=== PATIENT | female | born 1940 | race Caucasian/White ===

== ENCOUNTER 2016-06-28 13:07 | Outpatient (RCR) | payer MEDICARE ==
[~2016-06-28 13:07] MED LIST: ACHD5005 PO; ACYC-109 PO; ALEN70TA2 PO; ALPR-114 PO; ASPI-892 PO; BUDE10.22 IH; CEPH500C PO; CHOL2000 PO; CLOP75TA PO; DCS100C PO; DEXL60CA5 PO; DICL75TA2 PO; DULO60CA58 PO; EST025TD TD; ESTR42.52 VG; FENO145T18 PO; FOLI1TAB6 PO; FURO20TA4 PO; FURO40TA4 PO; GABA300T PO; HYDR-3454 PO; JUICE PLUS PO; KCL20TCR PO; LEVO250T33 PO; LORA10TA7 PO; LVT.05T PO; METO25TA PO; OMEP20CA12 PO; PANT40TA PO; PRAV10TA23 PO; RMP2.5C PO; ROPI1TAB2 PO; ROPI2TAB4 PO; SCR1T PO; TRAM-21 PO; TRUBIOTICS PO; TRZ100T PO; ZOLP10TA PO; [UNRECOGNIZED DRUG - OTHER] PO
--- OUTSIDE RECORDS SUMMARY | 2016-06-28 13:10 | XMS REPORT | Continuity of Care Document ---
Author Author [facility] Organization [facility] Address Unknown Phone Unavailable Care Team Providers Care Rate Setter Name Role Phone Naa Araiza PCP [phone] Source Comments Some departments are not documenting in the electronic medical record. If you do not see the information that you expected, contact Release of Information in the Health Information Management department at [phone] for further assistance in locating additional records.[facility] Active Allergies and Adverse Reactions No Known Allergies Current Medications Prescription Sig. Disp. Refills Start End Date Status Date esomeprazole DR(+) Take 40 mg by mouth every Active (NEXIUM) 40 mg capsule morning. aspirin 81 mg chewable Take 81 mg by mouth Active tablet daily. traMADol (ULTRAM) 50 mg Take 100 mg by mouth Active tablet every 6 hours as needed. fenofibrate Take 145 mg by mouth Active nanocrystallized (TRICOR) daily. 145 mg tablet zolpidem (AMBIEN) 10 mg Take 10 mg by mouth at Active tablet bedtime as needed. cephalexin (KEFLEX) 500 Take 500 mg by mouth four Active mg capsule times daily. metoprolol XL (TOPROL XL) Take 25 mg by mouth Active 25 mg tablet daily. sertraline (ZOLOFT) 100 Take 100 mg by mouth Active mg tablet daily. levothyroxine (SYNTHROID) Take 50 mcg by mouth Active 25 mcg tablet daily. acyclovir (ZOVIRAX) 400 Take 400 mg by mouth Active mg tablet three times daily. clopiDOGrel (PLAVIX) 75 Take 75 mg by mouth Active mg tablet daily. docusate (COLACE) 100 mg Take 100 mg by mouth Active capsule twice daily. furosemide (LASIX) 20 mg Take 1 Tab by mouth 30 Tab 0 01/03/20 Active tablet daily. 14 potassium chloride SR Take 1 Tab by mouth 30 Tab 0 01/18/20 Active (K-DUR) 20 mEq tablet daily. 14 Active Problems Problem Noted Date History of TIA (transient ischemic attack) 12/15/2012 Arteriosclerotic heart disease (ASHD) 12/15/2012 Overview: PCI [facility]MB KENDRICK September HTN (hypertension) 12/15/2012 HLD (hyperlipidemia) 12/15/2012 COLBERT (dyspnea on exertion) 12/15/2012 Social History Tobacco Use Types Packs/Day Years Used Date Never Smoker Alcohol Use Drinks/Week oz/Week Comments Yes occassional Last Filed Vital Signs Vital Sign Reading Time Taken Blood Pressure 138/74 12/25/2012 3:30 PM CDT Pulse 69 12/25/2012 3:29 PM CDT Temperature - - Respiratory Rate - - Height 1.702 m (5' 7") 12/25/2012 3:29 PM CDT Weight 68.493 kg (151 lb) 12/25/2012 3:29 PM CDT Body Mass Index 23.64 12/25/2012 3:29 PM CDT Oxygen Saturation - - Plan of Care Health Maintenance Due Date Last Done Comments Physical (Comprehensive) 1945 Exam Pertussis Vaccine 1949 Tetanus Vaccine 10/06/1955 Breast Cancer Screening 1978 Shingles Vaccine 1998 Osteoporosis Screening 10/06/2003 Prevnar/Pneumovax (#1) 10/06/2003 Influenza Vaccine 12/10/2014 Results from Last 3 Months Not on file
[2016-06-28 13:31] LABS: BASOPHILS # (AUTO) 0.1 10^3/uL (0.0-0.1); BASOPHILS % (AUTO) 1 % (0-10); EOSINOPHILS # (AUTO) 0.3 10^3/uL (0.0-0.3); EOSINOPHILS % (AUTO) 5 % (0-10); LYMPHOCYTES % (AUTO) 17 % (12-44); MEAN CORPUSCULAR HEMOGLOBIN 32 PG (25-34); MEAN CORPUSCULAR HGB CONC 33 G/DL (32-36); MEAN CORPUSCULAR VOLUME 96 FL (80-99); MEAN PLATELET VOLUME 8.9 FL (7.4-10.4); MONOCYTES # (AUTO) 0.4 X 10^3 (0.0-1.0); MONOCYTES % (AUTO) 6 % (0-12); NEUTROPHILS # (AUTO) 4.2 X 10^3 (1.8-7.8); NEUTROPHILS % (AUTO) 71 % (42-75); PLATELET COUNT 330 10^3/uL (130-400); RED BLOOD COUNT 3.76 10^6/uL (4.35-5.85)
[2016-06-28 14:17] LABS: BILIRUBIN,TOTAL 0.6 MG/DL (0.1-1.0); CALCIUM 9.3 MG/DL (8.5-10.1); CREATININE SERUM 0.91 MG/DL (0.60-1.30); POTASSIUM 4.2 MMOL/L (3.6-5.0); TOTAL PROTEIN 6.5 G/DL (6.4-8.2)
== END 2016-09-26 | disposition home or self-care (01) ==
LOC: ONC 13:07
PROVIDERS: ATTEND Internal Medicine Hematology & Oncology
DX: D69.0 Allergic purpura (principal); D64.9 Anemia, unspecified; I25.10 Atherosclerotic heart disease of native coronary artery without angina pectoris; Z95.5 Presence of coronary angioplasty implant and graft; Z96.651 Presence of right artificial knee joint; Z96.652 Presence of left artificial knee joint; Z96.641 Presence of right artificial hip joint
CPT/HCPCS: 36415; 80053; 82728; 83540; 85025; 99214

== ENCOUNTER → 2016-08-30 | Outpatient (CLI) | payer MEDICARE ==
--- NOTE | 2016-08-30 17:24 | Diagnostic Imaging Report ---
Indication: Left-sided neck and back pain for three months. No known injury. Discussion: Three views of the cervical spine were obtained, no comparison. Atherosclerotic plaque is present within the bilateral carotid bifurcations. Advanced degenerative disc disease is noted at the C5-C6 level. Moderate facet arthropathy is noted diffusely throughout the cervical spine. No compression fracture or abnormal subluxation. Paraspinal soft tissues are otherwise unremarkable. Impression: 1. Degenerative changes of the cervical spine as discussed. No acute osseous abnormality identified. Dictated by: Dictated on workstation # [id number]
--- NOTE | 2016-08-30 17:45 | Diagnostic Imaging Report ---
INDICATION: Back pain, history of compression fracture. COMPARISON: 11/29/2013. FINDINGS: Three views of the thoracic column demonstrate kyphoplasty changes at the T10 level. There is a chronic T12 compression fracture. No new fracture or traumatic malalignment is present. Minimal degenerative changes are noted. IMPRESSION: 1. Stable T12 compression fracture. 2. Status post kyphoplasty T10. 3. No new fracture identified. Dictated by: Dictated on workstation # [id number]
== END ==
LOC: RAD 16:48
PROVIDERS: ATTEND Nurse Practitioner Family
DX: M50.322 Other cervical disc degeneration at C5-C6 level (principal); M48.54XA Collapsed vertebra, not elsewhere classified, thoracic region, initial encounter for fracture
CPT/HCPCS: 72040; 72072

== ENCOUNTER → 2016-10-22 | Outpatient (CLI) | payer MEDICARE ==
--- NOTE | 2016-10-22 16:31 | Diagnostic Imaging Report ---
INDICATION: Left shoulder pain. EXAMINATION: Three views of the left shoulder were obtained. FINDINGS: No fracture, dislocation or other acute abnormalities. There appears to be narrowing of the acromiohumeral space suggesting chronic rotator cuff pathology. IMPRESSION: Suspected chronic rotator cuff pathology. No acute abnormality is seen in the shoulder. Dictated by: Dictated on workstation # [id number]
== END ==
LOC: RAD 15:54
PROVIDERS: ATTEND Family Medicine
DX: M25.512 Pain in left shoulder (principal)
CPT/HCPCS: 73030

== ENCOUNTER 2017-03-07 14:16 | Outpatient (RCR) | payer MEDICARE | END 2017-04-14 09:27 | disposition home or self-care (01) | PROVIDERS: ATTEND Family Medicine | DX: S43.492A Other sprain of left shoulder joint, initial encounter (principal); X58.XXXA Exposure to other specified factors, initial encounter; M81.0 Age-related osteoporosis without current pathological fracture; Z86.73 Personal history of transient ischemic attack (TIA), and cerebral infarction without residual deficits ==

== ENCOUNTER → 2017-03-28 | Outpatient (CLI) | payer MEDICARE | LOC: LAB 09:37 | PROVIDERS: ATTEND Family Medicine | DX: D50.9 Iron deficiency anemia, unspecified (principal) | CPT/HCPCS: 82274 ==

== ENCOUNTER 2017-04-20 05:42 | Outpatient (CLI) | payer MEDICARE ==
[~2017-04-20] VITALS: Ht 170.2 cm; Wt 68.0 kg
[2017-04-20] MEDS ORDERED: LEVO50TA6 PO (10:57)
[2017-04-20] MEDS ORDERED: DULO60CA58 PO (10:57)
[2017-04-20] MEDS ORDERED: OXYB10TA PO (10:57)
[2017-04-20] MEDS ORDERED: ASPI-586 PO (10:57)
[2017-04-20] MEDS ORDERED: METO-387 PO (10:57)
[2017-04-20] MEDS ORDERED: ALPR-114 PO (10:57)
== END 2017-04-20 10:59 ==
LOC: PREOP 05:42
PROVIDERS: ATTEND Surgery
DX: Z01.818 Encounter for other preprocedural examination (principal); Z12.11 Encounter for screening for malignant neoplasm of colon; Z86.010 Personal history of colon polyps; D64.9 Anemia, unspecified; R13.10 Dysphagia, unspecified

== ENCOUNTER 2017-04-22 10:05 | Day surgery (SDC) | payer MEDICARE ==
[~2017-04-22] VITALS: Ht 170.2 cm; Wt 68.0 kg
[~2017-04-22 10:05] MED LIST changes: +ASPI-586 PO; +LEVO50TA6 PO; +METO-387 PO; +OXYB10TA PO
[2017-04-22 10:15] VITALS: BP 100/44
[2017-04-22] MEDS ORDERED: NS IV 500 ML 500 ML ONE (10:20)
[2017-04-22] MEDS ORDERED: fentaNYL INJECTION 100 MCG/2 ML AMP ONE (10:23)
[2017-04-22] MEDS ORDERED: LIDOCAINE JELLY 2% (XYLOCAINE) 5 ML TUBE ONE (10:23)
[2017-04-22] MEDS ORDERED: MIDAZOLAM 2 MG/2 ML (VERSED) VIAL ONE ×5 (10:23)
--- NOTE | 2017-04-22 10:23 | Conscious Sedation/ASA ---
Conscious Sedation Pre-Proced Time Reviewed: 10:20 ASA Class: 2 Airway Mallampati Classification: ([place] appropriate class) I. II. III, IV Lungs Heart ASA score ASA 1: a normal healthy patient ASA 2: a patient with a mild systemic disease (mid diabetes, controlled hypertension, obesity ASA 3: a patient with a severe systemic disease that limits activity (angina , COPD, prior Myocardial infarction) ASA 4: a patient with an incapacitating disease that is a constant threat to life (CHF, renal failure) ASA 5: a moribund patient not expected to survive 24 hrs. (ruptured aneurysm) ASA 6: a declared brain patient whose organs are being harvested. For emergent operations, add the letter E after the classification Grade 2 Sedation Plan: Analgesia, Amnesia, Plan communicated to team members, Discussed options with patient/fam, Discussed risks with patient/fam Note The patient is an appropriate candidate to undergo the planned procedure, sedation, and anesthesia. The patient immediately re-assessed prior to indication. KYLIE RHODES MD Apr 22, 2017 10:23 am
--- NOTE | 2017-04-22 10:23 | Progress Note-Pre Operative ---
Pre-Operative Progress Note H&P Reviewed The H&P was reviewed, patient examined and no changes noted. Date Seen by Provider: Apr 22, 2017 Time Seen by Provider: 10:20 Date H&P Reviewed: Apr 22, 2017 Time H&P Reviewed: :20 Pre-Operative Diagnosis: anemia, PUD, hx polyps KYLIE RHODES MD Apr 22, 2017 10:23 am
[2017-04-22] MEDS ORDERED: HURRICAINE EXT TUBE (BENZOCAINE) ONE (10:24)
[2017-04-22] MEDS ORDERED: morphine INJ 10 MG/ML 1ML (SYR OR VIAL) IV PRN (10:30)
[2017-04-22] MEDS ORDERED: HYDROcodone/APAP 5 MG/325 MG (LORTAB) TAB PO PRN (10:30)
[2017-04-22] MEDS ORDERED: ONDANSETRON 4 MG/2 ML (SDV) Z0FRAN IV PRN (10:30)
[2017-04-22] MEDS ORDERED: ACETAMINOPHEN 325 MG TABLET/CAPLET (TYLENOL) PO PRN (10:30)
[2017-04-22] MEDS ORDERED: NS IV 500 ML 500 ML IV PRN (10:37)
[2017-04-22] MEDS ORDERED: HURRICAINE EXT TUBE (BENZOCAINE) XX PRN (10:45)
[2017-04-22] MEDS ORDERED: LIDOCAINE JELLY 2% (XYLOCAINE) 5 ML TUBE MM PRN (10:45)
[2017-04-22] MEDS: MIDAZOLAM 2 MG/2 ML (VERSED) VIAL IVP PRN ×5 (10:50→11:16)
[2017-04-22] MEDS: fentaNYL INJECTION 100 MCG/2 ML AMP IVP PRN ×2 (10:53→11:10)
--- NOTE | 2017-04-22 11:36 | Progress Note-Post Operative ---
Post-Operative Progess Note Surgeon (s)/Linseed Cake Trimmer (s) Surgeon KYLIE RHODES MD Linseed Cake Trimmer: none Pre-Operative Diagnosis anemia, PUD, hx polyps Post-Operative Diagnosis reflux esophagitis(class B), large HH(5cm), mild-mod gastritis. chronic stage 2 ext and int hemorrhoids, mild sigmoid diverticulosis. Procedure & Operative Findings Date of Procedure 04/22/17 Procedure Performed/Findings EGD with bx. Colonoscopy. Anesthesia Type CS Estimated Blood Loss Estimated blood loss (mL): minimal Specimens/Packing Specimens Removed GE jxn, antrum KYLIE RHODES MD Apr 22, 2017 11:36 am
--- NOTE | 2017-04-22 11:38 | Discharge Inst-Surgical ---
D/C Lap Instructions-CARMELO Follow Up PRN Activity as tolerated High Fiber Diet 25g or more per day Avoid Alcohol, Caffeine, Spicy [place] and Acid foods. Drink 64 fluid oz or more of fluids per day. Symptoms to Report: Fever over 101 degree F, Nausea/Vomiting If any problems/questions: Contact your physician or go to Emergency Room KYLIE RHODES MD Apr 22, 2017 11:38 am
[2017-04-22 11:55] VITALS: BP 136/59
[2017-04-22 12:15] VITALS: BP 115/54
[2017-04-22 12:25] VITALS: BP 115/54
--- NOTE | 2017-04-22 20:15 | OPERATIVE REPORT ---
DATE OF SERVICE: 04/22/2017 ATTENDING PRIMARY CARE PHYSICIAN: Naa Araiza MD. PREOPERATIVE DIAGNOSES: Anemia, history of gastroesophageal reflux disease and peptic ulcer disease, history of colon polyp. POSTOPERATIVE DIAGNOSES: Reflux esophagitis class B, large hiatal hernia approximately 4 to 5 cm in size. Mild to moderate gastritis. Pylorus and duodenum appeared normal. No active bleeding. Chronic stage II external and internal hemorrhoids, mild sigmoid diverticulosis. The remainder of the colon was normal. PROCEDURE: EGD with biopsy, colonoscopy. SURGEON: Kylie Rhodes MD. ANESTHESIA: Conscious sedation. ESTIMATED BLOOD LOSS: Minimal. FINDINGS: EGD, reflux esophagitis class B. No ulcers or strictures. Large hiatal hernia approximately 5 cm in size, mild to moderate gastritis with no formal ulcers, polyps or any neoplasms as well as no active bleeding source was identified. Pylorus and duodenum appeared normal with no distal obstructions. Colonoscopy, chronic stage II external and internal hemorrhoids, not actively edematous nor inflamed and no bleeding. Mild or very early sigmoid diverticulosis. The remainder of the colon was normal. There were no polyps, neoplasms or any bleeding source was identified. DISPOSITION: The patient tolerated the procedure well. INDICATIONS: The patient is a 76-year-old female referred over to us for anemia, history of gastroesophageal reflux disease, peptic ulcer disease and dysphagia. She reported shortness of breath and laboratory work was performed, which showed hemoglobin 8.7. She then had repeat labs done, which did show slight elevation at 9.4. She does report a longstanding history of anemia diagnosed several years ago. She also has had a history of gastroesophageal reflux disease, peptic ulcer disease as well as dysphagia. She reports that she also has occasional episodes of regurgitation. She does not report any hematemesis, no coffee ground emesis. She does report that she has had a polyp, which was identified in 2014, which was biopsied and found to be benign. She does not report any red blood per rectum nor any dark tarry stools and also does not report any family history of colon cancer. DESCRIPTION OF PROCEDURE: The patient was brought to the endoscopy suite, laid in the left lateral decubitus position with the head slightly elevated. After adequate IV pain and sedating medications and conscious sedation anesthesia, the mouthpiece was applied. The endoscope was placed in the mouth, visualizing the pharynx and hypopharyngeal region. Vocal cords, epiglottis and vallecula identified and appeared to be normal. The endoscope was then gently intubated at the esophageal opening and esophagus insufflated. The endoscope was then advanced to the first, second and third portions of the esophagus. At the level of the GE junction, a reflux esophagitis class B identified. The GE junction was also intrathoracic consistent with a type 1 or 3 hiatal hernia. A biopsy was taken of the GE junction with forceps with visualization of good hemostasis. The endoscope was then easily advanced in the stomach. The endoscope retroflexed, visualizing a large hiatal hernia, which was approximately 5 cm in size. This appears to be more consistent with a type 3 hiatal hernia. There were no ulcerations or bleeding identified. There was a mild to moderate gastritis, which was more diffuse in nature. There were no formal ulcers, polyps or any neoplasms identified. A biopsy was taken of the stomach antrum with visualization of good hemostasis. The endoscope was then advanced to the pylorus and the first and second portions of the duodenum, which appeared normal with no ulcerations or bleeding source was identified as well as no distal obstructions. The endoscope was then slowly withdrawn while taking a second look and suctioning of residual air with no additional findings. The patient tolerated this portion of the procedure well. For her reflux esophagitis, hiatal hernia and gastritis, we will recommend the necessary lifestyle and diet accommodation including small and more frequent meals, avoidance of eating at night as well as head elevation while lying supine. If she does taking caffeinated beverages or alcoholic beverages, we will also recommend cessation of these products. She is currently on Nexium, which appears to be working well. With her history of coronary artery disease and pulmonary hypertension, we feel that she would be a slightly higher risk for hiatal hernia repair. We will continue with medical management for now. Under the same conscious sedation anesthesia, we then proceeded with the colonoscopy portion of the procedure. A digital rectal examination was performed, which revealed chronic stage II external and internal hemorrhoids, not actively edematous nor inflamed and no bleeding. Normal sphincter tone was felt and there were no palpable masses. The endoscope was then intubated into the anus and rectum and gently insufflated. The endoscope was then advanced through the valves of Gonzalez in the rectum with no polyps or any neoplasms identified. The endoscope was then advanced to the sigmoid colon where mild or early diverticulosis identified. There is no bleeding and no mucosal inflammatory changes or any bleeding identified. The endoscope was then advanced to the remainder of the descending, transverse and ascending colon to the cecum. These segments were normal. There were no polyps, inflammatory changes or any active bleeding source was identified. The endoscope was then slowly withdrawn while taking a second look and suctioning of residual air with no additional findings. The patient tolerated the procedure well. We will recommend a high fiber diet with at least 25 grams of fiber per day to promote soft stools on a daily basis. We will continue to monitor her hemoglobin for now. Job ID: [id number] DocumentID: [id number] Dictated Date: 04/22/2017 11:37:08 Database Admin Date: 04/22/2017 20:14:22 Dictated By: KYLIE RHODES MD MTDD
== END 2017-04-22 12:25 | disposition home or self-care (01) ==
LOC: ENDO 10:05
PROVIDERS: ATTEND Surgery
DX: Z12.11 Encounter for screening for malignant neoplasm of colon (principal); Z86.010 Personal history of colon polyps; K57.20 Diverticulitis of large intestine with perforation and abscess without bleeding; K64.1 Second degree hemorrhoids; K21.0 Gastro-esophageal reflux disease with esophagitis; K44.9 Diaphragmatic hernia without obstruction or gangrene; K29.70 Gastritis, unspecified, without bleeding; D50.9 Iron deficiency anemia, unspecified; I10 Essential (primary) hypertension; E03.9 Hypothyroidism, unspecified; I25.10 Atherosclerotic heart disease of native coronary artery without angina pectoris; M19.91 Primary osteoarthritis, unspecified site; I27.20 Pulmonary hypertension, unspecified; R60.0 Localized edema; Z79.82 Long term (current) use of aspirin; Z79.899 Other long term (current) drug therapy
CPT/HCPCS: 43239; G0105

== ENCOUNTER 2017-05-11 10:16 | Outpatient (RCR) | payer MEDICARE ==
[2017-04-13 13:18] LABS: BASOPHILS # (AUTO) 0.1 10^3/uL (0.0-0.1); BASOPHILS % (AUTO) 2 % (0-10); EOSINOPHILS # (AUTO) 0.2 10^3/uL (0.0-0.3); EOSINOPHILS % (AUTO) 4 % (0-10); HEMATOCRIT 32 % (35-52); HEMOGLOBIN 9.4 G/DL (11.5-16.0); LYMPHOCYTES # (AUTO) 0.9 X 10^3 (1.0-4.0); LYMPHOCYTES % (AUTO) 17 % (12-44); MEAN CORPUSCULAR HEMOGLOBIN 25 PG (25-34); MEAN CORPUSCULAR HGB CONC 30 G/DL (32-36); MEAN CORPUSCULAR VOLUME 84 FL (80-99); MEAN PLATELET VOLUME 9.2 FL (7.4-10.4); MONOCYTES # (AUTO) 0.4 X 10^3 (0.0-1.0); MONOCYTES % (AUTO) 8 % (0-12); NEUTROPHILS # (AUTO) 3.6 X 10^3 (1.8-7.8); NEUTROPHILS % (AUTO) 70 % (42-75); PLATELET COUNT 360 10^3/uL (130-400); RED BLOOD COUNT 3.74 10^6/uL (4.35-5.85); RED CELL DISTRIBUTION WIDTH 16.7 % (10.0-14.5); WHITE BLOOD COUNT 5.1 10^3/uL (4.3-11.0)
[2017-04-13 13:37] LABS: ALANINE AMINOTRANSFERASE 16 U/L (0-55); ALKALINE PHOSPHATASE 56 U/L (40-136); BILIRUBIN,TOTAL 0.5 MG/DL (0.1-1.0); BUN/CREATININE RATIO 24; CALCIUM 9.5 MG/DL (8.5-10.1); CARBON DIOXIDE 23 MMOL/L (21-32); CHLORIDE 108 MMOL/L (98-107); CREATININE SERUM 0.79 MG/DL (0.60-1.30); GFR ESTIMATED > 60; GLUCOSE 86 MG/DL (70-105); POTASSIUM 4.2 MMOL/L (3.6-5.0); SODIUM 141 MMOL/L (135-145); TOTAL PROTEIN 6.8 GM/DL (6.4-8.2)
[2017-05-11 10:44] LABS: BASOPHILS # (AUTO) 0.1 10^3/uL (0.0-0.1); BASOPHILS % (AUTO) 1 % (0-10); EOSINOPHILS # (AUTO) 0.2 10^3/uL (0.0-0.3); EOSINOPHILS % (AUTO) 2 % (0-10); HEMATOCRIT 40 % (35-52); HEMOGLOBIN 12.9 G/DL (11.5-16.0); LYMPHOCYTES # (AUTO) 0.9 X 10^3 (1.0-4.0); LYMPHOCYTES % (AUTO) 12 % (12-44); MEAN CORPUSCULAR HEMOGLOBIN 28 PG (25-34); MEAN CORPUSCULAR HGB CONC 33 G/DL (32-36); MEAN CORPUSCULAR VOLUME 87 FL (80-99); MEAN PLATELET VOLUME 9.4 FL (7.4-10.4); MONOCYTES # (AUTO) 0.5 X 10^3 (0.0-1.0); MONOCYTES % (AUTO) 7 % (0-12); NEUTROPHILS # (AUTO) 5.8 X 10^3 (1.8-7.8); NEUTROPHILS % (AUTO) 78 % (42-75); PLATELET COUNT 310 10^3/uL (130-400); RED BLOOD COUNT 4.57 10^6/uL (4.35-5.85); RED CELL DISTRIBUTION WIDTH 20.4 % (10.0-14.5); WHITE BLOOD COUNT 7.4 10^3/uL (4.3-11.0)
[2017-05-11 10:58] LABS: ALANINE AMINOTRANSFERASE 16 U/L (0-55); ALBUMIN 4.2 GM/DL (3.2-4.5); ALKALINE PHOSPHATASE 53 U/L (40-136); BILIRUBIN,TOTAL 0.5 MG/DL (0.1-1.0); BUN/CREATININE RATIO 19; CALCIUM 10.2 MG/DL (8.5-10.1); CARBON DIOXIDE 21 MMOL/L (21-32); CHLORIDE 108 MMOL/L (98-107); CREATININE SERUM 0.89 MG/DL (0.60-1.30); GFR ESTIMATED > 60; GLUCOSE 109 MG/DL (70-105); POTASSIUM 4.4 MMOL/L (3.6-5.0); SODIUM 141 MMOL/L (135-145); TOTAL PROTEIN 7.4 GM/DL (6.4-8.2)
== END 2017-07-12 | disposition home or self-care (01) ==
LOC: ONC 10:16
PROVIDERS: ATTEND Internal Medicine Hematology & Oncology
DX: D69.0 Allergic purpura (principal); D64.9 Anemia, unspecified; I25.10 Atherosclerotic heart disease of native coronary artery without angina pectoris; Z95.5 Presence of coronary angioplasty implant and graft; Z96.651 Presence of right artificial knee joint; Z96.652 Presence of left artificial knee joint; Z96.641 Presence of right artificial hip joint
CPT/HCPCS: 36415; 80053; 82607; 82728; 82746; 83540; 85025; 99213

== ENCOUNTER → 2017-06-30 | Outpatient (CLI) | payer MEDICARE ==
--- NOTE | 2017-06-30 17:42 | Diagnostic Imaging Report ---
INDICATION: Routine screening. COMPARISON: Comparison is made with prior mammogram from 01/03/2013. The current study was also evaluated with a Computer Aided Detection (CAD) system. FINDINGS: Bilateral breast implants are again noted. The implant contours appear smooth. No discrete mass is identified. Benign-appearing calcifications are noted bilaterally. There is a biopsy clip in the upper-outer left breast. No mass or malignant appearing microcalcifications are seen. The axillae are unremarkable. IMPRESSION: No mammographic features suspicious for malignancy are identified. ACR BI-RADS Category 2: Benign findings. Result letter will be mailed to the patient. Note: At least 10% of breast cancer is not imaged by mammography. Dictated by: Dictated on workstation # [id number]
== END ==
LOC: RAD 09:25
PROVIDERS: ATTEND Family Medicine
DX: Z12.31 Encounter for screening mammogram for malignant neoplasm of breast (principal); N64.4 Mastodynia
CPT/HCPCS: 77067

== ENCOUNTER 2017-08-03 13:15 | Outpatient (RCR) | payer MEDICARE ==
[2017-08-03 14:00] LABS: BASOPHILS # (AUTO) 0.1 10^3/uL (0.0-0.1); BASOPHILS % (AUTO) 1 % (0-10); EOSINOPHILS # (AUTO) 0.3 10^3/uL (0.0-0.3); EOSINOPHILS % (AUTO) 5 % (0-10); HEMATOCRIT 40 % (35-52); HEMOGLOBIN 13.5 G/DL (11.5-16.0); LYMPHOCYTES # (AUTO) 1.3 X 10^3 (1.0-4.0); LYMPHOCYTES % (AUTO) 24 % (12-44); MEAN CORPUSCULAR HEMOGLOBIN 31 PG (25-34); MEAN CORPUSCULAR HGB CONC 34 G/DL (32-36); MEAN CORPUSCULAR VOLUME 91 FL (80-99); MEAN PLATELET VOLUME 9.4 FL (7.4-10.4); MONOCYTES # (AUTO) 0.4 X 10^3 (0.0-1.0); MONOCYTES % (AUTO) 7 % (0-12); NEUTROPHILS # (AUTO) 3.3 X 10^3 (1.8-7.8); NEUTROPHILS % (AUTO) 63 % (42-75); PLATELET COUNT 304 10^3/uL (130-400); RED BLOOD COUNT 4.42 10^6/uL (4.35-5.85); RED CELL DISTRIBUTION WIDTH 14.7 % (10.0-14.5); WHITE BLOOD COUNT 5.3 10^3/uL (4.3-11.0)
[2017-08-03 14:15] LABS: ALANINE AMINOTRANSFERASE 8 U/L (0-55); ALBUMIN 4.1 GM/DL (3.2-4.5); ALKALINE PHOSPHATASE 57 U/L (40-136); BILIRUBIN,TOTAL 0.5 MG/DL (0.1-1.0); BUN/CREATININE RATIO 31; CALCIUM 10.1 MG/DL (8.5-10.1); CARBON DIOXIDE 22 MMOL/L (21-32); CHLORIDE 110 MMOL/L (98-107); CREATININE SERUM 0.86 MG/DL (0.60-1.30); GFR ESTIMATED > 60; GLUCOSE 87 MG/DL (70-105); POTASSIUM 4.5 MMOL/L (3.6-5.0); SODIUM 141 MMOL/L (135-145); TOTAL PROTEIN 6.9 GM/DL (6.4-8.2)
== END 2017-11-01 | disposition home or self-care (01) ==
LOC: ONC 13:15
PROVIDERS: ATTEND Internal Medicine Hematology & Oncology
DX: D50.9 Iron deficiency anemia, unspecified (principal); D69.0 Allergic purpura; I25.10 Atherosclerotic heart disease of native coronary artery without angina pectoris; I11.0 Hypertensive heart disease with heart failure; I50.32 Chronic diastolic (congestive) heart failure; I27.20 Pulmonary hypertension, unspecified; E78.5 Hyperlipidemia, unspecified; K21.9 Gastro-esophageal reflux disease without esophagitis; M19.91 Primary osteoarthritis, unspecified site; Z86.73 Personal history of transient ischemic attack (TIA), and cerebral infarction without residual deficits; Z79.82 Long term (current) use of aspirin; Z79.899 Other long term (current) drug therapy; Z98.82 Breast implant status; Z96.653 Presence of artificial knee joint, bilateral; Z95.5 Presence of coronary angioplasty implant and graft; Z96.641 Presence of right artificial hip joint
CPT/HCPCS: 36415; 80053; 82728; 85025; 99213

== ENCOUNTER 2017-11-16 08:11 | Outpatient (RCR) | payer MEDICARE ==
[2017-11-16 08:41] LABS: BASOPHILS # (AUTO) 0.1 10^3/uL (0.0-0.1); BASOPHILS % (AUTO) 2 % (0-10); EOSINOPHILS # (AUTO) 0.2 10^3/uL (0.0-0.3); EOSINOPHILS % (AUTO) 5 % (0-10); HEMATOCRIT 39 % (35-52); HEMOGLOBIN 13.4 G/DL (11.5-16.0); LYMPHOCYTES # (AUTO) 1.1 X 10^3 (1.0-4.0); LYMPHOCYTES % (AUTO) 25 % (12-44); MEAN CORPUSCULAR HEMOGLOBIN 32 PG (25-34); MEAN CORPUSCULAR HGB CONC 35 G/DL (32-36); MEAN CORPUSCULAR VOLUME 93 FL (80-99); MEAN PLATELET VOLUME 9.6 FL (7.4-10.4); MONOCYTES # (AUTO) 0.5 X 10^3 (0.0-1.0); MONOCYTES % (AUTO) 11 % (0-12); NEUTROPHILS # (AUTO) 2.6 X 10^3 (1.8-7.8); NEUTROPHILS % (AUTO) 57 % (42-75); PLATELET COUNT 306 10^3/uL (130-400); RED BLOOD COUNT 4.16 10^6/uL (4.35-5.85); RED CELL DISTRIBUTION WIDTH 13.4 % (10.0-14.5); WHITE BLOOD COUNT 4.5 10^3/uL (4.3-11.0)
[2017-11-16 09:01] LABS: ALANINE AMINOTRANSFERASE 20 U/L (0-55); ALBUMIN 4.2 GM/DL (3.2-4.5); ALKALINE PHOSPHATASE 49 U/L (40-136); BILIRUBIN,TOTAL 0.6 MG/DL (0.1-1.0); BUN/CREATININE RATIO 28; CALCIUM 10.6 MG/DL (8.5-10.1); CARBON DIOXIDE 23 MMOL/L (21-32); CHLORIDE 106 MMOL/L (98-107); CREATININE SERUM 0.87 MG/DL (0.60-1.30); GFR ESTIMATED > 60; GLUCOSE 94 MG/DL (70-105); POTASSIUM 4.6 MMOL/L (3.6-5.0); SODIUM 137 MMOL/L (135-145)
== END 2017-12-09 | disposition home or self-care (01) ==
LOC: ONC 08:11
PROVIDERS: ATTEND Internal Medicine Hematology & Oncology
DX: D50.9 Iron deficiency anemia, unspecified (principal); D69.0 Allergic purpura; I25.10 Atherosclerotic heart disease of native coronary artery without angina pectoris; I11.0 Hypertensive heart disease with heart failure; I50.32 Chronic diastolic (congestive) heart failure; I27.20 Pulmonary hypertension, unspecified; E78.5 Hyperlipidemia, unspecified; K21.9 Gastro-esophageal reflux disease without esophagitis; M19.91 Primary osteoarthritis, unspecified site; Z86.73 Personal history of transient ischemic attack (TIA), and cerebral infarction without residual deficits; Z79.82 Long term (current) use of aspirin; Z79.899 Other long term (current) drug therapy; Z98.82 Breast implant status; Z96.653 Presence of artificial knee joint, bilateral; Z95.5 Presence of coronary angioplasty implant and graft; Z96.641 Presence of right artificial hip joint
CPT/HCPCS: 80053; 82728; 84443; 85025; 99213

== ENCOUNTER → 2018-05-25 | Outpatient (CLI) | payer MEDICARE ==
[2018-05-25 10:03] LABS: BASOPHILS # (AUTO) 0.1 10^3/uL (0.0-0.1); BASOPHILS % (AUTO) 1 % (0-10); EOSINOPHILS # (AUTO) 0.1 10^3/uL (0.0-0.3); EOSINOPHILS % (AUTO) 1 % (0-10); HEMATOCRIT 38 % (35-52); HEMOGLOBIN 12.3 G/DL (11.5-16.0); LYMPHOCYTES # (AUTO) 1.1 X 10^3 (1.0-4.0); LYMPHOCYTES % (AUTO) 20 % (12-44); MEAN CORPUSCULAR HEMOGLOBIN 30 PG (25-34); MEAN CORPUSCULAR HGB CONC 33 G/DL (32-36); MEAN CORPUSCULAR VOLUME 91 FL (80-99); MEAN PLATELET VOLUME 9.3 FL (7.4-10.4); MONOCYTES # (AUTO) 0.4 X 10^3 (0.0-1.0); MONOCYTES % (AUTO) 8 % (0-12); NEUTROPHILS # (AUTO) 3.7 X 10^3 (1.8-7.8); NEUTROPHILS % (AUTO) 70 % (42-75); PLATELET COUNT 323 10^3/uL (130-400); RED CELL DISTRIBUTION WIDTH 14.8 % (10.0-14.5); WHITE BLOOD COUNT 5.3 10^3/uL (4.3-11.0)
[2018-05-25 10:25] LABS: ALANINE AMINOTRANSFERASE 32 U/L (0-55); ALBUMIN 4.1 GM/DL (3.2-4.5); ALKALINE PHOSPHATASE 45 U/L (40-136); BILIRUBIN,TOTAL 0.5 MG/DL (0.1-1.0); BUN/CREATININE RATIO 24; CALCIUM 9.6 MG/DL (8.5-10.1); CARBON DIOXIDE 23 MMOL/L (21-32); CHLORIDE 109 MMOL/L (98-107); CREATININE SERUM 0.83 MG/DL (0.60-1.30); GFR ESTIMATED > 60; GLUCOSE 96 MG/DL (70-105); POTASSIUM 4.4 MMOL/L (3.6-5.0); SODIUM 140 MMOL/L (135-145)
== END ==
LOC: EDSTATUS 01-09 09:23 → ONC 09:26
PROVIDERS: ATTEND Internal Medicine Hematology & Oncology
DX: D50.9 Iron deficiency anemia, unspecified (principal); D69.0 Allergic purpura; I25.10 Atherosclerotic heart disease of native coronary artery without angina pectoris; I11.0 Hypertensive heart disease with heart failure; I50.32 Chronic diastolic (congestive) heart failure; I27.20 Pulmonary hypertension, unspecified; E78.5 Hyperlipidemia, unspecified; K21.9 Gastro-esophageal reflux disease without esophagitis; M19.91 Primary osteoarthritis, unspecified site; Z86.73 Personal history of transient ischemic attack (TIA), and cerebral infarction without residual deficits; Z79.82 Long term (current) use of aspirin; Z79.899 Other long term (current) drug therapy; Z98.82 Breast implant status; Z96.653 Presence of artificial knee joint, bilateral; Z95.5 Presence of coronary angioplasty implant and graft; Z96.641 Presence of right artificial hip joint
CPT/HCPCS: 36415; 80053; 82728; 83540; 85025; 99213

== ENCOUNTER → 2019-12-05 | Outpatient (CLI) | payer MEDICARE ==
[~2019-12-05] MED LIST changes: +DULO60CA59 PO; -HYDR-3454 PO; +HYDR-3455 PO; -METO-387 PO; +MTP25TSR PO; -OXYB10TA PO; +OXYB10TA29 PO; -ROPI2TAB4 PO; +ROPI2TAB6 PO
--- NOTE | 2019-12-05 14:00 | Diagnostic Imaging Report ---
PROCEDURE: US carotid duplex, bilateral. TECHNIQUE: Multiple real-time grayscale images were obtained over the carotid arteries in various projections, bilaterally. Additional spectral analysis and color Doppler duplex images were also obtained. INDICATION: Carotid stenosis. Moderate plaque in both carotid bulbs extending into the proximal internal carotid arteries bilaterally is noted. Velocities are mildly elevated in the right internal carotid arteries reaching 177 cm/sec. Velocities are elevated in the left internal carotid artery reaching 218 cm/s Parameters based on the consensus panel Mcneal-Scale and Doppler ultrasound criteria published February 2003, Radiology, Volume 229. DOPPLER (peak systolic velocity M/S Right Left CCA 0.86 1.02. Both vertebral arteries show antegrade flow. IMPRESSION: Moderate bilateral carotid plaque. Velocity measurements are consistent with approximately 50-69% diameter stenosis bilateral internal carotid arteries. ICA Proximal 1.51 2.09 ICA Mid 1.42 2.18 ICA Distal 1.77 1.11 RATIO 2.05 2.14 ECA 1.98 1.60 VERT 0.69 0.57 Dictated by: Dictated on workstation # [id number]
== END ==
LOC: RAD 12:00
PROVIDERS: ATTEND Internal Medicine Cardiovascular Disease
DX: I65.23 Occlusion and stenosis of bilateral carotid arteries (principal)
CPT/HCPCS: 93880

== ENCOUNTER → 2020-08-27 | Outpatient (CLI) | payer MEDICARE ==
--- NOTE | 2020-08-27 16:51 | Diagnostic Imaging Report ---
PROCEDURE: US bilateral lower extremity arterial. TECHNIQUE: Multiple real-time grayscale images are obtained through both lower extremity arterial systems with color Doppler imaging and color Doppler spectral analysis. INDICATION: 79-year-old female with bilateral lower extremity claudication symptoms. CORRELATION STUDY: None. FINDINGS: There is no detectable flow within the distal aspect of the right posterior tibial artery at the level of the ankle. There is otherwise visualized flow at the ankle via the bilateral dorsalis pedis arteries and left posterior tibial artery. There are predominantly dampened biphasic waveforms throughout the arterial systems. There is very mild velocity change from the distal aspect of the superficial femoral artery into the popliteal artery at the left leg and may be reflective of mild narrowing. IMPRESSION: 1. Absence of detectable flow in the distal right posterior tibial artery. 2. Suggestion of slight velocity change from the distal aspect of superficial femoral artery to the popliteal artery of the left leg may be reflective of mild narrowing. Dictated by: Dictated on workstation # [id number]
== END ==
LOC: RAD 14:33
PROVIDERS: ATTEND Nurse Practitioner Family
DX: I73.9 Peripheral vascular disease, unspecified (principal)
CPT/HCPCS: 93925

== ENCOUNTER → 2021-02-02 | Outpatient (CLI) | payer MEDICARE ==
--- NOTE | 2021-02-02 15:52 | Diagnostic Imaging Report ---
INDICATION: LT ANKLE PAIN EDEMA DECREASED ROM S/P FALL ON 02/01/21. COMPARISON: None. FINDINGS: Three radiographic views of the left ankle were obtained. There is asymmetric lateral soft tissue swelling. Evaluation of the underlying osseous structures demonstrates extraosseous calcification overlying the lateral margins of the talus just distal to the fibular tip. Findings are suspicious for a talar avulsion fracture. Joint spaces are maintained. No unexpected radiopaque foreign bodies are seen. IMPRESSION: Probable acute talar avulsion fracture. Dictated by: Dictated on workstation # [id number]
== END ==
LOC: RAD 14:17
PROVIDERS: ATTEND Nurse Practitioner Family
DX: M25.572 Pain in left ankle and joints of left foot (principal); M25.472 Effusion, left ankle; W19.XXXA Unspecified fall, initial encounter
CPT/HCPCS: 73610

== ENCOUNTER 2021-05-21 16:51 | Observation (INO) | payer MEDICARE ==
[~2021-05-21] VITALS: Ht 170 cm; Wt 62.0 kg
[2021-05-21] MEDS ORDERED: HYDROmorphone 2 MG/ML VIAL (DILAUDID) IV ONE ×2 (17:00)
--- NOTE | 2021-05-21 17:00 | ED Lower Extremity ---
General Stated Complaint: R HIP PAIN Source: patient Exam Limitations: no limitations History of Present Illness Date Seen by Provider: May 21, 2021 Time Seen by Provider: 16:58 Initial Comments To ER with right hip pain. She arrives by EMS. She was at home sitting on the toilet when she stood up and twisted and felt a crunching sensation in the right hip. This was replaced about [address] Cabrera at [facility] in [place]. She did not fall, she sat back down on the toilet. EMS gave 100 mcg of fentanyl in route to the hospital which took her pain from a 10 out of 10 to a 7 out of 10. She has been unable to bear weight on the hip since the fall. Onset: just prior to arrival Severity: moderate Pain/Injury Location: right hip Method of Injury: twisted Modifying Factors: Worse With Movement Allergies and Home Medications Allergies Coded Allergies: Sulfa (Sulfonamide Antibiotics) (Verified Allergy, Unknown, 06/30/15) Patient Home Medication List Home Medication List Reviewed: Yes Alendronate Sodium (Alendronate Sodium) 70 Mg Tablet, 70 MG PO THUR, (Reported) Entered as Reported by: MAYELA GONZALEZ on 05/22/211011 Last Action: Converted Ascorbic Acid (Vitamin C) 500 Mg Tablet, 500 MG PO DAILY, (Reported) Entered as Reported by: MAYELA GONZALEZ on 05/22/211011 Last Action: Continued Aspirin (Aspirin) 81 Mg Tab.chew, 81 MG PO Q48H, (Reported) Entered as Reported by: MAYELA GONZALEZ on 05/22/211011 Last Action: Continued Cholecalciferol (Vitamin D3) (Vitamin D3) 25 Mcg Tablet, 25 MCG PO DAILY, (Reported) Entered as Reported by: MAYELA GONZALEZ on 05/22/211011 Last Action: Continued Cyanocobalamin (Vitamin B-12) (Vitamin B12) 2,500 Mcg Tablet, 2,500 MCG PO DAILY, (Reported) Entered as Reported by: MAYELA GONZALEZ on 05/22/211011 Last Action: Converted Cyclobenzaprine HCl (Cyclobenzaprine HCl) 5 Mg Tablet, 5-10 MG PO Q8H PRN for MUSCLE SPASMS, (Reported) Entered as Reported by: MAYELA GONZALEZ on 05/22/211011 Last Action: Converted Docusate Sodium (Docusate Sodium) 100 Mg Capsule, 200 MG PO HS, (Reported) Entered as Reported by: MAYELA GONZALEZ on 05/22/211011 Last Action: Continued Duloxetine HCl (Duloxetine HCl) 60 Mg Capsule.dr, 60 MG PO HS, (Reported) Entered as Reported by: JALEN FIGUEROA on 04/20/17 1057 Last Action: Converted Ferrous Sulfate (Iron) 325 Mg Tablet, 650 MG PO Q48H, (Reported) Entered as Reported by: MAYELA GONZALEZ on 05/22/211011 Last Action: Continued Levothyroxine Sodium (Euthyrox) 50 Mcg Tablet, 50 MCG PO DAILY, (Reported) Entered as Reported by: MAYELA GONZALEZ on 05/22/211011 Last Action: Continued Losartan/Hydrochlorothiazide (Losartan-Hctz 100-25 mg Tab) 1 Each Tablet, 1 EA PO HS, (Reported) Entered as Reported by: MAYELA GONZALEZ on 05/22/211011 Last Action: Converted Magnesium Oxide (Magnesium) 400 Mg Tablet, 400 MG PO HS, (Reported) Entered as Reported by: MAYELA GONZALEZ on 05/22/211011 Last Action: Converted Mirtazapine (Mirtazapine) 15 Mg Tablet, 15 MG PO HS, (Reported) Entered as Reported by: MAYELA GONZALEZ on 05/22/211011 Last Action: Converted Oxybutynin Chloride (Oxybutynin Chloride ER) 15 Mg Tab.er.24, 15 MG PO DAILY, (Reported) Entered as Reported by: MAYELA GONZALEZ on 05/22/211011 Last Action: Converted Pantoprazole Sodium (Pantoprazole Sodium) 40 Mg Tablet.dr, 40 MG PO DAILY, (Reported) Entered as Reported by: MAYELA GONZALEZ on 05/22/21 101 Last Action: Continued Ropinirole HCl (Ropinirole HCl) 2 Mg Tablet, 2 MG PO HS, (Reported) Entered as Reported by: JALEN FIGUEROA on 06/30/15 1228 Last Action: Converted Valacyclovir HCl (Valacyclovir) 500 Mg Tablet, 250 MG PO HS, (Reported) Entered as Reported by: MAYELA GONZALEZ on 05/22/211011 Last Action: Continued Discontinued Medications Alendronate Sodium (Fosamax) 70 Mg Tablet, 70 MG PO WEEKLY, (Reported) Discontinued Reason: Duplicate Order Entered as Reported by: JALEN FIGUEROA on 06/30/15 1228 Last Action: Discontinued Alprazolam (Alprazolam Xr) 0.5 Mg Tab.er.24h, 0.5 MG PO HS, (Reported) Discontinued Reason: Duplicate Order Entered as Reported by: JALEN FIGUEROA on 04/20/17 105 Last Action: Discontinued Aspirin (Aspir 81) 81 Mg Tablet., 81 MG PO MoWeFr, (Reported) Discontinued Reason: Duplicate Order Entered as Reported by: JALEN FIGUEROA on 04/20/17 105 Last Action: Discontinued Cholecalciferol (Vitamin D) 2,000 Unit Capsule, 2,000 UNIT PO DAILY, (Reported) Discontinued Reason: Duplicate Order Entered as Reported by: MICHAEL TURPIN on 06/04/14 1018 Last Action: Discontinued Dexlansoprazole (Dexilant) 60 Mg Davey., 60 MG PO DAILY, (Reported) Discontinued Reason: Duplicate Order Entered as Reported by: MICHAEL TURPIN on 06/04/14 1004 Last Action: Discontinued Docusate Sodium (Colace) 100 Mg Cap, 100 MG PO DAILY, (Reported) Discontinued Reason: Duplicate Order Entered as Reported by: MICHAEL TURPIN on 06/04/14 1012 Last Action: Discontinued Fenofibrate Nanocrystallized (Fenofibrate) 145 Mg Tablet, 145 MG PO HS, (Reported) Discontinued Reason: Duplicate Order Entered as Reported by: MICHAEL TURPIN on 06/04/14 1004 Last Action: Discontinued Folic Acid/Mv,Fe,Other Min (Centrum Complete Multivit Tab) 1 Each Tablet, 1 TAB PO DAILY, (Reported) Discontinued Reason: Duplicate Order Entered as Reported by: MICHAEL TURPIN on 06/04/14 1018 Last Action: Discontinued Furosemide (Furosemide) 40 Mg Tablet, 40 MG PO DAILY, (Reported) Discontinued Reason: Duplicate Order Entered as Reported by: JALEN FIGUEROA on 06/30/15 1228 Last Action: Discontinued Levothyroxine Sodium (Levothyroxine Sodium) 50 Mcg Tablet, 50 MCG PO DAILY, (Reported) Discontinued Reason: Duplicate Order Entered as Reported by: JALEN FIGUEROA on 1/10/18 1057 Last Action: Discontinued Loratadine (Loratadine) 10 Mg Tablet, 10 MG PO DAILY, (Reported) Discontinued Reason: Duplicate Order Entered as Reported by: MICHAEL TURPIN on 06/04/14 100 Last Action: Discontinued Metoprolol Succinate (Metoprolol Succinate) 25 Mg Tab.er.24h, 25 MG PO HS, (Reported) Discontinued Reason: Duplicate Order Entered as Reported by: JALEN FIGUEROA on 04/20/17 105 Last Action: Discontinued Oxybutynin Chloride (Oxybutynin Chloride ER) 10 Mg Tab.er.24, 10 MG PO DAILY, (Reported) Discontinued Reason: Duplicate Order Entered as Reported by: JALEN FIGUEROA on 04/20/171056 Last Action: Discontinued Potassium Chloride (K-Dur) 20 Meq Tab, 20 MEQ PO DAILY, (Reported) Discontinued Reason: Duplicate Order Entered as Reported by: MARILEE RIZO on 01/20/101920 Last Action: Discontinued Tramadol Hcl (Ultram) 50 Mg Tablet, 100 MG PO Q6 -8H PRN for PAIN, (Reported) Discontinued Reason: Duplicate Order Entered as Reported by: MICHAEL TURPIN on 06/04/14 101 Last Action: Discontinued Trazodone Hcl (Desyrel) 100 Mg Tablet, 100 MG PO HS, (Reported) Discontinued Reason: Duplicate Order Entered as Reported by: MICHAEL TURPIN on 06/04/141003 Last Action: Discontinued [Trubiotics] , 1 TAB PO DAILY, (Reported) Discontinued Reason: Duplicate Order Entered as Reported by: MICHAEL TURPIN on 06/04/141003 Last Action: Discontinued Review of Systems Constitutional: see HPI EENTM: see HPI Respiratory: no symptoms reported Cardiovascular: no symptoms reported Genitourinary: no symptoms reported Musculoskeletal: see HPI Skin: no symptoms reported Psychiatric/Neurological: No Symptoms Reported Past Pdczlbc-Mpxfhh-Rirpvq Hx Immunizations Up To Date Tetanus Booster (TDap): Less than 5yrs Seasonal Allergies Seasonal Allergies: No Past Medical History Coronary Stent, Gallbladder, Hysterectomy, Joint Replacement Coronary Artery Disease, Hypertension Neuropathy, TIA 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 0.0oz. 68.582117ci; 23.5 BMI Method:Stated General Appearance: WD/WN, no apparent distress HEENT: PERRL/EOMI, normal ENT inspection Neck: non-tender, full range of motion Respiratory: no respiratory distress, no accessory muscle use Hips: left hip non-tender, left hip normal inspection, left hip normal range of motion; right hip deformity (Right leg is internally rotated), right hip pain, right hip soft tissue tenderness, right hip swelling Legs: bilateral leg non-tender, bilateral leg normal inspection, bilateral leg normal range of motion Knees: bilateral knee non-tender, bilateral knee normal inspection, bilateral knee normal range of motion Ankles: bilateral ankle non-tender, bilateral ankle normal inspection, bilateral ankle normal range of motion Feet: bilateral foot non-tender, bilateral foot normal inspection, bilateral foot normal range of motion Neurologic/Psychiatric: alert, normal mood/affect, oriented x 3 Skin: normal color, warm/dry Progress/Results/Core Measures Results/Orders Lab Results Laboratory Tests Test 05/21/21 18:52 Range/Units White Blood Count 6.9 4.3-11.0 10^3/uL Red Blood Count 3.53 L 3.80-5.11 10^6/uL Hemoglobin 10.7 L 11.5-16.0 g/dL Hematocrit 32 L 35-52 % Mean Corpuscular Volume 92 80-99 fL Mean Corpuscular Hemoglobin 30 25-34 pg Mean Corpuscular Hemoglobin Concent 33 32-36 g/dL Red Cell Distribution Width 18.1 H 10.0-14.5 % Platelet Count 106 L 130-400 10^3/uL Mean Platelet Volume 10.3 9.0-12.2 fL Immature Granulocyte % (Auto) 1 % Neutrophils (%) (Auto) 85 H 42-75 % Lymphocytes (%) (Auto) 8 L 12-44 % Monocytes (%) (Auto) 4 0-12 % Eosinophils (%) (Auto) 2 0-10 % Basophils (%) (Auto) 0 0-10 % Neutrophils # (Auto) 5.9 1.8-7.8 10^3/uL Lymphocytes # (Auto) 0.6 L 1.0-4.0 10^3/uL Monocytes # (Auto) 0.3 0.0-1.0 10^3/uL Eosinophils # (Auto) 0.1 0.0-0.3 10^3/uL Basophils # (Auto) 0.0 0.0-0.1 10^3/uL Immature Granulocyte # (Auto) 0.0 0.0-0.1 10^3/uL Prothrombin Time 12.7 12.2-14.7 SEC INR Comment 0.9 0.8-1.4 Sodium Level 138 135-145 MMOL/L Potassium Level 3.8 3.6-5.0 MMOL/L Chloride Level 104 98-107 MMOL/L Carbon Dioxide Level 20 L 21-32 MMOL/L Anion Gap 14 5-14 MMOL/L Blood Urea Nitrogen 38 H 7-18 MG/DL Creatinine 1.32 H 0.60-1.30 MG/DL Estimat Glomerular Filtration Rate 40 BUN/Creatinine Ratio 29 Glucose Level 104 70-105 MG/DL Calcium Level 9.6 8.5-10.1 MG/DL Corrected Calcium 9.6 8.5-10.1 MG/DL Total Bilirubin 0.5 0.1-1.0 MG/DL Aspartate Amino Transf (AST/SGOT) 29 5-34 U/L Alanine Aminotransferase (ALT/SGPT) 23 0-55 U/L Alkaline Phosphatase 52 40-136 U/L Total Protein 7.1 6.4-8.2 GM/DL Albumin 4.0 3.2-4.5 GM/DL My Orders Orders - JOANNA MARTINO APRN Cbc With Automated Diff (05/21/21 16:57) Comprehensive Metabolic Panel (05/21/21 16:57) Protime With Inr (05/21/21 16:57) Chest 1 View, Ap/Pa Only (05/21/21 16:57) Pelvis With Right Hip 2-3views (05/21/21 16:57) Hydromorphone Injection (Dilaudid Inject (05/21/21 17:00) Hydromorphone Injection (Dilaudid Inject (05/21/21 17:00) Ns Iv 500 Ml (Sodium Chloride 0.9%) (05/21/21 17:45) Ondansetron Injection (Zofran Injectio (05/21/21 17:45) Etomidate Injection (Amidate Injection) (05/21/21 17:45) Fentanyl Inj (Sublimaze Injection) (05/21/21 18:04) Midazolam Injection (Versed Injection) (05/21/21 18:04) Fentanyl Inj (Sublimaze Injection) (05/21/21 18:45) Midazolam Injection (Versed Injection) (05/21/21 18:45) Abduction Pillow: Apply (Order (05/21/21 19:09) Marques Cath (05/21/21 19:09) Anesthesia Consult (05/21/21 19:37) Pelvis (05/21/21 20:03) Medications Given in ED Current Medications Medications Dose Ordered Sig/Arnav Route Start Time Stop Time Status Last Admin Dose Admin Etomidate 15 mg ONCE ONCE IV 05/21/21 17:45 05/21/21 17:47 DC 05/21/21 17:59 20 MG Fentanyl Citrate 50 mcg ONCE ONCE IVP 05/21/21 18:45 05/21/21 18:46 DC 05/21/21 18:10 50 MCG Fentanyl Citrate 100 mcg STK-MED ONCE .ROUTE 05/21/21 18:04 05/21/21 18:09 DC 05/21/21 18:07 50 MCG Hydromorphone HCl 0.5 mg ONCE ONCE IV 05/21/21 17:00 05/21/21 17:01 DC 05/21/21 17:05 0.5 MG Hydromorphone HCl 0.5 mg ONCE ONCE IV 05/21/21 17:00 05/21/21 17:01 DC 05/21/21 18:10 0.5 MG Midazolam HCl 2 mg ONCE ONCE IVP 05/21/21 18:45 05/21/21 18:46 DC 05/21/21 18:10 2 MG Midazolam HCl 5 mg STK-MED ONCE .ROUTE 05/21/21 18:04 05/21/21 18:09 DC 05/21/21 18:07 3 MG Ondansetron HCl 4 mg ONCE ONCE IVP 05/21/21 17:45 05/21/21 17:47 DC 05/21/21 17:52 4 MG Vital Signs/I&O 05/21/21 16:55 Temp 36.3 Pulse 87 Resp 18 B/P (MAP) 117/79 (92) Pulse Ox 98 Departure Communication (Admissions) Family Conversation 182-given her 20 mg of etomidate, 5 mg of Versed, 100 mcg of fentanyl and she is still having spasms of the hip keeping it flexed during attempted reduction with visible muscle spasms of the hip.. We have attempted reduction here in the emergency room unsuccessfully. Spoke with Dr. Chau who is on-call for orthopedics. He advised me that she is a Dr. Cabrera patient and he is only on- call for unassigned patients. Spoke with [facility] who has Dr. Hernandez on-call and they are on diversion and cannot accept her. Spoke with Dr. Chau again, he tells me he does not do total hips and wants to know what he is supposed to do if he cannot get this reduced either. I advised that he is orthopedics outreach liaison and I would defer to him on that. States that he disagrees with this but he will be in in an hour. 2010-Dr. Chau is here, Dr. Salinas is here. Patient was given [address] Chau was able to reduce the hip in the emergency room. Abduction pillow was placed. Dr. Chau would like the abduction pillow when she is in bed, pillow between the legs when she is up in her chair. Bathroom privileges as tolerated. Patient is awake at this time and feels quite a bit better. She lives at home alone and would feel better being admitted. This is certainly reasonable. NAME: MARIANA SALAZAR [facility] REC#: [id number] PT STATUS: REG ER : 1940 PHYSICIAN: JOANNA MARTINO APRN ADMIT DATE: 05/21/21/ER Draft Date of Exam:05/21/21 PELVIS WITH RIGHT HIP 2-3VIEWS EXAMINATION: Right hip unilateral 2 or 3 views (w/pelvis when done) HISTORY: right hip pain COMPARISON: 11/29/2013 FINDINGS: There is a dislocation of the right hip with the femoral head prosthesis displaced cranial to the acetabular cup. No fractures identified but postreduction imaging recommended. Linear densities at the pubic symphysis stable from previous imaging. The left hip demonstrate severe degenerative disease. IMPRESSION: 1. 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 Referrals: YIFAN RAIN MD (PCP/Family) Primary Care Physician JOANNA MARTINO APRN May 21, 2021 17:00
--- NOTE | 2021-05-21 17:39 | Diagnostic Imaging Report ---
EXAMINATION: Right hip unilateral 2 or 3 views (w/pelvis when done) HISTORY: right hip pain COMPARISON: 11/29/2013 FINDINGS: There is a dislocation of the right hip with the femoral head prosthesis displaced cranial to the acetabular cup. No fractures identified but postreduction imaging recommended. Linear densities at the pubic symphysis stable from previous imaging. The left hip demonstrate severe degenerative disease. IMPRESSION: 1. 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
[2021-05-21] MEDS ORDERED: ETOMIDATE IV SOLN 20 MG/10 ML VIAL IV ONE (17:45)
[2021-05-21] MEDS ORDERED: ONDANSETRON 4 MG/2 ML (SDV) Z0FRAN IVP ONE (17:45)
--- NOTE | 2021-05-21 17:45 | Diagnostic Imaging Report ---
INDICATION: Hip pain EXAMINATION: Chest 05/21/2021 FINDINGS: Single view chest There are patchy densities at the right lung base which could represent superimposed calcifications with infiltrates not excluded; correlate with symptoms. The remaining lungs clear. No pneumothorax or effusions. Heart and pulmonary vasculature normal. There is a moderate-sized hiatal hernia. IMPRESSION: 1. Possible infiltrate versus superimposed costochondral calcifications at the right lung base. Correlate with symptoms. 2. Hiatal hernia Dictated by: Dictated on workstation # [id number]
[2021-05-21] MEDS: NS IV 500 ML 500 ML IV SCH (17:55)
[2021-05-21] MEDS ORDERED: MIDAZOLAM 5 MG/5 ML (VERSED) VIAL ONE (18:04)
[2021-05-21] MEDS ORDERED: fentaNYL INJ 100 MCG/2 ML AMP ONE (18:04)
[2021-05-21] MEDS ORDERED: MIDAZOLAM 2 MG/2 ML (VERSED) VIAL IVP ONE (18:45)
[2021-05-21] MEDS ORDERED: fentaNYL INJ 100 MCG/2 ML AMP IVP ONE (18:45)
[2021-05-21 19:19] LABS: BASOPHILS % (AUTO) 0 % (0-10); EOSINOPHILS # (AUTO) 0.1 10^3/uL (0.0-0.3); EOSINOPHILS % (AUTO) 2 % (0-10); HEMATOCRIT 32 % (35-52); HEMOGLOBIN 10.7 g/dL (11.5-16.0); LYMPHOCYTES # (AUTO) 0.6 10^3/uL (1.0-4.0); LYMPHOCYTES % (AUTO) 8 % (12-44); MEAN CORPUSCULAR HEMOGLOBIN 30 pg (25-34); MEAN CORPUSCULAR HGB CONC 33 g/dL (32-36); MEAN CORPUSCULAR VOLUME 92 fL (80-99); MEAN PLATELET VOLUME 10.3 fL (9.0-12.2); MONOCYTES # (AUTO) 0.3 10^3/uL (0.0-1.0); MONOCYTES % (AUTO) 4 % (0-12); NEUTROPHILS # (AUTO) 5.9 10^3/uL (1.8-7.8); NEUTROPHILS % (AUTO) 85 % (42-75); PLATELET COUNT 106 10^3/uL (130-400); WHITE BLOOD COUNT 6.9 10^3/uL (4.3-11.0)
[2021-05-21 19:21] LABS: INR 0.9 (0.8-1.4); PROTHROMBIN TIME PATIENT 12.7 SEC (12.2-14.7)
[2021-05-21 19:29] LABS: BILIRUBIN,TOTAL 0.5 MG/DL (0.1-1.0); CALCIUM 9.6 MG/DL (8.5-10.1); CREATININE SERUM 1.32 MG/DL (0.60-1.30); POTASSIUM 3.8 MMOL/L (3.6-5.0); TOTAL PROTEIN 7.1 GM/DL (6.4-8.2)
--- NOTE | 2021-05-21 20:19 | Diagnostic Imaging Report ---
INDICATION: Status post reduction. EXAMINATION: Pelvis, 05/21/2021. COMPARISON: Same date at an earlier time. FINDINGS: Single view of the pelvis demonstrates interval reduction of the previously noted right hip dislocation. On this single view the hip prosthesis appears well aligned. The remaining pelvis unchanged. IMPRESSION: Better alignment of the right hip prosthesis. Dictated by: Dictated on workstation # [id number]
--- NOTE | 2021-05-21 20:21 | Anesthesia-General Post-Op ---
MAC Patient Condition Mental Status/LOC: Same as Preop Cardiovascular: Satisfactory Nausea/Vomiting: Absent Respiratory: Satisfactory Pain: Controlled Complications: Absent Post Op Complications Complications None Follow Up Care/Instructions Patient Instructions None needed. Anesthesiology Discharge Order Discharge Order Patient is doing well, no complaints, stable vital signs, no apparent adverse anesthesia problems. JOSE EDWARDS DO May 21, 2021 20:21
--- NOTE | 2021-05-21 20:36 | Consultation - Ortho ---
Consult - Ortho Subjective Date of Exam 05/21/21 Chief Complaint Dislocation right total hip HPI/Events since last exam Mrs. Vargas is an 80-year-old white female who dislocated her right total hip earlier today altering to get up off the toilet. She was brought to the emergency room where she evaluated and x-rayed noted to have a posterior superior dislocation of her right total hip. She had the total hip done 10 to [address] Cabrera at [place]. Since then she has had bilateral total knees by Dr. Inman. She has had no issues with her right total hip. She has had no right hip pain. She does have degenerative arthritis of the left hip but has not had a total hip. She has never had a dislocation of her right hip. She has not seen Dr. Cabrera or Dr. Inman recently. She denies any numbness or tingling in her foot. No other issues. Jacoby Blount attempted a reduction of her hip using Versed, fentanyl and etomidate. He was unable to reduce the dislocated hip. I came into evaluate the patient and attempt a reduction in the emergency room. Medical, Surgical History Reviewed and no additions or changes Social History Reviewed and no additions or change Family History Reviewed and no additions or change Review of Systems Reviewed and no additions or changes Allergies: Coded Allergies: Sulfa (Sulfonamide Antibiotics) (Verified Allergy, Unknown, 06/30/15) Home Meds Reported Medications Aspirin (Aspir 81) 81 Mg Tablet.dr, 81 MG PO MoWeFr, TAB 04/20/17 Oxybutynin Chloride (Oxybutynin Chloride ER) 10 Mg Tab.er.24, 10 MG PO DAILY, TAB 04/20/17 Alprazolam (Alprazolam Xr) 0.5 Mg Tab.er.24h, 0.5 MG PO HS, TAB 04/20/17 Metoprolol Succinate (Metoprolol Succinate) 25 Mg Tab.er.24h, 25 MG PO HS, TAB 04/20/17 Duloxetine HCl (Duloxetine HCl) 60 Mg Capsule.dr, 60 MG PO DAILY, CAP 04/20/17 Levothyroxine Sodium (Levothyroxine Sodium) 50 Mcg Tablet, 50 MCG PO DAILY, TAB 04/20/17 Alendronate Sodium (Fosamax) 70 Mg Tablet, 70 MG PO WEEKLY, TAB 06/30/15 Furosemide (Furosemide) 40 Mg Tablet, 40 MG PO DAILY, TAB 06/30/15 Ropinirole HCl (Ropinirole HCl) 2 Mg Tablet, 2 MG PO HS, TAB 06/30/15 Folic Acid/Mv,Fe,Other Min (Centrum Complete Multivit Tab) 1 Each Tablet, 1 TAB PO DAILY 06/04/14 Cholecalciferol (Vitamin D) 2,000 Unit Capsule, 2000 UNIT PO DAILY 06/04/14 Tramadol Hcl (Ultram) 50 Mg Tablet, 100 MG PO Q6 -8H PRN for PAIN 06/04/14 Docusate Sodium (Colace) 100 Mg Cap, 100 MG PO DAILY 06/04/14 Fenofibrate Nanocrystallized (Fenofibrate) 145 Mg Tablet, 145 MG PO HS 06/04/14 Trazodone Hcl (Desyrel) 100 Mg Tablet, 100 MG PO HS 06/04/14 [Trubiotics] No Conflict Check, 1 TAB PO DAILY 06/04/14 Loratadine (Loratadine) 10 Mg Tablet, 10 MG PO DAILY 06/04/14 Dexlansoprazole (Dexilant) 60 Mg Davey., 60 MG PO DAILY 06/04/14 Potassium Chloride (K-Dur) 20 Meq Tab, 20 MEQ PO DAILY 01/20/10 Objective Exam Constitutional: [] HEENT: [] Neck: [] Cardiovascular: [] Respiratory: [] Gastrointestinal: [] Genitourinary: [] Skin: [] Back/Spine: [] Extremities: [Exam of the right lower extremity shows shortening and internal rotation with a little bit of adduction. She has pain with palpation and gentle range of motion of the right hip. No pain at the knee. No pain at the ankle. She can dorsiflex and plantarflex the foot and ankle without pain or weakness. She has normal sensation to the foot and toes. Good capillary refill. Equal pulses] Neurologic: [] Psychiatric: [] Hematologic/lymphatic/immunologic: [] Vital Signs Vital Signs Date Time Temp Pulse Resp B/P (MAP) Pulse Ox O2 Delivery O2 Flow Rate FiO2 05/21/21 16:55 36.3 87 18 117/79 (92) 98 Lab Results Laboratory Tests 05/21/21 18:52: White Blood Count 6.9, Red Blood Count 3.53L, Hemoglobin 10.7L, Hematocrit 32L, Mean Corpuscular Volume 92, Mean Corpuscular Hemoglobin 30, Mean Corpuscular Hemoglobin Concent 33, Red Cell Distribution Width 18.1H, Platelet Count 106L, Mean Platelet Volume 10.3, Immature Granulocyte % (Auto) 1, Neutrophils (%) (Auto) 85H, Lymphocytes (%) (Auto) 8L, Monocytes (%) (Auto) 4, Eosinophils (%) (Auto) 2, Basophils (%) (Auto) 0, Neutrophils # (Auto) 5.9, Lymphocytes # (Auto) 0.6L, Monocytes # (Auto) 0.3, Eosinophils # (Auto) 0.1, Basophils # (Auto) 0.0, Immature Granulocyte # (Auto) 0.0, Prothrombin Time 12.7, INR Comment 0.9, Sodium Level 138, Potassium Level 3.8, Chloride Level 104, Carbon Dioxide Level 20L, Anion Gap 14, Blood Urea Nitrogen 38H, Creatinine 1.32H, Estimat Glomerular Filtration Rate 40, BUN/Creatinine Ratio 29, Glucose Level 104, Calcium Level 9.6, Corrected Calcium 9.6, Total Bilirubin 0.5, Aspartate Amino Transf ( AST/SGOT) 29, Alanine Aminotransferase (ALT/SGPT) 23, Alkaline Phosphatase 52, Total Protein 7.1, Albumin 4.0 Imaging X-rays were reviewed which shows a superior dislocation of the hip that I am assuming is posterior is no lateral was obtained. But with the position of the leg this is a posterior superior dislocation. No evidence of fracture or loosening is noted. Assessment and Plan Assessment Posterior superior dislocation right total hip without evidence of loosening or fracture Problem List Same Plan Treatment options were discussed with the patient and her family. Jacoby and I both talked to Dr. Salinas Who is in-house and he stated [facility] and we will try reduction under propofol sedation. I did talk with the family and the patient that she may have a fracture of her liner that could prevent this from reduction. If we do get it reduced it may not occur again or she may have recurrent dislocations that may require revision of her hip. There also is potential for fracture of the femur during reduction. She understands the procedure risk complications and would like to proceed. She did sign a consent. Dr. Salinas started an IV and gave her 120 mg of propofol IV. We then attempted reduction with pressure on the iliac crest and hip flexed to 90 with adduction and internal rotation with Direct pull anteriorly. This did not reduce the hip. I then attempted reduction with the same position but in longitudinal direction without hip flexion it did not reduced. We went back to the initial technique and the hip reduced. It was found to be stable after reduction. Leg position was equal external rotation in length. Patient had equal pulses. Postreduction x-ray showed the right hip was reduced.There was no evidence of fracture or loosening post reduction. She was placed in an abduction pillow. Dr. Crum will admit her to observation with possible discharge tomorrow. Again I talked to the patient and the family and they understand that she could have recurrent dislocations that require revision. Post reduction when the patient was more awake she could dorsiflex plantarflex the foot and ankle without weakness and had normal sensation to the foot and toes and equal pulses. She will follow up with Dr. Cabrera in 7 to 10 days or sooner if she has problems Final Diagonsis Posterior superior dislocation right total hip status post closed reduction Level of the visit: Level 3 ERIC ANGEL MD May 21, 2021 20:36
[2021-05-21] MEDS ORDERED: diphenhydrAMINE 25 MG TAB (BENADRYL) PO PRN (21:15)
[2021-05-21] MEDS ORDERED: MELATONIN 3 MG TABLET PO PRN (21:15)
[2021-05-21] MEDS ORDERED: polyethylene glycoL POWDER 17 GM (MIRALAX) PACK PO PRN (21:15)
[2021-05-21] MEDS ORDERED: ONDANSETRON 4 MG/2 ML (SDV) Z0FRAN IV PRN (21:15)
[2021-05-21] MEDS ORDERED: CYCLOBENZAPRINE 10 MG (FLEXERIL) TAB PO PRN (21:15)
[2021-05-21] MEDS ORDERED: ACETAMINOPHEN 325 MG TABLET PO PRN (21:15)
[2021-05-21] MEDS ORDERED: CALCIUM CARBONATE 500 MG (TUMS) TAB.CHEW PO PRN (21:15)
[2021-05-21] MEDS ORDERED: ENOXAPARIN 40 MG/0.4 ML (LOVENOX) SYR SC SCH (21:15)
[2021-05-21] MEDS ORDERED: ALPRAZolam 0.25 MG (XANAX) TAB PO PRN (21:15)
[2021-05-21] MEDS ORDERED: BISACODYL 10 MG SUPP (DULCOLAX) PR PRN (21:15)
[2021-05-21] MEDS ORDERED: LACTULOSE SYRUP 10GM/15ML (ENULOSE) 30ML UDC PO PRN (21:15)
[2021-05-21] MEDS ORDERED: ANTACID SUSP 30 ML UDC (MYLANTA) PO PRN (21:15)
[2021-05-21] MEDS ORDERED: diphenhydrAMINE 50 MG/ML INJ (BENADRYL) IVP PRN (21:15)
[2021-05-21] MEDS ORDERED: MILK OF MAGNESIA 400 MG/5 ML 30 ML UDC PO PRN (21:15)
[2021-05-21] MEDS ORDERED: ONDANSETRON 4 MG (ZOFRAN) ORAL DISSOLVE TAB PO PRN (21:15)
[2021-05-21] MEDS ORDERED: NALOXONE 0.4 MG/ML 1 ML (NARCAN) VIAL IV PRN (21:15)
[2021-05-21] MEDS ORDERED: morphine INJ 4 MG/ML 1 ML (VIAL/SYRINGE) IV PRN (21:15)
[2021-05-21 21:30] VITALS: BP 156/69
[2021-05-21] MEDS ORDERED: RT-ALBUTEROL SULF 2.5 MG/3 ML PRE-MIX VIAL INH PRN (22:00)
[2021-05-21] MEDS: NS IV 1000 ML 1,000 ML IV SCH (22:44)
[2021-05-22] VITALS: BP 118/60
[2021-05-22 04:00] VITALS: BP 112/55
[2021-05-22 06:46] LABS: BASOPHILS % (AUTO) 1 % (0-10); EOSINOPHILS # (AUTO) 0.4 10^3/uL (0.0-0.3); EOSINOPHILS % (AUTO) 7 % (0-10); HEMATOCRIT 32 % (35-52); HEMOGLOBIN 10.4 g/dL (11.5-16.0); LYMPHOCYTES # (AUTO) 1.5 10^3/uL (1.0-4.0); LYMPHOCYTES % (AUTO) 25 % (12-44); MEAN CORPUSCULAR HEMOGLOBIN 30 pg (25-34); MEAN CORPUSCULAR HGB CONC 33 g/dL (32-36); MEAN CORPUSCULAR VOLUME 91 fL (80-99); MEAN PLATELET VOLUME 9.1 fL (9.0-12.2); MONOCYTES # (AUTO) 0.6 10^3/uL (0.0-1.0); MONOCYTES % (AUTO) 10 % (0-12); NEUTROPHILS # (AUTO) 3.6 10^3/uL (1.8-7.8); NEUTROPHILS % (AUTO) 58 % (42-75); PLATELET COUNT 254 10^3/uL (130-400); WHITE BLOOD COUNT 6.2 10^3/uL (4.3-11.0)
[2021-05-22 07:07] LABS: ALBUMIN 3.4 GM/DL (3.2-4.5); BILIRUBIN,TOTAL 0.4 MG/DL (0.1-1.0); CALCIUM 8.9 MG/DL (8.5-10.1); CREATININE SERUM 1.16 MG/DL (0.60-1.30); POTASSIUM 3.9 MMOL/L (3.6-5.0)
[2021-05-22 07:51] VITALS: BP 123/59
[2021-05-22] MEDS ORDERED: PANTOPRAZOLE 40 MG (PROTONIX) TAB PO SCH (09:00)
[2021-05-22] MEDS ORDERED: DULoxetine 30 MG (CYMBALTA) CAP PO SCH (09:00)
[2021-05-22] MEDS ORDERED: DOCUSATE SODIUM 100 MG (COLACE) CAP PO SCH ×2 (09:00→21:00)
[2021-05-22] MEDS ORDERED: VALACYCLOVIR 500 MG TAB (VALTREX) PO SCH (09:00)
[2021-05-22] MEDS ORDERED: SENNOSIDES 8.6 MG (SENOKOT) TAB PO SCH (09:00)
[2021-05-22] MEDS ORDERED: LOSA1TAB23 PO (10:12)
[2021-05-22] MEDS ORDERED: ALEN70TA80 PO (10:12)
[2021-05-22] MEDS ORDERED: ASCO500T17 PO (10:12)
[2021-05-22] MEDS ORDERED: FERR-84 PO (10:12)
[2021-05-22] MEDS ORDERED: CHOL-34 PO (10:12)
[2021-05-22] MEDS ORDERED: MAGN400T39 PO (10:12)
[2021-05-22] MEDS ORDERED: MIRT-68 PO (10:12)
[2021-05-22] MEDS ORDERED: ASPI-999 PO (10:12)
[2021-05-22] MEDS ORDERED: OXYB15TA19 PO (10:12)
[2021-05-22] MEDS ORDERED: VALA500T7 PO (10:12)
[2021-05-22] MEDS ORDERED: CYCL5TAB PO (10:12)
[2021-05-22] MEDS ORDERED: CYAN250010 PO (10:12)
[2021-05-22] MEDS ORDERED: DOCU100C37 PO (10:12)
[2021-05-22] MEDS ORDERED: LEVO-129 PO (10:12)
[2021-05-22] MEDS ORDERED: PANT40TA52 PO (10:14)
--- NOTE | 2021-05-22 11:00 | Occupational Therapy Eval ---
OT Evaluation-General/PLF Medical Diagnosis Admission Date May 21, 2021 at 20:18 Medical Diagnosis: R hip dislocation Onset Date: May 21, 2021 Therapy Diagnosis Therapy Diagnosis: decreased ADL status Height/Weight Height (Feet): 5 Height (Inches): 7.00 Weight (Pounds): 150 Weight (Ounces): 0.0 Precautions Precautions/Isolations: Fall Prevention, Standard Precautions Comments R hip precautions Referral Physician: Radames Referral Reason: Evaluation/Treatment Medical History Additional Medical History CAD with stents, HTN, neuropathy, GERD, GI bleed, TIA, hypothyroidism, depression, renal failure, R hip replacement ~10 years ago Current History ED via EMS, stood from toilet, twisted and felt crunching sensation in R hip. Pt dislocated R hip, reduced in ED. Social History Home: Single Level Current Living Status: Alone ADL-Prior Level of Function SCALE: Activities may be completed with or without assistive devices. 6-Vlkbgqichj-yoweqnc completes the activity by him/herself with no assistance from a helper. 5-Set-up or Clean-up Assistance-helper sets up or cleans up; patient completes activity. [place] assists only prior to or following the activity. 4-Supervision or Touching Assistance-helper provides verbal cues and/or touching/steadying and/or contact guard assistance as patient completes a ctivity. Assistance may be provided throughout the activity or intermittently. 3-Partial/Moderate Assistance-helper does LESS THAN HALF the effort. [place] lifts, holds or supports trunk or limbs, but provides less than half the effort. 2-Substantial/Maximal Assistance-helper does MORE THAN HALF the effort. [place] lifts or holds trunk or limbs and provides more than half the effort. 0-Filnzusrn-lflusr does ALL the effort. Patient does none of the effort to complete the activity. Or, the assistance of 2 or more helpers is required for the patient to complete the activity. If activity was not attempted, code reason: 7-Patient Refused. 9-Not Applicable-not attempted and the patient did not perform the activity before the current illness, exacerbation or injury. 10-Not Attempted due to Environmental Limitations-(lack of equipment, weather restraints, etc.). 88-Not Attempted due to Medical Conditions or Safety Concerns. ADL PLOF Comments Pt reports IND with ADLs and functional mobility at PLOF, no AD/AE Self Care: Independent Functional Cognition: Independent DME/Equipment: Tub/Shower OT Current Status Subjective Pt up in recliner, agreeable to OT evaluation/tx. Pt states she just took a walk with PT. Mental Status/Objective Patient Orientation: Person, Place, Situation Current Upper Extremity ROM WFL BUEs Upper Extremity Strength grossly 3+/5 ADL-Treatment Eating (QC): 6 Oral Hygiene (QC): 5 (per clinical judgment) On/Off Footwear (QC): 1 (Per clinical judgment.) Other Treatments Pt in recliner, agreeable to OT evaluation. Pt provided information about PLOF and home set up and participated in UE screen. Pt and family educated on AE for LE dressing, extended bath bench, and BSC over toilet. Pt declined ADLs at this time as she is tired from walking with PT. Post tx, pt in recliner, call light in reach and all needs met, physician present. Education OT Patient Education: Correct positioning, Energy conservation, Modified ADL techniques, Progress toward Goal/Update tx plan, Purpose of tx/functional activities, Rehab process Teaching Recipient: Patient Teaching Methods: Discussion Response to Teaching: Verbalize Understanding OT Nursing Home Goals Nursing Home Goals Time Frame: Jun 05, 2021 Eating (QC): 6 Oral Hygiene (QC): 6 Toileting Hygiene (QC): 6 Shower/Bathe Self (QC): 6 Upper Body Dressing (QC): 6 Lower Body Dressing (QC): 6 On/Off Footwear (QC): 6 Additional Goals: 1-Demonstrate ADL Tasks, 2-Verbalize Understanding, 3- ImproveStrength/[place] 1=Demonstrate adherence to instructed precautions during ADL tasks. 2=Patient will verbalize/demonstrate understanding of assistive devices/modifications for ADL. 3=Patient will improve strength/tolerance for activity to enable patient to perform ADL's. OT Education/Plan Problem List/Assessment Assessment: Decreased Activ Tolerance, Decreased UE Strength, Impaired Funct Balance, Impaired I ADL's, Impaired Self-Care Skills Discharge Recommendations Plan/Recommendations: Continue POC Equpiment Recommendations-D/C: Extended Bath Bench, Hip Kit Treatment Plan/Plan of Care Patient would benefit from OT for education, treatment and training to promote independence in ADL's, mobility, safety and/or upper extremity function for ADL's. Plan of Care: ADL Retraining, Functional Mobility, UE Funct Exercise/Act Treatment Duration: Jun 05, 2021 Frequency: 3 times per week (3-5 times per week) Estimated Hrs Per Day: .25 hour per day Agreement: Yes Rehab Potential: Good Time/GCodes Start Time: 10:40 Stop Time: 10:57 Total Time Billed (hr/min): 17 Billed Treatment Time 1, ASHWIN VIRK OT May 22, 2021 11:00
[2021-05-22] MEDS: NS IV 500 ML 500 ML IV SCH (11:09)
[2021-05-22] MEDS ORDERED: CYCLOBENZAPRINE PO PRN (11:45)
[2021-05-22] MEDS ORDERED: NON-FORMULARY MEDICATION 1 EA EA (Alendronate Sodium 70 MG) PO SCH (11:45)
--- NOTE | 2021-05-22 11:52 | History & Physical ---
MARGUERITE AMBROSE 05/22/21 1152: History of Present Illness History of Present Illness Reason for visit/HPI CC: Right Posterior Hip Dislocation HPI: Mirian Vargas is an 80yoWF who presented to [place] ED on the evening of 05/21/21 with right hip pain following an attempt to mobilize from the toilet. She endorses hearing an audible "pop" sound along with immediate pain in the right hip and buttock area. The pain did not radiate. She gently maneuvered hers elf to the floor and was able to navigate to a nearby window where she called for help. Her neighbor found her and called the ambulance. In the ED the patient was found to have a posterior superior right hip dislocation of a previous total hip arthroplasty completed approximately [address] Cabrera at [facility] Dr. Chau was consulted and performed a closed reduction of the right hip successfully without any immediate complications. The patient maintained sensation and motor function throughout the entirety of the right lower limb prior to and after reduction maneuvers. An incidental hiatal hernia was noted on the CXR obtained in the ED. Patient lives at home by herself with minimal assistance and was walking without assistance prior to this incident. She would like to return home when safe; however, she is interested in rehabiliation options. We feel she would be a good candidate for inpatient rehab. Date of Admission May 21, 2021 at 20:18 Date Seen by a Provider: May 22, 2021 Time Seen by a Provider: 09:30 I consulted on this patient on 05/22/21 11:44 Attending Physician Shana Carney DO Admitting Physician Carlos Manuel Ro MD Consult Allergies and Home Medications Allergies Coded Allergies: Sulfa (Sulfonamide Antibiotics) (Verified Allergy, Unknown, 06/30/15) Patient Home Medication List Home Medication List Reviewed: Yes Alendronate Sodium (Alendronate Sodium) 70 Mg Tablet, 70 MG PO THUR, (Reported) Entered as Reported by: MAYELA GONZALEZ on 05/22/21 1012 Last Action: Converted Ascorbic Acid (Vitamin C) 500 Mg Tablet, 500 MG PO DAILY, (Reported) Entered as Reported by: MAYELA GONZALEZ on 05/22/21 1012 Last Action: Continued Aspirin (Aspirin) 81 Mg Tab.chew, 81 MG PO Q48H, (Reported) Entered as Reported by: MAYELA GONZALEZ on 05/22/211011 Last Action: Continued Cholecalciferol (Vitamin D3) (Vitamin D3) 25 Mcg Tablet, 25 MCG PO DAILY, (Reported) Entered as Reported by: MAYELA GONZALEZ on 05/22/211011 Last Action: Continued Cyanocobalamin (Vitamin B-12) (Vitamin B12) 2,500 Mcg Tablet, 2,500 MCG PO DAILY, (Reported) Entered as Reported by: MAYELA GONZALEZ on 05/22/211011 Last Action: Converted Cyclobenzaprine HCl (Cyclobenzaprine HCl) 5 Mg Tablet, 5-10 MG PO Q8H PRN for MUSCLE SPASMS, (Reported) Entered as Reported by: MAYELA GONZALEZ on 05/22/211011 Last Action: Converted Docusate Sodium (Docusate Sodium) 100 Mg Capsule, 200 MG PO HS, (Reported) Entered as Reported by: MAYELA GONZALEZ on 05/22/211011 Last Action: Continued Duloxetine HCl (Duloxetine HCl) 60 Mg Capsule.dr, 60 MG PO HS, (Reported) Entered as Reported by: JALEN FIGUEROA on 04/20/17 1057 Last Action: Converted Ferrous Sulfate (Iron) 325 Mg Tablet, 650 MG PO Q48H, (Reported) Entered as Reported by: MAYELA GONZALEZ on 05/22/211011 Last Action: Continued Levothyroxine Sodium (Euthyrox) 50 Mcg Tablet, 50 MCG PO DAILY, (Reported) Entered as Reported by: MAYELA GONZALEZ on 05/22/211011 Last Action: Continued Losartan/Hydrochlorothiazide (Losartan-Hctz 100-25 mg Tab) 1 Each Tablet, 1 EA PO HS, (Reported) Entered as Reported by: MAYELA GONZALEZ on 05/22/211011 Last Action: Converted Magnesium Oxide (Magnesium) 400 Mg Tablet, 400 MG PO HS, (Reported) Entered as Reported by: MAYELA GONZALEZ on 05/22/211011 Last Action: Converted Mirtazapine (Mirtazapine) 15 Mg Tablet, 15 MG PO HS, (Reported) Entered as Reported by: MAYELA GONZALEZ on 05/22/211011 Last Action: Converted Oxybutynin Chloride (Oxybutynin Chloride ER) 15 Mg Tab.er.24, 15 MG PO DAILY, (Reported) Entered as Reported by: MAYELA GONZALEZ on 05/22/21 1012 Last Action: Converted Pantoprazole Sodium (Pantoprazole Sodium) 40 Mg Tablet., 40 MG PO DAILY, (Reported) Entered as Reported by: MAYELA GONZALEZ on 05/22/21 1014 Last Action: Continued Ropinirole HCl (Ropinirole HCl) 2 Mg Tablet, 2 MG PO HS, (Reported) Entered as Reported by: JALEN FIGUEROA on 06/30/15 1228 Last Action: Converted Valacyclovir HCl (Valacyclovir) 500 Mg Tablet, 250 MG PO HS, (Reported) Entered as Reported by: MAYELA GONZALEZ on 05/22/21 101 Last Action: Continued Discontinued Medications Alendronate Sodium (Fosamax) 70 Mg Tablet, 70 MG PO WEEKLY, (Reported) Discontinued Reason: Duplicate Order Entered as Reported by: JALEN FIGUEROA on 06/30/15 1228 Last Action: Discontinued Alprazolam (Alprazolam Xr) 0.5 Mg Tab.er.24h, 0.5 MG PO HS, (Reported) Discontinued Reason: Duplicate Order Entered as Reported by: JALEN FIGUEROA on 04/20/17 1057 Last Action: Discontinued Aspirin (Aspir 81) 81 Mg Tablet., 81 MG PO MoWeFr, (Reported) Discontinued Reason: Duplicate Order Entered as Reported by: JALEN FIGUEROA on 04/20/17 1057 Last Action: Discontinued Cholecalciferol (Vitamin D) 2,000 Unit Capsule, 2,000 UNIT PO DAILY, (Reported) Discontinued Reason: Duplicate Order Entered as Reported by: MICHAEL TURPIN on 06/04/14 1018 Last Action: Discontinued Dexlansoprazole (Dexilant) 60 Mg Cap., 60 MG PO DAILY, (Reported) Discontinued Reason: Duplicate Order Entered as Reported by: MICHAEL TURPIN on 06/04/14 1004 Last Action: Discontinued Docusate Sodium (Colace) 100 Mg Cap, 100 MG PO DAILY, (Reported) Discontinued Reason: Duplicate Order Entered as Reported by: MICHAEL TURPIN on 06/04/14 1012 Last Action: Discontinued Fenofibrate Nanocrystallized (Fenofibrate) 145 Mg Tablet, 145 MG PO HS, (Repo rted) Discontinued Reason: Duplicate Order Entered as Reported by: MICHAEL TURPIN on 06/04/14 1004 Last Action: Discontinued Folic Acid/Mv,Fe,Other Min (Centrum Complete Multivit Tab) 1 Each Tablet, 1 TAB PO DAILY, (Reported) Discontinued Reason: Duplicate Order Entered as Reported by: MICHAEL TURPIN on 06/04/14 1018 Last Action: Discontinued Furosemide (Furosemide) 40 Mg Tablet, 40 MG PO DAILY, (Reported) Discontinued Reason: Duplicate Order Entered as Reported by: JALEN FIGUEROA on 06/30/15 1228 Last Action: Discontinued Levothyroxine Sodium (Levothyroxine Sodium) 50 Mcg Tablet, 50 MCG PO DAILY, (Reported) Discontinued Reason: Duplicate Order Entered as Reported by: JALEN FIGUEROA on 04/20/17 105 Last Action: Discontinued Loratadine (Loratadine) 10 Mg Tablet, 10 MG PO DAILY, (Reported) Discontinued Reason: Duplicate Order Entered as Reported by: MICHAEL TURPIN on 06/04/14 1004 Last Action: Discontinued Metoprolol Succinate (Metoprolol Succinate) 25 Mg Tab.er.24h, 25 MG PO HS, (Reported) Discontinued Reason: Duplicate Order Entered as Reported by: JALEN FIGUEROA on 04/20/17 1057 Last Action: Discontinued Oxybutynin Chloride (Oxybutynin Chloride ER) 10 Mg Tab.er.24, 10 MG PO DAILY, (Reported) Discontinued Reason: Duplicate Order Entered as Reported by: JALEN FIGUEROA on 04/20/17 1057 Last Action: Discontinued Potassium Chloride (K-Dur) 20 Meq Tab, 20 MEQ PO DAILY, (Reported) Discontinued Reason: Duplicate Order Entered as Reported by: MARILEE RIZO on 01/20/10 192 Last Action: Discontinued Tramadol Hcl (Ultram) 50 Mg Tablet, 100 MG PO Q6 -8H PRN for PAIN, (Reported) Discontinued Reason: Duplicate Order Entered as Reported by: MICHAEL TURPIN on 06/04/14 1014 Last Action: Discontinued Trazodone Hcl (Desyrel) 100 Mg Tablet, 100 MG PO HS, (Reported) Discontinued Reason: Duplicate Order Entered as Reported by: MICHAEL TURPIN on 06/04/14 1004 Last Action: Discontinued [Trubiotics] , 1 TAB PO DAILY, (Reported) Discontinued Reason: Duplicate Order Entered as Reported by: MICHAEL TURPIN on 06/04/14 1004 Last Action: Discontinued Past Wpnroha-Bfcsil-Uxpuoo Hx Patient Social History Tobacco Use?: No Use of E-Cig and/or Vaping dev: No Substance use?: No Alcohol Use?: Yes Alcohol type: Beer Alcohol Frequency: Once in a while Pt feels they are or have been: No Immunizations Up To Date Date of Influenza Vaccine: Jan 09, 2015 First/Initial COVID19 Vaccinat: 2020 Second COVID19 Vaccination Wilbur: 2020 Date of Pneumonia Vaccine: Feb 09, 2010 Seasonal Allergies Seasonal Allergies: No Current Status status: No status: No Advance Directives: Yes Communicates: Verbally Primary Language: Hungarian Preferred Spoken Language: Hungarian Is interpretation needed?: No Implanted or Applied Medical D: Stents Past Medical History Surgeries: Coronary Stent, Gallbladder, Hysterectomy, Joint Replacement Coronary Artery Disease, Hypertension Neuropathy, TIA [employer] History: Hysterectomy Renal Failure, UTI-Chronic Gastroesophageal Reflux, Gastrointestinal Bleed, Polyps, Ulcer Osteoporosis, Arthritis, Back Injury, Chronic Back Pain Hypothyroidsim Depression Adverse Reaction/Blood Tranf: No Family Medical History No Pertinent Family Hx Review of Systems Constitutional: no symptoms reported EENTM: no symptoms reported Respiratory: No cough; dyspnea on exertion; No short of breath Cardiovascular: no symptoms reported; No chest pain Gastrointestinal: abdominal pain (RUQ) Genitourinary: no symptoms reported Musculoskeletal: see HPI Skin: no symptoms reported Psychiatric/Neurological: No Symptoms Reported Physical Exam Vital Signs Vital Signs - First Documented 05/21/21 05/21/21 16:55 19:50 Temp 36.3 Pulse 87 Resp 18 B/P (MAP) 117/79 (92) Pulse Ox 98 O2 Delivery Room Air Capillary Refill : Less Than 3 Seconds Height, Weight, BMI Height: 5'7.00" Weight: 150lbs. 0.0oz. 68.578430lp; 21.45 BMI Method:Stated General Appearance: No Apparent Distress, WD/WN HEENT: PERRL/EOMI, Pharynx Normal, Moist Mucous Membranes Neck: Full Range of Motion, Normal Inspection, Non Tender, Supple Respiratory: Chest Non Tender, Lungs Clear, Normal Breath Sounds, No Accessory Muscle Use, No Respiratory Distress Cardiovascular: Regular Rate, Rhythm, No Edema, No Gallop, No JVD, No Murmur, Normal Peripheral Pulses Gastrointestinal: No Organomegaly, Soft, Tenderness (mild, RUQ) Rectal: Deferred Back: Normal Inspection Extremity: Normal Capillary Refill, Normal Inspection (patient in abduction pillow), Non Tender, Calf Tenderness (mild right calf tenderness) Neurologic/Psychiatric: Alert, Oriented x3, No Motor/Sensory Deficits, Normal 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, 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 Norm as Tested Skin: Normal Color, Warm/Dry Lymphatic: No Adenopathy Assessment/Plan Assessment and Plan Assessment: Right Hip Dislocation Hx Right Total Hip Arthroplasty Debility Hx Right Total Knee Arthroplasty Hx Left Total Knee Arthroplasty Osteoporosis Hiatal Hernia HTN Hypothryoidism Chronic Anemia Hx of Low GFR Restless Leg Syndrome Gastroesophageal Reflux Disease Plan: s/p Closed Reduction of Right Hip on 05/21/21 Orthopedics managing hip precautions PT/OT Will transfer patient to inpatient rehab for debility Problems: (1) Hip dislocation, right Status: Acute (2) History of total right hip arthroplasty (3) Osteoporosis (4) Hiatal hernia (5) History of total left knee replacement (TKR) (6) History of total right knee replacement (TKR) (7) Hypothyroidism (8) Chronic anemia (9) Restless leg syndrome (10) GERD (gastroesophageal reflux disease) Admission Diagnosis Right Posterior Superior Hip Dislocation s/p Closed Reduction Admission Status: Observation CARNEYSHANA DO 05/23/21 0537: History of Present Illness History of Present Illness Reason for visit/HPI Chief complaint: Right hip pain status post dislocation History of present illness: This is an 80-year-old white female who presented to the ER with severe right hip pain after she was sitting on the commode and felt a pop. She was found to have a dislocated hip which required Dr. Chau to reduce it. Currently she is needing assistance in order to regain enough function to live independently. Allergies and Home Medications Allergies Coded Allergies: Sulfa (Sulfonamide Antibiotics) (Verified Allergy, Unknown, 06/30/15) Patient Home Medication List Home Medication List Reviewed: Yes Alendronate Sodium (Alendronate Sodium) 70 Mg Tablet, 70 MG PO THUR, (Reported) Entered as Reported by: MAYELA GONZALEZ on 05/22/21 1012 Last Action: Converted Ascorbic Acid (Vitamin C) 500 Mg Tablet, 500 MG PO DAILY, (Reported) Entered as Reported by: MAYELA GONZALEZ on 05/22/211011 Last Action: Continued Aspirin (Aspirin) 81 Mg Tab.chew, 81 MG PO Q48H, (Reported) Entered as Reported by: MAYELA GONZALEZ on 05/22/211011 Last Action: Continued Cholecalciferol (Vitamin D3) (Vitamin D3) 25 Mcg Tablet, 25 MCG PO DAILY, (Reported) Entered as Reported by: MAYELA GONZALEZ on 05/22/211011 Last Action: Continued Cyanocobalamin (Vitamin B-12) (Vitamin B12) 2,500 Mcg Tablet, 2,500 MCG PO DAILY, (Reported) Entered as Reported by: MAYELA GONZALEZ on 05/22/211011 Last Action: Converted Cyclobenzaprine HCl (Cyclobenzaprine HCl) 5 Mg Tablet, 5-10 MG PO Q8H PRN for MUSCLE SPASMS, (Reported) Entered as Reported by: MAYELA GONZALEZ on 05/22/211011 Last Action: Converted Docusate Sodium (Docusate Sodium) 100 Mg Capsule, 200 MG PO HS, (Reported) Entered as Reported by: MAYELA GONZALEZ on 05/22/211011 Last Action: Continued Duloxetine HCl (Duloxetine HCl) 60 Mg Capsule.dr, 60 MG PO HS, (Reported) Entered as Reported by: JALEN FIGUEROA on 04/20/17 1057 Last Action: Converted Ferrous Sulfate (Iron) 325 Mg Tablet, 650 MG PO Q48H, (Reported) Entered as Reported by: MAYELA GONZALEZ on 05/22/211011 Last Action: Continued Levothyroxine Sodium (Euthyrox) 50 Mcg Tablet, 50 MCG PO DAILY, (Reported) Entered as Reported by: MAYELA GONZALEZ on 05/22/211011 Last Action: Continued Losartan/Hydrochlorothiazide (Losartan-Hctz 100-25 mg Tab) 1 Each Tablet, 1 EA PO HS, (Reported) Entered as Reported by: MAYELA GONZALEZ on 05/22/211011 Last Action: Converted Magnesium Oxide (Magnesium) 400 Mg Tablet, 400 MG PO HS, (Reported) Entered as Reported by: MAYELA GONZALEZ on 05/22/211011 Last Action: Converted Mirtazapine (Mirtazapine) 15 Mg Tablet, 15 MG PO HS, (Reported) Entered as Reported by: MAYELA GONZALEZ on 05/22/21 101 Last Action: Converted Oxybutynin Chloride (Oxybutynin Chloride ER) 15 Mg Tab.er.24, 15 MG PO DAILY, (Reported) Entered as Reported by: MAYELA GONZALEZ on 05/22/21 101 Last Action: Converted Pantoprazole Sodium (Pantoprazole Sodium) 40 Mg Tablet., 40 MG PO DAILY, (Reported) Entered as Reported by: MAYELA GONZALEZ on 05/22/21 101 Last Action: Continued Ropinirole HCl (Ropinirole HCl) 2 Mg Tablet, 2 MG PO HS, (Reported) Entered as Reported by: JALEN FIGUEROA on 06/30/15 1228 Last Action: Converted Valacyclovir HCl (Valacyclovir) 500 Mg Tablet, 250 MG PO HS, (Reported) Entered as Reported by: MAYELA GONZALEZ on 05/22/21 101 Last Action: Continued Discontinued Medications Alendronate Sodium (Fosamax) 70 Mg Tablet, 70 MG PO WEEKLY, (Reported) Discontinued Reason: Duplicate Order Entered as Reported by: JALEN FIGUEROA on 06/30/158 Last Action: Discontinued Alprazolam (Alprazolam Xr) 0.5 Mg Tab.er.24h, 0.5 MG PO HS, (Reported) Discontinued Reason: Duplicate Order Entered as Reported by: JALEN FIGUEROA on 04/20/17 1057 Last Action: Discontinued Aspirin (Aspir 81) 81 Mg Tablet., 81 MG PO MoWeFr, (Reported) Discontinued Reason: Duplicate Order Entered as Reported by: JALEN FIGUEROA on 04/20/17 105 Last Action: Discontinued Cholecalciferol (Vitamin D) 2,000 Unit Capsule, 2,000 UNIT PO DAILY, (Reported) Discontinued Reason: Duplicate Order Entered as Reported by: MICHAEL TURPIN on 06/04/14 1018 Last Action: Discontinued Dexlansoprazole (Dexilant) 60 Mg Cap., 60 MG PO DAILY, (Reported) Discontinued Reason: Duplicate Order Entered as Reported by: MICHAEL TURPIN on 06/04/14 1004 Last Action: Discontinued Docusate Sodium (Colace) 100 Mg Cap, 100 MG PO DAILY, (Reported) Discontinued Reason: Duplicate Order Entered as Reported by: MICHAEL TURPIN on 06/04/14 1012 Last Action: Discontinued Fenofibrate Nanocrystallized (Fenofibrate) 145 Mg Tablet, 145 MG PO HS, (Reported) Discontinued Reason: Duplicate Order Entered as Reported by: MICHAEL TURPIN on 06/04/14 1004 Last Action: Discontinued Folic Acid/Mv,Fe,Other Min (Centrum Complete Multivit Tab) 1 Each Tablet, 1 TAB PO DAILY, (Reported) Discontinued Reason: Duplicate Order Entered as Reported by: MICHAEL TURPIN on 06/04/14 1018 Last Action: Discontinued Furosemide (Furosemide) 40 Mg Tablet, 40 MG PO DAILY, (Reported) Discontinued Reason: Duplicate Order Entered as Reported by: JALEN FIGUEROA on 06/30/15 1228 Last Action: Discontinued Levothyroxine Sodium (Levothyroxine Sodium) 50 Mcg Tablet, 50 MCG PO DAILY, (Reported) Discontinued Reason: Duplicate Order Entered as Reported by: JALEN FIGUEROA on 04/20/17 105 Last Action: Discontinued Loratadine (Loratadine) 10 Mg Tablet, 10 MG PO DAILY, (Reported) Discontinued Reason: Duplicate Order Entered as Reported by: MICHAEL TURPIN on 06/04/14 1004 Last Action: Discontinued Metoprolol Succinate (Metoprolol Succinate) 25 Mg Tab.er.24h, 25 MG PO HS, (Reported) Discontinued Reason: Duplicate Order Entered as Reported by: JALEN FIGUEROA on 04/20/17 105 Last Action: Discontinued Oxybutynin Chloride (Oxybutynin Chloride ER) 10 Mg Tab.er.24, 10 MG PO DAILY, (Reported) Discontinued Reason: Duplicate Order Entered as Reported by: JALEN FIGUEROA on 04/20/17 105 Last Action: Discontinued Potassium Chloride (K-Dur) 20 Meq Tab, 20 MEQ PO DAILY, (Reported) Discontinued Reason: Duplicate Order Entered as Reported by: MARILEE RIZO on 01/20/10 192 Last Action: Discontinued Tramadol Hcl (Ultram) 50 Mg Tablet, 100 MG PO Q6 -8H PRN for PAIN, (Reported) Discontinued Reason: Duplicate Order Entered as Reported by: MICHAEL TURPIN on 06/04/14 1014 Last Action: Discontinued Trazodone Hcl (Desyrel) 100 Mg Tablet, 100 MG PO HS, (Reported) Discontinued Reason: Duplicate Order Entered as Reported by: MICHAEL TURPIN on 06/04/141003 Last Action: Discontinued [Trubiotics] , 1 TAB PO DAILY, (Reported) Discontinued Reason: Duplicate Order Entered as Reported by: MICHAEL TURPIN on 06/04/141003 Last Action: Discontinued Past Rvkykhs-Nawins-Rivbzg Hx Patient Social History Marrital Status: single Employed/Student: retired Past Medical History Surgeries: Orthopedic High Cholesterol, Hypertension Neuropathy Bladder Infection Degenerate Disk Disease, Arthritis Review of Systems Constitutional: see HPI Physical Exam General Appearance: No Apparent Distress, WD/WN, Chronically ill Respiratory: Lungs Clear, Normal Breath Sounds Cardiovascular: Regular Rate, Rhythm Neurologic/Psychiatric: Alert, Oriented x3 Assessment/Plan Assessment and Plan Assessment: Status post right hip dislocation status post reduction successful Hx Right Total Hip Arthroplasty 10 years ago Debility acute Hx Right Total Knee Arthroplasty Hx Left Total Knee Arthroplasty Osteoporosis Hiatal Hernia HTN Hypothryoidism Chronic Anemia Hx of Low GFR Restless Leg Syndrome Gastroesophageal Reflux Disease Plan: Supportive care Pain control Inpatient rehab Supervisory-Addendum Brief Verification & Attestation Participated in pt care: history, MDM, physical Personally performed: exam, history, MDM, supervision of care Care discussed with: Medical Student Procedures: n/a Results interpretation: Verified all documentation Verification and Attestation of Medical Student E/M Service A medical student performed and documented this service in my presence. I reviewed and verified all information documented by the medical student and made modifications to such information, when appropriate. I personally performed the physical exam and medical decision making. Shana Carney May 23, 2021,05:33 MARGUERITE AMBROSE May 22, 2021 11:52 SHANA CARNEY DO May 23, 2021 05:37
[2021-05-22] MEDS ORDERED: FERROUS SULF 325 MG (IRON) TAB PO SCH (12:00)
[2021-05-22] MEDS ORDERED: ASPIRIN 81 MG CHEW (CHILDREN'S ASA) PO SCH (12:00)
[2021-05-22] MEDS: NS IV 1000 ML 1,000 ML IV SCH (12:12)
--- NOTE | 2021-05-22 12:12 | Physical Therapy Evaluation ---
PT Evaluation-General Medical Diagnosis Admission Date May 21, 2021 at 20:18 Medical Diagnosis: R hip dislocation Onset Date: May 21, 2021 Therapy Diagnosis Therapy Diagnosis: weakness, debility, s/p R hip relocation Height/Weight Height (Feet): 5 Height (Inches): 7.00 Weight (Pounds): 150 Weight (Ounces): 0.0 Precautions Precautions/Isolations: Fall Prevention, Standard Precautions Weight Bear Status Right Lower Extremity: Right Non Weight Bearing Left Lower Extremity: Left Full Weight Bearing Referral Physician: Radames Reason for Referral: Evaluation/Treatment Medical History Pertinent Medical History: CAD, HTN, Renal Insufficiency Additional Medical History Previous history of TIA Current History Patient was sitting on the toilet and twisted and felt her hip dislocate. Patient brought to ER via EMS for R hip dislocation. Reviewed History: Yes Social History Home: Single Level Current Living Status: Alone Entry Into Home: Stairs With Railing PT Steps Into Home: 2 Prior Prior Level of Function SCALE: Activities may be completed with or without assistive devices. 1-Mevxzrdtoz-mpbshxz completes the activity by him/herself with no assistance from a helper. 5-Set-up or Clean-up Assistance-helper sets up or cleans up; patient completes activity. [place] assists only prior to or following the activity. 4-Supervision or Touching Assistance-helper provides verbal cues and/or touching/steadying and/or contact guard assistance as patient completes activity. Assistance may be provided throughout the activity or intermittently. 3-Partial/Moderate Assistance-helper does LESS THAN HALF the effort. [place] lifts, holds or supports trunk or limbs, but provides less than half the effort. 2-Substantial/Maximal Assistance-helper does MORE THAN HALF the effort. [place] lifts or holds trunk or limbs and provides more than half the effort. 7-Bwmtxjghe-qozwzf does ALL the effort. Patient does none of the effort to complete the activity. Or, the assistance of 2 or more helpers is required for the patient to complete the activity. If activity was not attempted, code reason: 7-Patient Refused. 9-Not Applicable-not attempted and the patient did not perform the activity before the current illness, exacerbation or injury. 10-Not Attempted due to Environmental Limitations-(lack of equipment, weather restraints, etc.). 88-Not Attempted due to Medical Conditions or Safety Concerns. Bed Mobility: 6 Transfers (B,C,W/C): 6 Gait: 6 Stairs: 6 Indoor Mobility (Ambulation): Independent Stairs: Independent Prior Devices Use: None PT Evaluation-Current Subjective Patient presented laying in her bed and agreed to participate in physical therapy. Objective Patient Orientation: Person, Place, Time, Situation Attachments: Marques Catheter, IV ROM/Strength ROM Lower Extremities WFL Strength Lower Extremities R LE not tested due to recent dislocation L LE 4/5 grossly Integumentary/Posture Bowel Incontinence: No Bladder Incontinence: Marques Cath Neuromuscular (Tone, Coordination, Reflexes) grossly intact Sensory Vision: Functional Hearing: Functional Transfers Lying to Sitting/Side of Bed(Q: 4 Sit to Stand (QC): 4 Chair/Ppf-zt-Mpiwa Xfer(QC): 4 Patient required CGA for transfers and bed mobility due to weakness Gait Does the Patient Walk?: Yes Mode of Locomotion: Walk Anticipated Mode of Locomotion: Walk Walk 10 feet (QC): 3 Walk 50 ft with 2 Turns(QC): 3 Walk 150 ft (QC): 3 Distance: 200' Gait Assistive Device: FWW Comments/Gait Description Patient ambulated 200' with FWW and min assist. Patient started with step to gait pattern and reported that her hip and R LE felt really weak but moved to a reciprocal gait pattern. Balance Sitting Static: Normal Sitting Dynamic: Normal Standing Static: Normal Standing Dynamic: Fair Assessment/Needs Patient ambulated and performed bed mobility. Patient ambulated with min assist with FWW with a slow gait. Patient has two steps to get into her house but does not think she can get up them currently. Patient would benefit from IRU due to her living alone and her PLOF. Patient was educated on hip precautions and the possibility of dislocating another time if she cannot follow the precautions. Rehab Potential: Good PT Group Home Goals Office Specialist Goals PT Group Home Goals Time Frame: May 30, 2021 Roll Left & Right (QC): 6 Sit to Lying (QC): 6 Lying-Sitting on Side/Bed(QC): 6 Sit to Stand (QC): 6 Chair/Bnf-qf-Fgnjh Xfer(QC): 6 Toilet Transfer (QC): 6 Does the Patient Walk: Yes Walk 10 feet (QC): 6 Walk 50ft with 2 Turns (QC): 6 Walk 150 ft (QC): 6 PT Plan Problem List Problem List: Activity Tolerance, Functional Strength, Safety, Balance, Gait, Transfer, Bed Mobility, ROM Treatment/Plan Treatment Plan: Continue Plan of Care Treatment Plan: Bed Mobility, Education, Functional Activity [place], Functional Strength, Group Therapy, Gait, Safety, Therapeutic Exercise, Transfers Treatment Duration: May 30, 2021 Frequency: 11 times per week Estimated Hrs Per Day: .5 hour per day Safety Risks/Education Patient Education: Gait Training, Reviewed Precautions, Safety Issues Teaching Recipient: Patient Teaching Methods: Discussion Time/GCodes Time In: 1015 Time Out: 1040 Total Billed Treatment Time: 25 Total Billed Treatment 1 Visit EVMod 15 min Gait 10 min KELSY GONZALEZ PT May 22, 2021 12:12
[2021-05-22 12:18] VITALS: BP 110/51
[2021-05-22 12:32] VITALS: BP 110/51
[2021-05-22] MEDS ORDERED: MIRTAZAPINE 15 MG (REMERON) TAB PO SCH (21:00)
[2021-05-22] MEDS ORDERED: MAGNESIUM OXIDE (MAG-OX)400 MG TAB PO SCH (21:00)
[2021-05-22] MEDS ORDERED: NON-FORMULARY MEDICATION 1 EA EA (Ropinirole HCl 2 MG) PO SCH (21:00)
[2021-05-22] MEDS ORDERED: LOSARTAN 100 MG (COZAAR) TABLET PO SCH (21:00)
[2021-05-22] MEDS ORDERED: NON-FORMULARY MEDICATION 1 EA EA (Magnesium Oxide (Magnesium) 400 MG) PO SCH (21:00)
[2021-05-22] MEDS ORDERED: rOPINIRole 1 MG (REQUIP) TABLET PO SCH (21:00)
[2021-05-22] MEDS ORDERED: NON-FORMULARY MEDICATION 1 EA EA (Mirtazapine 15 MG) PO SCH (21:00)
[2021-05-22] MEDS ORDERED: NON-FORMULARY MEDICATION 1 EA EA (Duloxetine HCl 60 MG) PO SCH (21:00)
[2021-05-23] MEDS ORDERED: LEVOTHYROXINE 50 MCG (LEVOTHROID) TAB PO SCH (06:30)
[2021-05-23] MEDS ORDERED: ASCORBIC ACID (VIT C) 500 MG TABLET PO SCH (08:00)
[2021-05-23] MEDS ORDERED: NON-FORMULARY MEDICATION 1 EA EA (Cyanocobalamin (Vitamin B-12) (Vitamin B12) 2,500 MCG) PO SCH (09:00)
[2021-05-23] MEDS ORDERED: OXYBUTYNIN (DITROPAN) 5 MG TAB PO SCH (09:00)
[2021-05-23] MEDS ORDERED: PANTOPRAZOLE 40 MG (PROTONIX) TAB PO SCH (09:00)
[2021-05-23] MEDS ORDERED: NON-FORMULARY MEDICATION 1 EA EA (Oxybutynin Chloride (Oxybutynin Chloride ER) 15 MG) PO SCH (09:00)
[2021-05-23] MEDS ORDERED: CYANOCOBALAMIN 1,000 MCG (VITAMIN B-12) TABLET PO SCH (09:00)
[2021-05-23] MEDS ORDERED: VITAMIN D3 25 MCG (1,000 UNITS) TABLET PO SCH (09:00)
[2021-05-23] MEDS ORDERED: VALACYCLOVIR 500 MG TAB (VALTREX) PO SCH (21:00)
[2021-05-23] MEDS ORDERED: DULoxetine 30 MG (CYMBALTA) CAP PO SCH (21:00)
--- NOTE | 2021-05-28 17:13 | Discharge Summary ---
Diagnosis/Chief Complaint Date of Admission May 21, 2021 at 20:18 Date of Discharge May 22, 2021 at 12:32 Discharge Date: May 22, 2021 Discharge Diagnosis Right hip dislocation Reason Hospital Visit Chief complaint: Right hip pain status post dislocation History of present illness: This is an 80-year-old white female who presented to the ER with severe right hip pain after she was sitting on the commode and felt a pop. She was found to have a dislocated hip which required Dr. Chau to reduce it. Currently she is needing assistance in order to regain enough function to live independently. Discharge Summary Discharge Physical Examination Allergies: Coded Allergies: Sulfa (Sulfonamide Antibiotics) (Verified Allergy, Unknown, 06/30/15) Vitals & I&Os General Appearance: Alert, Oriented X3, Cooperative Psych/Mental Status: Mental Status NL Hospital Course Was the Problem List Reviewed?: Yes Overnight hospital course after right hip dislocation. Reduced in the ER by Dr. Chau. No evidence of any fracture. Inpatient rehab transfer. Labs (last 24 hrs) Laboratory Tests 05/21/21 18:52: White Blood Count 6.9, Red Blood Count 3.53L, Hemoglobin 10.7L, Hematocrit 32L, Mean Corpuscular Volume 92, Mean Corpuscular Hemoglobin 30, Mean Corpuscular Hemoglobin Concent 33, Red Cell Distribution Width 18.1H, Platelet Count 106L, Mean Platelet Volume 10.3, Immature Granulocyte % (Auto) 1, Neutrophils (%) (Auto) 85H, Lymphocytes (%) (Auto) 8L, Monocytes (%) (Auto) 4, Eosinophils (%) (Auto) 2, Basophils (%) (Auto) 0, Neutrophils # (Auto) 5.9, Lymphocytes # (Auto) 0.6L, Monocytes # (Auto) 0.3, Eosinophils # (Auto) 0.1, Basophils # (Auto) 0.0, Immature Granulocyte # (Auto) 0.0, Prothrombin Time 12.7, INR Comment 0.9, Sodium Level 138, Potassium Level 3.8, Chloride Level 104, Carbon Dioxide Level 20L, Anion Gap 14, Blood Urea Nitrogen 38H, Creatinine 1.32H, Estimat Glomerular Filtration Rate 40, BUN/Creatinine Ratio 29, Glucose Level 104, Calcium Level 9.6, Corrected Calcium 9.6, Total Bilirubin 0.5, Aspartate Amino Transf (AST/SGOT) 29, Alanine Aminotransferase (ALT/SGPT) 23, Alkaline Phosphatase 52, Total Protein 7.1, Albumin 4.0 05/22/21 06:40: White Blood Count 6.2, Red Blood Count 3.50L, Hemoglobin 10.4L, Hematocrit 32L, Mean Corpuscular Volume 91, Mean Corpuscular Hemoglobin 30, Mean Corpuscular H emoglobin Concent 33, Red Cell Distribution Width 18.4H, Platelet Count 254, Mean Platelet Volume 9.1, Immature Granulocyte % (Auto) 0, Neutrophils (%) (Auto) 58, Lymphocytes (%) (Auto) 25, Monocytes (%) (Auto) 10, Eosinophils (%) (Auto) 7, Basophils (%) (Auto) 1, Neutrophils # (Auto) 3.6, Lymphocytes # (Auto) 1.5, Monocytes # (Auto) 0.6, Eosinophils # (Auto) 0.4H, Basophils # (Auto) 0.0, Immature Granulocyte # (Auto) 0.0, Sodium Level 138, Potassium Level 3.9, Chlo ride Level 107, Carbon Dioxide Level 20L, Anion Gap 11, Blood Urea Nitrogen 29H, Creatinine 1.16, Estimat Glomerular Filtration Rate 47, BUN/Creatinine Ratio 25, Glucose Level 87, Calcium Level 8.9, Corrected Calcium 9.4, Total Bilirubin 0.4, Aspartate Amino Transf (AST/SGOT) 24, Alanine Aminotransferase (ALT/SGPT) 19, Alkaline Phosphatase 45, Total Protein 6.0L, Albumin 3.4 Pending Labs Laboratory Tests 05/21/21 18:52: White Blood Count 6.9, Red Blood Count 3.53, Hemoglobin 10.7, Hematocrit 32, Mean Corpuscular Volume 92, Mean Corpuscular Hemoglobin 30, Mean Corpuscular Hemoglobin Concent 33, Red Cell Distribution Width 18.1, Platelet Count 106, Mean Platelet Volume 10.3, Immature Granulocyte % (Auto) 1, Neutrophils (%) (Auto) 85, Lymphocytes (%) (Auto) 8, Monocytes (%) (Auto) 4, Eosinophils (%) (Auto) 2, Basophils (%) (Auto) 0, Neutrophils # (Auto) 5.9, Lymphocytes # (Auto) 0.6, Monocytes # (Auto) 0.3, Eosinophils # (Auto) 0.1, Basophils # (Auto) 0.0, Immature Granulocyte # (Auto) 0.0, Prothrombin Time 12.7, INR Comment 0.9, Sod ium Level 138, Potassium Level 3.8, Chloride Level 104, Carbon Dioxide Level 20, Anion Gap 14, Blood Urea Nitrogen 38, Creatinine 1.32, Estimat Glomerular Filtration Rate 40, BUN/Creatinine Ratio 29, Glucose Level 104, Calcium Level 9.6, Corrected Calcium 9.6, Total Bilirubin 0.5, Aspartate Amino Transf (AST/SGOT) 29, Alanine Aminotransferase (ALT/SGPT) 23, Alkaline Phosphatase 52, Total Protein 7.1, Albumin 4.0 05/22/21 06:40: White Blood Count 6.2, Red Blood Count 3.50, Hemoglobin 10.4, Hematocrit 32, Mean Corpuscular Volume 91, Mean Corpuscular Hemoglobin 30, Mean Corpuscular Hemoglobin Concent 33, Red Cell Distribution Width 18.4, Platelet Count 254, Mean Platelet Volume 9.1, Immature Granulocyte % (Auto) 0, Neutrophils (%) (Auto) 58, Lymphocytes (%) (Auto) 25, Monocytes (%) (Auto) 10, Eosinophils (%) (Auto) 7, Basophils (%) (Auto) 1, Neutrophils # (Auto) 3.6, Lymphocytes # (Auto) 1.5, Monocytes # (Auto) 0.6, Eosinophils # (Auto) 0.4, Basophils # (Auto) 0.0, Immature Granulocyte # (Auto) 0.0, Sodium Level 138, Potassium Level 3.9, Chloride Level 107, Carbon Dioxide Level 20, Anion Gap 11, Blood Urea Nitrogen 2 9, Creatinine 1.16, Estimat Glomerular Filtration Rate 47, BUN/Creatinine Ratio 25, Glucose Level 87, Calcium Level 8.9, Corrected Calcium 9.4, Total Bilirubin 0.4, Aspartate Amino Transf (AST/SGOT) 24, Alanine Aminotransferase (ALT/SGPT) 19, Alkaline Phosphatase 45, Total Protein 6.0, Albumin 3.4 Discharge Home Medications: Active Scripts Active Reported Pantoprazole Sodium 40 Mg Tablet.dr 40 Mg PO DAILY LAST FILLED 09-15-2020 #30/30 DAY SUPPLY Mirtazapine 15 Mg Tablet 15 Mg PO HS LAST FILLED 03-16-2021 #30/30 DAY SUPPLY Vitamin D3 (Cholecalciferol (Vitamin D3)) 25 Mcg Tablet 25 Mcg PO DAILY Aspirin 81 Mg Tab.chew 81 Mg PO Q48H Docusate Sodium 100 Mg Capsule 200 Mg PO HS TAKES 2 (100MG) CAPS Vitamin B12 (Cyanocobalamin (Vitamin B-12)) 2,500 Mcg Tablet 2,500 Mcg PO DAILY Iron (Ferrous Sulfate) 325 Mg Tablet 650 Mg PO Q48H Vitamin C (Ascorbic Acid) 500 Mg Tablet 500 Mg PO DAILY Magnesium (Magnesium Oxide) 400 Mg Tablet 400 Mg PO HS Cyclobenzaprine HCl 5 Mg Tablet 5-10 Mg PO Q8H PRN Valacyclovir (Valacyclovir HCl) 500 Mg Tablet 250 Mg PO HS TAKES OF A 500MG TAB Oxybutynin Chloride ER (Oxybutynin Chloride) 15 Mg Tab.er.24 15 Mg PO DAILY Losartan-Hctz 100-25 mg Tab (Losartan/Hydrochlorothiazide) 1 Each Tablet 1 Ea PO HS Euthyrox (Levothyroxine Sodium) 50 Mcg Tablet 50 Mcg PO DAILY Alendronate Sodium 70 Mg Tablet 70 Mg PO THUR Duloxetine HCl 60 Mg Capsule.dr 60 Mg PO HS Ropinirole HCl 2 Mg Tablet 2 Mg PO HS Instructions to patient/family Please see electronic discharge instructions given to patient. LORRAINE CARNEY DO May 28, 2021 17:13
[2021-06-02] MEDS ORDERED: SENN1TAB76 PO ×2 (05:49→08:58)
[2021-06-02] MEDS ORDERED: OXC5T PO ×2 (05:49→08:58)
== END 2021-05-22 12:32 ==
LOC: EDUNIT# 16:51 → ER 16:52 → 4TH 20:18
PROVIDERS: ADMIT Internal Medicine; ATTEND Internal Medicine
DX: S73.014A Posterior dislocation of right hip, initial encounter (principal); M25.551 Pain in right hip; I10 Essential (primary) hypertension; I25.10 Atherosclerotic heart disease of native coronary artery without angina pectoris; G62.9 Polyneuropathy, unspecified; K21.9 Gastro-esophageal reflux disease without esophagitis; K44.9 Diaphragmatic hernia without obstruction or gangrene; D50.0 Iron deficiency anemia secondary to blood loss (chronic); G25.81 Restless legs syndrome; M19.90 Unspecified osteoarthritis, unspecified site; G89.29 Other chronic pain; M54.9 Dorsalgia, unspecified; M81.0 Age-related osteoporosis without current pathological fracture; E03.9 Hypothyroidism, unspecified; F32.A Depression, unspecified; Z79.82 Long term (current) use of aspirin; Z79.899 Other long term (current) drug therapy; Z79.890 Hormone replacement therapy; Z79.891 Long term (current) use of opiate analgesic; Z86.73 Personal history of transient ischemic attack (TIA), and cerebral infarction without residual deficits; Z90.710 Acquired absence of both cervix and uterus; Z96.641 Presence of right artificial hip joint
CPT/HCPCS: 27252; 51702; 71045; 72170; 73502; 80053 ×2; 85025 ×2; 85610; 93041; 96374; 96375; 96376; 97116; 97162; 97166; 99285; G0378; 36415

== ENCOUNTER 2021-05-22 11:08 | Inpatient (IN) | payer MEDICARE ==
[~2021-05-22] VITALS: Ht 167 cm; Wt 65.4 kg
[~2021-05-22 11:08] MED LIST changes: +ALEN70TA80 PO; +ASCO500T17 PO; +ASPI-999 PO; +CHOL-34 PO; +CYAN250010 PO; +CYCL5TAB PO; +DOCU100C37 PO; +FERR-84 PO; +LEVO-129 PO; +LOSA1TAB23 PO; +MAGN400T39 PO; +MIRT-68 PO; +OXYB15TA19 PO; +PANT40TA52 PO; +VALA500T7 PO
[2021-05-22] MEDS ORDERED: LOPERAMIDE 2 MG (IMODIUM) TABLET PO PRN (11:45)
[2021-05-22] MEDS ORDERED: DOCUSATE SODIUM 100 MG (COLACE) CAP PO PRN (11:45)
[2021-05-22] MEDS ORDERED: guaiFENesin/CODEINE (ROBITUSSIN AC) 10ML UDC PO PRN (11:45)
[2021-05-22] MEDS ORDERED: BISACODYL 10 MG SUPP (DULCOLAX) PR PRN (11:45)
[2021-05-22] MEDS ORDERED: CALCIUM CARBONATE 500 MG (TUMS) TAB.CHEW PO PRN (11:45)
[2021-05-22] MEDS ORDERED: FLEET ENEMA ADULT 1 EA BTL PR PRN (11:45)
[2021-05-22] MEDS ORDERED: diphenhydrAMINE 25 MG TAB (BENADRYL) PO PRN (11:45)
[2021-05-22] MEDS ORDERED: ALPRAZolam 0.25 MG (XANAX) TAB PO PRN (11:45)
[2021-05-22] MEDS ORDERED: MELATONIN 3 MG TABLET PO PRN (11:45)
[2021-05-22] MEDS ORDERED: ONDANSETRON 4 MG (ZOFRAN) ORAL DISSOLVE TAB PO PRN (11:45)
[2021-05-22 12:20] VITALS: BP 143/78
--- NOTE | 2021-05-22 13:24 | Physical Therapy Evaluation ---
PT Evaluation-General Medical Diagnosis Admission Date May 22, 2021 at 12:20 Medical Diagnosis: right hip dislocation Onset Date: May 21, 2021 Therapy Diagnosis Therapy Diagnosis: debility/weakness Height/Weight Height (Feet): 5 Height (Inches): 7.00 Weight (Pounds): 150 Weight (Ounces): 0.0 Precautions Precautions/Isolations: Standard Precautions Weight Bear Status Right Lower Extremity: Right Weight Bearing/Tolerated Left Lower Extremity: Left Full Weight Bearing Referral Physician: Radames Reason for Referral: Evaluation/Treatment Medical History Pertinent Medical History: CAD, Renal Insufficiency Additional Medical History right THR 10 years prior Current History Patient was sitting on the toilet and twisted and felt her hip dislocate. Patient brought to ER via EMS for R hip dislocation. Reviewed History: Yes Social History Home: Single Level Current Living Status: Alone Entry Into Home: Stairs With Railing PT Steps Into Home: 2 Prior Prior Level of Function SCALE: Activities may be completed with or without assistive devices. 1-Bcavkknjrc-eusokxs completes the activity by him/herself with no assistance from a helper. 5-Set-up or Clean-up Assistance-helper sets up or cleans up; patient completes activity. [place] assists only prior to or following the activity. 4-Supervision or Touching Assistance-helper provides verbal cues and/or touching/steadying and/or contact guard assistance as patient completes ac tivity. Assistance may be provided throughout the activity or intermittently. 3-Partial/Moderate Assistance-helper does LESS THAN HALF the effort. [place] lifts, holds or supports trunk or limbs, but provides less than half the effort. 2-Substantial/Maximal Assistance-helper does MORE THAN HALF the effort. [place] lifts or holds trunk or limbs and provides more than half the effort. 8-Sqxnayryy-rlfugk does ALL the effort. Patient does none of the effort to complete the activity. Or, the assistance of 2 or more helpers is required for the patient to complete the activity. If activity was not attempted, code reason: 7-Patient Refused. 9-Not Applicable-not attempted and the patient did not perform the activity before the current illness, exacerbation or injury. 10-Not Attempted due to Environmental Limitations-(lack of equipment, weather restraints, etc.). 88-Not Attempted due to Medical Conditions or Safety Concerns. Bed Mobility: 6 Transfers (B,C,W/C): 6 Gait: 6 Stairs: 6 Indoor Mobility (Ambulation): Independent Stairs: Independent Prior Devices Use: None PT Evaluation-Current Subjective Patient agrees to PT. Pain Numeric Pain Scale: 5-Moderate Pain Location: Right Location Body Site: Hip Pain Description: Acute Objective Patient Orientation: Normal For Age Attachments: Marques Catheter, IV ROM/Strength ROM Lower Extremities right LE THR precautions/left LE WFL Strength Lower Extremities right 4-/5 grossly/left LE 4/5 grossly Integumentary/Posture Integumentary refer to nursing notes Bowel Incontinence: No Bladder Incontinence: Marques Cath Posture kyphotic Neuromuscular (Tone, Coordination, Reflexes) grossly intact Sensory Vision: Functional Hearing: Impaired Sensation Right Lower Extremit: Intact Sensation Left Lower Extremity: Intact Transfers Roll Left & Right (QC): 3 Sit to Lying (QC): 3 Lying to Sitting/Side of Bed(Q: 3 Sit to Stand (QC): 3 Chair/Mic-zq-Ebqes Xfer(QC): 3 Toilet Transfer (QC): 3 Car Transfer (QC): 3 Gait Does the Patient Walk?: Yes Mode of Locomotion: Walk Anticipated Mode of Locomotion: Walk Walk 10 feet (QC): 4 Walk 50 ft with 2 Turns(QC): 4 Walk 150 ft (QC): 4 Walking 10ft/uneven surface-QC: 4 Distance: 200' x 3 Gait Assistive Device: FWW Comments/Gait Description slow, slightly antalgic Wheelchair Training Does the Pt Use a Wheelchair?: No Wheel 50 ft with 2 turns (QC): 9 Wheel 150 ft (QC): 9 Type of Wheelchair: N/A Stairs #of Steps: 1 1 Step (curb) (QC): 4 4 Steps (QC): 88 12 Steps (QC): 88 Walking Assistive Device: Walker Balance Sitting Static: Normal Sitting Dynamic: Normal Standing Static: Normal Standing Dynamic: Normal Picking up an Object (QC): 88 (due to hip precautions (unable to flex at hip past 90 degrees)) Assessment/Needs 80 y.o. female, will benefit from skilled PT to address functional strength and mobility to improve current LOF to safely return to home at maximum LOF. Rehab Potential: Fair PT Snf Goals Public Transit Specialist Goals PT Public Transit Specialist Goals Time Frame: Jun 06, 2021 Roll Left & Right (QC): 6 Sit to Lying (QC): 6 Lying-Sitting on Side/Bed(QC): 6 Sit to Stand (QC): 6 Chair/Xvl-ie-Xdbti Xfer(QC): 6 Toilet Transfer (QC): 6 Car Transfer (QC): 6 Does the Patient Walk: Yes Walk 10 feet (QC): 6 Walk 50ft with 2 Turns (QC): 6 Walk 150 ft (QC): 6 Walking 10ft on Uneven Surface: 6 1 Step (curb) (QC): 4 4 Steps (QC): 4 12 Steps (QC): 4 Picking up an Object (QC): 88 (due to hip precautions (inability to flex at hip past 90 degrees)) Wheel 50 feet with 2 turns (QC: 9 Type: N/A Wheel 150 feet: 9 Type: N/A PT Plan Problem List Problem List: Activity Tolerance, Functional Strength, Safety, Balance, Gait, Transfer, Bed Mobility, ROM Treatment/Plan Treatment Plan: Continue Plan of Care Treatment Plan: Bed Mobility, Concurrent Therapy, Education, Functional Activity [place], Functional Strength, Group Therapy, Gait, Safety, Therapeutic Exercise, Transfers Treatment Duration: Jun 06, 2021 Frequency: At least 5 of 7 days/Wk (IRF) Estimated Hrs Per Day: 1.5 hours per day Patient and/or Family Agrees t: Yes Safety Risks/Education Patient Education: Gait Training, Safety Issues Teaching Recipient: Patient Teaching Methods: Demonstration, Discussion Response to Teaching: Verbalize Understanding, Return Demonstration Time/GCodes Time In: 1220 Time Out: 1240 Total Billed Treatment Time: 20 Total Billed Treatment 1 visit EVModC 20 min KELSY GONZALEZ PT May 22, 2021 13:24
--- NOTE | 2021-05-22 13:40 | Occupational Therapy Eval ---
OT Evaluation-General/PLF Medical Diagnosis Admission Date May 22, 2021 at 12:20 Medical Diagnosis: right hip dislocation Onset Date: May 21, 2021 Therapy Diagnosis Therapy Diagnosis: decreased ADL Status Height/Weight Height (Feet): 5 Height (Inches): 7.00 Weight (Pounds): 150 Weight (Ounces): 0.0 Precautions Precautions/Isolations: Standard Precautions Comments R hip precautions Weight Bear Status Weight Bearing Restriction: Weight Bearing/Tolerated Location Restriction: R LE Referral Physician: Radames Referral Reason: Evaluation/Treatment Medical History Pertinent Medical History: CAD, Renal Insufficiency Additional Medical History CAD with stents, HTN, neuropathy, GERD, GI bleed, TIA, hypothyroidism, depression, renal failure, R hip replacement ~10 years ago Current History ED via EMS, stood from toilet, twisted and felt crunching sensation in R hip. Pt dislocated R hip, reduced in ED. Social History Home: Single Level Current Living Status: Alone Entry Into Home: Stairs With Railing Steps Into Home: 2 ADL-Prior Level of Function SCALE: Activities may be completed with or without assistive devices. 3-Qjivcpurst-rlwqvky completes the activity by him/herself with no assistance from a helper. 5-Set-up or Clean-up Assistance-helper sets up or cleans up; patient completes activity. [place] assists only prior to or following the activity. 4-Supervision or Touching Assistance-helper provides verbal cues and/or touching/steadying and/or contact guard assistance as patient completes activity. Assistance may be provided throughout the activity or intermittently. 3-Partial/Moderate Assistance-helper does LESS THAN HALF the effort. [place] lifts, holds or supports trunk or limbs, but provides less than half the effort. 2-Substantial/Maximal Assistance-helper does MORE THAN HALF the effort. [place] l ifts or holds trunk or limbs and provides more than half the effort. 6-Tvdyhuepm-xiesev does ALL the effort. Patient does none of the effort to complete the activity. Or, the assistance of 2 or more helpers is required for the patient to complete the activity. If activity was not attempted, code reason: 7-Patient Refused. 9-Not Applicable-not attempted and the patient did not perform the activity before the current illness, exacerbation or injury. 10-Not Attempted due to Environmental Limitations-(lack of equipment, weather restraints, etc.). 88-Not Attempted due to Medical Conditions or Safety Concerns. ADL PLOF Comments Pt reports IND with ADLs and functional mobility at PLOF, no AD/AE Self Care: Independent Functional Cognition: Independent DME/Equipment: Tub/Shower OT Current Status Subjective Pt agreeable to OT evaluation and OT/PT cotreat. 5/10 pain in R hip/muscles of upper leg with activity. Mental Status/Objective Patient Orientation: Person, Place, Time, Situation Attachments: Marques Catheter Current Glasses/Contacts: Yes Hearing Aids: No Dentures/Partials: Yes Hand Dominance: Right Upper Extremity ROM WFL, BUE shoulder flexion to approx 150 degrees Upper Extremity Coordination WFL Upper Extremity Sensation WFL Upper Extremity Strength grossly 4/5 ADL-Treatment Eating (QC): 6 (IND) Oral Hygiene (QC): 4 (SBA standing at sink) Shower/Bathe Self (QC): 3 (Assist to wash BLE lower legs/feet and buttocks.) Upper Body Dressing (QC): 5 (set up) Lower Body Dressing (QC): 2 (Max A to thread BLEs, pt able to perform pant hike) On/Off Footwear (QC): 1 (total assist) Toileting Hygiene (QC): 3 (assist with washing buttocks, pt able to manage clothing) Other Treatments OT evaluation complete, then OT/PT cotreat due to skill of 2 clinicians required in order to coordinate UE/LEs, decrease fall risk, focus on higher level balance tasks, and due to pt's limitations in strength, mobility/transfers. OT focused on UE placement, cues for sequencing and safety and ADLs, PT focused on LE placement, gross overall movement, transfers/mobility. Pt transferred supine to sit EOB, then completed sponge bath and dressing. Min verbal cues required in order to maintain hip precautions. Pt then used FWW to stand at sink to complete oral care prior to going to therapy gym. In order to focus on higher level balance tasks, pt completed x2 rounds of balloon batting without UE support, then x1 round on AirEx (Min A). Pt completed washer toss task, standing on AirEx, x3 rounds, tossing washers at a target (Min A). Pt used FWW to perform functional mobility around [facility] common area and 2nd floor, then back to her room to recliner. Cotreat ended, OT tx continued. Pt's lunch arrived, pt able to eat lunch independently, opening dressing containers and cutting food independently. Post tx, pt in recliner, call light in reach and all needs met. Education OT Patient Education: Correct positioning, Energy conservation, Exercise program, Modified ADL techniques, Progress toward Goal/Update tx plan, Purpose of tx/functional activities, Rehab process Teaching Recipient: Patient Teaching Methods: Discussion Response to Teaching: Verbalize Understanding OT Short Term Goals Short Term Goals Time Frame: May 29, 2021 Toileting hygiene: 4 Lower body dressin Putting on/taking off footwear: 4 OT Skilled Nursing Goals Skilled Nursing Goals Time Frame: Jun 12, 2021 Eating (QC): 6 Oral Hygiene (QC): 6 Toileting Hygiene (QC): 6 Shower/Bathe Self (QC): 6 Upper Body Dressing (QC): 6 Lower Body Dressing (QC): 6 On/Off Footwear (QC): 6 Additional Goals: 1-Demonstrate ADL Tasks, 2-Verbalize Understanding, 3-ImproveStrength/[place] 1=Demonstrate adherence to instructed precautions during ADL tasks. 2=Patient will verbalize/demonstrate understanding of assistive devices/modifications for ADL. 3=Patient will improve strength/tolerance for activity to enable patient to perform ADL's. OT Education/Plan Problem List/Assessment Assessment: Decreased Activ Tolerance, Decreased UE Strength, Impaired Funct Balance, Impaired I ADL's, Impaired Self-Care Skills Discharge Recommendations Plan/Recommendations: Continue POC Equpiment Recommendations-D/C: Extended Bath Bench, Hip Kit Treatment Plan/Plan of Care Patient would benefit from OT for education, treatment and training to promote independence in ADL's, mobility, safety and/or upper extremity function for ADL's. Plan of Care: ADL Retraining, Functional Mobility, Group Exercise/Act as Ind, UE Funct Exercise/Act Treatment Duration: Jun 12, 2021 Frequency: At least 5 of 7 days/Wk (IRF) Estimated Hrs Per Day: 1.5 hours per day Rehab Potential: Good Time/GCodes Start Time: 13:00 Stop Time: 14:20 Total Time Billed (hr/min): 80 Billed Treatment Time 9721-3154 OT tx, 1528-3299 OT/PT cotreat, 2510-3464 OT tx 1, EVM (10'), ADL 2 (30'), FA 2 (40') ASHWIN SMITH OT May 22, 2021 13:40
--- NOTE | 2021-05-22 14:15 | Physical Therapy Daily Note ---
PT Daily Note-Current Subjective Patient is with OT at the start of PT treatment. PT will co-treat with OT due to patients lack of mobility, strength, and to ensure patient safety. Patient reported slight pain in her R hip and in her R LE muscles. Pain Numeric Pain Scale: 5-Moderate Pain Location: Right Location Body Site: Hip Pain Description: Acute Mental Status Patient Orientation: Person, Place, Time, Situation Attachments: Marques Catheter Transfers SCALE: Activities may be completed with or without assistive devices. 1-Wdgjknpvjm-prifktr completes the activity by him/herself with no assistance from a helper. 5-Set-up or Clean-up Assistance-helper sets up or cleans up; patient completes activity. [place] assists only prior to or following the activity. 4-Supervision or Touching Assistance-helper provides verbal cues and/or touching/steadying and/or contact guard assistance as patient completes activity. Assistance may be provided throughout the activity or intermittently. 3-Partial/Moderate Assistance-helper does LESS THAN HALF the effort. [place] lifts, holds or supports trunk or limbs, but provides less than half the effort. 2-Substantial/Maximal Assistance-helper does MORE THAN HALF the effort. [place] lifts or holds trunk or limbs and provides more than half the effort. 5-Sswanaklb-wnhvqo does ALL the effort. Patient does none of the effort to complete the activity. Or, the assistance of 2 or more helpers is required for the patient to complete the activity. If activity was not attempted, code reason: 7-Patient Refused. 9-Not Applicable-not attempted and the patient did not perform the activity before the current illness, exacerbation or injury. 10-Not Attempted due to Environmental Limitations-(lack of equipment, weather restraints, etc.). 88-Not Attempted due to Medical Conditions or Safety Concerns. Sit to Stand (QC): 4 Chair/Vqg-sq-Gmckg Xfer(QC): 4 Weight Bearing Right Lower Extremity: Right Weight Bearing/Tolerated Left Lower Extremity: Left Full Weight Bearing Gait Training Distance: 450' Walk 10 feet (QC): 4 Walk 50 ft with 2 Turns(QC): 4 Walk 150 ft (QC): 4 Gait Assistive Device: FWW Patient ambulated to rehab gym that was 150' then ambulated another 300' after a rest break and exercises. Treatments PT focused on LE strengthening, balance, and sit to stand exercises while OT focused on ADL's, bathing, reaching exercises outside of base of support, and UE strength. Standing balance exercises with balloon toss on airex with no hands on FWW and min assist Standing balance exercises with washer toss on airex with no hands on FWW and min assist Ambulation 450' Assessment Patient completed ADL's, functional exercises, ambulation, and balance activities during therapy session. Patient ambulated with a reciprocal gait pattern but reports slight pain while she is walking. Patient continues to lack strength and endurance to return to PLOF. PT First Breaker Feeder Goals Mcc Goals PT Mcc Goals Time Frame: Jun 06, 2021 Roll Left & Right (QC): 6 Sit to Lying (QC): 6 Lying-Sitting on Side/Bed(QC): 6 Sit to Stand (QC): 6 Chair/Qfk-ve-Kdshi Xfer(QC): 6 Toilet Transfer (QC): 6 Car Transfer (QC): 6 Does the Patient Walk: Yes Walk 10 feet (QC): 6 Walk 50ft with 2 Turns (QC): 6 Walk 150 ft (QC): 6 Walking 10ft on Uneven Surface: 6 1 Step (curb) (QC): 4 4 Steps (QC): 4 12 Steps (QC): 4 Picking up an Object (QC): 88 (due to hip precautions (inability to flex at hip past 90 degrees)) Wheel 50 feet with 2 turns (QC: 9 Type: N/A Wheel 150 feet: 9 Type: N/A PT Plan Problem List Problem List: Activity Tolerance, Functional Strength, Safety, Balance, Gait, Transfer, Bed Mobility, ROM Treatment/Plan Treatment Plan: Continue Plan of Care Treatment Plan: Bed Mobility, Concurrent Therapy, Education, Functional Activity [place], Functional Strength, Group Therapy, Gait, Safety, Therapeutic Exercise, Transfers Treatment Duration: Jun 06, 2021 Frequency: At least 5 of 7 days/Wk (IRF) Estimated Hrs Per Day: 1.5 hours per day Patient and/or Family Agrees t: Yes Safety Risks/Education Patient Education: Gait Training, Safety Issues Teaching Recipient: Patient Teaching Methods: Discussion Time/GCodes Time In: 1310 Time Out: 1410 Total Billed Treatment Time: 60 Total Billed Treatment 1 Visit FA x4 60 min KELSY GONZALEZ PT May 22, 2021 14:15
--- NOTE | 2021-05-22 15:10 | ST Cognitive Linguistic Eval ---
Speech Evaluation-General Medical Diagnosis Right Hip Dislocation Onset Date: May 21, 2021 Therapy Diagnosis Therapy Diagnosis: Mild Cognitive Linguistic Impairment Precautions Precautions: Fall Precautions/Isolations: Standard Precautions Referral Referring Physician: Dr. Shana Crum Reason for Referral: Evaluation/Treatment Medical History Pertinent Medical History: CAD, Renal Insufficiency Current History The patient is an 80 year-old female with a past medical history of CAD with stents, HTN, neuropathy, GERD, GI bleed, TIA, hypothyroidism, depression, renal failure, and right hip replacement who presented to [facility] with a right dislocated hip. The patient underwent hip reduction in the ED and presents to ARU for skilled therapy. Reviewed History: Yes Social History Current Living Status: Alone Speech PLF-Current Status Prior Level of Function The patient reported independence with ADL's prior to admission. The patient denied recent changes to her cognition, speech, language, or swallowing. Subjective The patient was lying in bed, awake and alert upon entrance. The patient greeted the clinician appropriately and was agreeable to participation in the cognitive linguistic evaluation. Language Eval: Auditory Comprehends Simple Yes/No Ques: Functional Indent/Objects Multiple Colindres: Functional Ident/Pics in Multiple Colindres: Functional Follows 1-Step Commands: Functional Follows Complex Directions: Functional Follows General Conversations: Functional Language Eval: Verbal Language Completes Spontaneous Greeting: Functional Produces Auto, Serial Info: Functional Imitates Simple Words/Phrases: Functional Word Finding: Mild Requests Basic Needs: Functional States Basic Personal Info: Functional Expresses Complex Ideas: Functional Language Evaluation: Reading Follows Simple Written Direct: Functional Language Evaluation: Writing Writes to Simple Dictation: Functional Cognitive Patient Orientation The patient was independently oriented to self, location, city, month, day of the week, date, and year. Objective Cognitive Domain Attention: WNL Memory: Mild Problem Solving: Functional Visuospatial Skills: WNL Composite Severity Rating: Mild Clock Drawing Severity Rating: Mild Objective Formal/Standardized Tests [facility] Mental Status (UMS) Results The patient demonstrated a result of +25/30 on the SLUMS correlating to a mild neurocognitive impairment. Oral Motor/Speech Production The patient does not display dysarthria or apraxia of speech at this time. The patient remains 100% intelligible in known and unknown contexts. Impression The patient demonstrated a mild neurocognitive impairment, most notably in the areas of memory. The patient displayed difficulty with delayed recall of single items and details of a story recently read aloud. Additionally, the patient demonstrated difficulty with repeating digits backwards. Speech Patient Assess Expression of Ideas/Wants: Exhibits (3) Understanding Verbal Content: Usually Understands (3) Brief Interview-Mental Status: Yes Repetition of Three Words: Three (3) Temporal Orientation: Year: Correct (3) Temporal Orientation: Month: Accurate within 5 days(2) Temporal Orientation: Day: Correct (1) Recall : Wear to say "Sock": Yes, no cue required (2) Recall : Color: Yes, no cue required (2) Recall : Bed: Yes,after cueing (1) Memory/Recall Ability: Current season, That he or she is in a hsp/hsp unit Speech Short Term Goals Short Term Goals Short Term Goals 1. The patient will demonstrate memory strategies with 90% accuracy and mild clinician cueing. Speech Fci Goals Fci Goals 1. The patient will demonstrate increased cognitive linguistic skills for safe return to the least restrictive environment. Speech-Plan Treatment Plan Speech Therapy Treatment Plan: Continue Plan of Care Treatment Duration: Jun 05, 2021 Frequency: 4 times per week (Four to five times per week. ) Estimated Hrs Per Day: .5 hour per day Rehab Potential: Good Pt/Family Agrees to Plan: Yes Safety Risks/Education Teaching Recipient: Patient Teaching Methods: Discussion Response to Teaching: Verbalize Understanding, Reinforcement Needed Education Topics Provided: Plan of Care, Results of SLUMS Time Speech Therapy Time In: 12:40 Speech Therapy Time Out: 13:00 Total Billed Time: 20 Billed Treatment Time 1, NEENA GRIMM [facility] ST May 22, 2021 15:10
[2021-05-22] MEDS ORDERED: CYCLOBENZAPRINE PO PRN (17:15)
[2021-05-22] MEDS ORDERED: NON-FORMULARY MEDICATION 1 EA EA (Alendronate Sodium 70 MG) PO SCH (17:15)
--- NOTE | 2021-05-22 17:16 | PM&R Post Admission Assessment ---
PM&R HP Date of Visit: May 22, 2021 Time of Visit: 12:30 History of Present Illness Chief complaint: Right hip pain status post dislocation History of present illness: This is an 80-year-old white female who presented to the ER with severe right hip pain after she was sitting on the commode and felt a pop. She was found to have a dislocated hip which required Dr. Chau to reduce it. Currently she is needing assistance in order to regain enough function to live independently. CC: Right Posterior Hip Dislocation HPI: Mirian Vargas is an 80yoWF who presented to [place] ED on the evening of 05/21/21 with right hip pain following an attempt to mobilize from the toilet. She endorses hearing an audible "pop" sound along with immediate pain in the right hip and buttock area. The pain did not radiate. She gently maneuvered herself to the floor and was able to navigate to a nearby window where she called for help. Her neighbor found her and called the ambulance. In the ED the patient was found to have a posterior superior right hip dislocation of a previous total hip arthroplasty completed approximately [address] Cabrera at [place]. Dr. Chau was consulted and performed a cl osed reduction of the right hip successfully without any immediate complications. The patient maintained sensation and motor function throughout the entirety of the right lower limb prior to and after reduction maneuvers. An incidental hiatal hernia was noted on the CXR obtained in the ED. Patient lives at home by herself with minimal assistance and was walking without assistance prior to this incident. She would like to return home when safe; however, she is interested in rehabiliation options. We feel she would be a good candidate for inpatient rehab. Past Yxduols-Xrahlm-Ajphgx Hx Past Med/Social Hx: Reviewed Nursing Past Med/Soc Hx, Reviewed and Corrections made Patient Social History Marrital Status: single Employed/Student: retired Smoking Status: Former Smoker Recent Hopitalizations: No Immunizations Up To Date Tetanus Booster (TDap): Less than 5yrs Date of Pneumonia Vaccine: Feb 09, 2010 Date of Influenza Vaccine: Jan 09, 2015 Seasonal Allergies Seasonal Allergies: No Past Medical History Surgeries: Coronary Stent, Gallbladder, Hysterectomy, Joint Replacement, Orthopedic Cardiac: Coronary Artery Disease, Hypertension Neurological: Neuropathy, TIA Hysterectomy Genitourinary: Renal Failure, UTI-Chronic Gastrointestinal: Gastroesophageal Reflux, Gastrointestinal Bleed, Polyps, Ulcer Musculoskeletal: Osteoporosis, Arthritis, Back Injury, Chronic Back Pain Endocrine: Hypothyroidsim Psychosocial: Depression Adverse Reaction to Blood Colon: No Family History No Pertinent Family Hx Prior Level of Function Bed Mobility: 6 Transfers: 6 Gait: 6 Stairs: 6 Indoor Mobility (Ambulation): Independent Stairs: Independent Prior Devices Use: None Self Care: Independent Functional Cognition: Independent Current Level of Fuctioning Roll Left to Right: 3 Sit to Lyin Lying to Sitting/Side of Bed: 3 Sit to Stand: 4 Chair/Sgm-mq-Wbdon Xfer: 4 Car Transfer: 3 Does the Patient Walk: Yes Mode of Locomotion: Walk Anticipated Mode of Locomotion: Walk Walk 10 feet: 4 Walk 50 ft with 2 Turns: 4 Walk 150 ft: 4 Walking 10ft on uneven surface: 4 Gait Assistive Device: FWW Does the Pt Use a Wheelchair: No Wheel 50 ft with 2 turns: 9 Wheel 150 ft: 9 Type of Wheelchair: N/A #of Steps: 1 1 Step (curb): 4 4 Steps: 88 Walking Assistive Device: Walker 12 Steps: 88 Picking up an Object: 88 (due to hip precautions (unable to flex at hip past 90 degrees)) Eatin (IND) Oral Hygiene: 4 (SBA standing at sink) Shower/Bathe Self: 3 (Assist to wash BLE lower legs/feet and buttocks.) Upper Body Dressin (set up) Lower Body Dressin (Max A to thread BLEs, pt able to perform pant hike) On/Off Footwear: 1 (total assist) Toileting Hygiene: 3 (assist with washing buttocks, pt able to manage clothing) PM&R Allergy/Meds/Data Review Allergies Coded Allergies: Sulfa (Sulfonamide Antibiotics) (Verified Allergy, Unknown, 06/30/15) Home Medications Scheduled Alendronate Sodium (Alendronate Sodium), 70 MG PO THUR, (Reported) Ascorbic Acid (Vitamin C), 500 MG PO DAILY, (Reported) Aspirin (Aspirin), 81 MG PO Q48H, (Reported) Cholecalciferol (Vitamin D3) (Vitamin D3), 25 MCG PO DAILY, (Reported) Cyanocobalamin (Vitamin B-12) (Vitamin B12), 2,500 MCG PO DAILY, (Reported) Docusate Sodium (Docusate Sodium), 200 MG PO HS, (Reported) Duloxetine HCl (Duloxetine HCl), 60 MG PO HS, (Reported) Ferrous Sulfate (Iron), 650 MG PO Q48H, (Reported) Levothyroxine Sodium (Euthyrox), 50 MCG PO DAILY, (Reported) Losartan/Hydrochlorothiazide (Losartan-Hctz 100-25 mg Tab), 1 EA PO HS, (Reported) Magnesium Oxide (Magnesium), 400 MG PO HS, (Reported) Mirtazapine (Mirtazapine), 15 MG PO HS, (Reported) Oxybutynin Chloride (Oxybutynin Chloride ER), 15 MG PO DAILY, (Reported) Pantoprazole Sodium (Pantoprazole Sodium), 40 MG PO DAILY, (Reported) Ropinirole HCl (Ropinirole HCl), 2 MG PO HS, (Reported) Valacyclovir HCl (Valacyclovir), 250 MG PO HS, (Reported) Scheduled PRN Cyclobenzaprine HCl (Cyclobenzaprine HCl), 5-10 MG PO Q8H PRN for MUSCLE SPASMS, (Reported) Discontinued Medications Alendronate Sodium (Fosamax), 70 MG PO WEEKLY, (Reported) Discontinued Reason: Duplicate Order Alprazolam (Alprazolam Xr), 0.5 MG PO HS, (Reported) Discontinued Reason: Duplicate Order Aspirin (Aspir 81), 81 MG PO MoWeFr, (Reported) Discontinued Reason: Duplicate Order Cholecalciferol (Vitamin D), 2,000 UNIT PO DAILY, (Reported) Discontinued Reason: Duplicate Order Dexlansoprazole (Dexilant), 60 MG PO DAILY, (Reported) Discontinued Reason: Duplicate Order Docusate Sodium (Colace), 100 MG PO DAILY, (Reported) Discontinued Reason: Duplicate Order Fenofibrate Nanocrystallized (Fenofibrate), 145 MG PO HS, (Reported) Discontinued Reason: Duplicate Order Folic Acid/Mv,Fe,Other Min (Centrum Complete Multivit Tab), 1 TAB PO DAILY, (Reported) Discontinued Reason: Duplicate Order Furosemide (Furosemide), 40 MG PO DAILY, (Reported) Discontinued Reason: Duplicate Order Levothyroxine Sodium (Levothyroxine Sodium), 50 MCG PO DAILY, (Reported) Discontinued Reason: Duplicate Order Loratadine (Loratadine), 10 MG PO DAILY, (Reported) Discontinued Reason: Duplicate Order Metoprolol Succinate (Metoprolol Succinate), 25 MG PO HS, (Reported) Discontinued Reason: Duplicate Order Oxybutynin Chloride (Oxybutynin Chloride ER), 10 MG PO DAILY, (Reported) Discontinued Reason: Duplicate Order Potassium Chloride (K-Dur), 20 MEQ PO DAILY, (Reported) Discontinued Reason: Duplicate Order Tramadol Hcl (Ultram), 100 MG PO Q6 -8H PRN for PAIN, (Reported) Discontinued Reason: Duplicate Order Trazodone Hcl (Desyrel), 100 MG PO HS, (Reported) Discontinued Reason: Duplicate Order [Trubiotics], 1 TAB PO DAILY, (Reported) Discontinued Reason: Duplicate Order Current Medications Current Medications Reviewed Review of Systems Constitutional: see HPI, malaise, weakness EENTM: no symptoms reported Respiratory: no symptoms reported Cardiovascular: no symptoms reported Gastrointestinal: no symptoms reported Genitourinary: no symptoms reported Musculoskeletal: joint pain Skin: no symptoms reported Psychiatric/Neurological: Depressed All Other Systems Reviewed Negative Unless Noted: Yes Physical Exam Physical Exam Vital Signs Vital Signs - First Documented 05/22/21 12:20 Temp 36.8 Pulse 78 Resp 18 B/P (MAP) 143/78 (99) Pulse Ox 98 O2 Delivery Room Air Capillary Refill : Height, Weight, BMI Height: 5'7.00" Weight: 150lbs. 0.0oz. [id number]; 22.23 BMI Method:Stated General Appearance: No Apparent Distress, WD/WN, Chronically ill Eyes: Bilateral Eye Normal Inspection, Bilateral Eye PERRL HEENT: PERRL/EOMI, Normal ENT Inspection, Pharynx Normal Neck: Full Range of Motion, Normal Inspection, Non Tender, Supple, Carotid Bruit Respiratory: Chest Non Tender, Lungs Clear, Normal Breath Sounds, No Accessory Muscle Use, No Respiratory Distress Cardiovascular: Regular Rate, Rhythm, No Edema, No Gallop, No JVD, No Murmur, Normal Peripheral Pulses Gastrointestinal: Normal Bowel Sounds, No Organomegaly, No Pulsatile Mass, Non Tender, Soft Back: Normal Inspection, No CVA Tenderness, No Vertebral Tenderness Extremity: Normal Capillary Refill, Normal Inspection, Normal Range of Motion, Non Tender, No Calf Tenderness, No Pedal Edema Neurologic/Psychiatric: Alert, Oriented x3, No Motor/Sensory Deficits, Normal Mood/Affect, 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 Norm as Tested, Abnormal Gait, Motor Weakness (Right leg pain) Skin: Normal Color, Warm/Dry Lymphatic: No Adenopathy PM&R Medical Assessment & Plan REHAB/MEDICAL ASSESSMENT AND PLAN: REHAB IMPAIRMENT GROUP: Right hip dislocation ETIOLOGIC DIAGNOSIS: Right hip dislocation The comorbidities that impact the patients function and/or functional outcome by: Right leg pain, lives alone, fall risk REHAB PLAN: The patient is being admitted to our comprehensive inpatient rehabilitation facility and can tolerate the intensity of service consisting of at least: 180 minutes of therapy a day, 5 out of 7 days a week Rehab treatment will consist of: PT and OT will focus on use of assistive devices in order to regain independent function in order to return back to independent living and living alone The patient/family has a good understanding of our discharge process and will benefit from an interdisciplinary inpatient rehabilitation program. The patient has potential to make improvement and is in need of at least two of the following multidisciplinary therapies including but not limited to physical, occupational, speech, and prosthetics and orthotics. Additionally the patient will need services from respiratory, nutritional services, wound care, psychology, etc. (Customize this to each patient). Given the patients complex condition and risk of further medical complications, rehabilitation services cannot be safely or effectively provided at a lower level of care such as a senior living facility. BARRIERS TO DISCHARGE: Lives alone ESTIMATED LOS: 7 days DISPOSITION: Return home RELEVANT CHANGES SINCE PREADMISSION SCREENING: I have compared the patients medical and functional status at the time of the preadmission screening and there are: No changes PROGNOSIS: Good REHABILITATION GOALS: 1. PT and OT will focus on use of assistive devices in order to regain independent function in order to return back to independent living and living alone All the above goals were reviewed with the patient and he/she is in agreement. By signing this document, I acknowledge that I have personally performed a full physical examination on this patient within 24 hours of admission to this inpatient rehabilitation facility and have determined the patient to be able to tolerate the above course of treatment at an intensive level for a reasonable period of time. I will be completing a detailed individualized Plan of Care for this patient by day #4 of the patients stay based upon the Preadmission Screen, the Post-Admission Evaluation, and the therapy evaluations. Admission Dx/Comorbidities: (1) Hip dislocation, right Status: Acute ICD Codes: S73.004A - Unspecified dislocation of right hip, initial encounter (2) Chronic anemia ICD Codes: D64.9 - Anemia, unspecified (3) GERD (gastroesophageal reflux disease) ICD Codes: K21.9 - Gastro-esophageal reflux disease without esophagitis (4) Restless leg syndrome ICD Codes: G25.81 - Restless legs syndrome (5) Hypothyroidism ICD Codes: E03.9 - Hypothyroidism, unspecified (6) Osteoporosis ICD Codes: M81.0 - Age-related osteoporosis without current pathological fracture (7) Hiatal hernia ICD Codes: K44.9 - Diaphragmatic hernia without obstruction or gangrene (8) Chronic diastolic CHF (congestive heart failure) Onset Date: 06/04/2014 Status: Acute ICD Codes: I50.32 - Chronic diastolic CHF (congestive heart failure) (9) History of total right hip arthroplasty ICD Codes: Z96.641 - Presence of right artificial hip joint (10) History of total left knee replacement (TKR) ICD Codes: Z96.652 - Presence of left artificial knee joint (11) History of total right knee replacement (TKR) ICD Codes: Z96.651 - Presence of right artificial knee joint Assessment/Plan Assessment and Plan Assess & Plan/Chief Complaint Assessment: Right Hip Dislocation Hx Right Total Hip Arthroplasty Debility Hx Right Total Knee Arthroplasty Hx Left Total Knee Arthroplasty Osteoporosis Hiatal Hernia HTN Hypothryoidism Chronic Anemia Hx of Low GFR Restless Leg Syndrome Gastroesophageal Reflux Disease Plan: s/p Closed Reduction of Right Hip on 05/21/21 Orthopedics managing hip precautions PT/OT Will transfer patient to inpatient rehab for debility Problems: (1) Hip dislocation, right Status: Acute (2) History of total right hip arthroplasty (3) Osteoporosis (4) Hiatal hernia (5) History of total left knee replacement (TKR) (6) History of total right knee replacement (TKR) (7) Hypothyroidism (8) Chronic anemia (9) Restless leg syndrome (10) GERD (gastroesophageal reflux disease) LORRAINE CARNEY DO May 22, 2021 17:16
[2021-05-22] MEDS ORDERED: CYCLOBENZAPRINE 10 MG (FLEXERIL) TAB PO PRN (17:30)
[2021-05-22 20:01] VITALS: BP 125/58
[2021-05-22] MEDS: LOSARTAN 100 MG (COZAAR) TABLET PO SCH (20:25)
[2021-05-22] MEDS: MIRTAZAPINE 15 MG (REMERON) TAB PO SCH (20:25)
[2021-05-22] MEDS: DOCUSATE SODIUM 100 MG (COLACE) CAP PO SCH (20:26)
[2021-05-22] MEDS: DULoxetine 30 MG (CYMBALTA) CAP PO SCH (20:26)
[2021-05-22] MEDS: SENNA W/DOCUSATE (SENOKOT S) TABLET PO SCH (20:26)
[2021-05-22] MEDS: MAGNESIUM OXIDE (MAG-OX)400 MG TAB PO SCH (20:26)
[2021-05-22] MEDS: rOPINIRole 1 MG (REQUIP) TABLET PO SCH (20:26)
[2021-05-22] MEDS: VALACYCLOVIR 500 MG TAB (VALTREX) PO SCH (20:27)
[2021-05-22] MEDS: polyethylene glycoL POWDER 17 GM (MIRALAX) PACK PO SCH (20:33)
[2021-05-22] MEDS ORDERED: DOCUSATE SODIUM 100 MG (COLACE) CAP PO SCH (21:00)
[2021-05-22] MEDS ORDERED: NON-FORMULARY MEDICATION 1 EA EA (Duloxetine HCl 60 MG) PO SCH (21:00)
[2021-05-22] MEDS ORDERED: NON-FORMULARY MEDICATION 1 EA EA (Magnesium Oxide (Magnesium) 400 MG) PO SCH (21:00)
[2021-05-22] MEDS ORDERED: NON-FORMULARY MEDICATION 1 EA EA (Mirtazapine 15 MG) PO SCH (21:00)
[2021-05-22] MEDS ORDERED: NON-FORMULARY MEDICATION 1 EA EA (Ropinirole HCl 2 MG) PO SCH (21:00)
[2021-05-23] MEDS: LEVOTHYROXINE 50 MCG (LEVOTHROID) TAB PO SCH (06:09)
--- NOTE | 2021-05-23 06:47 | PM&R Progress Note ---
Subjective HPI/CC On Admission Date Seen by Provider: May 23, 2021 Time Seen by Provider: 12:00 Subjective/Events-last exam 05/23/2021: Patient doing a lot better Pain medication given Walked around better today with therapy Working on bowels Checked meds and labs No other concerns Review of Systems General: Fatigue, Malaise Musculoskeletal: leg pain Objective Exam Vital Signs Vital Signs Date Time Temp Pulse Resp B/P (MAP) Pulse Ox O2 Delivery O2 Flow Rate FiO2 05/23/21 21:17 94 Room Air 05/23/21 19:35 37.6 83 16 104/58 (73) Capillary Refill : General Appearance: No Apparent Distress, WD/WN, Chronically ill HEENT: PERRL/EOMI, Normal ENT Inspection, Pharynx Normal Neck: Full Range of Motion, Normal Inspection, Non Tender, Supple, Carotid Bruit Respiratory: Chest Non Tender, Lungs Clear, Normal Breath Sounds, No Accessory Muscle Use, No Respiratory Distress Cardiovascular: Regular Rate, Rhythm, No Edema, No Gallop, No JVD, No Murmur, Normal Peripheral Pulses Gastrointestinal: Normal Bowel Sounds, No Organomegaly, No Pulsatile Mass, Non Tender, Soft Back: Normal Inspection, No CVA Tenderness, No Vertebral Tenderness Extremity: Normal Capillary Refill, Normal Inspection, Normal Range of Motion, Non Tender, No Calf Tenderness, No Pedal Edema Neurologic/Psychiatric: Alert, Oriented x3, No Motor/Sensory Deficits, Normal Mood/Affect, admissions dean II-XII Norm as Tested, Abnormal Gait, Motor Weakness Skin: Normal Color, Warm/Dry Lymphatic: No Adenopathy Results/Procedures Lab Patient resulted labs reviewed. FIM Transfers Therapy Code Descriptions/Definitions Functional [place] Measure: 0=Not Assessed/NA 4=Minimal Assistance 1=Total Assistance 5=Supervision or Setup 2=Maximal Assistance 6=Modified [place] 3=Moderate Assistance 7=Complete IndependenceSCALE: Activities may be completed with or without assistive devices. 7-Roenanrerw-cdqzefe completes the activity by him/herself with no assistance from a helper. 5-Set-up or Clean-up Assistance-helper sets up or cleans up; patient completes activity. [place] assists only prior to or following the activity. 4-Supervision or Touching Assistance-helper provides verbal cues and/or touching/steadying and/or contact guard assistance as patient completes activity. Assistance may be provided throughout the activity or intermittently. 3-Partial/Moderate Assistance-helper does LESS THAN HALF the effort. [place] lifts, holds or supports trunk or limbs, but provides less than half the effort. 2-Substantial/Maximal Assistance-helper does MORE THAN HALF the effort. [place] lifts or holds trunk or limbs and provides more than half the effort. 3-Fsgspffdu-opgqgb does ALL the effort. Patient does none of the effort to complete the activity. Or, the assistance of 2 or more helpers is required for the patient to complete the activity. If activity was not attempted, code reason: 7-Patient Refused. 9-Not Applicable-not attempted and the patient did not perform the activity before the current illness, exacerbation or injury. 10-Not Attempted due to Environmental Limitations-(lack of equipment, weather restraints, etc.). 88-Not Attempted due to Medical Conditions or Safety Concerns. Roll Left to Right (QC): 3 Sit to Lying (QC): 3 Sit to Stand (QC): 4 Chair/Rmr-wk-Wgjpp Xfer(QC): 4 Car Transfer (QC): 3 Gait Training Does the Patient Walk?: Yes Distance: 450' Walk 10 feet (QC): 4 Walk 50 ft with 2 Turns(QC): 4 Walk 150 ft (QC): 4 Walking 10ft/uneven surface-QC: 4 Gait Assistive Device: FWW Wheelchair Training Does the Pt Use a Wheelchair?: No Wheel 50 ft with 2 turns (QC): 9 Wheel 150 ft (QC): 9 Type of Wheelchair: N/A Stair Training #of Steps: 1 1 Step (curb) (QC): 4 4 Steps (QC): 88 12 Steps (QC): 88 Balance Picking up an Object (QC): 88 (due to hip precautions (unable to flex at hip past 90 degrees)) ADL-Treatment Eating (QC): 6 (IND) Oral Hygiene (QC): 4 (SBA standing at sink) Shower/Bathe Self (QC): 3 (Assist to wash BLE lower legs/feet and buttocks.) Upper Body Dressing (QC): 5 (set up) Lower Body Dressing (QC): 2 (Max A to thread BLEs, pt able to perform pant hike) On/Off Footwear (QC): 1 (total assist) Toileting Hygiene (QC): 3 (assist with washing buttocks, pt able to manage clothing) Assessment/Plan Assessment and Plan Assess & Plan/Chief Complaint Assessment: Right Hip Dislocation Hx Right Total Hip Arthroplasty Debility Hx Right Total Knee Arthroplasty Hx Left Total Knee Arthroplasty Osteoporosis Hiatal Hernia HTN Hypothryoidism Chronic Anemia Hx of Low GFR Restless Leg Syndrome Gastroesophageal Reflux Disease Plan: s/p Closed Reduction of Right Hip on 05/21/21 Orthopedics managing hip precautions PT/OT Will transfer patient to inpatient rehab for debility 05/23/2021: Pain control Supportive care Monitor closely Problems: (1) Hip dislocation, right Status: Acute (2) History of total right hip arthroplasty (3) Osteoporosis (4) Hiatal hernia (5) History of total left knee replacement (TKR) (6) History of total right knee replacement (TKR) (7) Hypothyroidism (8) Chronic anemia (9) Restless leg syndrome (10) GERD (gastroesophageal reflux disease) (1) Hip dislocation, right Status: Acute (2) Chronic anemia (3) GERD (gastroesophageal reflux disease) (4) Restless leg syndrome (5) Hypothyroidism (6) Osteoporosis (7) Hiatal hernia (8) Chronic diastolic CHF (congestive heart failure) Onset Date: 06/04/2014 Status: Acute (9) History of total right hip arthroplasty (10) History of total left knee replacement (TKR) (11) History of total right knee replacement (TKR) LORRAINE CARNEY DO May 23, 2021 06:47
--- NOTE | 2021-05-23 06:47 | Individualized Plan of Care ---
Individualized Plan of Care Rehab Nursing IPOC Order Admission Date May 22, 2021 at 12:20 Current Orders Orders Admission Order(Inpt,Obs,Sdc) (05/22/21 11:44) Vital Signs: Per Unit Policy ( 08,16,00 (05/22/21 11:44) Husam Corbett , (05/22/21 11:44) Sequential Compression Device (05/22/21 11:44) Beeswax Bleacher-Inpt Rehab Con (05/22/21 11:44) Rehab Nursing Orders-Ipoc (05/22/21 11:44) Physical Therapy Rehab Orders (05/22/21 11:44) Occupational Therapy Rehab Ord (05/22/21 11:44) Speech Therapy Rehab Orders (05/22/21 11:44) Cbc With Automated Diff (05/23/21 06:00) Comprehensive Metabolic Panel (05/23/21 06:00) Precautions (Aru) (05/22/21 11:44) Weekly Weight WEEK (05/22/21 11:44) Rehab-Intensity Of Therapy (05/22/21 11:44) Initiate Admission Nursing Pro .admission (05/22/21 11:44) Alprazolam Tablet (Xanax Tablet) (05/22/21 11:45) Calcium Carbonate Chew Tablet (Antacid C (05/22/21 11:45) Diphenhydramine Tablet (Benadryl Tablet) (05/22/21 11:45) Docusate Sodium Capsule (Colace Capsule) (05/22/21 21:00) Docusate Sodium Capsule (Colace Capsule) (05/22/21 11:45) Bisacodyl Suppository (Dulcolax Supposit (05/22/21 11:45) Lactulose Oral Solution (Enulose Oral So (05/22/21 11:45) Na Phos/Na Biphos Enema (Fleet Enema Sudhakar (05/22/21 11:45) Guaifenesin/Codeine Syrup (Robitussin Ac (05/22/21 11:45) Loperamide Tablet (Imodium Tablet) (05/22/21 11:45) Melatonin Tablet (Melatonin Tablet) (05/22/21 11:45) Polyethylene Glycol Powder Pkt (Miralax (05/22/21 21:00) Ondansetron Oral Dissolve Tab (Zofran (05/22/21 11:45) Senna S Tablet (Senokot S Tablet) (05/22/21 21:00) Acetaminophen Tablet/Caplet (Tylenol T (05/22/21 11:45) Code/Resuscitation (05/22/21 11:44) Admission Arrival Bed Request (05/22/21 12:20) General/Regular (05/22/21 Lunch) Patient Visit (05/22/21 ) Functional Activities, Ea 15 (05/22/21 ) Patient Visit (05/22/21 ) Pt Eval Moderate Complexity (05/22/21 ) Patient Visit (05/22/21 ) Functional Activities, Ea 15 (05/22/21 ) Patient Visit (05/22/21 ) Speech Sound Lang Comp (05/22/21 ) Treat. Speech/Lang/Voice (05/22/21 ) Ascorbic Acid Tablet (Vitamin C Tablet) (05/23/21 08:00) Cholecalciferol Capsule/Tablet (Vitamin (05/23/21 09:00) Docusate Sodium Capsule (Colace Capsule) (05/22/21 21:00) Levothyroxine Tablet (Synthroid Tablet) (05/23/21 06:30) Pantoprazole Tablet (Protonix Tablet) (05/23/21 09:00) Valacyclovir Tablet (Valtrex Tablet) (05/22/21 21:00) (Nf) Alendronate Sodium (05/22/21 17:15) (Nf) Cyanocobalamin (Vitamin B-12) (Ruma (05/23/21 09:00) (Nf) Cyclobenzaprine Hcl (05/22/21 17:15) (Nf) Duloxetine Hcl (05/22/21 21:00) (Nf) Losartan/Hydrochlorothiazide (Losar (05/22/21 21:00) (Nf) Magnesium Oxide (Magnesium) (05/22/21 21:00) (Nf) Mirtazapine (05/22/21 21:00) (Nf) Oxybutynin Chloride (Oxybutynin Chl (05/23/21 09:00) (Nf) Ropinirole Hcl (05/22/21 21:00) Cyanocobalamin Tablet (Vitamin B-12 Tabl (05/23/21 09:00) Magnesium Oxide Tablet (Mag Ox Tablet) (05/22/21 21:00) Mirtazapine Tablet (Remeron Tablet) (05/22/21 21:00) Ropinirole Tablet (Requip Tablet) (05/22/21 21:00) Duloxetine Capsule (Cymbalta Capsule) (05/22/21 21:00) Cyclobenzaprine Tablet (Flexeril Tablet) (05/22/21 17:30) Losartan Tablet (Cozaar Tablet) (05/22/21 21:00) Hydrochlorothiazide Cap/Tablet (Hctz Cap (05/22/21 21:00) Oxybutynin Tablet (Ditropan Tablet) (05/23/21 09:00) Aspirin Chewable Tablet (Baby Aspirin Ch (05/24/21 12:00) Ferrous Sulfate Tablet (Feosol Tablet) (05/24/21 12:00) Oxycodone Immediate Rel Tablet (Oxyir Ta (05/22/21 18:30) Oxycodone Immediate Rel Tablet (Oxyir Ta (05/22/21 18:35) Patient Visit (05/23/21 ) Gait Training, Ea 15 Min (05/23/21 ) Rehab Nursing Orders: Ongoing Assess. of Cognitive Status, Ongoing Assess. of Function Status, Bladder Management, Bladder Scan, Bladder Training, Bowel Management, Bowel Training, Disease Management & Educaiton, DVT Prophylaxis, Fall Prevention, Fluid/Electrolyte/Nutrition Mgmt, Infection Prevention, Medication Management & Education, Management of Risks & Complications, Management of Skin Intergrity, Nutrition Management, Pain Management, Patient/Family Support, Safety Management, Weight Bearing Precaution Intensity of Therapy to be met Patient to be seen: Min.3h per day/5 of 7d PT IPOC Problem List: Activity Tolerance, Functional Strength, Safety, Balance, Gait, Transfer, Bed Mobility, ROM Treatment Plan: Continue Plan of Care Bed Mobility, Concurrent Therapy, Education, Functional Activity [place], Functional Strength, Group Therapy, Gait, Safety, Therapeutic Exercise, Transfers Treatment Duration: Jun 06, 2021 Frequency: At least 5 of 7 days/Wk (IRF) Estimated Hrs Per Day: 1.5 hours per day OT IPOC Problems: Decreased Activ Tolerance, Decreased UE Strength, Impaired Funct Balance, Impaired I ADL's, Impaired Self-Care Skills OT Treatment, Training and Edu: Yes Plan of Care: ADL Retraining, Functional Mobility, Group Exercise/Act as Ind, UE Funct Exercise/Act Treatment Duration: Jun 12, 2021 Frequency: At least 5 of 7 days/Wk (IRF) Estimated Hrs Per Day: 1.[address] [facility] [place] Speech Therapy Treatment Plan: Continue Plan of Care Treatment Duration: Jun 05, 2021 Frequency: 4 times per week Estimated Hrs Per Day: .5 hour per day Beeswax Bleacher/Case Mgmt Beeswax Bleacher/Case Managemen: Discharge Planning Dietitian/Communication Instructor Dietitian/Communication Instructor to monitor nutritional status and make changes and/or recommendations as needed and work with speech pathology on dietary upgrades as the occur. Physician [facility] [place] Medical Issues being managed closely and that require the 24 hour availability of a physician: Close monitoring due to hip dislocation will need close monitoring for any recurrence and fall risk and high risk for decompensation Medical Issues: Bowel/Bladder Function, DVT Prophylaxis, Falls Precautions, Fluid/Electrolyte/Nutrition Balance, Infection Protection, Pain Management Brief Synthesis of Preadmission Screen, Post-Admission Evaluation, and Therapy Evaluations: PT and OT will focus on regaining function with the use of assistive devices and speech therapy will focus on cognition and thought processes in order to safely return home Medical Prognosis: Good Anticipated Length of Stay: 7 days LORRAINE CARNEY DO May 23, 2021 06:47
[2021-05-23 06:55] LABS: BASOPHILS % (AUTO) 1 % (0-10); EOSINOPHILS # (AUTO) 0.5 10^3/uL (0.0-0.3); EOSINOPHILS % (AUTO) 9 % (0-10); HEMATOCRIT 33 % (35-52); HEMOGLOBIN 10.5 g/dL (11.5-16.0); LYMPHOCYTES % (AUTO) 18 % (12-44); MEAN CORPUSCULAR HEMOGLOBIN 30 pg (25-34); MEAN CORPUSCULAR HGB CONC 32 g/dL (32-36); MEAN CORPUSCULAR VOLUME 93 fL (80-99); MEAN PLATELET VOLUME 9.4 fL (9.0-12.2); MONOCYTES # (AUTO) 0.5 10^3/uL (0.0-1.0); MONOCYTES % (AUTO) 9 % (0-12); NEUTROPHILS # (AUTO) 3.6 10^3/uL (1.8-7.8); NEUTROPHILS % (AUTO) 64 % (42-75); PLATELET COUNT 261 10^3/uL (130-400); WHITE BLOOD COUNT 5.5 10^3/uL (4.3-11.0)
[2021-05-23 07:28] LABS: ALBUMIN 3.3 GM/DL (3.2-4.5); POTASSIUM 3.6 MMOL/L (3.6-5.0)
[2021-05-23 07:29] LABS: CALCIUM 8.8 MG/DL (8.5-10.1)
[2021-05-23 07:30] LABS: TOTAL PROTEIN 5.8 GM/DL (6.4-8.2)
[2021-05-23 07:32] LABS: BILIRUBIN,TOTAL 0.3 MG/DL (0.1-1.0)
[2021-05-23 07:34] LABS: CREATININE SERUM 0.85 MG/DL (0.60-1.30)
[2021-05-23] MEDS ORDERED: NON-FORMULARY MEDICATION 1 EA EA (Cyanocobalamin (Vitamin B-12) (Vitamin B12) 2,500 MCG) PO SCH (09:00)
[2021-05-23] MEDS ORDERED: NON-FORMULARY MEDICATION 1 EA EA (Oxybutynin Chloride (Oxybutynin Chloride ER) 15 MG) PO SCH (09:00)
[2021-05-23] MEDS: polyethylene glycoL POWDER 17 GM (MIRALAX) PACK PO SCH ×2 (09:17→20:11)
[2021-05-23 09:22] VITALS: BP 106/51
[2021-05-23] MEDS: SENNA W/DOCUSATE (SENOKOT S) TABLET PO SCH ×2 (09:23→20:10)
[2021-05-23] MEDS: ASCORBIC ACID (VIT C) 500 MG TABLET PO SCH (09:23)
[2021-05-23] MEDS: VITAMIN D3 25 MCG (1,000 UNITS) TABLET PO SCH (09:23)
[2021-05-23] MEDS: PANTOPRAZOLE 40 MG (PROTONIX) TAB PO SCH (09:23)
[2021-05-23] MEDS: CYANOCOBALAMIN 1,000 MCG (VITAMIN B-12) TABLET PO SCH (09:23)
[2021-05-23] MEDS: OXYBUTYNIN (DITROPAN) 5 MG TAB PO SCH ×2 (09:24→20:11)
--- NOTE | 2021-05-23 11:45 | Physical Therapy Daily Note ---
PT Daily Note-Current Subjective Pt in bed upon arrival and family present. Agrees to PT. Reports it feels better to get up and walk on her hip. Pain Numeric Pain Scale: 4 Location: Left Location Body Site: Hip Mental Status Patient Orientation: Person, Place, Time, Normal For Age Attachments: [place] Catheter Transfers SCALE: Activities may be completed with or without assistive devices. 3-Bazyrsczdj-omlimqo completes the activity by him/herself with no assistance from a helper. 5-Set-up or Clean-up Assistance-helper sets up or cleans up; patient completes activity. [place] assists only prior to or following the activity. 4-Supervision or Touching Assistance-helper provides verbal cues and/or touching/steadying and/or contact guard assistance as patient completes activity. Assistance may be provided throughout the activity or intermittently. 3-Partial/Moderate Assistance-helper does LESS THAN HALF the effort. [place] lifts, holds or supports trunk or limbs, but provides less than half the effort. 2-Substantial/Maximal Assistance-helper does MORE THAN HALF the effort. [place] lifts or holds trunk or limbs and provides more than half the effort. 0-Mbkuphkub-qpznzw does ALL the effort. Patient does none of the effort to complete the activity. Or, the assistance of 2 or more helpers is required for the patient to complete the activity. If activity was not attempted, code reason: 7-Patient Refused. 9-Not Applicable-not attempted and the patient did not perform the activity before the current illness, exacerbation or injury. 10-Not Attempted due to Environmental Limitations-(lack of equipment, weather restraints, etc.). 88-Not Attempted due to Medical Conditions or Safety Concerns. Sit to Lying (QC): 4 Lying to Sitting/Side of Bed(Q: 3 Sit to Stand (QC): 4 Weight Bearing Right Lower Extremity: Right Weight Bearing/Tolerated Left Lower Extremity: Left Full Weight Bearing Gait Training Does the Patient Walk?: Yes Distance: 50' x 1, 500' x 2 Walk 10 feet (QC): 5 Walk 50 ft with 2 Turns(QC): 4 Walk 150 ft (QC): 4 Gait Persons Needed: 1 Gait Assistive Device: FWW Antalgic on LLE Exercises Standing: Heel/toe raises, Mini squats Standing Reps: 15 Treatments Pt amb in valentin for 500' x 2 and performs standing exs in // bars. Tfs back to bed w/ call light nearby and all needs met. Assessment Current Status: Good Progress Pt able to increase amb distance this date. Requires skilled verbal cues for hand and foot placement during TFs. PT Alf Goals Airline Flight Attendant Goals PT Airline Flight Attendant Goals Time Frame: Jun 06, 2021 Roll Left & Right (QC): 6 Sit to Lying (QC): 6 Lying-Sitting on Side/Bed(QC): 6 Sit to Stand (QC): 6 Chair/Owl-tu-Mmdwd Xfer(QC): 6 Toilet Transfer (QC): 6 Car Transfer (QC): 6 Does the Patient Walk: Yes Walk 10 feet (QC): 6 Walk 50ft with 2 Turns (QC): 6 Walk 150 ft (QC): 6 Walking 10ft on Uneven Surface: 6 1 Step (curb) (QC): 4 4 Steps (QC): 4 12 Steps (QC): 4 Picking up an Object (QC): 88 (due to hip precautions (inability to flex at hip past 90 degrees)) Wheel 50 feet with 2 turns (QC: 9 Type: N/A Wheel 150 feet: 9 Type: N/A PT Plan Problem List Problem List: Activity Tolerance, Functional Strength, Safety Treatment/Plan Treatment Plan: Continue Plan of Care Treatment Plan: Bed Mobility, Concurrent Therapy, Education, Functional Activity [place], Functional Strength, Group Therapy, Gait, Safety, Therapeutic Exercise, Transfers Treatment Duration: Jun 06, 2021 Frequency: At least 5 of 7 days/Wk (IRF) Estimated Hrs Per Day: 1.5 hours per day Patient and/or Family Agrees t: Yes Safety Risks/Education Patient Education: Gait Training, Transfer Techniques Time/GCodes Time In: 945 Time Out: 1000 Total Billed Treatment Time: 15 Total Billed Treatment 1, GT AKILAH ENRIQUEZ DESULFURIZER HAND May 23, 2021 11:45
[2021-05-23] MEDS: LACTULOSE SYRUP 10GM/15ML (ENULOSE) 30ML UDC PO PRN (15:56)
[2021-05-23 19:35] VITALS: BP 104/58
[2021-05-23] MEDS: LOSARTAN 100 MG (COZAAR) TABLET PO SCH (20:10)
[2021-05-23] MEDS: MIRTAZAPINE 15 MG (REMERON) TAB PO SCH (20:10)
[2021-05-23] MEDS: VALACYCLOVIR 500 MG TAB (VALTREX) PO SCH (20:10)
[2021-05-23] MEDS: DOCUSATE SODIUM 100 MG (COLACE) CAP PO SCH (20:11)
[2021-05-23] MEDS: rOPINIRole 1 MG (REQUIP) TABLET PO SCH (20:11)
[2021-05-23] MEDS: DULoxetine 30 MG (CYMBALTA) CAP PO SCH (20:11)
[2021-05-23] MEDS: MAGNESIUM OXIDE (MAG-OX)400 MG TAB PO SCH (20:11)
[2021-05-24] MEDS: LEVOTHYROXINE 50 MCG (LEVOTHROID) TAB PO SCH (06:20)
--- NOTE | 2021-05-24 06:53 | PM&R Progress Note ---
Subjective HPI/CC On Admission Date Seen by Provider: May 24, 2021 Time Seen by Provider: 12:00 Subjective/Events-last exam 05/24/2021: Patient doing well Pain is improved No falls Bowel regimen will be intensified with suppository Checked meds and labs 05/23/2021: Patient doing a lot better Pain medication given Walked around better today with therapy Working on bowels Checked meds and labs No other concerns Review of Systems General: Fatigue, Malaise Musculoskeletal: leg pain Objective Exam Vital Signs Vital Signs Date Time Temp Pulse Resp B/P (MAP) Pulse Ox O2 Delivery O2 Flow Rate FiO2 05/24/21 20:40 98 Room Air 05/24/21 19:39 36.2 78 16 108/50 (69) Capillary Refill : General Appearance: No Apparent Distress, WD/WN, Chronically ill HEENT: PERRL/EOMI, Normal ENT Inspection, Pharynx Normal Neck: Full Range of Motion, Normal Inspection, Non Tender, Supple, Carotid Bruit Respiratory: Chest Non Tender, Lungs Clear, Normal Breath Sounds, No Accessory Muscle Use, No Respiratory Distress Cardiovascular: Regular Rate, Rhythm, No Edema, No Gallop, No JVD, No Murmur, N ormal Peripheral Pulses Gastrointestinal: Normal Bowel Sounds, No Organomegaly, No Pulsatile Mass, Non Tender, Soft Back: Normal Inspection, No CVA Tenderness, No Vertebral Tenderness Extremity: Normal Capillary Refill, Normal Inspection, Normal Range of Motion, Non Tender, No Calf Tenderness, No Pedal Edema Neurologic/Psychiatric: Alert, Oriented x3, No Motor/Sensory Deficits, Normal Mood/Affect, mobile application developer II-XII Norm as Tested, Abnormal Gait, Motor Weakness Skin: Normal Color, Warm/Dry Lymphatic: No Adenopathy Results/Procedures Lab Patient resulted labs reviewed. FIM Transfers Therapy Code Descriptions/Definitions Functional [place] Measure: 0=Not Assessed/NA 4=Minimal Assistance 1=Total Assistance 5=Supervision or Setup 2=Maximal Assistance 6=Modified [place] 3=Moderate Assistance 7=Complete IndependenceSCALE: Activities may be completed with or without assistive devices. 3-Hmxwjocuvv-xokazfq completes the activity by him/herself with no assistance from a helper. 5-Set-up or Clean-up Assistance-helper sets up or cleans up; patient completes activity. [place] assists only prior to or following the activity. 4-Supervision or Touching Assistance-helper provides verbal cues and/or touching/steadying and/or contact guard assistance as patient completes activity. Assistance may be provided throughout the activity or intermittently. 3-Partial/Moderate Assistance-helper does LESS THAN HALF the effort. [place] lifts, holds or supports trunk or limbs, but provides less than half the effort. 2-Substantial/Maximal Assistance-helper does MORE THAN HALF the effort. [place] lifts or holds trunk or limbs and provides more than half the effort. 3-Eevujnbjl-jdreaf does ALL the effort. Patient does none of the effort to complete the activity. Or, the assistance of 2 or more helpers is required for the patient to complete the activity. If activity was not attempted, code reason: 7-Patient Refused. 9-Not Applicable-not attempted and the patient did not perform the activity be fore the current illness, exacerbation or injury. 10-Not Attempted due to Environmental Limitations-(lack of equipment, weather restraints, etc.). 88-Not Attempted due to Medical Conditions or Safety Concerns. Roll Left to Right (QC): 3 Sit to Lying (QC): 4 Sit to Stand (QC): 4 Chair/Rqh-gd-Neatw Xfer(QC): 4 Car Transfer (QC): 3 Gait Training Does the Patient Walk?: Yes Distance: 50' x 1, 500' x 2 Walk 10 feet (QC): 5 Walk 50 ft with 2 Turns(QC): 4 Walk 150 ft (QC): 4 Walking 10ft/uneven surface-QC: 4 Gait Persons Needed: 1 Gait Assistive Device: FWW Wheelchair Training Does the Pt Use a Wheelchair?: No Wheel 50 ft with 2 turns (QC): 9 Wheel 150 ft (QC): 9 Type of Wheelchair: N/A Stair Training #of Steps: 1 1 Step (curb) (QC): 4 4 Steps (QC): 88 12 Steps (QC): 88 Balance Picking up an Object (QC): 88 (due to hip precautions (unable to flex at hip past 90 degrees)) ADL-Treatment Eating (QC): 6 (IND) Oral Hygiene (QC): 4 (SBA standing at sink) Shower/Bathe Self (QC): 3 (Assist to wash BLE lower legs/feet and buttocks.) Upper Body Dressing (QC): 5 (set up) Lower Body Dressing (QC): 2 (Max A to thread BLEs, pt able to perform pant hike) On/Off Footwear (QC): 1 (total assist) Toileting Hygiene (QC): 3 (assist with washing buttocks, pt able to manage clothing) Assessment/Plan Assessment and Plan Assess & Plan/Chief Complaint Assessment: Right Hip Dislocation Hx Right Total Hip Arthroplasty Debility Hx Right Total Knee Arthroplasty Hx Left Total Knee Arthroplasty Osteoporosis Hiatal Hernia HTN Hypothryoidism Chronic Anemia Hx of Low GFR Restless Leg Syndrome Gastroesophageal Reflux Disease Plan: s/p Closed Reduction of Right Hip on 05/21/21 Orthopedics managing hip precautions PT/OT Will transfer patient to inpatient rehab for debility 05/23/2021: Pain control Supportive care Monitor closely 05/24/2021: Supportive care Pain control Problems: (1) Hip dislocation, right Status: Acute (2) History of total right hip arthroplasty (3) Osteoporosis (4) Hiatal hernia (5) History of total left knee replacement (TKR) (6) History of total right knee replacement (TKR) (7) Hypothyroidism (8) Chronic anemia (9) Restless leg syndrome (10) GERD (gastroesophageal reflux disease) (1) Hip dislocation, right Status: Acute (2) Chronic anemia (3) GERD (gastroesophageal reflux disease) (4) Restless leg syndrome (5) Hypothyroidism (6) Osteoporosis (7) Hiatal hernia (8) Chronic diastolic CHF (congestive heart failure) Onset Date: 06/04/2014 Status: Acute (9) History of total right hip arthroplasty (10) History of total left knee replacement (TKR) (11) History of total right knee replacement (TKR) LORRAINE CARNEY DO May 24, 2021 06:53
[2021-05-24 07:30] VITALS: BP 122/57
[2021-05-24] MEDS: CYANOCOBALAMIN 1,000 MCG (VITAMIN B-12) TABLET PO SCH (08:13)
[2021-05-24] MEDS: PANTOPRAZOLE 40 MG (PROTONIX) TAB PO SCH (08:13)
[2021-05-24] MEDS: ASCORBIC ACID (VIT C) 500 MG TABLET PO SCH (08:13)
[2021-05-24] MEDS: LACTULOSE SYRUP 10GM/15ML (ENULOSE) 30ML UDC PO PRN (08:13)
[2021-05-24] MEDS: OXYBUTYNIN (DITROPAN) 5 MG TAB PO SCH ×2 (08:13→20:31)
[2021-05-24] MEDS: polyethylene glycoL POWDER 17 GM (MIRALAX) PACK PO SCH ×2 (08:13→20:28)
[2021-05-24] MEDS: SENNA W/DOCUSATE (SENOKOT S) TABLET PO SCH ×2 (08:13→20:29)
[2021-05-24] MEDS: VITAMIN D3 25 MCG (1,000 UNITS) TABLET PO SCH (08:13)
[2021-05-24] MEDS: ASPIRIN 81 MG CHEW (CHILDREN'S ASA) PO SCH (13:09)
[2021-05-24] MEDS: FERROUS SULF 325 MG (IRON) TAB PO SCH (13:09)
[2021-05-24 19:39] VITALS: BP 108/50
[2021-05-24] MEDS: LOSARTAN 100 MG (COZAAR) TABLET PO SCH (20:28)
[2021-05-24] MEDS: DOCUSATE SODIUM 100 MG (COLACE) CAP PO SCH (20:29)
[2021-05-24] MEDS: DULoxetine 30 MG (CYMBALTA) CAP PO SCH (20:29)
[2021-05-24] MEDS: MIRTAZAPINE 15 MG (REMERON) TAB PO SCH (20:29)
[2021-05-24] MEDS: MAGNESIUM OXIDE (MAG-OX)400 MG TAB PO SCH (20:29)
[2021-05-24] MEDS: VALACYCLOVIR 500 MG TAB (VALTREX) PO SCH (20:29)
[2021-05-24] MEDS: rOPINIRole 1 MG (REQUIP) TABLET PO SCH (20:29)
[2021-05-25] MEDS: LEVOTHYROXINE 50 MCG (LEVOTHROID) TAB PO SCH (06:15)
[2021-05-25 07:37] VITALS: BP 127/58
--- NOTE | 2021-05-25 07:45 | PM&R Progress Note ---
Subjective HPI/CC On Admission Date Seen by Provider: May 25, 2021 Time Seen by Provider: 09:00 Subjective/Events-last exam 05/25/2021: Pt is doing well Daughter at the bedside Refuses depository No bowel movement since 05/20/21 Checked meds and labs Pain well controlled 05/24/2021: Patient doing well Pain is improved No falls Bowel regimen will be intensified with suppository Checked meds and labs 05/23/2021: Patient doing a lot better Pain medication given Walked around better today with therapy Working on bowels Checked meds and labs No other concerns Review of Systems Musculoskeletal: leg pain Objective Exam Vital Signs Vital Signs Date Time Temp Pulse Resp B/P (MAP) Pulse Ox O2 Delivery O2 Flow Rate FiO2 05/25/21 20:30 Room Air 05/25/21 20:00 37.2 87 18 169/74 (105) 99 Capillary Refill : General Appearance: No Apparent Distress, WD/WN, Chronically ill HEENT: PERRL/EOMI, Normal ENT Inspection, Pharynx Normal Neck: Full Range of Motion, Normal Inspection, Non Tender, Supple, Carotid Bruit Respiratory: Chest Non Tender, Lungs Clear, Normal Breath Sounds, No Accessory Muscle Use, No Respiratory Distress Cardiovascular: Regular Rate, Rhythm, No Edema, No Gallop, No JVD, No Murmur, Normal Peripheral Pulses Gastrointestinal: Normal Bowel Sounds, No Organomegaly, No Pulsatile Mass, Non Tender, Soft Back: Normal Inspection, No CVA Tenderness, No Vertebral Tenderness Extremity: Normal Capillary Refill, Normal Inspection, Normal Range of Motion, Non Tender, No Calf Tenderness, No Pedal Edema Neurologic/Psychiatric: Alert, Oriented x3, No Motor/Sensory Deficits, Normal Mood/Affect, protein specialist II-XII Norm as Tested, Abnormal Gait, Motor Weakness Skin: Normal Color, Warm/Dry Lymphatic: No Adenopathy Results/Procedures Lab Patient resulted labs reviewed. FIM Transfers Therapy Code Descriptions/Definitions Functional [place] Measure: 0=Not Assessed/NA 4=Minimal Assistance 1=Total Assistance 5=Supervision or Setup 2=Maximal Assistance 6=Modified [place] 3=Moderate Assistance 7=Complete IndependenceSCALE: Activities may be completed with or without assistive devices. 0-Zypdpszyvw-ecuwzaq completes the activity by him/herself with no assistance from a helper. 5-Set-up or Clean-up Assistance-helper sets up or cleans up; patient completes activity. [place] assists only prior to or following the activity. 4-Supervision or Touching Assistance-helper provides verbal cues and/or touching/steadying and/or contact guard assistance as patient completes activity. Assistance may be provided throughout the activity or intermittently. 3-Partial/Moderate Assistance-helper does LESS THAN HALF the effort. [place] lifts, holds or supports trunk or limbs, but provides less than half the effort. 2-Substantial/Maximal Assistance-helper does MORE THAN HALF the effort. [place] lifts or holds trunk or limbs and provides more than half the effort. 2-Xeehvmtix-ftjzdo does ALL the effort. Patient does none of the effort to complete the activity. Or, the assistance of 2 or more helpers is required for the patient to complete the activity. If activity was not attempted, code reason: 7-Patient Refused. 9-Not Applicable-not attempted and the patient did not perform the activity before the current illness, exacerbation or injury. 10-Not Attempted due to Environmental Limitations-(lack of equipment, weather restraints, etc.). 88-Not Attempted due to Medical Conditions or Safety Concerns. Roll Left to Right (QC): 3 Sit to Lying (QC): 4 Sit to Stand (QC): 4 Chair/Vfm-cf-Muimt Xfer(QC): 4 Car Transfer (QC): 3 Gait Training Does the Patient Walk?: Yes Distance: 50' x 1, 500' x 2 Walk 10 feet (QC): 5 Walk 50 ft with 2 Turns(QC): 4 Walk 150 ft (QC): 4 Walking 10ft/uneven surface-QC: 4 Gait Persons Needed: 1 Gait Assistive Device: FWW Wheelchair Training Does the Pt Use a Wheelchair?: No Wheel 50 ft with 2 turns (QC): 9 Wheel 150 ft (QC): 9 Type of Wheelchair: N/A Stair Training #of Steps: 1 1 Step (curb) (QC): 4 4 Steps (QC): 88 12 Steps (QC): 88 Balance Picking up an Object (QC): 88 (due to hip precautions (unable to flex at hip past 90 degrees)) ADL-Treatment Eating (QC): 6 (IND) Oral Hygiene (QC): 4 (SBA standing at sink) Shower/Bathe Self (QC): 3 (Assist to wash BLE lower legs/feet and buttocks.) Upper Body Dressing (QC): 5 (set up) Lower Body Dressing (QC): 2 (Max A to thread BLEs, pt able to perform pant hike) On/Off Footwear (QC): 1 (total assist) Toileting Hygiene (QC): 3 (assist with washing buttocks, pt able to manage clothing) Assessment/Plan Assessment and Plan Assess & Plan/Chief Complaint Assessment: Right Hip Dislocation Hx Right Total Hip Arthroplasty Debility Hx Right Total Knee Arthroplasty Hx Left Total Knee Arthroplasty Osteoporosis Hiatal Hernia HTN Hypothryoidism Chronic Anemia Hx of Low GFR Restless Leg Syndrome Gastroesophageal Reflux Disease Plan: s/p Closed Reduction of Right Hip on 05/21/21 Orthopedics managing hip precautions PT/OT Will transfer patient to inpatient rehab for debility 05/23/2021: Pain control Supportive care Monitor closely 05/24/2021: Supportive care Pain control 05/25/2021: Pain control Supportive care Problems: (1) Hip dislocation, right Status: Acute (2) History of total right hip arthroplasty (3) Osteoporosis (4) Hiatal hernia (5) History of total left knee replacement (TKR) (6) History of total right knee replacement (TKR) (7) Hypothyroidism (8) Chronic anemia (9) Restless leg syndrome (10) GERD (gastroesophageal reflux disease) (1) Hip dislocation, right Status: Acute (2) Chronic anemia (3) GERD (gastroesophageal reflux disease) (4) Restless leg syndrome (5) Hypothyroidism (6) Osteoporosis (7) Hiatal hernia (8) Chronic diastolic CHF (congestive heart failure) Onset Date: 06/04/2014 Status: Acute (9) History of total right hip arthroplasty (10) History of total left knee replacement (TKR) (11) History of total right knee replacement (TKR) LORRAINE CARNEY DO May 25, 2021 07:45
[2021-05-25] MEDS: ASCORBIC ACID (VIT C) 500 MG TABLET PO SCH (08:01)
[2021-05-25] MEDS: OXYBUTYNIN (DITROPAN) 5 MG TAB PO SCH ×2 (08:02→20:53)
[2021-05-25] MEDS: CYANOCOBALAMIN 1,000 MCG (VITAMIN B-12) TABLET PO SCH (08:02)
[2021-05-25] MEDS: VITAMIN D3 25 MCG (1,000 UNITS) TABLET PO SCH (08:02)
[2021-05-25] MEDS: PANTOPRAZOLE 40 MG (PROTONIX) TAB PO SCH (08:02)
[2021-05-25] MEDS: polyethylene glycoL POWDER 17 GM (MIRALAX) PACK PO SCH ×2 (08:09→21:01)
[2021-05-25] MEDS: SENNA W/DOCUSATE (SENOKOT S) TABLET PO SCH ×2 (08:09→20:52)
--- NOTE | 2021-05-25 09:15 | Occupational Ther Daily Note ---
OT Current Status-Daily Note Subjective Pt in bed. Pt agreeable to OT tx. Mental Status/Objective Patient Orientation: Person, Place, Situation Attachments: Marques Catheter, IV ADL-Treatment Therapy Code Descriptions/Definitions Functional [place] Measure: 0=Not Assessed/NA 4=Minimal Assistance 1=Total Assistance 5=Supervision or Setup 2=Maximal Assistance 6=Modified [place] 3=Moderate Assistance 7=Complete IndependenceSCALE: Activities may be completed with or without assistive devices. 5-Kogvfydhux-tlmyliq completes the activity by him/herself with no assistance from a helper. 5-Set-up or Clean-up Assistance-helper sets up or cleans up; patient completes activity. [place] assists only prior to or following the activity. 4-Supervision or Touching Assistance-helper provides verbal cues and/or touch ing/steadying and/or contact guard assistance as patient completes activity. Assistance may be provided throughout the activity or intermittently. 3-Partial/Moderate Assistance-helper does LESS THAN HALF the effort. [place] lifts, holds or supports trunk or limbs, but provides less than half the effort. 2-Substantial/Maximal Assistance-helper does MORE THAN HALF the effort. [place] lifts or holds trunk or limbs and provides more than half the effort. 3-Puegiplnh-oqtfiu does ALL the effort. Patient does none of the effort to complete the activity. Or, the assistance of 2 or more helpers is required for the patient to complete the activity. If activity was not attempted, code reason: 7-Patient Refused. 9-Not Applicable-not attempted and the patient did not perform the activity before the current illness, exacerbation or injury. 10-Not Attempted due to Environmental Limitations-(lack of equipment, weather restraints, etc.). 88-Not Attempted due to Medical Conditions or Safety Concerns. Oral Hygiene (QC): 4 (SBA at sink) Bathing Location: L Arm, R Arm, L Upper Leg, R Upper Leg, L Lower Leg (including foot) (Pt used long handled sponge to clean), R Lower Leg (including foot) (Pt used long handled sponge to clean ), Chest, Abdomen, Buttocks, Perineal Area Shower/Bathe Self (QC): 4 (SBA using LH sponge.) Upper Body Dressing (QC): 5 (setup) Lower Body Dressing (QC): 2 (assist needed to thread catheter bag and BLE through pants without breaking hip precautions) On/Off Footwear: 1 (assistance needed to don/doff socks w/o breaking hip precautions) Other Treatment Pt in bed. Pt transitioned EOB independently. Pt transitioned to [facility], completed functional mobility to wi in shower, [facility]. Pt doffed shirt independently. Pt doffed pants, assistance needed once pants went below knees. OT doffed socks, assistance needed to avoid breaking hip precautions. Pt completed showering, she was educated on using a long handled sponge to clean BLE without breaking precautions, Pt verbalized understanding. Pt transitioned from wi to chair in bathroom using the grab bars in shower. Pt donned shirt, pants and socks, assistance needed to don socks and to thread catheter bag through pants and to pull up over knees. Pt was educated on using a family support specialist and sock aid to don/doff socks, Pt was shown how to use the AE then demonstrated how to use it after, no errors. Pt transitioned to [facility], completed functional mobility to [facility], completed oral hygiene and combed her hair while standing at [facility]. Pt completed functional mobility to shower room to practice the tub transfer bench, Pt was able to demonstrate how to use the tub transfer bench without breaking hip precautions. Pt completed functional mobility to therapy gym using [facility], [facility]. Pt removed beads from easy theraputty to work on fine motor skills and strengthening. Short OT/PT cotreat due to patients lack of strength, to ensure patient safety, and to focus on higher level balance task. PT focused on LE strengthening, balance, while OT focused on ADL's, safety and UE strengthening. Pt completed a functional task of throwing washers on the board in various directions x4 sets, standing on the airEx mat, FWW, SBA. Pt left with PT, all needs met. Education OT Patient Education: Correct positioning, Energy conservation, Modified ADL techniques, Progress toward Goal/Update tx plan, Purpose of tx/functional acti vities, Reviewed precautions, Rehab process, Use of adapted equipment (family support specialist, sock aid and long handled sponge) Teaching Recipient: Patient Teaching Methods: Demonstration, Discussion Response to Teaching: Verbalize Understanding, Return Demonstration, Reinforcement Needed OT Short Term Goals Short Term Goals Time Frame: May 29, 2021 Toileting hygiene: 4 Lower body dressin Putting on/taking off footwear: 4 OT Outpatient Coding Specialist Goals Longterm Goals Time Frame: Jun 12, 2021 Eating (QC): 6 Oral Hygiene (QC): 6 Toileting Hygiene (QC): 6 Shower/Bathe Self (QC): 6 Upper Body Dressing (QC): 6 Lower Body Dressing (QC): 6 On/Off Footwear (QC): 6 Additional Goals: 1-Demonstrate ADL Tasks, 2-Verbalize Understanding, 3- ImproveStrength/[place] 1=Demonstrate adherence to instructed precautions during ADL tasks. 2=Patient will verbalize/demonstrate understanding of assistive devices/mod ifications for ADL. 3=Patient will improve strength/tolerance for activity to enable patient to perform ADL's. OT Education/Plan Problem List/Assessment Assessment: Decreased Activ Tolerance, Decreased UE Strength, Impaired Funct Balance, Impaired I ADL's, Impaired Self-Care Skills Discharge Recommendations Plan/Recommendations: Continue POC Treatment Plan/Plan of Care Patient would benefit from OT for education, treatment and training to promote independence in ADL's, mobility, safety and/or upper extremity function for ADL's. Plan of Care: ADL Retraining, Functional Mobility, Group Exercise/Act as Ind, UE Funct Exercise/Act Treatment Duration: Jun 12, 2021 Frequency: At least 5 of 7 days/Wk (IRF) Estimated Hrs Per Day: 1.5 hours per day Rehab Potential: Good Time/GCodes Start Time: 08:00 Stop Time: 09:15 Total Time Billed (hr/min): 75 Billed Treatment Time OT/PT Cotreat (9:00-9:15) 1, ADL 4 (60), FA (15) ASHWIN SMITH OT May 25, 2021 09:15
--- NOTE | 2021-05-25 10:10 | Physical Therapy Daily Note ---
PT Daily Note-Current Subjective Pt is sitting in Therapy Gym working with OT upon arrival. Pt agrees to short PT/OT co-treat then individual PT tx. Pain Numeric Pain Scale: 6 Location: Right Location Body Site: Hip Pain Description: Ache Mental Status Patient Orientation: Person, Place, Time, Situation Transfers SCALE: Activities may be completed with or without assistive devices. 7-Naeyjjrzqi-bavekii completes the activity by him/herself with no assistance from a helper. 5-Set-up or Clean-up Assistance-helper sets up or cleans up; patient completes activity. [place] assists only prior to or following the activity. 4-Supervision or Touching Assistance-helper provides verbal cues and/or touching/steadying and/or contact guard assistance as patient completes activity. Assistance may be provided throughout the activity or intermittently. 3-Partial/Moderate Assistance-helper does LESS THAN HALF the effort. [place] lifts, holds or supports trunk or limbs, but provides less than half the effort. 2-Substantial/Maximal Assistance-helper does MORE THAN HALF the effort. [place] lifts or holds trunk or limbs and provides more than half the effort. 9-Mukwmsdra-mksnpc does ALL the effort. Patient does none of the effort to complete the activity. Or, the assistance of 2 or more helpers is required for the patient to complete the activity. If activity was not attempted, code reason: 7-Patient Refused. 9-Not Applicable-not attempted and the patient did not perform the activity before the current illness, exacerbation or injury. 10-Not Attempted due to Environmental Limitations-(lack of equipment, weather restraints, etc.). 88-Not Attempted due to Medical Conditions or Safety Concerns. Weight Bearing Right Lower Extremity: Right Weight Bearing/Tolerated Left Lower Extremity: Left Full Weight Bearing Exercises Standing: Hip Abduction, Hamstring curls, Heel/toe raises, Sit to Stand, Unilateral stance Standing Reps: 15 Treatments ([id number]) Short OT/PT co-treat due to patients lack of strength, to ensure patient safety, and to focus on higher level balance task. PT focused on LE strengthening, balance, while OT focused on ADL's, safety and UE strengthening. Pt completed a functional task of throwing washers on the board in various directions x4 sets, standing on the airEx mat, FWW, SBA. OT departs and PT continues tx. ([id number]) Pt completes Standing EX at //bars then short RB. Pt amb in hallway before returning to room to rest in recliner, all needs met & call light in hand. Assessment Current Status: Good Progress Pt reports a little discomfort/stretching with standing EX but declines any pain. Pt ronn. tx well. PT Retirement Goals [employer]orer [employer] Goals PT Retirement Goals Time Frame: Jun 06, 2021 Roll Left & Right (QC): 6 Sit to Lying (QC): 6 Lying-Sitting on Side/Bed(QC): 6 Sit to Stand (QC): 6 Chair/Guw-fd-Vldgj Xfer(QC): 6 Toilet Transfer (QC): 6 Car Transfer (QC): 6 Does the Patient Walk: Yes Walk 10 feet (QC): 6 Walk 50ft with 2 Turns (QC): 6 Walk 150 ft (QC): 6 Walking 10ft on Uneven Surface: 6 1 Step (curb) (QC): 4 4 Steps (QC): 4 12 Steps (QC): 4 Picking up an Object (QC): 88 (due to hip precautions (inability to flex at hip past 90 degrees)) Wheel 50 feet with 2 turns (QC: 9 Type: N/A Wheel 150 feet: 9 Type: N/A PT Plan Treatment/Plan Treatment Plan: Continue Plan of Care Treatment Plan: Bed Mobility, Concurrent Therapy, Education, Functional Activity [place], Functional Strength, Group Therapy, Gait, Safety, Therapeutic Exercise, Transfers Treatment Duration: Jun 06, 2021 Frequency: At least 5 of 7 days/Wk (IRF) Estimated Hrs Per Day: 1.5 hours per day Patient and/or Family Agrees t: Yes Safety Risks/Education Patient Education: Reviewed Precautions, Correct Positioning, Safety Issues Teaching Recipient: Patient Teaching Methods: Demonstration, Discussion Response to Teaching: Verbalize Understanding, Return Demonstration Time/GCodes Time In: 900 Time Out: 1000 Total Billed Treatment Time: 60 Total Billed Treatment 1, FA (20m), EX x2 (25m) & GT (15m) ZOE SANTACRUZ ACCOUNT DEVELOPER May 25, 2021 10:10
--- NOTE | 2021-05-25 15:03 | Speech Therapy Daily Note ---
Speech Daily Progress Note Subjective Date Seen by Provider: May 25, 2021 Time Seen by Provider: 15:00 The patient was seated upright in her bed, awake and alert upon entrance. The patient has two family members present at bedside, her granddaughter and daughter. The patient greeted the clinician appropriately and was agreeable to participation in the cognitive treatment session. Objective Hip Precautions (Functional Memory): The patient and clinician reviewed and discussed hip precautions. The patient was able to identify one of three hip precautions, independently. Following a review, the patient was able to recall two of three hip precautions. At the close of the session (following three review discussions), the patient was able to recall two of three hip precautions. Assessment Assessment Current Status: Fair Progress Treatment Plan Continue Plan of Care Speech Short Term Goals Short Term Goals Short Term Goals 1. The patient will demonstrate memory strategies with 90% accuracy and mild clinician cueing. Speech Group Home Goals Protein Scientist Goals 1. The patient will demonstrate increased cognitive linguistic skills for safe return to the least restrictive environment. Speech-Plan Treatment Plan Speech Therapy Treatment Plan: Continue Plan of Care Treatment Duration: Jun 05, 2021 Frequency: 4 times per week Estimated Hrs Per Day: .5 hour per day Rehab Potential: Good Safety Risks/Education Teaching Recipient: Patient Teaching Methods: Discussion Response to Teaching: Verbalize Understanding, Reinforcement Needed Education Topics Provided: Hip Precautions Time Speech Therapy Time In: 15:00 Speech Therapy Time Out: 15:08 Total Billed Time: 8 Billed Treatment Time NEENA Thomas [facility] May 25, 2021 15:03
--- NOTE | 2021-05-25 15:16 | Physical Therapy Daily Note ---
PT Daily Note-Current Subjective Pt laying Supine in bed upon arrival. Pt's family is present. Pt agrees to tx with TUB ATTENDANT. Pain Location: No Pain Reported Mental Status Patient Orientation: Person, Place, Time, Situation Attachments: Marques Catheter Transfers SCALE: Activities may be completed with or without assistive devices. 3-Mvjwadehvs-mhlnofg completes the activity by him/herself with no assistance from a helper. 5-Set-up or Clean-up Assistance-helper sets up or cleans up; patient completes activity. [place] assists only prior to or following the activity. 4-Supervision or Touching Assistance-helper provides verbal cues and/or touching/steadying and/or contact guard assistance as patient completes activity . Assistance may be provided throughout the activity or intermittently. 3-Partial/Moderate Assistance-helper does LESS THAN HALF the effort. [place] lifts, holds or supports trunk or limbs, but provides less than half the effort. 2-Substantial/Maximal Assistance-helper does MORE THAN HALF the effort. [place] lifts or holds trunk or limbs and provides more than half the effort. 4-Ykjvptjet-ydlhts does ALL the effort. Patient does none of the effort to complete the activity. Or, the assistance of 2 or more helpers is required for the patient to complete the activity. If activity was not attempted, code reason: 7-Patient Refused. 9-Not Applicable-not attempted and the patient did not perform the activity before the current illness, exacerbation or injury. 10-Not Attempted due to Environmental Limitations-(lack of equipment, weather restraints, etc.). 88-Not Attempted due to Medical Conditions or Safety Concerns. Sit to Lying (QC): 5 Lying to Sitting/Side of Bed(Q: 5 Sit to Stand (QC): 5 Weight Bearing Right Lower Extremity: Right Weight Bearing/Tolerated Left Lower Extremity: Left Full Weight Bearing Gait Training Does the Patient Walk?: Yes Distance: 200' x2 Walk 10 feet (QC): 5 Walk 50 ft with 2 Turns(QC): 5 Walk 150 ft (QC): 5 Gait Persons Needed: 1 Gait Assistive Device: FWW Exercises Supine Ex: Ankle pumps, Quad Set, Glut sets, Heel Slides, Straight leg raise, Hip abd/add Supine Reps: 15 Seated Therapy Exercises: Long arc quads, Hip flexion, Hip abd/add Seated Reps: 15 Treatments TF from Supine to EOB to Standing then amb. in hallway with family and TUB ATTENDANT. Pt returns to room and rest in bed. TUB ATTENDANT issues written HEP for Supine and Seated Ex and reviews them with pt & family. Pt resting at end of tx with all needs met, call light in hand. Assessment Current Status: Good Progress Pt is walking more independently and with decreased pain. PT Prison Goals Embroidery Machine Operator Goals PT Prison Goals Time Frame: Jun 06, 2021 Roll Left & Right (QC): 6 Sit to Lying (QC): 6 Lying-Sitting on Side/Bed(QC): 6 Sit to Stand (QC): 6 Chair/Jpm-af-Vxpsm Xfer(QC): 6 Toilet Transfer (QC): 6 Car Transfer (QC): 6 Does the Patient Walk: Yes Walk 10 feet (QC): 6 Walk 50ft with 2 Turns (QC): 6 Walk 150 ft (QC): 6 Walking 10ft on Uneven Surface: 6 1 Step (curb) (QC): 4 4 Steps (QC): 4 12 Steps (QC): 4 Picking up an Object (QC): 88 (due to hip precautions (inability to flex at hip past 90 degrees)) Wheel 50 feet with 2 turns (QC: 9 Type: N/A Wheel 150 feet: 9 Type: N/A PT Plan Treatment/Plan Treatment Plan: Continue Plan of Care Treatment Plan: Bed Mobility, Concurrent Therapy, Education, Functional Activity [place], Functional Strength, Group Therapy, Gait, Safety, Therapeutic Exercise, Transfers Treatment Duration: Jun 06, 2021 Frequency: At least 5 of 7 days/Wk (IRF) Estimated Hrs Per Day: 1.5 hours per day Patient and/or Family Agrees t: Yes Safety Risks/Education Patient Education: Gait Training, Issued Written HEP, Correct Positioning, Saf ety Issues Teaching Recipient: Patient, Family Teaching Methods: Demonstration, Discussion Response to Teaching: Verbalize Understanding, Return Demonstration Time/GCodes Time In: 1345 Time Out: 1425 Total Billed Treatment Time: 40 Total Billed Treatment 1, FA (10m), EX (15m) & GT (15m) ZOE SANTACRUZ TUB ATTENDANT May 25, 2021 15:16
[2021-05-25 20:00] VITALS: BP 169/74
[2021-05-25] MEDS: rOPINIRole 1 MG (REQUIP) TABLET PO SCH (20:51)
[2021-05-25] MEDS: MIRTAZAPINE 15 MG (REMERON) TAB PO SCH (20:51)
[2021-05-25] MEDS: MAGNESIUM OXIDE (MAG-OX)400 MG TAB PO SCH (20:51)
[2021-05-25] MEDS: DULoxetine 30 MG (CYMBALTA) CAP PO SCH (20:51)
[2021-05-25] MEDS: DOCUSATE SODIUM 100 MG (COLACE) CAP PO SCH (20:52)
[2021-05-25] MEDS: VALACYCLOVIR 500 MG TAB (VALTREX) PO SCH (20:52)
[2021-05-25] MEDS: LOSARTAN 100 MG (COZAAR) TABLET PO SCH (20:52)
--- NOTE | 2021-05-26 06:06 | PM&R Progress Note ---
Subjective HPI/CC On Admission Date Seen by Provider: May 26, 2021 Time Seen by Provider: 09:00 Subjective/Events-last exam 05/26/2021: Pain was a major issue last night so we increased the Oxycodone to 10 Q4 prn X- ray will be obtained just to be sure there are no issues I did reach out to Dr. Chau to see her Bowels moved after suppository yesterday 05/25/2021: Pt is doing well Daughter at the bedside Refuses depository No bowel movement since 05/20/21 Checked meds and labs Pain well controlled 05/24/2021: Patient doing well Pain is improved No falls Bowel regimen will be intensified with suppository Checked meds and labs 05/23/2021: Patient doing a lot better Pain medication given Walked around better today with therapy Working on bowels Checked meds and labs No other concerns Review of Systems General: Fatigue, Malaise Musculoskeletal: leg pain Objective Exam Vital Signs Vital Signs Date Time Temp Pulse Resp B/P (MAP) Pulse Ox O2 Delivery O2 Flow Rate FiO2 05/26/21 20:20 Room Air 05/26/21 20:00 36.3 79 18 118/52 (74) 94 Capillary Refill : General Appearance: No Apparent Distress, WD/WN, Chronically ill HEENT: PERRL/EOMI, Normal ENT Inspection, Pharynx Normal Neck: Full Range of Motion, Normal Inspection, Non Tender, Supple, Carotid Bruit Respiratory: Chest Non Tender, Lungs Clear, Normal Breath Sounds, No Accessory Muscle Use, No Respiratory Distress Cardiovascular: Regular Rate, Rhythm, No Edema, No Gallop, No JVD, No Murmur, Normal Peripheral Pulses Gastrointestinal: Normal Bowel Sounds, No Organomegaly, No Pulsatile Mass, Non Tender, Soft Back: Normal Inspection, No CVA Tenderness, No Vertebral Tenderness Extremity: Normal Capillary Refill, Normal Inspection, Normal Range of Motion, Non Tender, No Calf Tenderness, No Pedal Edema Neurologic/Psychiatric: Alert, Oriented x3, No Motor/Sensory Deficits, Normal Mood/Affect, protein specialist II-XII Norm as Tested, Abnormal Gait, Motor Weakness Skin: Normal Color, Warm/Dry Lymphatic: No Adenopathy Results/Procedures Lab Patient resulted labs reviewed. FIM Transfers Therapy Code Descriptions/Definitions Functional [place] Measure: 0=Not Assessed/NA 4=Minimal Assistance 1=Total Assistance 5=Supervision or Setup 2=Maximal Assistance 6=Modified [place] 3=Moderate Assistance 7=Complete IndependenceSCALE: Activities may be completed with or without assistive devices. 8-Vznjvxfioy-ejkplgt completes the activity by him/herself with no assistance from a helper. 5-Set-up or Clean-up Assistance-helper sets up or cleans up; patient completes activity. [place] assists only prior to or following the activity. 4-Supervision or Touching Assistance-helper provides verbal cues and/or touching/steadying and/or contact guard assistance as patient completes activity. Assistance may be provided throughout the activity or intermittently. 3-Partial/Moderate Assistance-helper does LESS THAN HALF the effort. [place] lifts, holds or supports trunk or limbs, but provides less than half the effort. 2-Substantial/Maximal Assistance-helper does MORE THAN HALF the effort. [place] lifts or holds trunk or limbs and provides more than half the effort. 2-Ispyxdmhn-fqmmwz does ALL the effort. Patient does none of the effort to complete the activity. Or, the assistance of 2 or more helpers is required for the patient to complete the activity. If activity was not attempted, code reason: 7-Patient Refused. 9-Not Applicable-not attempted and the patient did not perform the activity before the current illness, exacerbation or injury. 10-Not Attempted due to Environmental Limitations-(lack of equipment, weather restraints, etc.). 88-Not Attempted due to Medical Conditions or Safety Concerns. Roll Left to Right (QC): 3 Sit to Lying (QC): 5 Sit to Stand (QC): 5 Chair/Qnd-vo-Rzqcl Xfer(QC): 4 Car Transfer (QC): 3 Gait Training Does the Patient Walk?: Yes Distance: 200' x2 Walk 10 feet (QC): 5 Walk 50 ft with 2 Turns(QC): 5 Walk 150 ft (QC): 5 Walking 10ft/uneven surface-QC: 4 Gait Persons Needed: 1 Gait Assistive Device: FWW Wheelchair Training Does the Pt Use a Wheelchair?: No Wheel 50 ft with 2 turns (QC): 9 Wheel 150 ft (QC): 9 Type of Wheelchair: N/A Stair Training #of Steps: 1 1 Step (curb) (QC): 4 4 Steps (QC): 88 12 Steps (QC): 88 Balance Picking up an Object (QC): 88 (due to hip precautions (unable to flex at hip past 90 degrees)) ADL-Treatment Eating (QC): 6 (IND) Oral Hygiene (QC): 4 (SBA at sink) Bathing Location: L Arm, R Arm, L Upper Leg, R Upper Leg, L Lower Leg (including foot) (Pt used long handled sponge to clean), R Lower Leg (including foot) (Pt used long handled sponge to clean ), Chest, Abdomen, Buttocks, Perineal Area Shower/Bathe Self (QC): 4 (SBA using LH sponge.) Upper Body Dressing (QC): 5 (setup) Lower Body Dressing (QC): 2 (assist needed to thread catheter bag and BLE through pants without breaking hip precautions) On/Off Footwear (QC): 1 (assistance needed to don/doff socks w/o breaking hip precautions) Toileting Hygiene (QC): 3 (assist with washing buttocks, pt able to manage clothing) Assessment/Plan Assessment and Plan Assess & Plan/Chief Complaint Assessment: Right Hip Dislocation Hx Right Total Hip Arthroplasty Debility Hx Right Total Knee Arthroplasty Hx Left Total Knee Arthroplasty Osteoporosis Hiatal Hernia HTN Hypothryoidism Chronic Anemia Hx of Low GFR Restless Leg Syndrome Gastroesophageal Reflux Disease Plan: s/p Closed Reduction of Right Hip on 05/21/21 Orthopedics managing hip precautions PT/OT Will transfer patient to inpatient rehab for debility 05/23/2021: Pain control Supportive care Monitor closely 05/24/2021: Supportive care Pain control 05/25/2021: Pain control Supportive care 05/26/2021: Pain management Increased ADLs Problems: (1) Hip dislocation, right Status: Acute (2) History of total right hip arthroplasty (3) Osteoporosis (4) Hiatal hernia (5) History of total left knee replacement (TKR) (6) History of total right knee replacement (TKR) (7) Hypothyroidism (8) Chronic anemia (9) Restless leg syndrome (10) GERD (gastroesophageal reflux disease) (1) Hip dislocation, right Status: Acute (2) Chronic anemia (3) GERD (gastroesophageal reflux disease) (4) Restless leg syndrome (5) Hypothyroidism (6) Osteoporosis (7) Hiatal hernia (8) Chronic diastolic CHF (congestive heart failure) Onset Date: 06/04/2014 Status: Acute (9) History of total right hip arthroplasty (10) History of total left knee replacement (TKR) (11) History of total right knee replacement (TKR) LORRAINE CARNEY DO May 26, 2021 06:06
[2021-05-26] MEDS: LEVOTHYROXINE 50 MCG (LEVOTHROID) TAB PO SCH (06:09)
[2021-05-26] MEDS: ENOXAPARIN 40 MG/0.4 ML (LOVENOX) SYR SC SCH (06:09)
[2021-05-26 07:41] VITALS: BP 110/52
[2021-05-26] MEDS: ASCORBIC ACID (VIT C) 500 MG TABLET PO SCH (08:02)
[2021-05-26] MEDS: PANTOPRAZOLE 40 MG (PROTONIX) TAB PO SCH (08:02)
[2021-05-26] MEDS: OXYBUTYNIN (DITROPAN) 5 MG TAB PO SCH ×2 (08:02→21:03)
[2021-05-26] MEDS: VITAMIN D3 25 MCG (1,000 UNITS) TABLET PO SCH (08:03)
[2021-05-26] MEDS: SENNA W/DOCUSATE (SENOKOT S) TABLET PO SCH ×2 (08:03→21:02)
[2021-05-26] MEDS: CYANOCOBALAMIN 1,000 MCG (VITAMIN B-12) TABLET PO SCH (08:05)
[2021-05-26] MEDS: polyethylene glycoL POWDER 17 GM (MIRALAX) PACK PO SCH ×2 (08:07→19:59)
--- NOTE | 2021-05-26 08:37 | Occupational Ther Daily Note ---
OT Current Status-Daily Note Subjective Pt in bed. Pt states she has back pain, unable to rate. Pt agreeable to OT tx. Mental Status/Objective Patient Orientation: Person, Place, Situation Attachments: Marques Catheter, IV ADL-Treatment Therapy Code Descriptions/Definitions Functional [place] Measure: 0=Not Assessed/NA 4=Minimal Assistance 1=Total Assistance 5=Supervision or Setup 2=Maximal Assistance 6=Modified [place] 3=Moderate Assistance 7=Complete IndependenceSCALE: Activities may be completed with or without assistive devices. 2-Leeggrbnso-vcuilfu completes the activity by him/herself with no assistance from a helper. 5-Set-up or Clean-up Assistance-helper sets up or cleans up; patient completes activity. [place] assists only prior to or following the activity. 4-Supervision or Touching Assistance-helper provides verbal cues and/or touching/steadying and/or contact guard assistance as patient completes activity. Assistance may be provided throughout the activity or intermittently. 3-Partial/Moderate Assistance-helper does LESS THAN HALF the effort. [place] lifts, holds or supports trunk or limbs, but provides less than half the effort. 2-Substantial/Maximal Assistance-helper does MORE THAN HALF the effort. [place] lifts or holds trunk or limbs and provides more than half the effort. 6-Urykofebj-nnwpdu does ALL the effort. Patient does none of the effort to complete the activity. Or, the assistance of 2 or more helpers is required for the patient to complete the activity. If activity was not attempted, code reason: 7-Patient Refused. 9-Not Applicable-not attempted and the patient did not perform the activity before the current illness, exacerbation or injury. 10-Not Attempted due to Environmental Limitations-(lack of equipment, weather restraints, etc.). 88-Not Attempted due to Medical Conditions or Safety Concerns. Other Treatment Pt in bed. Nurse present in room. Pt needed assistance to comb her hair, she states she fell asleep last night with gum in her mouth and it ended up in her hair this morning. Pt transitioned EOB then to FWW, SBA. Pt completed functional mobility to therapy gym, FWW, SBA, no rest breaks. Pt completed the arm bike to work on arm strengthening and activity tolerance, 10 white, 10 minutes, 1 rest break. Pt placed/removed x100 pegs from pegboard to work on strengthening, activity tolerance and fine motor skills, x2 sets, 1 lb weights BUE. Pt states L shoulder pain after completing task. Pt removed beads from moderate theraputty to work on hand strengthening and fine motor skills, no errors. Short OT/PT cotreat due to patients lack of strength, to ensure patient safety, and to focus on higher level balance task. PT focused on LE strengthening, balance, while OT focused on ADL's, safety and UE strengthening. Pt completed a functional task of hitting the balloon back and forth using BUE to work on activity tolerance, standing balance and coordination, while standing on the airEx mat, FWW, CGA. Pt left with PT, all needs met. Education OT Patient Education: Correct positioning, Energy conservation, Exercise program, Modified ADL techniques, Progress toward Goal/Update tx plan, Purpose of tx/functional activities, Rehab process Teaching Recipient: Patient Teaching Methods: Demonstration, Discussion Response to Teaching: Verbalize Understanding, Return Demonstration OT Short Term Goals Short Term Goals Time Frame: May 29, 2021 Toileting hygiene: 4 Lower body dressin Putting on/taking off footwear: 4 OT Bottom Liquor Attendant Goals Bottom Liquor Attendant Goals Time Frame: Jun 12, 2021 Eating (QC): 6 Oral Hygiene (QC): 6 Toileting Hygiene (QC): 6 Shower/Bathe Self (QC): 6 Upper Body Dressing (QC): 6 Lower Body Dressing (QC): 6 On/Off Footwear (QC): 6 Additional Goals: 1-Demonstrate ADL Tasks, 2-Verbalize Understanding, 3-ImproveStrength/[place] 1=Demonstrate adherence to instructed precautions during ADL tasks. 2=Patient will verbalize/demonstrate understanding of assistive devices/modifications for ADL. 3=Patient will improve strength/tolerance for activity to enable patient to perform ADL's. OT Education/Plan Problem List/Assessment Assessment: Decreased Activ Tolerance, Decreased UE Strength, Impaired Funct Balance, Impaired I ADL's, Impaired Self-Care Skills Discharge Recommendations Plan/Recommendations: Continue POC Treatment Plan/Plan of Care Patient would benefit from OT for education, treatment and training to promote independence in ADL's, mobility, safety and/or upper extremity function for ADL's. Plan of Care: ADL Retraining, Functional Mobility, Group Exercise/Act as Ind, UE Funct Exercise/Act Treatment Duration: Jun 12, 2021 Frequency: At least 5 of 7 days/Wk (IRF) Estimated Hrs Per Day: 1.5 hours per day Rehab Potential: Good Time/GCodes Start Time: 08:00 Stop Time: 09:15 Total Time Billed (hr/min): 75 Billed Treatment Time OT/PT Cotreat (9:00-9:15) 1, EX (15), FA 4 (60) ASHWIN SMITH OT May 26, 2021 08:37
--- NOTE | 2021-05-26 10:07 | Physical Therapy Daily Note ---
PT Daily Note-Current Subjective Pt sitting in Therapy Gym working with OT upon arrival. Pt agrees to short PT/OT co-treat then finish PT tx. Pain Numeric Pain Scale: 6 Location: Left, Lower Location Body Site: Back Pain Description: Ache Comment: Pt reports L lower back and hip pain aba. w/standing. Mental Status Patient Orientation: Person, Place, Time, Situation Transfers SCALE: Activities may be completed with or without assistive devices. 5-Taepmsqtlz-qxieunv completes the activity by him/herself with no assistance from a helper. 5-Set-up or Clean-up Assistance-helper sets up or cleans up; patient completes activity. [place] assists only prior to or following the activity. 4-Supervision or Touching Assistance-helper provides verbal cues and/or touching/steadying and/or contact guard assistance as patient completes activity. Assistance may be provided throughout the activity or intermittently. 3-Partial/Moderate Assistance-helper does LESS THAN HALF the effort. [place] lifts, holds or supports trunk or limbs, but provides less than half the effort. 2-Substantial/Maximal Assistance-helper does MORE THAN HALF the effort. [place] lifts or holds trunk or limbs and provides more than half the effort. 0-Fdeiuogpo-onsctm does ALL the effort. Patient does none of the effort to complete the activity. Or, the assistance of 2 or more helpers is required for the patient to complete the activity. If activity was not attempted, code reason: 7-Patient Refused. 9-Not Applicable-not attempted and the patient did not perform the activity before the current illness, exacerbation or injury. 10-Not Attempted due to Environmental Limitations-(lack of equipment, weather restraints, etc.). 88-Not Attempted due to Medical Conditions or Safety Concerns. Sit to Lying (QC): 4 Sit to Stand (QC): 4 Weight Bearing Right Lower Extremity: Right Weight Bearing/Tolerated Left Lower Extremity: Left Full Weight Bearing Gait Training Does the Patient Walk?: Yes Distance: 150' Walk 10 feet (QC): 5 Walk 50 ft with 2 Turns(QC): 5 Walk 150 ft (QC): 5 Gait Persons Needed: 1 Gait Assistive Device: FWW Exercises Seated Therapy Exercises: Ankle pumps, Long arc quads, Hip flexion, Hip abd/add, Glut set Seated Reps: 15 NuStep Minutes: 10 NuStep Workload: 1 Treatments (900-915) Short OT/PT cotreat due to patients lack of strength, to ensure patient safety, and to focus on higher level balance task. PT focused on LE st rengthening, balance, while OT focused on ADL's, safety and UE strengthening. Pt completed a functional task of hitting the balloon back and forth using BUE to work on activity tolerance, standing balance and coordination, while standing on the airEx mat, FWW, CGA. (825-1000) OT departs as pt takes short RB due to fatigue and pain in low back. Pt completes Seated EX and short RB before using NuStep for 10m at WL 1 for ROM only due to discomfort/pain. Pt amb. in hallway and returns to room to rest in bed before next tx. All needs met, call light next to pt. Assessment Current Status: Fair Progress Pt limited by pain that started last night. Upright activity increases pain. Pt will receive Xray and visit w/Ortho. Dr after tx. PT Sound Recordist Goals Alf Goals PT Sound Recordist Goals Time Frame: Jun 06, 2021 Roll Left & Right (QC): 6 Sit to Lying (QC): 6 Lying-Sitting on Side/Bed(QC): 6 Sit to Stand (QC): 6 Chair/Uta-mb-Tsttx Xfer(QC): 6 Toilet Transfer (QC): 6 Car Transfer (QC): 6 Does the Patient Walk: Yes Walk 10 feet (QC): 6 Walk 50ft with 2 Turns (QC): 6 Walk 150 ft (QC): 6 Walking 10ft on Uneven Surface: 6 1 Step (curb) (QC): 4 4 Steps (QC): 4 12 Steps (QC): 4 Picking up an Object (QC): 88 (due to hip precautions (inability to flex at hip past 90 degrees)) Wheel 50 feet with 2 turns (QC: 9 Type: N/A Wheel 150 feet: 9 Type: N/A PT Plan Problem List Problem List: Activity Tolerance, Functional Strength Treatment/Plan Treatment Plan: Continue Plan of Care Treatment Plan: Bed Mobility, Concurrent Therapy, Education, Functional Activity [place], Functional Strength, Group Therapy, Gait, Safety, Therapeutic Exercise, Transfers Treatment Duration: Jun 06, 2021 Frequency: At least 5 of 7 days/Wk (IRF) Estimated Hrs Per Day: 1.5 hours per day Patient and/or Family Agrees t: Yes Safety Risks/Education Patient Education: Transfer Techniques, Correct Positioning, Safety Issues Teaching Recipient: Patient Teaching Methods: Discussion Response to Teaching: Verbalize Understanding Time/GCodes Time In: 900 Time Out: 1000 Total Billed Treatment Time: 60 Total Billed Treatment Co-treat w/OT for 15m (749-571) 1, GT (15m), EX x2 (30m) & FA (15m) ZOE SANTACRUZ COSTING ANALYST May 26, 2021 10:07
--- NOTE | 2021-05-26 11:09 | Speech Therapy Daily Note ---
Speech Daily Progress Note Subjective Date Seen by Provider: May 26, 2021 Time Seen by Provider: 10:00 The patient was seated upright in her bed, awake upon entrance by the clinician. The patient greeted the clinician appropriately and was agreeable to participation in the cognitive linguistic treatment session. The patient stated she was recently provided pain medication and does feel somewhat fatigued. Objective The patient was able to independently order lunch, asking appropriate questions of the staff member present. - Orientation: The patient was independently oriented to month, day of week, date, year, and location. - Functional Recall: Hip precautions: The patient was able to recall two of three hip precautions, independently. Following review and at the close of the treatment session, the patient was able to recall three of three hip precautions, independently. Assessment Assessment Current Status: Good Progress Treatment Plan Continue Plan of Care Speech Short Term Goals Short Term Goals Short Term Goals 1. The patient will demonstrate memory strategies with 90% accuracy and mild clinician cueing. Speech Long-Term Goals Master Printer Goals 1. The patient will demonstrate increased cognitive linguistic skills for safe return to the least restrictive environment. Speech-Plan Treatment Plan Speech Therapy Treatment Plan: Continue Plan of Care Treatment Duration: Jun 05, 2021 Frequency: 4 times per week Estimated Hrs Per Day: .5 hour per day Rehab Potential: Good Safety Risks/Education Teaching Recipient: Patient Teaching Methods: Discussion Response to Teaching: Reinforcement Needed Education Topics Provided: Hip Precautions Time Speech Therapy Time In: 10:00 Speech Therapy Time Out: 10:30 Total Billed Time: 30 Billed Treatment Time 1 NEENA Moni JENIFERLIZETTE May 26, 2021 11:09
--- NOTE | 2021-05-26 11:26 | Progress Note - Ortho ---
Progress Note Subjective Date of Exam 05/26/21 Chief Complaint Status post dislocation right total hip HPI/Events since last exam Mrs Vargas is 5 days since closed reduction of a posterior superior dislocated right total hip.Dr. Crum asked me to see her this morning as she had increased pain in her hip last evening. She actually had bilateral leg pain last evening. She states it was in her groin and into her thighs. Her feet felt cold. She denies any cramping or spasm. Did not feel like her hip was dislocated. She does have a history of chronic back pain as well as degenerative arthritis of the left hip as well. 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 She states she feels much better this morning after receiving medication for the pain Review of Systems Reviewed and no additions or changes Allergies: Coded Allergies: Sulfa (Sulfonamide Antibiotics) (Verified Allergy, Unknown, 06/30/15) Home Meds Reported Medications Pantoprazole Sodium (Pantoprazole Sodium) 40 Mg Tablet.dr, 40 MG PO DAILY, TAB LAST FILLED 09-15-2020 #30 DAY SUPPLY 05/22/21 Mirtazapine (Mirtazapine) 15 Mg Tablet, 15 MG PO HS, TAB LAST FILLED 03-16-2021 #30 DAY SUPPLY 05/22/21 Cholecalciferol (Vitamin D3) (Vitamin D3) 25 Mcg Tablet, 25 MCG PO DAILY, TAB 05/22/21 Aspirin (Aspirin) 81 Mg Tab.chew, 81 MG PO Q48H, TAB 05/22/21 Docusate Sodium (Docusate Sodium) 100 Mg Capsule, 200 MG PO HS, CAP TAKES 2 (100MG) CAPS 05/22/21 Cyanocobalamin (Vitamin B-12) (Vitamin B12) 2,500 Mcg Tablet, 2500 MCG PO DAILY, TAB 05/22/21 Ferrous Sulfate (Iron) 325 Mg Tablet, 650 MG PO Q48H, TAB 05/22/21 Ascorbic Acid (Vitamin C) 500 Mg Tablet, 500 MG PO DAILY, TAB 05/22/21 Magnesium Oxide (Magnesium) 400 Mg Tablet, 400 MG PO HS, TAB 05/22/21 Cyclobenzaprine HCl (Cyclobenzaprine HCl) 5 Mg Tablet, 5-10 MG PO Q8H PRN for MUSCLE SPASMS, TAB 05/22/21 Valacyclovir HCl (Valacyclovir) 500 Mg Tablet, 250 MG PO HS, TAB TAKES OF A 500MG TAB 05/22/21 Oxybutynin Chloride (Oxybutynin Chloride ER) 15 Mg Tab.er.24, 15 MG PO DAILY, TAB 05/22/21 Losartan/Hydrochlorothiazide (Losartan-Hctz 100-25 mg Tab) 1 Each Tablet, 1 EA PO HS, TAB 05/22/21 Levothyroxine Sodium (Euthyrox) 50 Mcg Tablet, 50 MCG PO DAILY, TAB 05/22/21 Alendronate Sodium (Alendronate Sodium) 70 Mg Tablet, 70 MG PO THUR, TAB 05/22/21 Duloxetine HCl (Duloxetine HCl) 60 Mg Capsule.dr, 60 MG PO HS, CAP 04/20/17 Ropinirole HCl (Ropinirole HCl) 2 Mg Tablet, 2 MG PO HS, TAB 06/30/15 Discontinued Reported Medications Aspirin (Aspir 81) 81 Mg Tablet.dr, 81 MG PO MoWeFr, TAB 04/20/17 Oxybutynin Chloride (Oxybutynin Chloride ER) 10 Mg Tab.er.24, 10 MG PO DAILY, TAB 04/20/17 Alprazolam (Alprazolam Xr) 0.5 Mg Tab.er.24h, 0.5 MG PO HS, TAB 04/20/17 Metoprolol Succinate (Metoprolol Succinate) 25 Mg Tab.er.24h, 25 MG PO HS, TAB 04/20/17 Levothyroxine Sodium (Levothyroxine Sodium) 50 Mcg Tablet, 50 MCG PO DAILY, TAB 04/20/17 Alendronate Sodium (Fosamax) 70 Mg Tablet, 70 MG PO WEEKLY, TAB 06/30/15 Furosemide (Furosemide) 40 Mg Tablet, 40 MG PO DAILY, TAB 06/30/15 Folic Acid/Mv,Fe,Other Min (Centrum Complete Multivit Tab) 1 Each Tablet, 1 TAB PO DAILY 06/04/14 Cholecalciferol (Vitamin D) 2,000 Unit Capsule, 2000 UNIT PO DAILY 06/04/14 Tramadol Hcl (Ultram) 50 Mg Tablet, 100 MG PO Q6 -8H PRN for PAIN 06/04/14 Docusate Sodium (Colace) 100 Mg Cap, 100 MG PO DAILY 06/04/14 Fenofibrate Nanocrystallized (Fenofibrate) 145 Mg Tablet, 145 MG PO HS 06/04/14 Trazodone Hcl (Desyrel) 100 Mg Tablet, 100 MG PO HS 06/04/14 [Trubiotics] No Conflict Check, 1 TAB PO DAILY 06/04/14 Loratadine (Loratadine) 10 Mg Tablet, 10 MG PO DAILY 06/04/14 Dexlansoprazole (Dexilant) 60 Mg , 60 MG PO DAILY 06/04/14 Potassium Chloride (K-Dur) 20 Meq Tab, 20 MEQ PO DAILY 01/20/10 Objective Exam Constitutional: [] HEENT: [] Neck: [] Cardiovascular: [] Respiratory: [] Gastrointestinal: [] Genitourinary: [] Skin: [] Back/Spine: [] Extremities: [Leg lengths are equal. Good position of both legs. Normal sensation both lower extremities. No calf tenderness negative Homans. Equal pulses. No weakness on dorsiflexion plantarflexion of the foot and ankle. No pain with gentle range of motion right hip.] Neurologic: [] Psychiatric: [] Hematologic/lymphatic/immunologic: [] Vital Signs Vital Signs Date Time Temp Pulse Resp B/P (MAP) Pulse Ox O2 Delivery O2 Flow Rate FiO2 05/26/21 09:06 Room Air 05/26/21 07:41 37.0 79 16 110/52 (71) 95 Room Air 05/25/21 20:30 Room Air 05/25/21 20:00 37.2 87 18 169/74 (105) 99 Room Air I & O 05/26/21 06:59 Intake Total 1230 ml Output Total 1850 ml Balance -620 ml Imaging X-rays taken this morning shows no evidence of dislocation of the hip. No evidence of loosening or fracture Assessment and Plan Assessment Doing well post reduction dislocated right total hip Problem List Unchanged Plan Continue with rehab. Follow-up with Dr. Cabrera Final Diagonsis Right total hip arthroplasty status post closed reduction for a posterior superior dislocation Level of the visit: Level 3 ERIC ANGEL MD May 26, 2021 11:26
[2021-05-26] MEDS: FERROUS SULF 325 MG (IRON) TAB PO SCH (11:32)
[2021-05-26] MEDS: ASPIRIN 81 MG CHEW (CHILDREN'S ASA) PO SCH (11:32)
--- NOTE | 2021-05-26 12:20 | Diagnostic Imaging Report ---
HISTORY: Right hip pain TECHNIQUE: 2 views of the right hip COMPARISON: 05/21/2021 FINDINGS: There is a right total hip arthroplasty. Alignment is normal. There is no hardware complication seen. No acute fracture is seen. There is mild degenerative change in the right sacroiliac joint which is partially visible. IMPRESSION:. Right hip arthroplasty with no hardware complication seen. Dictated by: Dictated on workstation # [id number]
--- NOTE | 2021-05-26 14:13 | Physical Therapy Daily Note ---
PT Daily Note-Current Subjective Pt laying Supine in with daughter present upon arrival. Pt agrees to PT. Pain Location: Left, Lower Location Body Site: Back Pain Description: Ache Comment: Reported but not rated Mental Status Patient Orientation: Person, Place, Time, Situation Transfers SCALE: Activities may be completed with or without assistive devices. 3-Qppiwabiar-zmqyhwr completes the activity by him/herself with no assistance from a helper. 5-Set-up or Clean-up Assistance-helper sets up or cleans up; patient completes activity. [place] assists only prior to or following the activity. 4-Supervision or Touching Assistance-helper provides verbal cues and/or touching/steadying and/or contact guard assistance as patient completes activity. Assistance may be provided throughout the activity or intermittently. 3-Partial/Moderate Assistance-helper does LESS THAN HALF the effort. [place] lifts, holds or supports trunk or limbs, but provides less than half the effort. 2-Substantial/Maximal Assistance-helper does MORE THAN HALF the effort. [place] lifts or holds trunk or limbs and provides more than half the effort. 9-Hhmvkeqws-upaawm does ALL the effort. Patient does none of the effort to complete the activity. Or, the assistance of 2 or more helpers is required for the patient to complete the activity. If activity was not attempted, code reason: 7-Patient Refused. 9-Not Applicable-not attempted and the patient did not perform the activity before the current illness, exacerbation or injury. 10-Not Attempted due to Environmental Limitations-(lack of equipment, weather restraints, etc.). 88-Not Attempted due to Medical Conditions or Safety Concerns. Weight Bearing Right Lower Extremity: Right Weight Bearing/Tolerated Left Lower Extremity: Left Full Weight Bearing Treatments FRUIT CANNER, pt and daughter discuss how pt is feeling and how to manage pain best so pt is not as groggy during day. Daughter has questions about process of d/c and estimated d/c day of 06/01/21. Pt resting in bed with all needs met, call light in hand. Assessment Current Status: Fair Progress Back pain limits participation this afternoon. Per pt & daughter, pt's morning xray is good. PT Business Process Consultant Goals Business Process Consultant Goals PT Business Process Consultant Goals Time Frame: Jun 06, 2021 Roll Left & Right (QC): 6 Sit to Lying (QC): 6 Lying-Sitting on Side/Bed(QC): 6 Sit to Stand (QC): 6 Chair/Tzt-mv-Leuue Xfer(QC): 6 Toilet Transfer (QC): 6 Car Transfer (QC): 6 Does the Patient Walk: Yes Walk 10 feet (QC): 6 Walk 50ft with 2 Turns (QC): 6 Walk 150 ft (QC): 6 Walking 10ft on Uneven Surface: 6 1 Step (curb) (QC): 4 4 Steps (QC): 4 12 Steps (QC): 4 Picking up an Object (QC): 88 (due to hip precautions (inability to flex at hip past 90 degrees)) Wheel 50 feet with 2 turns (QC: 9 Type: N/A Wheel 150 feet: 9 Type: N/A PT Plan Problem List Problem List: Activity Tolerance, Functional Strength Treatment/Plan Treatment Plan: Continue Plan of Care Treatment Plan: Bed Mobility, Concurrent Therapy, Education, Functional Activity [place], Functional Strength, Group Therapy, Gait, Safety, Therapeutic Exercise, Transfers Treatment Duration: Jun 06, 2021 Frequency: At least 5 of 7 days/Wk (IRF) Estimated Hrs Per Day: 1.5 hours per day Patient and/or Family Agrees t: Yes Safety Risks/Education Patient Education: Reviewed Precautions, Correct Positioning Teaching Recipient: Patient, Family Teaching Methods: Discussion Response to Teaching: Verbalize Understanding Time/GCodes Time In: 1330 Time Out: 1345 Total Billed Treatment Time: 15 Total Billed Treatment 1, FA (15m) ZOE SANTACRUZ FRUIT CANNER May 26, 2021 14:13
[2021-05-26 20:00] VITALS: BP 118/52
[2021-05-26] MEDS: DULoxetine 30 MG (CYMBALTA) CAP PO SCH (21:00)
[2021-05-26] MEDS: DOCUSATE SODIUM 100 MG (COLACE) CAP PO SCH (21:00)
[2021-05-26] MEDS: MIRTAZAPINE 15 MG (REMERON) TAB PO SCH (21:01)
[2021-05-26] MEDS: MAGNESIUM OXIDE (MAG-OX)400 MG TAB PO SCH (21:01)
[2021-05-26] MEDS: rOPINIRole 1 MG (REQUIP) TABLET PO SCH (21:01)
[2021-05-26] MEDS: VALACYCLOVIR 500 MG TAB (VALTREX) PO SCH (21:02)
[2021-05-26] MEDS: LOSARTAN 100 MG (COZAAR) TABLET PO SCH (21:02)
[2021-05-27] MEDS: ENOXAPARIN 40 MG/0.4 ML (LOVENOX) SYR SC SCH (06:38)
[2021-05-27] MEDS: LEVOTHYROXINE 50 MCG (LEVOTHROID) TAB PO SCH (06:38)
--- NOTE | 2021-05-27 06:57 | PM&R Progress Note ---
Subjective HPI/CC On Admission Date Seen by Provider: May 27, 2021 Time Seen by Provider: 09:00 Subjective/Events-last exam 05/27/2021: Pt is doing about the same Discharge planned for 06/05/21 Bowels moved two days ago Miralax and other laxatives ordered 05/26/2021: Pain was a major issue last night so we increased the Oxycodone to 10 Q4 prn X- ray will be obtained just to be sure there are no issues I did reach out to Dr. Chau to see her Bowels moved after suppository yesterday 05/25/2021: Pt is doing well Daughter at the bedside Refuses depository No bowel movement since 05/20/21 Checked meds and labs Pain well controlled 05/24/2021: Patient doing well Pain is improved No falls Bowel regimen will be intensified with suppository Checked meds and labs 05/23/2021: Patient doing a lot better Pain medication given Walked around better today with therapy Working on bowels Checked meds and labs No other concerns Review of Systems General: Fatigue, Malaise Musculoskeletal: leg pain Objective Exam Vital Signs Vital Signs Date Time Temp Pulse Resp B/P (MAP) Pulse Ox O2 Delivery O2 Flow Rate FiO2 05/27/21 20:20 Room Air 05/27/21 19:07 36.8 73 18 151/67 (95) 97 Capillary Refill : General Appearance: No Apparent Distress, WD/WN, Chronically ill HEENT: PERRL/EOMI, Normal ENT Inspection, Pharynx Normal Neck: Full Range of Motion, Normal Inspection, Non Tender, Supple, Carotid Bruit Respiratory: Chest Non Tender, Lungs Clear, Normal Breath Sounds, No Accessory Muscle Use, No Respiratory Distress Cardiovascular: Regular Rate, Rhythm, No Edema, No Gallop, No JVD, No Murmur, Normal Peripheral Pulses Gastrointestinal: Normal Bowel Sounds, No Organomegaly, No Pulsatile Mass, Non Tender, Soft Back: Normal Inspection, No CVA Tenderness, No Vertebral Tenderness Extremity: Normal Capillary Refill, Normal Inspection, Normal Range of Motion, Non Tender, No Calf Tenderness, No Pedal Edema Neurologic/Psychiatric: Alert, Oriented x3, No Motor/Sensory Deficits, Normal Mood/Affect, floral department specialist II-XII Norm as Tested, Abnormal Gait, Motor Weakness Skin: Normal Color, Warm/Dry Lymphatic: No Adenopathy Results/Procedures Lab Patient resulted labs reviewed. FIM Transfers Therapy Code Descriptions/Definitions Functional [place] Measure: 0=Not Assessed/NA 4=Minimal Assistance 1=Total Assistance 5=Supervision or Setup 2=Maximal Assistance 6=Modified [place] 3=Moderate Assistance 7=Complete IndependenceSCALE: Activities may be completed with or without assistive devices. 1-Yqhnpjrhls-cwhelaf completes the activity by him/herself with no assistance from a helper. 5-Set-up or Clean-up Assistance-helper sets up or cleans up; patient completes activity. [place] assists only prior to or following the activity. 4-Supervision or Touching Assistance-helper provides verbal cues and/or touching/steadying and/or contact guard assistance as patient completes activity. Assistance may be provided throughout the activity or intermittently. 3-Partial/Moderate Assistance-helper does LESS THAN HALF the effort. [place] lifts, holds or supports trunk or limbs, but provides less than half the effort. 2-Substantial/Maximal Assistance-helper does MORE THAN HALF the effort. [place] lifts or holds trunk or limbs and provides more than half the effort. 3-Xinxxsexs-xkylqe does ALL the effort. Patient does none of the effort to complete the activity. Or, the assistance of 2 or more helpers is required for the patient to complete the activity. If activity was not attempted, code reason: 7-Patient Refused. 9-Not Applicable-not attempted and the patient did not perform the activity bef ore the current illness, exacerbation or injury. 10-Not Attempted due to Environmental Limitations-(lack of equipment, weather r estraints, etc.). 88-Not Attempted due to Medical Conditions or Safety Concerns. Roll Left to Right (QC): 3 Sit to Lying (QC): 4 Sit to Stand (QC): 4 Chair/Yrq-zo-Cudqk Xfer(QC): 4 Car Transfer (QC): 3 Gait Training Does the Patient Walk?: Yes Distance: 150' Walk 10 feet (QC): 5 Walk 50 ft with 2 Turns(QC): 5 Walk 150 ft (QC): 5 Walking 10ft/uneven surface-QC: 4 Gait Persons Needed: 1 Gait Assistive Device: FWW Wheelchair Training Does the Pt Use a Wheelchair?: No Wheel 50 ft with 2 turns (QC): 9 Wheel 150 ft (QC): 9 Type of Wheelchair: N/A Stair Training #of Steps: 1 1 Step (curb) (QC): 4 4 Steps (QC): 88 12 Steps (QC): 88 Balance Picking up an Object (QC): 88 (due to hip precautions (unable to flex at hip past 90 degrees)) ADL-Treatment Eating (QC): 6 (IND) Oral Hygiene (QC): 4 (SBA at sink) Bathing Location: L Arm, R Arm, L Upper Leg, R Upper Leg, L Lower Leg (including foot) (Pt used long handled sponge to clean), R Lower Leg (including foot) (Pt used long handled sponge to clean ), Chest, Abdomen, Buttocks, Perineal Area Shower/Bathe Self (QC): 4 (SBA using LH sponge.) Upper Body Dressing (QC): 5 (setup) Lower Body Dressing (QC): 2 (assist needed to thread catheter bag and BLE through pants without breaking hip precautions) On/Off Footwear (QC): 1 (assistance needed to don/doff socks w/o breaking hip precautions) Toileting Hygiene (QC): 3 (assist with washing buttocks, pt able to manage clothing) Assessment/Plan Assessment and Plan Assess & Plan/Chief Complaint Assessment: Right Hip Dislocation Hx Right Total Hip Arthroplasty Debility Hx Right Total Knee Arthroplasty Hx Left Total Knee Arthroplasty Osteoporosis Hiatal Hernia HTN Hypothryoidism Chronic Anemia Hx of Low GFR Restless Leg Syndrome Gastroesophageal Reflux Disease Plan: s/p Closed Reduction of Right Hip on 05/21/21 Orthopedics managing hip precautions PT/OT Will transfer patient to inpatient rehab for debility 05/23/2021: Pain control Supportive care Monitor closely 05/24/2021: Supportive care Pain control 05/25/2021: Pain control Supportive care 05/26/2021: Pain management Increased ADLs 05/27/2021: Continue aggressive treatment Supportive care Problems: (1) Hip dislocation, right Status: Acute (2) History of total right hip arthroplasty (3) Osteoporosis (4) Hiatal hernia (5) History of total left knee replacement (TKR) (6) History of total right knee replacement (TKR) (7) Hypothyroidism (8) Chronic anemia (9) Restless leg syndrome (10) GERD (gastroesophageal reflux disease) (1) Hip dislocation, right Status: Acute (2) Chronic anemia (3) GERD (gastroesophageal reflux disease) (4) Restless leg syndrome (5) Hypothyroidism (6) Osteoporosis (7) Hiatal hernia (8) Chronic diastolic CHF (congestive heart failure) Onset Date: 06/04/2014 Status: Acute (9) History of total right hip arthroplasty (10) History of total left knee replacement (TKR) (11) History of total right knee replacement (TKR) LORRAINE CARNEY DO May 27, 2021 06:57
[2021-05-27 07:17] VITALS: BP 114/57
[2021-05-27] MEDS: ASCORBIC ACID (VIT C) 500 MG TABLET PO SCH (08:28)
[2021-05-27] MEDS: VITAMIN D3 25 MCG (1,000 UNITS) TABLET PO SCH (08:28)
[2021-05-27] MEDS: SENNA W/DOCUSATE (SENOKOT S) TABLET PO SCH ×2 (08:28→20:47)
[2021-05-27] MEDS: OXYBUTYNIN (DITROPAN) 5 MG TAB PO SCH ×2 (08:28→20:48)
[2021-05-27] MEDS: PANTOPRAZOLE 40 MG (PROTONIX) TAB PO SCH (08:29)
[2021-05-27] MEDS: CYANOCOBALAMIN 1,000 MCG (VITAMIN B-12) TABLET PO SCH (08:30)
--- NOTE | 2021-05-27 08:59 | Occupational Ther Daily Note ---
OT Current Status-Daily Note Subjective Pt supine in bed. Pt states BLE feel like they have blisters on them and appear to be red, nurse notified. Pt agreeable to OT tx. Mental Status/Objective Patient Orientation: Person, Place, Situation Attachments: IV ADL-Treatment Therapy Code Descriptions/Definitions Functional [place] Measure: 0=Not Assessed/NA 4=Minimal Assistance 1=Total Assistance 5=Supervision or Setup 2=Maximal Assistance 6=Modified [place] 3=Moderate Assistance 7=Complete IndependenceSCALE: Activities may be completed with or without assistive devices. 9-Tcphvantrk-acmnvdd completes the activity by him/herself with no assistance from a helper. 5-Set-up or Clean-up Assistance-helper sets up or cleans up; patient completes activity. [place] assists only prior to or following the activity. 4-Supervision or Touching Assistance-helper provides verbal cues and/or touching/steadying and/or contact guard assistance as patient completes activity. Assistance may be provided throughout the activity or intermittently. 3-Partial/Moderate Assistance-helper does LESS THAN HALF the effort. [place] lifts, holds or supports trunk or limbs, but provides less than half the effort. 2-Substantial/Maximal Assistance-helper does MORE THAN HALF the effort. [place] lifts or holds trunk or limbs and provides more than half the effort. 0-Kcdsnhktf-oxnkdb does ALL the effort. Patient does none of the effort to complete the activity. Or, the assistance of 2 or more helpers is required for the patient to complete the activity. If activity was not attempted, code reason: 7-Patient Refused. 9-Not Applicable-not attempted and the patient did not perform the activity before the current illness, exacerbation or injury. 10-Not Attempted due to Environmental Limitations-(lack of equipment, weather restraints, etc.). 88-Not Attempted due to Medical Conditions or Safety Concerns. Eating (QC): 6 (independent) Oral Hygiene (QC): 5 (setup in shower) Bathing Location: L Arm, R Arm, L Upper Leg, R Upper Leg, L Lower Leg (including foot) (Pt used a long handled sponge to clean), R Lower Leg (including foot) (Pt used a long handled sponge to clean), Chest, Abdomen, Buttocks, Perineal Area Shower/Bathe Self (QC): 5 (setup) Upper Body Dressing (QC): 5 (setup) Lower Body Dressing (QC): 5 (setup, AE) On/Off Footwear: 5 (setup, AE) Toileting Hygiene (QC): 6 (independent) Other Treatment Pt supine in bed. Pt transitioned EOB then to FWW, SBA. Pt completed functional mobility to ky, doffed shirt, pants and socks using the automatic presser. Pt completed showering, using a long handled sponge to clean BLE and back, she also completed oral hygiene in shower. Pt transitioned to chair outside of the shower using the grab bars then combed her hair, donned shirt, pants and socks using AE. Nurse present in room to place pads on her heels due to redness. Pt completed functional mobility to therapy gym, FWW, SBA. Pt completed the arm bike to work on arm strengthening and activity tolerance, 15 white, 5 minutes, rest break needed. Pt completed functional mobility back to room, FWW, SBA. Pt in recliner, call light in reach and all needs met. Education OT Patient Education: Correct positioning, Energy conservation, Exercise program, Modified ADL techniques, Progress toward Goal/Update tx plan, Purpose of tx/functional activities, Rehab process, Use of adapted equipment Teaching Recipient: Patient Teaching Methods: Discussion Response to Teaching: Verbalize Understanding OT Short Term Goals Short Term Goals Time Frame: May 29, 2021 Toileting hygiene: 4 Lower body dressin Putting on/taking off footwear: 4 OT Mcc Goals Mcc Goals Time Frame: Jun 12, 2021 Eating (QC): 6 Oral Hygiene (QC): 6 Toileting Hygiene (QC): 6 Shower/Bathe Self (QC): 6 Upper Body Dressing (QC): 6 Lower Body Dressing (QC): 6 On/Off Footwear (QC): 6 Additional Goals: 1-Demonstrate ADL Tasks, 2-Verbalize Understanding, 3- ImproveStrength/[place] 1=Demonstrate adherence to instructed precautions during ADL tasks. 2=Patient will verbalize/demonstrate understanding of assistive devices/modifications for ADL. 3=Patient will improve strength/tolerance for activity to enable patient to perform ADL's. OT Education/Plan Problem List/Assessment Assessment: Decreased Activ Tolerance, Decreased UE Strength, Impaired Funct Balance, Impaired I ADL's, Impaired Self-Care Skills Discharge Recommendations Plan/Recommendations: Continue POC Treatment Plan/Plan of Care Patient would benefit from OT for education, treatment and training to promote independence in ADL's, mobility, safety and/or upper extremity function for ADL's. Plan of Care: ADL Retraining, Functional Mobility, Group Exercise/Act as Ind, UE Funct Exercise/Act Treatment Duration: Jun 12, 2021 Frequency: At least 5 of 7 days/Wk (IRF) Estimated Hrs Per Day: 1.5 hours per day Rehab Potential: Good Time/GCodes Start Time: 08:00 Stop Time: 09:00 Total Time Billed (hr/min): 60 Billed Treatment Time 1, ADL 3 (50), EX (10) ASHWIN SMITH OT May 27, 2021 08:59
--- NOTE | 2021-05-27 10:00 | Physical Therapy Daily Note ---
PT Daily Note-Current Subjective Pt. agrees to Rx. States she has some urethral discomfort as they just took burroughs out. c/o pain in right hip at 4/10 with some activity and ex. Has 2 steps with rail at home. Pt. somewhat emotional and shares that she lost her about 2 yrs ago and still misses him very much Pain Numeric Pain Scale: 4 Location: Right Location Body Site: Hip Pain Description: Ache Mental Status Patient Orientation: Normal For Age Transfers SCALE: Activities may be completed with or without assistive devices. 3-Bheibxtaqs-vbodwnn completes the activity by him/herself with no assistance from a helper. 5-Set-up or Clean-up Assistance-helper sets up or cleans up; patient completes activity. [place] assists only prior to or following the activity. 4-Supervision or Touching Assistance-helper provides verbal cues and/or touching/steadying and/or contact guard assistance as patient completes ac tivity. Assistance may be provided throughout the activity or intermittently. 3-Partial/Moderate Assistance-helper does LESS THAN HALF the effort. [place] lifts, holds or supports trunk or limbs, but provides less than half the effort. 2-Substantial/Maximal Assistance-helper does MORE THAN HALF the effort. [place] lifts or holds trunk or limbs and provides more than half the effort. 1-Pibjkhoij-lfjggx does ALL the effort. Patient does none of the effort to complete the activity. Or, the assistance of 2 or more helpers is required for the patient to complete the activity. If activity was not attempted, code reason: 7-Patient Refused. 9-Not Applicable-not attempted and the patient did not perform the activity before the current illness, exacerbation or injury. 10-Not Attempted due to Environmental Limitations-(lack of equipment, weather restraints, etc.). 88-Not Attempted due to Medical Conditions or Safety Concerns. Roll Left & Right (QC): 5 Sit to Lying (QC): 5 Lying to Sitting/Side of Bed(Q: 5 Sit to Stand (QC): 5 Chair/Zxn-vx-Foamf Xfer(QC): 5 Weight Bearing Right Lower Extremity: Right Weight Bearing/Tolerated Left Lower Extremity: Left Full Weight Bearing Gait Training Does the Patient Walk?: Yes Walk 10 feet (QC): 5 Walk 50 ft with 2 Turns(QC): 5 Walk 150 ft (QC): 5 Gait Persons Needed: 1 flexed at trunk, uneven step length Exercises Supine Ex: Ankle pumps, Quad Set, Glut sets, Heel Slides, Short Arc Quads, Hip abd/add Supine Reps: 15 Seated Therapy Exercises: Ankle pumps, Sit to stand, Long arc quads, Hip abd/ad d Seated Reps: 15 NuStep Minutes: 10 NuStep Workload: 2 Treatments reviewed THR precautions and anatomy and what dislocation means, TRFs, gait, therex Assessment Current Status: Good Progress PT Ordnance Keeper Goals Penitentiary Goals PT Ordnance Keeper Goals Time Frame: Jun 06, 2021 Roll Left & Right (QC): 6 Sit to Lying (QC): 6 Lying-Sitting on Side/Bed(QC): 6 Sit to Stand (QC): 6 Chair/Rok-rq-Mxzfi Xfer(QC): 6 Toilet Transfer (QC): 6 Car Transfer (QC): 6 Does the Patient Walk: Yes Walk 10 feet (QC): 6 Walk 50ft with 2 Turns (QC): 6 Walk 150 ft (QC): 6 Walking 10ft on Uneven Surface: 6 1 Step (curb) (QC): 4 4 Steps (QC): 4 12 Steps (QC): 4 Picking up an Object (QC): 88 (due to hip precautions (inability to flex at hip past 90 degrees)) Wheel 50 feet with 2 turns (QC: 9 Type: N/A Wheel 150 feet: 9 Type: N/A PT Plan Treatment/Plan Treatment Plan: Continue Plan of Care Treatment Plan: Bed Mobility, Concurrent Therapy, Education, Functional Activity [place], Functional Strength, Group Therapy, Gait, Safety, Therapeutic Exercise, Transfers Treatment Duration: Jun 06, 2021 Frequency: At least 5 of 7 days/Wk (IRF) Estimated Hrs Per Day: 1.5 hours per day Patient and/or Family Agrees t: Yes Safety Risks/Education Patient Education: Gait Training, Transfer Techniques, Reviewed Precautions, Correct Positioning, Disease Process, Safety Issues Teaching Recipient: Patient Teaching Methods: Demonstration, Discussion Response to Teaching: Verbalize Understanding, Return Demonstration, Reinforcement Needed Time/GCodes Time In: 900 Time Out: 1000 Total Billed Treatment Time: 60 Total Billed Treatment 1,GT20m,EX25m,FA15m ANNY MOORE GEOTHERMAL PLANT MANAGER May 27, 2021 10:00
--- NOTE | 2021-05-27 12:33 | Speech Therapy Daily Note ---
Speech Daily Progress Note Subjective Date Seen by Provider: May 27, 2021 Time Seen by Provider: 11:00 The patient was seated upright in her bed, awake and alert upon entrance. The patient's daughter and granddaughter were present at bedside. The patient greeted the clinician appropriately and was agreeable to participation in the cognitive linguistic treatment session. The patient reported she is pleased with her progress, as her pain is beginning to decrease with ambulation. The patient does display increased anxiety with discussions of home stating, "I just want to make sure I am ready because I will be alone." The patient's daughter stated she will be staying with her mom temporarily until the patient feels comfortable and safe on her own. Objective - Orientation: The patient was oriented to date, month, year, day of the week, place, and city (independently). - Delayed Recall: The patient was able to recall five single words immediately and following a five minute delay. The patient was able to recall three of three hip precautions, independently. Additionally, the patient was able to recall three digits forward and in reverse order. Assessment Assessment Current Status: Good Progress Treatment Plan Continue Plan of Care Speech Short Term Goals Short Term Goals Short Term Goals 1. The patient will demonstrate memory strategies with 90% accuracy and mild clinician cueing. Speech Capping Machine Operator Goals Capping Machine Operator Goals 1. The patient will demonstrate increased cognitive linguistic skills for safe return to the least restrictive environment. Speech-Plan Treatment Plan Speech Therapy Treatment Plan: Continue Plan of Care Treatment Duration: Jun 05, 2021 Frequency: 4 times per week Estimated Hrs Per Day: .5 hour per day Rehab Potential: Good Pt/Family Agrees to Plan: Yes Safety Risks/Education Teaching Recipient: Patient Teaching Methods: Discussion Response to Teaching: Verbalize Understanding, Reinforcement Needed Education Topics Provided: Hip Precautions Time Speech Therapy Time In: 11:00 Speech Therapy Time Out: 11:30 Total Billed Time: 30 Billed Treatment Time WilliamNEENA ELIZABETH ST May 27, 2021 12:33
[2021-05-27] MEDS: polyethylene glycoL POWDER 17 GM (MIRALAX) PACK PO SCH ×2 (12:51→19:49)
--- NOTE | 2021-05-27 14:32 | Therapy Group Daily Note ---
Therapy Daily Group Note Patient Education Topic Other List Below (ARU Expectations, Environmental Safety & Community Resources for after d/c) Exercises LE Seated Exercise, UE Exercise Session Ratio (pt:therapist): 3:1 Goal of Session: Education on ARU Expectations, Home Safety Strategies, UE/LE Strengthing Goal Met for this Session: Yes Pt Benefit of Group: Contributions to Others, F/U Use of Strategies @Home, Increased Functional Safety, Increased Functional Strength, Improved Cognition, Recognition of Peers, Socialization Other/Notes Pt ambulated using FWW to ARU commons areas for OT/PT group. Group consisted of introductions (name,place living, positive things that came from COVID pandemic), socialization, B UE/LE seated exercise and educational topics about ARU, environmental/home safety. Pt able to introduce self appropriately and actively listening to peers. Discussion about grocery picked edge sewing machine operator or delivery in community. Environmental safety Bingo completed with word scramble to work on cognition and problem solving skills. Pt using good dynamic sitting balance during reaching and grasping throughout activities. After session, pt laying Supine in bed with call light/phone in reach. All needs met in room. Start Time: 13:00 Stop Time: 14:00 Total Billed Treatment Time: 60 Total Billed Treatment 1, GRP (60m) ZOE SANTACRUZ MEDICAL SOCIAL WORKER May 27, 2021 14:32
[2021-05-27 19:07] VITALS: BP 151/67
[2021-05-27] MEDS: DOCUSATE SODIUM 100 MG (COLACE) CAP PO SCH (20:47)
[2021-05-27] MEDS: MIRTAZAPINE 15 MG (REMERON) TAB PO SCH (20:47)
[2021-05-27] MEDS: LOSARTAN 100 MG (COZAAR) TABLET PO SCH (20:47)
[2021-05-27] MEDS: VALACYCLOVIR 500 MG TAB (VALTREX) PO SCH (20:47)
[2021-05-27] MEDS: MAGNESIUM OXIDE (MAG-OX)400 MG TAB PO SCH (20:47)
[2021-05-27] MEDS: DULoxetine 30 MG (CYMBALTA) CAP PO SCH (20:47)
[2021-05-27] MEDS: rOPINIRole 1 MG (REQUIP) TABLET PO SCH (20:48)
--- NOTE | 2021-05-28 05:54 | PM&R Progress Note ---
Subjective HPI/CC On Admission Date Seen by Provider: May 28, 2021 Time Seen by Provider: 12:00 Subjective/Events-last exam 05/28/2021: Pt is doing really well Bowels moved 3 days ago Pain pill used for leg pain 05/27/2021: Pt is doing about the same Discharge planned for 06/05/21 Bowels moved two days ago Miralax and other laxatives ordered 05/26/2021: Pain was a major issue last night so we increased the Oxycodone to 10 Q4 prn X- ray will be obtained just to be sure there are no issues I did reach out to Dr. Chau to see her Bowels moved after suppository yesterday 05/25/2021: Pt is doing well Daughter at the bedside Refuses depository No bowel movement since 05/20/21 Checked meds and labs Pain well controlled 05/24/2021: Patient doing well Pain is improved No falls Bowel regimen will be intensified with suppository Checked meds and labs 05/23/2021: Patient doing a lot better Pain medication given Walked around better today with therapy Working on bowels Checked meds and labs No other concerns Review of Systems General: Fatigue, Malaise Musculoskeletal: leg pain Objective Exam Vital Signs Vital Signs Date Time Temp Pulse Resp B/P (MAP) Pulse Ox O2 Delivery O2 Flow Rate FiO2 05/28/21 20:08 36.3 90 18 105/62 (76) 92 Room Air Capillary Refill : General Appearance: No Apparent Distress, WD/WN, Chronically ill HEENT: PERRL/EOMI, Normal ENT Inspection, Pharynx Normal Neck: Full Range of Motion, Normal Inspection, Non Tender, Supple, Carotid Bruit Respiratory: Chest Non Tender, Lungs Clear, Normal Breath Sounds, No Accessory Muscle Use, No Respiratory Distress Cardiovascular: Regular Rate, Rhythm, No Edema, No Gallop, No JVD, No Murmur, Normal Peripheral Pulses Gastrointestinal: Normal Bowel Sounds, No Organomegaly, No Pulsatile Mass, Non Tender, Soft Back: Normal Inspection, No CVA Tenderness, No Vertebral Tenderness Extremity: Normal Capillary Refill, Normal Inspection, Normal Range of Motion, Non Tender, No Calf Tenderness, No Pedal Edema Neurologic/Psychiatric: Alert, Oriented x3, No Motor/Sensory Deficits, Normal Mood/Affect, biology specialist II-XII Norm as Tested, Abnormal Gait, Motor Weakness Skin: Normal Color, Warm/Dry Lymphatic: No Adenopathy Results/Procedures Lab Patient resulted labs reviewed. FIM Transfers Therapy Code Descriptions/Definitions Functional [place] Measure: 0=Not Assessed/NA 4=Minimal Assistance 1=Total Assistance 5=Supervision or Setup 2=Maximal Assistance 6=Modified [place] 3=Moderate Assistance 7=Complete IndependenceSCALE: Activities may be completed with or without assistive devices. 6-Dksuxgpyyp-uqlcwzv completes the activity by him/herself with no assistance from a helper. 5-Set-up or Clean-up Assistance-helper sets up or cleans up; patient completes activity. [place] assists only prior to or following the activity. 4-Supervision or Touching Assistance-helper provides verbal cues and/or touching/steadying and/or contact guard assistance as patient completes activity. Assistance may be provided throughout the activity or intermittently. 3-Partial/Moderate Assistance-helper does LESS THAN HALF the effort. [place] lifts, holds or supports trunk or limbs, but provides less than half the effort. 2-Substantial/Maximal Assistance-helper does MORE THAN HALF the effort. [place] lifts or holds trunk or limbs and provides more than half the effort. 4-Omjuykkcn-yfuzdq does ALL the effort. Patient does none of the effort to complete the activity. Or, the assistance of 2 or more helpers is required for the patient to complete the activity. If activity was not attempted, code reason: 7-Patient Refused. 9-Not Applicable-not attempted and the patient did not perform the activity before the current illness, exacerbation or injury. 10-Not Attempted due to Environmental Limitations-(lack of equipment, weather restraints, etc.). 88-Not Attempted due to Medical Conditions or Safety Concerns. Roll Left to Right (QC): 5 Sit to Lying (QC): 5 Sit to Stand (QC): 5 Chair/Hbd-sf-Dwecf Xfer(QC): 5 Car Transfer (QC): 3 Gait Training Does the Patient Walk?: Yes Distance: 150' Walk 10 feet (QC): 5 Walk 50 ft with 2 Turns(QC): 5 Walk 150 ft (QC): 5 Walking 10ft/uneven surface-QC: 4 Gait Persons Needed: 1 Gait Assistive Device: FWW Wheelchair Training Does the Pt Use a Wheelchair?: No Wheel 50 ft with 2 turns (QC): 9 Wheel 150 ft (QC): 9 Type of Wheelchair: N/A Stair Training #of Steps: 1 1 Step (curb) (QC): 4 4 Steps (QC): 88 12 Steps (QC): 88 Balance Picking up an Object (QC): 88 (due to hip precautions (unable to flex at hip past 90 degrees)) ADL-Treatment Eating (QC): 6 (independent) Oral Hygiene (QC): 5 (setup in shower) Bathing Location: L Arm, R Arm, L Upper Leg, R Upper Leg, L Lower Leg (including foot) (Pt used a long handled sponge to clean), R Lower Leg (including foot) (Pt used a long handled sponge to clean), Chest, Abdomen, Buttocks, Perineal Area Shower/Bathe Self (QC): 5 (setup) Upper Body Dressing (QC): 5 (setup) Lower Body Dressing (QC): 5 (setup, AE) On/Off Footwear (QC): 5 (setup, AE) Toileting Hygiene (QC): 6 (independent) Assessment/Plan Assessment and Plan Assess & Plan/Chief Complaint Assessment: Right Hip Dislocation Hx Right Total Hip Arthroplasty Debility Hx Right Total Knee Arthroplasty Hx Left Total Knee Arthroplasty Osteoporosis Hiatal Hernia HTN Hypothryoidism Chronic Anemia Hx of Low GFR Restless Leg Syndrome Gastroesophageal Reflux Disease Plan: s/p Closed Reduction of Right Hip on 05/21/21 Orthopedics managing hip precautions PT/OT Will transfer patient to inpatient rehab for debility 05/23/2021: Pain control Supportive care Monitor closely 05/24/2021: Supportive care Pain control 05/25/2021: Pain control Supportive care 05/26/2021: Pain management Increased ADLs 05/27/2021: Continue aggressive treatment Supportive care 05/28/2021: Continue aggressive therapy Problems: (1) Hip dislocation, right Status: Acute (2) History of total right hip arthroplasty (3) Osteoporosis (4) Hiatal hernia (5) History of total left knee replacement (TKR) (6) History of total right knee replacement (TKR) (7) Hypothyroidism (8) Chronic anemia (9) Restless leg syndrome (10) GERD (gastroesophageal reflux disease) (1) Hip dislocation, right Status: Acute (2) Chronic anemia (3) GERD (gastroesophageal reflux disease) (4) Restless leg syndrome (5) Hypothyroidism (6) Osteoporosis (7) Hiatal hernia (8) Chronic diastolic CHF (congestive heart failure) Onset Date: 06/04/2014 Status: Acute (9) History of total right hip arthroplasty (10) History of total left knee replacement (TKR) (11) History of total right knee replacement (TKR) LORRAINE CARNEY DO May 28, 2021 05:54
[2021-05-28] MEDS: ENOXAPARIN 40 MG/0.4 ML (LOVENOX) SYR SC SCH (06:37)
[2021-05-28] MEDS: LEVOTHYROXINE 50 MCG (LEVOTHROID) TAB PO SCH (06:37)
[2021-05-28 07:33] VITALS: BP 132/63
[2021-05-28] MEDS: VITAMIN D3 25 MCG (1,000 UNITS) TABLET PO SCH (07:33)
[2021-05-28] MEDS: CYANOCOBALAMIN 1,000 MCG (VITAMIN B-12) TABLET PO SCH (07:33)
[2021-05-28] MEDS: polyethylene glycoL POWDER 17 GM (MIRALAX) PACK PO SCH ×2 (07:33→21:00)
[2021-05-28] MEDS: ASCORBIC ACID (VIT C) 500 MG TABLET PO SCH (07:34)
[2021-05-28] MEDS: OXYBUTYNIN (DITROPAN) 5 MG TAB PO SCH ×2 (07:34→21:53)
[2021-05-28] MEDS: PANTOPRAZOLE 40 MG (PROTONIX) TAB PO SCH (07:34)
[2021-05-28] MEDS: SENNA W/DOCUSATE (SENOKOT S) TABLET PO SCH ×2 (07:34→21:00)
--- NOTE | 2021-05-28 09:27 | Occupational Ther Daily Note ---
OT Current Status-Daily Note Subjective Pt alert, lying in bed. Pt agrees to therapy. No c/o pain. Mental Status/Objective Patient Orientation: Person, Place, Time, Situation Attachments: IV ADL-Treatment Pt declines shower, stating that she had one yesterday. Pt declines changing pants and footwear. Set up for upper body dressing. Independent with eating and oral care (sitting). Independent with toileting. After therapy, pt sitting in recliner with call light/phone in reach. All needs met in room. Therapy Code Descriptions/Definitions Functional [place] Measure: 0=Not Assessed/NA 4=Minimal Assistance 1=Total Assistance 5=Supervision or Setup 2=Maximal Assistance 6=Modified [place] 3=Moderate Assistance 7=Complete IndependenceSCALE: Activities may be completed with or without assistive devices. 6-Sflkpmotsc-ahpggqw completes the activity by him/herself with no assistance from a helper. 5-Set-up or Clean-up Assistance-helper sets up or cleans up; patient completes activity. [place] assists only prior to or following the activity. 4-Supervision or Touching Assistance-helper provides verbal cues and/or touching/steadying and/or contact guard assistance as patient completes activity. Assistance may be provided throughout the activity or intermittently. 3-Partial/Moderate Assistance-helper does LESS THAN HALF the effort. [place] lifts, holds or supports trunk or limbs, but provides less than half the effort. 2-Substantial/Maximal Assistance-helper does MORE THAN HALF the effort. [place] lifts or holds trunk or limbs and provides more than half the effort. 8-Jonekeysd-kstelj does ALL the effort. Patient does none of the effort to complete the activity. Or, the assistance of 2 or more helpers is required for the patient to complete the activity. If activity was not attempted, code reason: 7-Patient Refused. 9-Not Applicable-not attempted and the patient did not perform the activity before the current illness, exacerbation or injury. 10-Not Attempted due to Environmental Limitations-(lack of equipment, weather restraints, etc.). 88-Not Attempted due to Medical Conditions or Safety Concerns. Eating (QC): 6 Oral Hygiene (QC): 6 Upper Body Dressing (QC): 5 Toileting Hygiene (QC): 6 Toilet Transfer (QC): 6 Other Treatment Pt ambulated to therapy gym to complete B UE exercise to increase strength and activity tolerance for daily functional tasks. Arm bike at 15 white resistance for 15 min. OT Short Term Goals Short Term Goals Time Frame: May 29, 2021 Toileting hygiene: 4 Lower body dressin Putting on/taking off footwear: 4 OT Detention Goals Geospatial Technologist Goals Time Frame: Jun 12, 2021 Eating (QC): 6 Oral Hygiene (QC): 6 Toileting Hygiene (QC): 6 Shower/Bathe Self (QC): 6 Upper Body Dressing (QC): 6 Lower Body Dressing (QC): 6 On/Off Footwear (QC): 6 Additional Goals: 1-Demonstrate ADL Tasks, 2-Verbalize Understanding, 3-ImproveStrength/[place] 1=Demonstrate adherence to instructed precautions during ADL tasks. 2=Patient will verbalize/demonstrate understanding of assistive devices/modifications for ADL. 3=Patient will improve strength/tolerance for activity to enable patient to perform ADL's. OT Education/Plan Problem List/Assessment Assessment: Decreased Activ Tolerance, Decreased UE Strength, Impaired Self- Care Skills Discharge Recommendations Plan/Recommendations: Continue POC Treatment Plan/Plan of Care Patient would benefit from OT for education, treatment and training to promote independence in ADL's, mobility, safety and/or upper extremity function for ADL's. Plan of Care: ADL Retraining, Functional Mobility, Group Exercise/Act as Ind, UE Funct Exercise/Act Treatment Duration: Jun 12, 2021 Frequency: At least 5 of 7 days/Wk (IRF) Estimated Hrs Per Day: 1.5 hours per day Rehab Potential: Good Time/GCodes Start Time: 08:00 Stop Time: 09:00 Total Time Billed (hr/min): 60 Billed Treatment Time 1 visit-ADL 3 (45 min) Ex 1 (15 min) TODD GONZALEZ May 28, 2021 09:27
--- NOTE | 2021-05-28 10:00 | Physical Therapy Daily Note ---
PT Daily Note-Current Subjective Pt. agrees to Rx. States she is feeling better. c/o pain with supine position , c/o groin pain at 4/10 Pain Numeric Pain Scale: 4 Location: Right Location Body Site: Hip Pain Description: Ache Mental Status Patient Orientation: Normal For Age Transfers SCALE: Activities may be completed with or without assistive devices. 3-Gnnjflemls-ipuxdde completes the activity by him/herself with no assistance from a helper. 5-Set-up or Clean-up Assistance-helper sets up or cleans up; patient completes activity. [place] assists only prior to or following the activity. 4-Supervision or Touching Assistance-helper provides verbal cues and/or touching/steadying and/or contact guard assistance as patient completes activity. Assistance may be provided throughout the activity or intermittently. 3-Partial/Moderate Assistance-helper does LESS THAN HALF the effort. [place] lifts, holds or supports trunk or limbs, but provides less than half the effort. 2-Substantial/Maximal Assistance-helper does MORE THAN HALF the effort. [place] lifts or holds trunk or limbs and provides more than half the effort. 9-Wgulblchk-evjnhu does ALL the effort. Patient does none of the effort to complete the activity. Or, the assistance of 2 or more helpers is required for the patient to complete the activity. If activity was not attempted, code reason: 7-Patient Refused. 9-Not Applicable-not attempted and the patient did not perform the activity before the current illness, exacerbation or injury. 10-Not Attempted due to Environmental Limitations-(lack of equipment, weather restraints, etc.). 88-Not Attempted due to Medical Conditions or Safety Concerns. Roll Left & Right (QC): 6 Sit to Lying (QC): 5 Lying to Sitting/Side of Bed(Q: 5 Sit to Stand (QC): 6 Chair/Ofw-fz-Yzovb Xfer(QC): 5 Weight Bearing Right Lower Extremity: Right Weight Bearing/Tolerated Left Lower Extremity: Left Full Weight Bearing Gait Training Does the Patient Walk?: Yes Walk 10 feet (QC): 5 Walk 50 ft with 2 Turns(QC): 5 Walk 150 ft (QC): 5 Gait Persons Needed: 1 Gait Assistive Device: FWW improved step length, more equal, improved heel strike 160 ft x 2, 40 ft x 1 FWW SBA Stair Training Stair Training: Handrails/: 2 handrails #of Steps: 4 4 Steps (QC): 4 12 Steps (QC): 88 Stairs: Pattern: Step to instructed in sequence and use of hands as well as approach and position on each step Balance Picking up an Object (QC): 88 Exercises Supine Ex: Ankle pumps, Quad Set, Glut sets, Heel Slides, Short Arc Quads, Straight leg raise, Hip abd/add Supine Reps: 15 Seated Therapy Exercises: Ankle pumps, Sit to stand, Long arc quads Seated Reps: 10 assisted hip ex NuStep Minutes: 8 NuStep Workload: 2 Assessment Current Status: Good Progress PT [facility] Goals It Security Architect Goals PT [facility] Goals Time Frame: Jun 06, 2021 Roll Left & Right (QC): 6 Sit to Lying (QC): 6 Lying-Sitting on Side/Bed(QC): 6 Sit to Stand (QC): 6 Chair/Tnk-eo-[place] Xfer(QC): 6 Toilet Transfer (QC): 6 Car Transfer (QC): 6 Does the Patient Walk: Yes Walk 10 feet (QC): 6 Walk 50ft with 2 Turns (QC): 6 Walk 150 ft (QC): 6 Walking 10ft on Uneven Surface: 6 1 Step (curb) (QC): 4 4 Steps (QC): 4 12 Steps (QC): 4 Picking up an Object (QC): 88 (due to hip precautions (inability to flex at hip past 90 degrees)) Wheel 50 feet with 2 turns (QC: 9 Type: N/A Wheel 150 feet: 9 Type: N/A PT Plan Treatment/Plan Treatment Plan: Continue Plan of Care Treatment Plan: Bed Mobility, Concurrent Therapy, Education, Functional Activity [place], Functional Strength, Group Therapy, Gait, Safety, Therapeutic Exercise, Transfers Treatment Duration: Jun 06, 2021 Frequency: At least 5 of 7 days/Wk (IRF) Estimated Hrs Per Day: 1.5 hours per day Patient and/or Family Agrees t: Yes Safety Risks/Education Patient Education: Gait Training, Transfer Techniques, Steps, Reviewed Precautions, Correct Positioning, Disease Process, Safety Issues Teaching Recipient: Patient Teaching Methods: Demonstration, Discussion Response to Teaching: Verbalize Understanding, Return Demonstration, Reinforcement Needed Time/GCodes Time In: 900 Time Out: 1000 Total Billed Treatment Time: 60 Total Billed Treatment 1,FA15m,EX25m,GT20m ANNY MOORE HOUSEKEEPING ROOM INSPECTOR May 28, 2021 10:00
--- NOTE | 2021-05-28 11:40 | Speech Therapy Daily Note ---
Speech Daily Progress Note Subjective Date Seen by Provider: May 28, 2021 Time Seen by Provider: 10:30 The patient was seated upright in her bed, awake and alert upon entrance by the clinician. The patient greeted the clinician appropriately and was agreeable to participation in the cognitive linguistic treatment session. Objective - Hip Precautions: The patient was able to recall three of three hip precauti ons with 100% accuracy, independently. The patient requested information regarding the hip precautions, specifically if the hip precautions were a "forever thing." The clinician discussed the hip precautions with physical therapy, who stated the precautions are usually for three to six months following the procedure, however, the patient should ask her surgeon prior to discharging the precautions. The information was shared with the patient by the clinician. - External Memory Strategies: The patient stated she implements external memory strategies such as a calendar and appointment cards to keep track of family /friends birthdays and physician appointments. Additionally, the patient stated she organizes her pills in a pill organizer weekly (independently). Assessment Assessment Current Status: Good Progress Treatment Plan Continue Plan of Care Speech Short Term Goals Short Term Goals Short Term Goals 1. The patient will demonstrate memory strategies with 90% accuracy and mild clinician cueing. Speech Gas Distribution Supervisor Goals Gas Distribution Supervisor Goals 1. The patient will demonstrate increased cognitive linguistic skills for safe return to the least restrictive environment. Speech-Plan Treatment Plan Speech Therapy Treatment Plan: Continue Plan of Care Treatment Duration: Jun 05, 2021 Frequency: 4 times per week Estimated Hrs Per Day: .5 hour per day Rehab Potential: Good Safety Risks/Education Teaching Recipient: Patient Teaching Methods: Discussion Response to Teaching: Verbalize Understanding Education Topics Provided: External Memory Strategies, Hip Precautions Time Speech Therapy Time In: 10:30 Speech Therapy Time Out: 11:00 Total Billed Time: 30 Billed Treatment Time 1NEENA ELIZABETH ST May 28, 2021 11:40
[2021-05-28] MEDS: ASPIRIN 81 MG CHEW (CHILDREN'S ASA) PO SCH (12:27)
[2021-05-28] MEDS: FERROUS SULF 325 MG (IRON) TAB PO SCH (12:27)
--- NOTE | 2021-05-28 14:12 | Physical Therapy Daily Note ---
PT Daily Note-Current Subjective Pt. agrees to Rx. Pain Location: No Pain Reported Mental Status Patient Orientation: Normal For Age Transfers SCALE: Activities may be completed with or without assistive devices. 3-Jgxtrakngy-tqjoxjg completes the activity by him/herself with no assistance from a helper. 5-Set-up or Clean-up Assistance-helper sets up or cleans up; patient completes activity. [place] assists only prior to or following the activity. 4-Supervision or Touching Assistance-helper provides verbal cues and/or touching/steadying and/or contact guard assistance as patient completes activity. Assistance may be provided throughout the activity or intermittently. 3-Partial/Moderate Assistance-helper does LESS THAN HALF the effort. [place] lifts, holds or supports trunk or limbs, but provides less than half the effort. 2-Substantial/Maximal Assistance-helper does MORE THAN HALF the effort. [place] lifts or holds trunk or limbs and provides more than half the effort. 6-Ebjwxhjgy-bccxym does ALL the effort. Patient does none of the effort to complete the activity. Or, the assistance of 2 or more helpers is required for the patient to complete the activity. If activity was not attempted, code reason: 7-Patient Refused. 9-Not Applicable-not attempted and the patient did not perform the activity before the current illness, exacerbation or injury. 10-Not Attempted due to Environmental Limitations-(lack of equipment, weather restraints, etc.). 88-Not Attempted due to Medical Conditions or Safety Concerns. Roll Left & Right (QC): 6 Sit to Lying (QC): 6 Lying to Sitting/Side of Bed(Q: 6 Sit to Stand (QC): 6 Chair/Vfn-ke-Pwvkl Xfer(QC): 6 Toilet Transfer (QC): 6 Car Transfer (QC): 6 Weight Bearing Right Lower Extremity: Right Weight Bearing/Tolerated Left Lower Extremity: Left Full Weight Bearing Gait Training Does the Patient Walk?: Yes Walk 10 feet (QC): 6 Walk 50 ft with 2 Turns(QC): 6 Walk 150 ft (QC): 6 Gait Persons Needed: 1 Gait Assistive Device: FWW Exercises Standing: Hip Abduction, Hamstring curls, Heel/toe raises, Marching, Sit to Stand, Weight shifts Standing Reps: 15 Assessment Current Status: Good Progress PT Radio Journalist Goals Radio Journalist Goals PT Detention Goals Time Frame: Jun 06, 2021 Roll Left & Right (QC): 6 Sit to Lying (QC): 6 Lying-Sitting on Side/Bed(QC): 6 Sit to Stand (QC): 6 Chair/Ihl-rm-Agtrl Xfer(QC): 6 Toilet Transfer (QC): 6 Car Transfer (QC): 6 Does the Patient Walk: Yes Walk 10 feet (QC): 6 Walk 50ft with 2 Turns (QC): 6 Walk 150 ft (QC): 6 Walking 10ft on Uneven Surface: 6 1 Step (curb) (QC): 4 4 Steps (QC): 4 12 Steps (QC): 4 Picking up an Object (QC): 88 (due to hip precautions (inability to flex at hip past 90 degrees)) Wheel 50 feet with 2 turns (QC: 9 Type: N/A Wheel 150 feet: 9 Type: N/A PT Plan Treatment/Plan Treatment Plan: Continue Plan of Care Treatment Plan: Bed Mobility, Concurrent Therapy, Education, Functional Activity [place], Functional Strength, Group Therapy, Gait, Safety, Therapeutic Exercise, Transfers Treatment Duration: Jun 06, 2021 Frequency: At least 5 of 7 days/Wk (IRF) Estimated Hrs Per Day: 1.5 hours per day Patient and/or Family Agrees t: Yes Safety Risks/Education Patient Education: Gait Training, Transfer Techniques, Reviewed Precautions, Correct Positioning, Safety Issues Teaching Recipient: Patient Teaching Methods: Demonstration, Discussion Response to Teaching: Verbalize Understanding, Return Demonstration, Reinforcement Needed Time/GCodes Time In: 1310 Time Out: 1340 Total Billed Treatment Time: 30 Total Billed Treatment 1,GT15m,EX15m ANNY MOORE AEROSPACE PROJECT MANAGER May 28, 2021 14:12
--- NOTE | 2021-05-28 14:17 | Occupational Ther Daily Note ---
OT Current Status-Daily Note Subjective Pt alert, sitting in recliner. Pt agrees to therapy. No c/o pain. Mental Status/Objective Patient Orientation: Person, Place, Time, Situation Attachments: IV ADL-Treatment Therapy Code Descriptions/Definitions Functional [place] Measure: 0=Not Assessed/NA 4=Minimal Assistance 1=Total Assistance 5=Supervision or Setup 2=Maximal Assistance 6=Modified [place] 3=Moderate Assistance 7=Complete IndependenceSCALE: Activities may be completed with or without assistive devices. 1-Fuflispagn-fiktigg completes the activity by him/herself with no assistance from a helper. 5-Set-up or Clean-up Assistance-helper sets up or cleans up; patient completes activity. [place] assists only prior to or following the activity. 4-Supervision or Touching Assistance-helper provides verbal cues and/or touching/steadying and/or contact guard assistance as patient completes activity. Assistance may be provided throughout the activity or intermittently. 3-Partial/Moderate Assistance-helper does LESS THAN HALF the effort. [place] li fts, holds or supports trunk or limbs, but provides less than half the effort. 2-Substantial/Maximal Assistance-helper does MORE THAN HALF the effort. [place] lifts or holds trunk or limbs and provides more than half the effort. 0-Rrvrhdxdo-ysmjft does ALL the effort. Patient does none of the effort to complete the activity. Or, the assistance of 2 or more helpers is required for the patient to complete the activity. If activity was not attempted, code reason: 7-Patient Refused. 9-Not Applicable-not attempted and the patient did not perform the activity before the current illness, exacerbation or injury. 10-Not Attempted due to Environmental Limitations-(lack of equipment, weather restraints, etc.). 88-Not Attempted due to Medical Conditions or Safety Concerns. Other Treatment B UE exercises completed with skilled instruction for technique. Exercises completed in all planes 1 set 10 reps. After session, pt sitting in recliner with call light/phone in reach. All needs met in room. OT Short Term Goals Short Term Goals Time Frame: May 29, 2021 Toileting hygiene: 4 Lower body dressin Putting on/taking off footwear: 4 OT Procurement Analyst Goals Procurement Analyst Goals Time Frame: Jun 12, 2021 Eating (QC): 6 Oral Hygiene (QC): 6 Toileting Hygiene (QC): 6 Shower/Bathe Self (QC): 6 Upper Body Dressing (QC): 6 Lower Body Dressing (QC): 6 On/Off Footwear (QC): 6 Additional Goals: 1-Demonstrate ADL Tasks, 2-Verbalize Understanding, 3- ImproveStrength/[place] 1=Demonstrate adherence to instructed precautions during ADL tasks. 2=Patient will verbalize/demonstrate understanding of assistive devices/modifications for ADL. 3=Patient will improve strength/tolerance for activity to enable patient to perform ADL's. OT Education/Plan Problem List/Assessment Assessment: Decreased Activ Tolerance, Decreased UE Strength Discharge Recommendations Plan/Recommendations: Continue POC Treatment Plan/Plan of Care Patient would benefit from OT for education, treatment and training to promote independence in ADL's, mobility, safety and/or upper extremity function for ADL's. Plan of Care: ADL Retraining, Functional Mobility, Group Exercise/Act as Ind, UE Funct Exercise/Act Treatment Duration: Jun 12, 2021 Frequency: At least 5 of 7 days/Wk (IRF) Estimated Hrs Per Day: 1.5 hours per day Rehab Potential: Good Time/GCodes Start Time: 14:00 Stop Time: 14:15 Total Time Billed (hr/min): 15 Billed Treatment Time 1 visit-EX 1 (15 min) TODD GONZALEZ May 28, 2021 14:17
[2021-05-28 20:08] VITALS: BP 105/62
[2021-05-28] MEDS: DULoxetine 30 MG (CYMBALTA) CAP PO SCH (21:53)
[2021-05-28] MEDS: MAGNESIUM OXIDE (MAG-OX)400 MG TAB PO SCH (21:53)
[2021-05-28] MEDS: rOPINIRole 1 MG (REQUIP) TABLET PO SCH (21:53)
[2021-05-28] MEDS: LOSARTAN 100 MG (COZAAR) TABLET PO SCH (21:53)
[2021-05-28] MEDS: MIRTAZAPINE 15 MG (REMERON) TAB PO SCH (21:54)
[2021-05-28] MEDS: DOCUSATE SODIUM 100 MG (COLACE) CAP PO SCH (21:54)
[2021-05-28] MEDS: VALACYCLOVIR 500 MG TAB (VALTREX) PO SCH (21:55)
--- NOTE | 2021-05-29 06:08 | PM&R Progress Note ---
Subjective HPI/CC On Admission Date Seen by Provider: May 29, 2021 Time Seen by Provider: 12:00 Subjective/Events-last exam 05/29/2021: Pt is doing really well Home health accepted her at discharge No pain is reported Checked meds and labs 05/28/2021: Pt is doing really well Bowels moved 3 days ago Pain pill used for leg pain 05/27/2021: Pt is doing about the same Discharge planned for 06/05/21 Bowels moved two days ago Miralax and other laxatives ordered 05/26/2021: Pain was a major issue last night so we increased the Oxycodone to 10 Q4 prn X- ray will be obtained just to be sure there are no issues I did reach out to Dr. Chau to see her Bowels moved after suppository yesterday 05/25/2021: Pt is doing well Daughter at the bedside Refuses depository No bowel movement since 05/20/21 Checked meds and labs Pain well controlled 05/24/2021: Patient doing well Pain is improved No falls Bowel regimen will be intensified with suppository Checked meds and labs 05/23/2021: Patient doing a lot better Pain medication given Walked around better today with therapy Working on bowels Checked meds and labs No other concerns Review of Systems General: Fatigue, Malaise Gastrointestinal: Constipation Musculoskeletal: leg pain Objective Exam Vital Signs Vital Signs Date Time Temp Pulse Resp B/P (MAP) Pulse Ox O2 Delivery O2 Flow Rate FiO2 05/29/21 21:06 Room Air 05/29/21 21:00 83 132/63 (86) 05/29/21 20:00 36.3 16 97 Capillary Refill : General Appearance: No Apparent Distress, WD/WN, Chronically ill HEENT: PERRL/EOMI, Normal ENT Inspection, Pharynx Normal Neck: Full Range of Motion, Normal Inspection, Non Tender, Supple, Carotid Bruit Respiratory: Chest Non Tender, Lungs Clear, Normal Breath Sounds, No Accessory Muscle Use, No Respiratory Distress Cardiovascular: Regular Rate, Rhythm, No Edema, No Gallop, No JVD, No Murmur, Normal Peripheral Pulses Gastrointestinal: Normal Bowel Sounds, No Organomegaly, No Pulsatile Mass, Non Tender, Soft Back: Normal Inspection, No CVA Tenderness, No Vertebral Tenderness Extremity: Normal Capillary Refill, Normal Inspection, Normal Range of Motion, Non Tender, No Calf Tenderness, No Pedal Edema Neurologic/Psychiatric: Alert, Oriented x3, No Motor/Sensory Deficits, Normal Mood/Affect, balancer scale II-XII Norm as Tested, Abnormal Gait, Motor Weakness Skin: Normal Color, Warm/Dry Lymphatic: No Adenopathy Results/Procedures Lab Patient resulted labs reviewed. FIM Transfers Therapy Code Descriptions/Definitions Functional [place] Measure: 0=Not Assessed/NA 4=Minimal Assistance 1=Total Assistance 5=Supervision or Setup 2=Maximal Assistance 6=Modified [place] 3=Moderate Assistance 7=Complete IndependenceSCALE: Activities may be completed with or without assistive devices. 3-Kazhzwzaoc-nzripbw completes the activity by him/herself with no assistance from a helper. 5-Set-up or Clean-up Assistance-helper sets up or cleans up; patient completes activity. [place] assists only prior to or following the activity. 4-Supervision or Touching Assistance-helper provides verbal cues and/or touching/steadying and/or contact guard assistance as patient completes activity. Assistance may be provided throughout the activity or intermittently. 3-Partial/Moderate Assistance-helper does LESS THAN HALF the effort. [place] lifts, holds or supports trunk or limbs, but provides less than half the effort. 2-Substantial/Maximal Assistance-helper does MORE THAN HALF the effort. [place] lifts or holds trunk or limbs and provides more than half the effort. 1-Snhcnvuwb-vtxxmg does ALL the effort. Patient does none of the effort to complete the activity. Or, the assistance of 2 or more helpers is required for the patient to complete the activity. If activity was not attempted, code reason: 7-Patient Refused. 9-Not Applicable-not attempted and the patient did not perform the activity before the current illness, exacerbation or injury. 10-Not Attempted due to Environmental Limitations-(lack of equipment, weather restraints, etc.). 88-Not Attempted due to Medical Conditions or Safety Concerns. Roll Left to Right (QC): 6 Sit to Lying (QC): 6 Sit to Stand (QC): 6 Chair/Dyr-ty-Hxqjd Xfer(QC): 6 Car Transfer (QC): 6 Gait Training Does the Patient Walk?: Yes Distance: 150' Walk 10 feet (QC): 6 Walk 50 ft with 2 Turns(QC): 6 Walk 150 ft (QC): 6 Walking 10ft/uneven surface-QC: 4 Gait Persons Needed: 1 Gait Assistive Device: FWW Wheelchair Training Does the Pt Use a Wheelchair?: No Wheel 50 ft with 2 turns (QC): 9 Wheel 150 ft (QC): 9 Type of Wheelchair: N/A Stair Training Stair Training: Handrails/: 2 handrails #of Steps: 4 1 Step (curb) (QC): 4 4 Steps (QC): 4 12 Steps (QC): 88 Stairs: Pattern: Step to Balance Picking up an Object (QC): 88 ADL-Treatment Eating (QC): 6 Oral Hygiene (QC): 6 Bathing Location: L Arm, R Arm, L Upper Leg, R Upper Leg, L Lower Leg (including foot) (Pt used a long handled sponge to clean), R Lower Leg (including foot) (Pt used a long handled sponge to clean), Chest, Abdomen, Buttocks, Perineal Area Shower/Bathe Self (QC): 5 (setup) Upper Body Dressing (QC): 5 Lower Body Dressing (QC): 5 (setup, AE) On/Off Footwear (QC): 5 (setup, AE) Toileting Hygiene (QC): 6 Toilet Transfer (QC): 6 Assessment/Plan Assessment and Plan Assess & Plan/Chief Complaint Assessment: Right Hip Dislocation Hx Right Total Hip Arthroplasty Debility Hx Right Total Knee Arthroplasty Hx Left Total Knee Arthroplasty Osteoporosis Hiatal Hernia HTN Hypothryoidism Chronic Anemia Hx of Low GFR Restless Leg Syndrome Gastroesophageal Reflux Disease Plan: s/p Closed Reduction of Right Hip on 05/21/21 Orthopedics managing hip precautions PT/OT Will transfer patient to inpatient rehab for debility 05/23/2021: Pain control Supportive care Monitor closely 05/24/2021: Supportive care Pain control 05/25/2021: Pain control Supportive care 05/26/2021: Pain management Increased ADLs 05/27/2021: Continue aggressive treatment Supportive care 05/28/2021: Continue aggressive therapy 05/29/2021: Supportive care Monitor closely Problems: (1) Hip dislocation, right Status: Acute (2) History of total right hip arthroplasty (3) Osteoporosis (4) Hiatal hernia (5) History of total left knee replacement (TKR) (6) History of total right knee replacement (TKR) (7) Hypothyroidism (8) Chronic anemia (9) Restless leg syndrome (10) GERD (gastroesophageal reflux disease) (1) Hip dislocation, right Status: Acute (2) Chronic anemia (3) GERD (gastroesophageal reflux disease) (4) Restless leg syndrome (5) Hypothyroidism (6) Osteoporosis (7) Hiatal hernia (8) Chronic diastolic CHF (congestive heart failure) Onset Date: 06/04/2014 Status: Acute (9) History of total right hip arthroplasty (10) History of total left knee replacement (TKR) (11) History of total right knee replacement (TKR) LORRAINE CARNEY DO May 29, 2021 06:08
[2021-05-29 07:20] VITALS: BP 109/58
[2021-05-29] MEDS: LEVOTHYROXINE 50 MCG (LEVOTHROID) TAB PO SCH (07:55)
[2021-05-29] MEDS: VITAMIN D3 25 MCG (1,000 UNITS) TABLET PO SCH (08:53)
[2021-05-29] MEDS: SENNA W/DOCUSATE (SENOKOT S) TABLET PO SCH ×2 (08:53→21:03)
[2021-05-29] MEDS: polyethylene glycoL POWDER 17 GM (MIRALAX) PACK PO SCH ×2 (08:53→21:03)
[2021-05-29] MEDS: PANTOPRAZOLE 40 MG (PROTONIX) TAB PO SCH (08:53)
[2021-05-29] MEDS: ENOXAPARIN 40 MG/0.4 ML (LOVENOX) SYR SC SCH (08:53)
[2021-05-29] MEDS: OXYBUTYNIN (DITROPAN) 5 MG TAB PO SCH ×2 (08:53→20:58)
[2021-05-29] MEDS: ASCORBIC ACID (VIT C) 500 MG TABLET PO SCH (08:53)
[2021-05-29] MEDS: CYANOCOBALAMIN 1,000 MCG (VITAMIN B-12) TABLET PO SCH (08:53)
--- NOTE | 2021-05-29 08:55 | Occupational Ther Daily Note ---
OT Current Status-Daily Note Subjective Pt in bed, agreeable to OT Tx. Pt asks if she will be allowed to get up by herself prior to discharging, OT informed pt to continue using call light for now and OT will discuss [place] status with PT. Mental Status/Objective Patient Orientation: Person, Place, Time, Situation ADL-Treatment Therapy Code Descriptions/Definitions Functional [place] Measure: 0=Not Assessed/NA 4=Minimal Assistance 1=Total Assistance 5=Supervision or Setup 2=Maximal Assistance 6=Modified [place] 3=Moderate Assistance 7=Complete IndependenceSCALE: Activities may be completed with or without assistive devices. 0-Gfrmoyrcrm-bghuzfz completes the activity by him/herself with no assistance from a helper. 5-Set-up or Clean-up Assistance-helper sets up or cleans up; patient completes activity. [place] assists only prior to or following the activity. 4-Supervision or Touching Assistance-helper provides verbal cues and/or touching/steadying and/or contact guard assistance as patient completes activity. Assistance may be provided throughout the activity or intermittently. 3-Partial/Moderate Assistance-helper does LESS THAN HALF the effort. [place] lifts, holds or supports trunk or limbs, but provides less than half the effort. 2-Substantial/Maximal Assistance-helper does MORE THAN HALF the effort. [place] lifts or holds trunk or limbs and provides more than half the effort. 4-[place]-bkrooh does ALL the effort. Patient does none of the effort to complete the activity. Or, the assistance of 2 or more helpers is required for the patient to complete the activity. If activity was not attempted, code reason: 7-Patient Refused. 9-Not Applicable-not attempted and the patient did not perform the activity before the current illness, exacerbation or injury. 10-Not Attempted due to Environmental Limitations-(lack of equipment, weather restraints, etc.). 88-Not Attempted due to Medical Conditions or Safety Concerns. Eating (QC): 6 (IND with breakfast) Oral Hygiene (QC): 6 (IND standing at sink) Shower/Bathe Self (QC): 6 (IND seated on SC, able to use LH sponge.) Upper Body Dressing (QC): 6 (IND with picker/puller shirt.) Lower Body Dressing (QC): 4 (SBA, min verbal cues for AE in order to maintain hip precautions) On/Off Footwear: 4 (SBA, min verbal cues to use AE in order to maintain hip precautions) Toileting Hygiene (QC): 6 (IND) Toilet Transfer (QC): 6 (IND) Other Treatment Pt in bed, transferred supine to sit EOB independently. Pt used FWW to ambulate to closet, gather clothes and AE for LE dressing, then transfer into the bathroom. Pt completed toileting, transferred to [place], doffed clothes, completed shower, then donned clothes. Pt required min verbal cues to adhere to hip precautions and to choose the correct AE for task. Pt stood at sink to complete oral care, then used FWW to go to therapy gym, SBA. OT tx focused on increasing BUE Strength and activity tolerance. Pt completed arm bike x10 mins, 20 Watt resistance, with a few rest breaks. Pt c/o SOB with task, SPO2 at 86%, with cues for pursed lip breathing pt returned to 90%'s within a few seconds. After completing arm bike, O2 saturation at 97%. Pt then removed beads from moderate resistance theraputty in order to increase fine motor strength. Pt used FWW to return to room, transferring to recliner. Post tx, pt in recliner, call light in reach and all needs met. Education OT Patient Education: Correct positioning, Energy conservation, Exercise program, Modified ADL techniques, Progress toward Goal/Update tx plan, Purpose of tx/functional activities Teaching Recipient: Patient Teaching Methods: Discussion Response to Teaching: Verbalize Understanding OT Short Term Goals Short Term Goals Time Frame: May 29, 2021 Toileting hygiene: 4 Lower body dressin Putting on/taking off footwear: 4 OT Compensation And Benefits Analyst Goals Compensation And Benefits Analyst Goals Time Frame: Jun 12, 2021 Eating (QC): 6 Oral Hygiene (QC): 6 Toileting Hygiene (QC): 6 Shower/Bathe Self (QC): 6 Upper Body Dressing (QC): 6 Lower Body Dressing (QC): 6 On/Off Footwear (QC): 6 Additional Goals: 1-Demonstrate ADL Tasks, 2-Verbalize Understanding, 3- ImproveStrength/[place] 1=Demonstrate adherence to instructed precautions during ADL tasks. 2=Patient will verbalize/demonstrate understanding of assistive devices/modifications for ADL. 3=Patient will improve strength/tolerance for activity to enable patient to perform ADL's. OT Education/Plan Problem List/Assessment Assessment: Decreased Activ Tolerance, Decreased UE Strength, Impaired I ADL's, Impaired Self-Care Skills Discharge Recommendations Plan/Recommendations: Continue POC Treatment Plan/Plan of Care Patient would benefit from OT for education, treatment and training to promote independence in ADL's, mobility, safety and/or upper extremity function for ADL's. Plan of Care: ADL Retraining, Functional Mobility, Group Exercise/Act as Ind, UE Funct Exercise/Act Treatment Duration: Jun 12, 2021 Frequency: At least 5 of 7 days/Wk (IRF) Estimated Hrs Per Day: 1.5 hours per day Rehab Potential: Good Time/GCodes Start Time: 08:00 Stop Time: 09:15 Total Time Billed (hr/min): 75 Billed Treatment Time 1, ADL 3 (45'), EX (15'), FA (15') ASHWIN SMITH OT May 29, 2021 08:55
--- NOTE | 2021-05-29 10:13 | Physical Therapy Daily Note ---
PT Daily Note-Current Subjective Pt. agrees to Tx, c/o pain in right groin at 08/18. Meds given, pt. hopes to go home Mon or Tues and hopes to have some time here to practice getting up and down and around her room on her own Pain Numeric Pain Scale: 4 Location: Right Location Body Site: Hip Pain Description: Ache Mental Status Patient Orientation: Normal For Age Transfers SCALE: Activities may be completed with or without assistive devices. 9-Jnlyrrpvqk-bocmtgg completes the activity by him/herself with no assistance from a helper. 5-Set-up or Clean-up Assistance-helper sets up or cleans up; patient completes activity. [place] assists only prior to or following the activity. 4-Supervision or Touching Assistance-helper provides verbal cues and/or touching/steadying and/or contact guard assistance as patient completes activity. Assistance may be provided throughout the activity or intermittently. 3-Partial/Moderate Assistance-helper does LESS THAN HALF the effort. [place] lifts, holds or supports trunk or limbs, but provides less than half the effort. 2-Substantial/Maximal Assistance-helper does MORE THAN HALF the effort. [place] lifts or holds trunk or limbs and provides more than half the effort. 8-Aylswgzri-arikah does ALL the effort. Patient does none of the effort to complete the activity. Or, the assistance of 2 or more helpers is required for the patient to complete the activity. If activity was not attempted, code reason: 7-Patient Refused. 9-Not Applicable-not attempted and the patient did not perform the activity before the current illness, exacerbation or injury. 10-Not Attempted due to Environmental Limitations-(lack of equipment, weather restraints, etc.). 88-Not Attempted due to Medical Conditions or Safety Concerns. Roll Left & Right (QC): 6 Sit to Lying (QC): 6 Lying to Sitting/Side of Bed(Q: 6 Sit to Stand (QC): 6 Chair/Ynu-ir-Myxox Xfer(QC): 6 Toilet Transfer (QC): 6 Car Transfer (QC): 6 Weight Bearing Right Lower Extremity: Right Weight Bearing/Tolerated Left Lower Extremity: Left Full Weight Bearing Gait Training Does the Patient Walk?: Yes Walk 10 feet (QC): 6 Walk 50 ft with 2 Turns(QC): 6 Walk 150 ft (QC): 6 Gait Persons Needed: 0 Gait Assistive Device: FWW Exercises Supine Ex: Ankle pumps, Quad Set, Rolling, Glut sets, Heel Slides, Short Arc Quads, Scooting, Straight leg raise (assisted right), Hip abd/add NuStep Minutes: 8 NuStep Workload: 2 Assessment Current Status: Good Progress PT and OT discussed pt. being up ad vishnu, pts nurse was informed of new status., orta at hand, walker near by PT Diamond Broker Goals Diamond Broker Goals PT Shelter Goals Time Frame: Jun 06, 2021 Roll Left & Right (QC): 6 Sit to Lying (QC): 6 Lying-Sitting on Side/Bed(QC): 6 Sit to Stand (QC): 6 Chair/Qpo-yf-Alqhv Xfer(QC): 6 Toilet Transfer (QC): 6 Car Transfer (QC): 6 Does the Patient Walk: Yes Walk 10 feet (QC): 6 Walk 50ft with 2 Turns (QC): 6 Walk 150 ft (QC): 6 Walking 10ft on Uneven Surface: 6 1 Step (curb) (QC): 4 4 Steps (QC): 4 12 Steps (QC): 4 Picking up an Object (QC): 88 (due to hip precautions (inability to flex at hip past 90 degrees)) Wheel 50 feet with 2 turns (QC: 9 Type: N/A Wheel 150 feet: 9 Type: N/A PT Plan Treatment/Plan Treatment Plan: Continue Plan of Care Treatment Plan: Bed Mobility, Concurrent Therapy, Education, Functional Activity [place], Functional Strength, Group Therapy, Gait, Safety, Therapeutic Exercise, Transfers Treatment Duration: Jun 06, 2021 Frequency: At least 5 of 7 days/Wk (IRF) Estimated Hrs Per Day: 1.5 hours per day Patient and/or Family Agrees t: Yes Safety Risks/Education Patient Education: Gait Training, Transfer Techniques, Reviewed Precautions, Correct Positioning, Disease Process, Safety Issues Teaching Recipient: Patient Teaching Methods: Demonstration, Discussion Response to Teaching: Verbalize Understanding, Return Demonstration, Reinforcement Needed reviewed hip precautions and explained reasoning Time/GCodes Time In: 915 Time Out: 1015 Total Billed Treatment Time: 60 Total Billed Treatment 1,EX30m,FA15m,GT15m ANNY MOORE [place] ATTORNEY May 29, 2021 10:13
--- NOTE | 2021-05-29 11:03 | Speech Therapy Daily Note ---
Speech Daily Progress Note Subjective Date Seen by Provider: May 29, 2021 Time Seen by Provider: 10:15 The patient was seated upright in her recliner upon entrance to the room by the clinician. The patient greeted the clinician appropriately and was agreeable to participation in the cognitive linguistic treatment session. Objective - Orientation: The patient was independently oriented to self, location, month, day of week, date, and year. - Hip Precautions: The patient recalled three of three hip precautions, independently. - "Every Day Math": The patient was provided math problems related to money, time of day, and bills (similar to what the patient may experience throughout independent living). The patient displayed 50% accuracy, independently. The patient's accuracy increased with verbal cueing from the clinician. Assessment Assessment Current Status: Good Progress Treatment Plan Continue Plan of Care Speech Short Term Goals Short Term Goals Short Term Goals 1. The patient will demonstrate memory strategies with 90% accuracy and mild clinician cueing. Speech Group Home Goals Asp Net Mvc Developer Goals 1. The patient will demonstrate increased cognitive linguistic skills for safe return to the least restrictive environment. Speech-Plan Treatment Plan Speech Therapy Treatment Plan: Continue Plan of Care Treatment Duration: Jun 05, 2021 Frequency: 4 times per week Estimated Hrs Per Day: .5 hour per day Rehab Potential: Good Pt/Family Agrees to Plan: Yes Safety Risks/Education Teaching Recipient: Patient Teaching Methods: Discussion Response to Teaching: Verbalize Understanding Education Topics Provided: Hip Precautions Time Speech Therapy Time In: 10:15 Speech Therapy Time Out: 10:45 Total Billed Time: 30 Billed Treatment Time NEENA Thomas [facility] May 29, 2021 11:03
--- NOTE | 2021-05-29 13:09 | Physical Therapy Daily Note ---
PT Daily Note-Current Subjective Pts family present. Discussed DC plans for likely Tues. Pt. agrees to steps training. More discussion regarding being up ad vishnu in her room as well as up about in the unit. Conts c/o pain in her right groin area at 4/10 with activity and TRFs Pain Location: No Pain Reported Mental Status Patient Orientation: Normal For Age Transfers SCALE: Activities may be completed with or without assistive devices. 5-Ywjeugysdt-rzlaqty completes the activity by him/herself with no assistance from a helper. 5-Set-up or Clean-up Assistance-helper sets up or cleans up; patient completes activity. [place] assists only prior to or following the activity. 4-Supervision or Touching Assistance-helper provides verbal cues and/or touching/steadying and/or contact guard assistance as patient completes activity. Assistance may be provided throughout the activity or intermittently. 3-Partial/Moderate Assistance-helper does LESS THAN HALF the effort. [place] lifts, holds or supports trunk or limbs, but provides less than half the effort. 2-Substantial/Maximal Assistance-helper does MORE THAN HALF the effort. [place] lifts or holds trunk or limbs and provides more than half the effort. 9-Lfqnixkaq-ojxomx does ALL the effort. Patient does none of the effort to complete the activity. Or, the assistance of 2 or more helpers is required for the patient to complete the activity. If activity was not attempted, code reason: 7-Patient Refused. 9-Not Applicable-not attempted and the patient did not perform the activity before the current illness, exacerbation or injury. 10-Not Attempted due to Environmental Limitations-(lack of equipment, weather restraints, etc.). 88-Not Attempted due to Medical Conditions or Safety Concerns. all TRFs SBA to Mod I Weight Bearing Right Lower Extremity: Right Weight Bearing/Tolerated Left Lower Extremity: Left Full Weight Bearing Gait Training Does the Patient Walk?: Yes Gait Assistive Device: FWW [id number] to gym and back Mod I to SBA Stair Training Stair Training: Handrails/: 2 handrails #of Steps: 4 4 Steps (QC): 4 Stairs: Pattern: Step to needed cuing for sequence and hand placement and placement of feet on step Balance Picking up an Object (QC): 88 Exercises Seated Therapy Exercises: Ankle pumps, Sit to stand, Long arc quads Seated Reps: 12 Treatments above described, in bed afer with more education about where to leave the walker so she can reach it when she gets up as well as the placement of the tray table and how to push it away safely Assessment Current Status: Good Progress PT Senior Energy Consultant Goals Senior Energy Consultant Goals PT Halfway Goals Time Frame: Jun 06, 2021 Roll Left & Right (QC): 6 Sit to Lying (QC): 6 Lying-Sitting on Side/Bed(QC): 6 Sit to Stand (QC): 6 Chair/Osr-gy-Wxnal Xfer(QC): 6 Toilet Transfer (QC): 6 Car Transfer (QC): 6 Does the Patient Walk: Yes Walk 10 feet (QC): 6 Walk 50ft with 2 Turns (QC): 6 Walk 150 ft (QC): 6 Walking 10ft on Uneven Surface: 6 1 Step (curb) (QC): 4 4 Steps (QC): 4 12 Steps (QC): 4 Picking up an Object (QC): 88 (due to hip precautions (inability to flex at hip past 90 degrees)) Wheel 50 feet with 2 turns (QC: 9 Type: N/A Wheel 150 feet: 9 Type: N/A PT Plan Treatment/Plan Treatment Plan: Continue Plan of Care Treatment Plan: Bed Mobility, Concurrent Therapy, Education, Functional Activity [place], Functional Strength, Group Therapy, Gait, Safety, Therapeutic Exercise, Transfers Treatment Duration: Jun 06, 2021 Frequency: At least 5 of 7 days/Wk (IRF) Estimated Hrs Per Day: 1.5 hours per day Patient and/or Family Agrees t: Yes Safety Risks/Education Patient Education: Gait Training, Transfer Techniques, Steps, Reviewed Preca utions, Correct Positioning, Disease Process, Safety Issues Teaching Recipient: Patient Teaching Methods: Demonstration, Discussion Response to Teaching: Verbalize Understanding, Return Demonstration, Reinforcement Needed Time/GCodes Time In: 1245 Time Out: 1300 Total Billed Treatment Time: 15 Total Billed Treatment 1,FAToddm ANNY MOORE DRUPAL PROGRAMMER May 29, 2021 13:09
[2021-05-29 20:00] VITALS: BP 102/64
[2021-05-29] MEDS: DULoxetine 30 MG (CYMBALTA) CAP PO SCH (20:57)
[2021-05-29] MEDS: MAGNESIUM OXIDE (MAG-OX)400 MG TAB PO SCH (20:58)
[2021-05-29] MEDS: MIRTAZAPINE 15 MG (REMERON) TAB PO SCH (20:58)
[2021-05-29] MEDS: rOPINIRole 1 MG (REQUIP) TABLET PO SCH (20:58)
[2021-05-29] MEDS: VALACYCLOVIR 500 MG TAB (VALTREX) PO SCH (20:58)
[2021-05-29] MEDS: LOSARTAN 100 MG (COZAAR) TABLET PO SCH (20:58)
[2021-05-29 21:00] VITALS: BP 132/63
[2021-05-29] MEDS: DOCUSATE SODIUM 100 MG (COLACE) CAP PO SCH (21:03)
[2021-05-30] MEDS: LEVOTHYROXINE 50 MCG (LEVOTHROID) TAB PO SCH (06:28)
[2021-05-30] MEDS: ENOXAPARIN 40 MG/0.4 ML (LOVENOX) SYR SC SCH (06:28)
--- NOTE | 2021-05-30 06:38 | PM&R Progress Note ---
Subjective HPI/CC On Admission Date Seen by Provider: May 30, 2021 Time Seen by Provider: 12:00 Subjective/Events-last exam 05/30/2021: Patient doing really well Pain is well controlled Bowels are just slow to move Daughter at the bedside 05/29/2021: Pt is doing really well Home health accepted her at discharge No pain is reported Checked meds and labs 05/28/2021: Pt is doing really well Bowels moved 3 days ago Pain pill used for leg pain 05/27/2021: Pt is doing about the same Discharge planned for 06/05/21 Bowels moved two days ago Miralax and other laxatives ordered 05/26/2021: Pain was a major issue last night so we increased the Oxycodone to 10 Q4 prn X- ray will be obtained just to be sure there are no issues I did reach out to Dr. Chau to see her Bowels moved after suppository yesterday 05/25/2021: Pt is doing well Daughter at the bedside Refuses depository No bowel movement since 05/20/21 Checked meds and labs Pain well controlled 05/24/2021: Patient doing well Pain is improved No falls Bowel regimen will be intensified with suppository Checked meds and labs 05/23/2021: Patient doing a lot better Pain medication given Walked around better today with therapy Working on bowels Checked meds and labs No other concerns Review of Systems General: Fatigue, Malaise Musculoskeletal: leg pain Objective Exam Vital Signs Vital Signs Date Time Temp Pulse Resp B/P (MAP) Pulse Ox O2 Delivery O2 Flow Rate FiO2 05/30/21 20:20 Room Air 05/30/21 20:00 36.4 67 20 143/65 (91) 98 Capillary Refill : General Appearance: No Apparent Distress, WD/WN, Chronically ill HEENT: PERRL/EOMI, Normal ENT Inspection, Pharynx Normal Neck: Full Range of Motion, Normal Inspection, Non Tender, Supple, Carotid Bruit Respiratory: Chest Non Tender, Lungs Clear, Normal Breath Sounds, No Accessory Muscle Use, No Respiratory Distress Cardiovascular: Regular Rate, Rhythm, No Edema, No Gallop, No JVD, No Murmur, Normal Peripheral Pulses Gastrointestinal: Normal Bowel Sounds, No Organomegaly, No Pulsatile Mass, Non Tender, Soft Back: Normal Inspection, No CVA Tenderness, No Vertebral Tenderness Extremity: Normal Capillary Refill, Normal Inspection, Normal Range of Motion, Non Tender, No Calf Tenderness, No Pedal Edema Neurologic/Psychiatric: Alert, Oriented x3, No Motor/Sensory Deficits, Normal Mood/Affect, learning and development administrator II-XII Norm as Tested, Abnormal Gait, Motor Weakness Skin: Normal Color, Warm/Dry Lymphatic: No Adenopathy Results/Procedures Lab Patient resulted labs reviewed. FIM Transfers Therapy Code Descriptions/Definitions Functional [place] Measure: 0=Not Assessed/NA 4=Minimal Assistance 1=Total Assistance 5=Supervision or Setup 2=Maximal Assistance 6=Modified [place] 3=Moderate Assistance 7=Complete IndependenceSCALE: Activities may be completed with or without assistive devices. 0-Fwyhemayqg-ddhescx completes the activity by him/herself with no assistance from a helper. 5-Set-up or Clean-up Assistance-helper sets up or cleans up; patient completes activity. [place] assists only prior to or following the activity. 4-Supervision or Touching Assistance-helper provides verbal cues and/or touching/steadying and/or contact guard assistance as patient completes activity. Assistance may be provided throughout the activity or intermittently. 3-Partial/Moderate Assistance-helper does LESS THAN HALF the effort. [place] lifts, holds or supports trunk or limbs, but provides less than half the effort. 2-Substantial/Maximal Assistance-helper does MORE THAN HALF the effort. [place] lifts or holds trunk or limbs and provides more than half the effort. 5-Mmgrlusdr-uetoav does ALL the effort. Patient does none of the effort to complete the activity. Or, the assistance of 2 or more helpers is required for the patient to complete the activity. If activity was not attempted, code reason: 7-Patient Refused. 9-Not Applicable-not attempted and the patient did not perform the activity before the current illness, exacerbation or injury. 10-Not Attempted due to Environmental Limitations-(lack of equipment, weather restraints, etc.). 88-Not Attempted due to Medical Conditions or Safety Concerns. Roll Left to Right (QC): 6 Sit to Lying (QC): 6 Sit to Stand (QC): 6 Chair/Ppa-zf-Lolhv Xfer(QC): 6 Car Transfer (QC): 6 Gait Training Does the Patient Walk?: Yes Distance: 150' Walk 10 feet (QC): 6 Walk 50 ft with 2 Turns(QC): 6 Walk 150 ft (QC): 6 Walking 10ft/uneven surface-QC: 4 Gait Persons Needed: 0 Gait Assistive Device: FWW Wheelchair Training Does the Pt Use a Wheelchair?: No Wheel 50 ft with 2 turns (QC): 9 Wheel 150 ft (QC): 9 Type of Wheelchair: N/A Stair Training Stair Training: Handrails/: 2 handrails #of Steps: 4 1 Step (curb) (QC): 4 4 Steps (QC): 4 12 Steps (QC): 88 Stairs: Pattern: Step to Balance Picking up an Object (QC): 88 ADL-Treatment Eating (QC): 6 (IND with breakfast) Oral Hygiene (QC): 6 (IND standing at sink) Bathing Location: L Arm, R Arm, L Upper Leg, R Upper Leg, L Lower Leg (including foot) (Pt used a long handled sponge to clean), R Lower Leg (including foot) (Pt used a long handled sponge to clean), Chest, Abdomen, Buttocks, Perineal Area Shower/Bathe Self (QC): 6 (IND seated on SC, able to use LH sponge.) Upper Body Dressing (QC): 6 (IND with warehouse order puller shirt.) Lower Body Dressing (QC): 4 (SBA, min verbal cues for AE in order to maintain hip precautions) On/Off Footwear (QC): 4 (SBA, min verbal cues to use AE in order to maintain h ip precautions) Toileting Hygiene (QC): 6 (IND) Toilet Transfer (QC): 6 (IND) Assessment/Plan Assessment and Plan Assess & Plan/Chief Complaint Assessment: Right Hip Dislocation Hx Right Total Hip Arthroplasty Debility Hx Right Total Knee Arthroplasty Hx Left Total Knee Arthroplasty Osteoporosis Hiatal Hernia HTN Hypothryoidism Chronic Anemia Hx of Low GFR Restless Leg Syndrome Gastroesophageal Reflux Disease Plan: s/p Closed Reduction of Right Hip on 05/21/21 Orthopedics managing hip precautions PT/OT Will transfer patient to inpatient rehab for debility 05/23/2021: Pain control Supportive care Monitor closely 05/24/2021: Supportive care Pain control 05/25/2021: Pain control Supportive care 05/26/2021: Pain management Increased ADLs 05/27/2021: Continue aggressive treatment Supportive care 05/28/2021: Continue aggressive therapy 05/29/2021: Supportive care Monitor closely 05/30/2021: Supportive care Monitor closely Problems: (1) Hip dislocation, right Status: Acute (2) History of total right hip arthroplasty (3) Osteoporosis (4) Hiatal hernia (5) History of total left knee replacement (TKR) (6) History of total right knee replacement (TKR) (7) Hypothyroidism (8) Chronic anemia (9) Restless leg syndrome (10) GERD (gastroesophageal reflux disease) (1) Hip dislocation, right Status: Acute (2) Chronic anemia (3) GERD (gastroesophageal reflux disease) (4) Restless leg syndrome (5) Hypothyroidism (6) Osteoporosis (7) Hiatal hernia (8) Chronic diastolic CHF (congestive heart failure) Onset Date: 06/04/2014 Status: Acute (9) History of total right hip arthroplasty (10) History of total left knee replacement (TKR) (11) History of total right knee replacement (TKR) LORRAINE CARNEY DO May 30, 2021 06:38
[2021-05-30 07:29] VITALS: BP 114/56
[2021-05-30] MEDS: ASCORBIC ACID (VIT C) 500 MG TABLET PO SCH (08:21)
[2021-05-30] MEDS: VITAMIN D3 25 MCG (1,000 UNITS) TABLET PO SCH (08:21)
[2021-05-30] MEDS: CYANOCOBALAMIN 1,000 MCG (VITAMIN B-12) TABLET PO SCH (08:21)
[2021-05-30] MEDS: OXYBUTYNIN (DITROPAN) 5 MG TAB PO SCH ×2 (08:22→20:16)
[2021-05-30] MEDS: SENNA W/DOCUSATE (SENOKOT S) TABLET PO SCH ×2 (08:22→20:16)
[2021-05-30] MEDS: PANTOPRAZOLE 40 MG (PROTONIX) TAB PO SCH (08:22)
--- NOTE | 2021-05-30 09:05 | Physical Therapy Daily Note ---
PT Daily Note-Current Subjective Pt. agrees to Rx, states she is better everyday Pain Location: No Pain Reported Mental Status Patient Orientation: Normal For Age Transfers SCALE: Activities may be completed with or without assistive devices. 5-Kjzeqptsmu-agrjuaa completes the activity by him/herself with no assistance from a helper. 5-Set-up or Clean-up Assistance-helper sets up or cleans up; patient completes activity. [place] assists only prior to or following the activity. 4-Supervision or Touching Assistance-helper provides verbal cues and/or touching/steadying and/or contact guard assistance as patient completes activity. Assistance may be provided throughout the activity or intermittently. 3-Partial/Moderate Assistance-helper does LESS THAN HALF the effort. [place] lifts, holds or supports trunk or limbs, but provides less than half the effort. 2-Substantial/Maximal Assistance-helper does MORE THAN HALF the effort. [place] lifts or holds trunk or limbs and provides more than half the effort. 9-Nxngfrdty-irumdv does ALL the effort. Patient does none of the effort to complete the activity. Or, the assistance of 2 or more helpers is required for the patient to complete the activity. If activity was not attempted, code reason: 7-Patient Refused. 9-Not Applicable-not attempted and the patient did not perform the activity before the current illness, exacerbation or injury. 10-Not Attempted due to Environmental Limitations-(lack of equipment, weather restraints, etc.). 88-Not Attempted due to Medical Conditions or Safety Concerns. sit to stand all Mod i Weight Bearing Right Lower Extremity: Right Weight Bearing/Tolerated Left Lower Extremity: Left Full Weight Bearing Gait Training Does the Patient Walk?: Yes Gait Assistive Device: FWW 400ft x 2 FWW Mod I to SBA, all safe habits observed Exercises Seated Therapy Exercises: Ankle pumps, Sit to stand, Long arc quads, Hip abd/add Seated Reps: 12 Assessment Current Status: Good Progress PT Pier Master Assistant Goals Skilled Nursing Goals PT Skilled Nursing Goals Time Frame: Jun 06, 2021 Roll Left & Right (QC): 6 Sit to Lying (QC): 6 Lying-Sitting on Side/Bed(QC): 6 Sit to Stand (QC): 6 Chair/Xut-mu-Ehfsu Xfer(QC): 6 Toilet Transfer (QC): 6 Car Transfer (QC): 6 Does the Patient Walk: Yes Walk 10 feet (QC): 6 Walk 50ft with 2 Turns (QC): 6 Walk 150 ft (QC): 6 Walking 10ft on Uneven Surface: 6 1 Step (curb) (QC): 4 4 Steps (QC): 4 12 Steps (QC): 4 Picking up an Object (QC): 88 (due to hip precautions (inability to flex at hip past 90 degrees)) Wheel 50 feet with 2 turns (QC: 9 Type: N/A Wheel 150 feet: 9 Type: N/A PT Plan Treatment/Plan Treatment Plan: Continue Plan of Care Treatment Plan: Bed Mobility, Concurrent Therapy, Education, Functional Activity [place], Functional Strength, Group Therapy, Gait, Safety, Therapeutic Exercise, Transfers Treatment Duration: Jun 06, 2021 Frequency: At least 5 of 7 days/Wk (IRF) Estimated Hrs Per Day: 1.5 hours per day Patient and/or Family Agrees t: Yes Safety Risks/Education Patient Education: Gait Training, Transfer Techniques, Reviewed Precautions Time/GCodes Time In: 830 Time Out: 850 Total Billed Treatment Time: 20 Total Billed Treatment 1,FA20m ANNY MOORE MOLDER LABELS May 30, 2021 09:05
[2021-05-30] MEDS: polyethylene glycoL POWDER 17 GM (MIRALAX) PACK PO SCH ×2 (09:27→20:17)
[2021-05-30] MEDS: ASPIRIN 81 MG CHEW (CHILDREN'S ASA) PO SCH (12:30)
[2021-05-30] MEDS: FERROUS SULF 325 MG (IRON) TAB PO SCH (12:30)
[2021-05-30] MEDS: ACETAMINOPHEN 325 MG TABLET PO PRN (12:32)
[2021-05-30 20:00] VITALS: BP 143/65
[2021-05-30] MEDS: rOPINIRole 1 MG (REQUIP) TABLET PO SCH (20:15)
[2021-05-30] MEDS: LOSARTAN 100 MG (COZAAR) TABLET PO SCH (20:15)
[2021-05-30] MEDS: DOCUSATE SODIUM 100 MG (COLACE) CAP PO SCH (20:15)
[2021-05-30] MEDS: MAGNESIUM OXIDE (MAG-OX)400 MG TAB PO SCH (20:16)
[2021-05-30] MEDS: DULoxetine 30 MG (CYMBALTA) CAP PO SCH (20:16)
[2021-05-30] MEDS: VALACYCLOVIR 500 MG TAB (VALTREX) PO SCH (20:16)
[2021-05-30] MEDS: MIRTAZAPINE 15 MG (REMERON) TAB PO SCH (20:16)
[2021-05-31] MEDS: LEVOTHYROXINE 50 MCG (LEVOTHROID) TAB PO SCH (06:03)
[2021-05-31] MEDS: ACETAMINOPHEN 325 MG TABLET PO PRN (06:07)
[2021-05-31] MEDS: ENOXAPARIN 40 MG/0.4 ML (LOVENOX) SYR SC SCH (06:08)
[2021-05-31 07:24] VITALS: BP 131/63
--- NOTE | 2021-05-31 07:48 | PM&R Progress Note ---
Subjective HPI/CC On Admission Date Seen by Provider: May 31, 2021 Time Seen by Provider: 12:15 Subjective/Events-last exam 05/31/2021: Patient doing well Family at bedside Bowels moved Need speech therapy to evaluate her swallowing tomorrow Podiatry consult will be requested 05/30/2021: Patient doing really well Pain is well controlled Bowels are just slow to move Daughter at the bedside 05/29/2021: Pt is doing really well Home health accepted her at discharge No pain is reported Checked meds and labs 05/28/2021: Pt is doing really well Bowels moved 3 days ago Pain pill used for leg pain 05/27/2021: Pt is doing about the same Discharge planned for 06/05/21 Bowels moved two days ago Miralax and other laxatives ordered 05/26/2021: Pain was a major issue last night so we increased the Oxycodone to 10 Q4 prn X- ray will be obtained just to be sure there are no issues I did reach out to Dr. Chau to see her Bowels moved after suppository yesterday 05/25/2021: Pt is doing well Daughter at the bedside Refuses depository No bowel movement since 05/20/21 Checked meds and labs Pain well controlled 05/24/2021: Patient doing well Pain is improved No falls Bowel regimen will be intensified with suppository Checked meds and labs 05/23/2021: Patient doing a lot better Pain medication given Walked around better today with therapy Working on bowels Checked meds and labs No other concerns Review of Systems General: Fatigue, Malaise Objective Exam Vital Signs Vital Signs Date Time Temp Pulse Resp B/P (MAP) Pulse Ox O2 Delivery O2 Flow Rate FiO2 05/31/21 09:00 94 Room Air 05/31/21 07:24 36.4 68 22 131/63 (85) Capillary Refill : General Appearance: No Apparent Distress, WD/WN, Chronically ill HEENT: PERRL/EOMI, Normal ENT Inspection, Pharynx Normal Neck: Full Range of Motion, Normal Inspection, Non Tender, Supple, Carotid Bruit Respiratory: Chest Non Tender, Lungs Clear, Normal Breath Sounds, No Accessory Muscle Use, No Respiratory Distress Cardiovascular: Regular Rate, Rhythm, No Edema, No Gallop, No JVD, No Murmur, Normal Peripheral Pulses Gastrointestinal: Normal Bowel Sounds, No Organomegaly, No Pulsatile Mass, Non Tender, Soft Back: Normal Inspection, No CVA Tenderness, No Vertebral Tenderness Extremity: Normal Capillary Refill, Normal Inspection, Normal Range of Motion, Non Tender, No Calf Tenderness, No Pedal Edema Neurologic/Psychiatric: Alert, Oriented x3, No Motor/Sensory Deficits, Normal Mood/Affect, palliative nurse II-XII Norm as Tested, Abnormal Gait, Motor Weakness Skin: Normal Color, Warm/Dry Lymphatic: No Adenopathy Results/Procedures Lab Patient resulted labs reviewed. FIM Transfers Therapy Code Descriptions/Definitions Functional [place] Measure: 0=Not Assessed/NA 4=Minimal Assistance 1=Total Assistance 5=Supervision or Setup 2=Maximal Assistance 6=Modified [place] 3=Moderate Assistance 7=Complete IndependenceSCALE: Activities may be completed with or without assistive devices. 7-Owpfodgxqm-kqghyra completes the activity by him/herself with no assistance from a helper. 5-Set-up or Clean-up Assistance-helper sets up or cleans up; patient completes activity. [place] assists only prior to or following the activity. 4-Supervision or Touching Assistance-helper provides verbal cues and/or touching/steadying and/or contact guard assistance as patient completes activity. Assistance may be provided throughout the activity or intermittently. 3-Partial/Moderate Assistance-helper does LESS THAN HALF the effort. [place] lifts, holds or supports trunk or limbs, but provides less than half the effort. 2-Substantial/Maximal Assistance-helper does MORE THAN HALF the effort. [place] lifts or holds trunk or limbs and provides more than half the effort. 8-Izqzxiecu-qypaqv does ALL the effort. Patient does none of the effort to complete the activity. Or, the assistance of 2 or more helpers is required for the patient to complete the activity. If activity was not attempted, code reason: 7-Patient Refused. 9-Not Applicable-not attempted and the patient did not perform the activity before the current illness, exacerbation or injury. 10-Not Attempted due to Environmental Limitations-(lack of equipment, weather restraints, etc.). 88-Not Attempted due to Medical Conditions or Safety Concerns. Roll Left to Right (QC): 6 Sit to Lying (QC): 6 Sit to Stand (QC): 6 Chair/Rla-fr-Weadq Xfer(QC): 6 Car Transfer (QC): 6 Gait Training Does the Patient Walk?: Yes Distance: 150' Walk 10 feet (QC): 6 Walk 50 ft with 2 Turns(QC): 6 Walk 150 ft (QC): 6 Walking 10ft/uneven surface-QC: 4 Gait Persons Needed: 0 Gait Assistive Device: FWW Wheelchair Training Does the Pt Use a Wheelchair?: No Wheel 50 ft with 2 turns (QC): 9 Wheel 150 ft (QC): 9 Type of Wheelchair: N/A Stair Training Stair Training: Handrails/: 2 handrails #of Steps: 4 1 Step (curb) (QC): 4 4 Steps (QC): 4 12 Steps (QC): 88 Stairs: Pattern: Step to Balance Picking up an Object (QC): 88 ADL-Treatment Eating (QC): 6 (IND with breakfast) Oral Hygiene (QC): 6 (IND standing at sink) Bathing Location: L Arm, R Arm, L Upper Leg, R Upper Leg, L Lower Leg (including foot) (Pt used a long handled sponge to clean), R Lower Leg (including foot) (Pt used a long handled sponge to clean), Chest, Abdomen, Buttocks, Perineal Area Shower/Bathe Self (QC): 6 (IND seated on SC, able to use LH sponge.) Upper Body Dressing (QC): 6 (IND with puller machine shirt.) Lower Body Dressing (QC): 4 (SBA, min verbal cues for AE in order to maintain hip precautions) On/Off Footwear (QC): 4 (SBA, min verbal cues to use AE in order to maintain hip precautions) Toileting Hygiene (QC): 6 (IND) Toilet Transfer (QC): 6 (IND) Assessment/Plan Assessment and Plan Assess & Plan/Chief Complaint Assessment: Right Hip Dislocation Hx Right Total Hip Arthroplasty Debility Hx Right Total Knee Arthroplasty Hx Left Total Knee Arthroplasty Osteoporosis Hiatal Hernia HTN Hypothryoidism Chronic Anemia Hx of Low GFR Restless Leg Syndrome Gastroesophageal Reflux Disease Toenail dysfunction Plan: s/p Closed Reduction of Right Hip on 05/21/21 Orthopedics managing hip precautions PT/OT Will transfer patient to inpatient rehab for debility 05/23/2021: Pain control Supportive care Monitor closely 05/24/2021: Supportive care Pain control 05/25/2021: Pain control Supportive care 05/26/2021: Pain management Increased ADLs 05/27/2021: Continue aggressive treatment Supportive care 05/28/2021: Continue aggressive therapy 05/29/2021: Supportive care Monitor closely 05/30/2021: Supportive care Monitor closely 05/31/2021: Speech therapy to evaluate dysphagia Supportive care Podiatry consult Problems: (1) Hip dislocation, right Status: Acute (2) History of total right hip arthroplasty (3) Osteoporosis (4) Hiatal hernia (5) History of total left knee replacement (TKR) (6) History of total right knee replacement (TKR) (7) Hypothyroidism (8) Chronic anemia (9) Restless leg syndrome (10) GERD (gastroesophageal reflux disease) (1) Hip dislocation, right Status: Acute (2) Chronic anemia (3) GERD (gastroesophageal reflux disease) (4) Restless leg syndrome (5) Hypothyroidism (6) Osteoporosis (7) Hiatal hernia (8) Chronic diastolic CHF (congestive heart failure) Onset Date: 06/04/2014 Status: Acute (9) History of total right hip arthroplasty (10) History of total left knee replacement (TKR) (11) History of total right knee replacement (TKR) LORRAINE CARNEY DO May 31, 2021 07:48
[2021-05-31] MEDS: CYANOCOBALAMIN 1,000 MCG (VITAMIN B-12) TABLET PO SCH (08:24)
[2021-05-31] MEDS: PANTOPRAZOLE 40 MG (PROTONIX) TAB PO SCH (08:24)
[2021-05-31] MEDS: SENNA W/DOCUSATE (SENOKOT S) TABLET PO SCH ×2 (08:24→19:51)
[2021-05-31] MEDS: VITAMIN D3 25 MCG (1,000 UNITS) TABLET PO SCH (08:24)
[2021-05-31] MEDS: ASCORBIC ACID (VIT C) 500 MG TABLET PO SCH (08:25)
[2021-05-31] MEDS: OXYBUTYNIN (DITROPAN) 5 MG TAB PO SCH ×2 (08:25→19:49)
[2021-05-31] MEDS: polyethylene glycoL POWDER 17 GM (MIRALAX) PACK PO SCH ×2 (08:34→19:38)
[2021-05-31] MEDS: DOCUSATE SODIUM 100 MG (COLACE) CAP PO SCH (19:38)
[2021-05-31] MEDS: rOPINIRole 1 MG (REQUIP) TABLET PO SCH (19:49)
[2021-05-31] MEDS: DULoxetine 30 MG (CYMBALTA) CAP PO SCH (19:49)
[2021-05-31] MEDS: VALACYCLOVIR 500 MG TAB (VALTREX) PO SCH (19:50)
[2021-05-31] MEDS: MAGNESIUM OXIDE (MAG-OX)400 MG TAB PO SCH (19:50)
[2021-05-31] MEDS: MIRTAZAPINE 15 MG (REMERON) TAB PO SCH (19:50)
[2021-05-31] MEDS: LOSARTAN 100 MG (COZAAR) TABLET PO SCH (19:50)
[2021-05-31 19:56] VITALS: BP 145/63
--- NOTE | 2021-06-01 05:27 | PM&R Progress Note ---
Subjective HPI/CC On Admission Date Seen by Provider: Jun 01, 2021 Time Seen by Provider: 11:00 Subjective/Events-last exam 06/01/2021: Pt is doing very well Speech therapy will perform an outpatient study after discharge Dr. Leary will see her for toenail care Hemoglobin was 10.3 05/31/2021: Patient doing well Family at bedside Bowels moved Need speech therapy to evaluate her swallowing tomorrow Podiatry consult will be requested 05/30/2021: Patient doing really well Pain is well controlled Bowels are just slow to move Daughter at the bedside 05/29/2021: Pt is doing really well Home health accepted her at discharge No pain is reported Checked meds and labs 05/28/2021: Pt is doing really well Bowels moved 3 days ago Pain pill used for leg pain 05/27/2021: Pt is doing about the same Discharge planned for 06/05/21 Bowels moved two days ago Miralax and other laxatives ordered 05/26/2021: Pain was a major issue last night so we increased the Oxycodone to 10 Q4 prn X- ray will be obtained just to be sure there are no issues I did reach out to Dr. Chau to see her Bowels moved after suppository yesterday 05/25/2021: Pt is doing well Daughter at the bedside Refuses depository No bowel movement since 05/20/21 Checked meds and labs Pain well controlled 05/24/2021: Patient doing well Pain is improved No falls Bowel regimen will be intensified with suppository Checked meds and labs 05/23/2021: Patient doing a lot better Pain medication given Walked around better today with therapy Working on bowels Checked meds and labs No other concerns Review of Systems General: Fatigue, Malaise Musculoskeletal: leg pain Objective Exam Vital Signs Vital Signs Date Time Temp Pulse Resp B/P (MAP) Pulse Ox O2 Delivery O2 Flow Rate FiO2 06/01/21 21:30 97 Room Air 06/01/21 20:37 36.0 70 16 155/63 (93) Capillary Refill : General Appearance: No Apparent Distress, WD/WN, Chronically ill HEENT: PERRL/EOMI, Normal ENT Inspection, Pharynx Normal Neck: Full Range of Motion, Normal Inspection, Non Tender, Supple, Carotid Bruit Respiratory: Chest Non Tender, Lungs Clear, Normal Breath Sounds, No Accessory Muscle Use, No Respiratory Distress Cardiovascular: Regular Rate, Rhythm, No Edema, No Gallop, No JVD, No Murmur, Normal Peripheral Pulses Gastrointestinal: Normal Bowel Sounds, No Organomegaly, No Pulsatile Mass, Non Tender, Soft Back: Normal Inspection, No CVA Tenderness, No Vertebral Tenderness Extremity: Normal Capillary Refill, Normal Inspection, Normal Range of Motion, Non Tender, No Calf Tenderness, No Pedal Edema Neurologic/Psychiatric: Alert, Oriented x3, No Motor/Sensory Deficits, Normal Mood/Affect, public works director II-XII Norm as Tested, Abnormal Gait, Motor Weakness Skin: Normal Color, Warm/Dry Lymphatic: No Adenopathy Results/Procedures Lab Laboratory Tests 06/01/21 05:24 Patient resulted labs reviewed. FIM Transfers Therapy Code Descriptions/Definitions Functional [place] Measure: 0=Not Assessed/NA 4=Minimal Assistance 1=Total Assistance 5=Supervision or Setup 2=Maximal Assistance 6=Modified [place] 3=Moderate Assistance 7=Complete IndependenceSCALE: Activities may be completed with or without assistive devices. 7-Faxfjfayhr-nchwtno completes the activity by him/herself with no assistance from a helper. 5-Set-up or Clean-up Assistance-helper sets up or cleans up; patient completes activity. [place] assists only prior to or following the activity. 4-Supervision or Touching Assistance-helper provides verbal cues and/or touching/steadying and/or contact guard assistance as patient completes activity. Assistance may be provided throughout the activity or intermittently. 3-Partial/Moderate Assistance-helper does LESS THAN HALF the effort. [place] lifts, holds or supports trunk or limbs, but provides less than half the effort. 2-Substantial/Maximal Assistance-helper does MORE THAN HALF the effort. [place] lifts or holds trunk or limbs and provides more than half the effort. 4-Ibrfuwwqh-bnhxgu does ALL the effort. Patient does none of the effort to complete the activity. Or, the assistance of 2 or more helpers is required for the patient to complete the activity. If activity was not attempted, code reason: 7-Patient Refused. 9-Not Applicable-not attempted and the patient did not perform the activity before the current illness, exacerbation or injury. 10-Not Attempted due to Environmental Limitations-(lack of equipment, weather restraints, etc.). 88-Not Attempted due to Medical Conditions or Safety Concerns. Roll Left to Right (QC): 6 Sit to Lying (QC): 6 Sit to Stand (QC): 6 Chair/Egi-fq-[place] Xfer(QC): 6 Car Transfer (QC): 6 Gait Training Does the Patient Walk?: Yes Distance: 150' Walk 10 feet (QC): 6 Walk 50 ft with 2 Turns(QC): 6 Walk 150 ft (QC): 6 Walking 10ft/uneven surface-QC: 4 Gait Persons Needed: 0 Gait Assistive Device: FWW Wheelchair Training Does the Pt Use a Wheelchair?: No Wheel 50 ft with 2 turns (QC): 9 Wheel 150 ft (QC): 9 Type of Wheelchair: N/A Stair Training Stair Training: Handrails/: 2 handrails #of Steps: 4 1 Step (curb) (QC): 4 4 Steps (QC): 4 12 Steps (QC): 88 Stairs: Pattern: Step to Balance Picking up an Object (QC): 88 ADL-Treatment Eating (QC): 6 (IND with breakfast) Oral Hygiene (QC): 6 (IND standing at sink) Bathing Location: L Arm, R Arm, L Upper Leg, R Upper Leg, L Lower Leg (including foot) (Pt used a long handled sponge to clean), R Lower Leg (including foot) (Pt used a long handled sponge to clean), Chest, Abdomen, Buttocks, Perineal Area Shower/Bathe Self (QC): 6 (IND seated on SC, able to use LH sponge.) Upper Body Dressing (QC): 6 (IND with supervisor pullet farm shirt.) Lower Body Dressing (QC): 4 (SBA, min verbal cues for AE in order to maintain hip precautions) On/Off Footwear (QC): 4 (SBA, min verbal cues to use AE in order to maintain hip precautions) Toileting Hygiene (QC): 6 (IND) Toilet Transfer (QC): 6 (IND) Assessment/Plan Assessment and Plan Assess & Plan/Chief Complaint Assessment: Right Hip Dislocation Hx Right Total Hip Arthroplasty Debility Hx Right Total Knee Arthroplasty Hx Left Total Knee Arthroplasty Osteoporosis Hiatal Hernia HTN Hypothryoidism Chronic Anemia Hx of Low GFR Restless Leg Syndrome Gastroesophageal Reflux Disease Toenail dysfunction Plan: s/p Closed Reduction of Right Hip on 05/21/21 Orthopedics managing hip precautions PT/OT Will transfer patient to inpatient rehab for debility 05/23/2021: Pain control Supportive care Monitor closely 05/24/2021: Supportive care Pain control 05/25/2021: Pain control Supportive care 05/26/2021: Pain management Increased ADLs 05/27/2021: Continue aggressive treatment Supportive care 05/28/2021: Continue aggressive therapy 05/29/2021: Supportive care Monitor closely 05/30/2021: Supportive care Monitor closely 05/31/2021: Speech therapy to evaluate dysphagia Supportive care Podiatry consult 06/01/2021: Discharge home tomorrow Problems: (1) Hip dislocation, right Status: Acute (2) History of total right hip arthroplasty (3) Osteoporosis (4) Hiatal hernia (5) History of total left knee replacement (TKR) (6) History of total right knee replacement (TKR) (7) Hypothyroidism (8) Chronic anemia (9) Restless leg syndrome (10) GERD (gastroesophageal reflux disease) (1) Hip dislocation, right Status: Acute (2) Chronic anemia (3) GERD (gastroesophageal reflux disease) (4) Restless leg syndrome (5) Hypothyroidism (6) Osteoporosis (7) Hiatal hernia (8) Chronic diastolic CHF (congestive heart failure) Onset Date: 06/04/2014 Status: Acute (9) History of total right hip arthroplasty (10) History of total left knee replacement (TKR) (11) History of total right knee replacement (TKR) LORRAINE CARNEY DO Jun 01, 2021 05:27
[2021-06-01] MEDS: LEVOTHYROXINE 50 MCG (LEVOTHROID) TAB PO SCH (05:55)
[2021-06-01 05:56] LABS: BASOPHILS # (AUTO) 0.1 10^3/uL (0.0-0.1); BASOPHILS % (AUTO) 1 % (0-10); EOSINOPHILS # (AUTO) 0.6 10^3/uL (0.0-0.3); EOSINOPHILS % (AUTO) 13 % (0-10); HEMATOCRIT 32 % (35-52); HEMOGLOBIN 10.3 g/dL (11.5-16.0); LYMPHOCYTES # (AUTO) 0.9 10^3/uL (1.0-4.0); LYMPHOCYTES % (AUTO) 20 % (12-44); MEAN CORPUSCULAR HEMOGLOBIN 30 pg (25-34); MEAN CORPUSCULAR HGB CONC 33 g/dL (32-36); MEAN CORPUSCULAR VOLUME 92 fL (80-99); MEAN PLATELET VOLUME 8.7 fL (9.0-12.2); MONOCYTES # (AUTO) 0.4 10^3/uL (0.0-1.0); MONOCYTES % (AUTO) 9 % (0-12); NEUTROPHILS # (AUTO) 2.6 10^3/uL (1.8-7.8); NEUTROPHILS % (AUTO) 57 % (42-75); PLATELET COUNT 323 10^3/uL (130-400); WHITE BLOOD COUNT 4.5 10^3/uL (4.3-11.0)
[2021-06-01] MEDS: ENOXAPARIN 40 MG/0.4 ML (LOVENOX) SYR SC SCH (05:57)
[2021-06-01 06:08] LABS: ALBUMIN 3.2 GM/DL (3.2-4.5)
[2021-06-01 06:09] LABS: POTASSIUM 4.2 MMOL/L (3.6-5.0)
[2021-06-01 06:10] LABS: CALCIUM 9.2 MG/DL (8.5-10.1)
[2021-06-01 06:11] LABS: TOTAL PROTEIN 6.1 GM/DL (6.4-8.2)
[2021-06-01 06:13] LABS: BILIRUBIN,TOTAL 0.2 MG/DL (0.1-1.0)
[2021-06-01 06:15] LABS: CREATININE SERUM 1.14 MG/DL (0.60-1.30)
[2021-06-01 06:25] LABS: ANISOCYTOSIS SLIGHT; BASOPHILS % (MANUAL) 1 %; EOSINOPHILS % (MANUAL) 11 %; LYMPHOCYTES % (MANUAL) 21 %; MONOCYTES % (MANUAL) 6 %; NEUTROPHILS % (MANUAL) 61 %
[2021-06-01 06:26] LABS: MICROCYTOSIS SLIGHT
--- NOTE | 2021-06-01 07:59 | Occupational Ther Daily Note ---
OT Current Status-Daily Note Subjective Pt in bed, states she feels ready to discharge tomorrow Mental Status/Objective Patient Orientation: Person, Place, Situation ADL-Treatment Therapy Code Descriptions/Definitions Functional [place] Measure: 0=Not Assessed/NA 4=Minimal Assistance 1=Total Assistance 5=Supervision or Setup 2=Maximal Assistance 6=Modified [place] 3=Moderate Assistance 7=Complete IndependenceSCALE: Activities may be completed with or without assistive devices. 9-Fqpsvpyjsu-usalazt completes the activity by him/herself with no assistance from a helper. 5-Set-up or Clean-up Assistance-helper sets up or cleans up; patient completes activity. [place] assists only prior to or following the activity. 4-Supervision or Touching Assistance-helper provides verbal cues and/or touching/steadying and/or contact guard assistance as patient completes activity. Assistance may be provided throughout the activity or intermittently. 3-Partial/Moderate Assistance-helper does LESS THAN HALF the effort. [place] lifts, holds or supports trunk or limbs, but provides less than half the effort. 2-Substantial/Maximal Assistance-helper does MORE THAN HALF the effort. [place] lifts or holds trunk or limbs and provides more than half the effort. 5-Lthrusbee-kckfjx does ALL the effort. Patient does none of the effort to complete the activity. Or, the assistance of 2 or more helpers is required for the patient to complete the activity. If activity was not attempted, code reason: 7-Patient Refused. 9-Not Applicable-not attempted and the patient did not perform the activity bef ore the current illness, exacerbation or injury. 10-Not Attempted due to Environmental Limitations-(lack of equipment, weather r estraints, etc.). 88-Not Attempted due to Medical Conditions or Safety Concerns. Eating (QC): 6 (IND with breakfast) Oral Hygiene (QC): 6 (IND standing at sink) Shower/Bathe Self (QC): 6 (IND seated on SC) Upper Body Dressing (QC): 6 (IND, pt able to gather clothes from closet and don) Lower Body Dressing (QC): 6 (IND, pt able to gather clothes from closet and don using AE) On/Off Footwear: 6 (IND, pt able to gather clothes from closet and don using AE) Toileting Hygiene (QC): 6 (IND, pt able to perform hygiene and clothing management) Toilet Transfer (QC): 6 (IND off/on BSC over toilet.) Other Treatment Pt in bed, used FWW to gather clothing and AE from closet, then transferred into bathroom onto IA. Pt doffed clothes, completed shower, then donned clothes using AE. Pt stood at sink to complete oral care. Pt put dirty clothes back into the closet, then used FWW to perform functional mobility to therapy gym. In order to increase BUE strength and activity tolerance, pt completed arm bike x15 mins, 2 rest breaks. (8 mins at 25 Watt resistance, 7 mins at 15-20 Watt resistance). Pt then placed 100 pegs into foam pegboard, 2 lb wrist weights BUEs, alternating hands. Pt used FWW to return to her room independently. OT provided pt with moderate resistance theraputty, so pt can continue with fine motor strengthening upon returning home, as pt feels it is helping her with her ability to write. Post tx, pt seated in recliner, call light in reach and all needs met. Education OT Patient Education: Correct positioning, Energy conservation, Modified ADL techniques, Progress toward Goal/Update tx plan, Purpose of tx/functional activities Teaching Recipient: Patient Teaching Methods: Discussion Response to Teaching: Verbalize Understanding OT Short Term Goals Short Term Goals Time Frame: May 29, 2021 Toileting hygiene: 4 Lower body dressin Putting on/taking off footwear: 4 OT [facility] Goals [facility] Goals Time Frame: Jun 12, 2021 Eating (QC): 6 (met) Oral Hygiene (QC): 6 (met) Toileting Hygiene (QC): 6 (met) Shower/Bathe Self (QC): 6 (met) Upper Body Dressing (QC): 6 (met) Lower Body Dressing (QC): 6 (met) On/Off Footwear (QC): 6 (met) Additional Goals: 1-Demonstrate ADL Tasks, 2-Verbalize Understanding, 3- ImproveStrength/[place] 1=Demonstrate adherence to instructed precautions during ADL tasks. 2=Patient will verbalize/demonstrate understanding of assistive devices/modifications for ADL. 3=Patient will improve strength/tolerance for activity to enable patient to perform ADL's. OT Education/Plan Problem List/Assessment Assessment: Decreased Activ Tolerance, Decreased UE Strength, Impaired I ADL's Discharge Recommendations Plan/Recommendations: Continue POC Treatment Plan/Plan of Care Patient would benefit from OT for education, treatment and training to promote independence in ADL's, mobility, safety and/or upper extremity function for ADL's. Plan of Care: ADL Retraining, Functional Mobility, Group Exercise/Act as Ind, UE Funct Exercise/Act Treatment Duration: Jun 12, 2021 Frequency: At least 5 of 7 days/Wk (IRF) Estimated Hrs Per Day: 1.5 hours per day Rehab Potential: Good Time/GCodes Start Time: 07:45 Stop Time: 09:00 Total Time Billed (hr/min): 75 Billed Treatment Time 1, ADL 3 (45'), EX (15'), FA (15') ASHWIN SMITH OT Jun 01, 2021 07:59
[2021-06-01 08:00] VITALS: BP 134/61
[2021-06-01] MEDS: PANTOPRAZOLE 40 MG (PROTONIX) TAB PO SCH (09:05)
[2021-06-01] MEDS: VITAMIN D3 25 MCG (1,000 UNITS) TABLET PO SCH (09:05)
[2021-06-01] MEDS: CYANOCOBALAMIN 1,000 MCG (VITAMIN B-12) TABLET PO SCH (09:05)
[2021-06-01] MEDS: SENNA W/DOCUSATE (SENOKOT S) TABLET PO SCH ×2 (09:05→21:37)
[2021-06-01] MEDS: ASCORBIC ACID (VIT C) 500 MG TABLET PO SCH (09:05)
[2021-06-01] MEDS: OXYBUTYNIN (DITROPAN) 5 MG TAB PO SCH ×2 (09:05→21:36)
[2021-06-01] MEDS: polyethylene glycoL POWDER 17 GM (MIRALAX) PACK PO SCH ×2 (09:16→21:37)
--- NOTE | 2021-06-01 09:53 | Physical Therapy Daily Note ---
PT Daily Note-Current Subjective Pt. agrees to rx. States she would like to attempt to walk with a cane or without an AD if its possible. No c/o pain today, pt. states she is feeling much better Pain Location: No Pain Reported Mental Status Patient Orientation: Normal For Age Transfers SCALE: Activities may be completed with or without assistive devices. 4-Kkfchfrkmd-imjbxxd completes the activity by him/herself with no assistance from a helper. 5-Set-up or Clean-up Assistance-helper sets up or cleans up; patient completes activity. [place] assists only prior to or following the activity. 4-Supervision or Touching Assistance-helper provides verbal cues and/or touching/steadying and/or contact guard assistance as patient completes a ctivity. Assistance may be provided throughout the activity or intermittently. 3-Partial/Moderate Assistance-helper does LESS THAN HALF the effort. [place] lifts, holds or supports trunk or limbs, but provides less than half the effort. 2-Substantial/Maximal Assistance-helper does MORE THAN HALF the effort. [place] lifts or holds trunk or limbs and provides more than half the effort. 3-Dfkyfyxek-bnrxki does ALL the effort. Patient does none of the effort to complete the activity. Or, the assistance of 2 or more helpers is required for the patient to complete the activity. If activity was not attempted, code reason: 7-Patient Refused. 9-Not Applicable-not attempted and the patient did not perform the activity before the current illness, exacerbation or injury. 10-Not Attempted due to Environmental Limitations-(lack of equipment, weather restraints, etc.). 88-Not Attempted due to Medical Conditions or Safety Concerns. Roll Left & Right (QC): 6 Sit to Lying (QC): 6 Lying to Sitting/Side of Bed(Q: 6 Sit to Stand (QC): 6 Chair/Ghf-uf-Jtykd Xfer(QC): 6 Toilet Transfer (QC): 6 Car Transfer (QC): 6 Weight Bearing Right Lower Extremity: Right Weight Bearing/Tolerated Left Lower Extremity: Left Full Weight Bearing Gait Training Does the Patient Walk?: Yes Walk 10 feet (QC): 6 Walk 50 ft with 2 Turns(QC): 6 Walk 150 ft (QC): 6 Walking 10ft/uneven surface-QC: 6 Gait Persons Needed: 0 Gait Assistive Device: Cane Single Point pt. ambulated 150 ft with FWW, 150 ft with quad cane, and 150 ft with SPC with instruction only for sequencing at times, no LOB, no incident. Pt. hopes to DC with SPC and may possibly pursue a triangle or [place] tip for ease of follow through, these were all introduced to the pt during gait today, Stair Training Stair Training: Handrails/: 2 handrails #of Steps: 12 1 Step (curb) (QC): 6 4 Steps (QC): 6 12 Steps (QC): 6 Stairs: Pattern: Step to Balance Picking up an Object (QC): 88 (contrindicated secondary to precautions) Exercises Supine Ex: Ankle pumps, Quad Set, Glut sets, Heel Slides, Short Arc Quads, Scooting, Straight leg raise (x5), Hip abd/add Supine Reps: 15 Treatments all goals met, pt. hopes to DC tomorrow Assessment Current Status: Good Progress meets goals PT Career Development Specialist Goals Career Development Specialist Goals PT Career Development Specialist Goals Time Frame: Jun 06, 2021 Roll Left & Right (QC): 6 Sit to Lying (QC): 6 Lying-Sitting on Side/Bed(QC): 6 Sit to Stand (QC): 6 Chair/Auh-bj-Onfzr Xfer(QC): 6 Toilet Transfer (QC): 6 Car Transfer (QC): 6 Does the Patient Walk: Yes Walk 10 feet (QC): 6 Walk 50ft with 2 Turns (QC): 6 Walk 150 ft (QC): 6 Walking 10ft on Uneven Surface: 6 1 Step (curb) (QC): 4 4 Steps (QC): 4 12 Steps (QC): 4 Picking up an Object (QC): 88 (due to hip precautions (inability to flex at hip past 90 degrees)) Wheel 50 feet with 2 turns (QC: 9 Type: N/A Wheel 150 feet: 9 Type: N/A PT Plan Treatment/Plan Treatment Plan: Continue Plan of Care Treatment Plan: Bed Mobility, Concurrent Therapy, Education, Functional Activity [place], Functional Strength, Group Therapy, Gait, Safety, Therapeutic Exercise, Transfers Treatment Duration: Jun 06, 2021 Frequency: At least 5 of 7 days/Wk (IRF) Estimated Hrs Per Day: 1.5 hours per day Patient and/or Family Agrees t: Yes Safety Risks/Education Patient Education: Gait Training, Transfer Techniques, Steps, Reviewed Precautions, Correct Positioning, Disease Process, Safety Issues Teaching Recipient: Patient Teaching Methods: Demonstration, Discussion Response to Teaching: Verbalize Understanding, Return Demonstration, Reinforcement Needed discussion and instruction in use of canes and sequence while using as well as precautions for positioning of right hip aba with turns (180 deg) Time/GCodes Time In: 900 Time Out: 1000 Total Billed Treatment Time: 60 Total Billed Treatment 1,GT25m,EX15m,FA20m ANNY MOORE AP PROCESSOR Jun 01, 2021 09:53
--- NOTE | 2021-06-01 10:45 | ST Dysphagia Evaluation ---
Speech Evaluation-General Medical Diagnosis Right Hip Dislocation Onset Date: May 21, 2021 Therapy Diagnosis Therapy Diagnosis: Oropharyngeal Swallow WNL Precautions Precautions: Aspiration Precautions/Isolations: Fall Prevention, Standard Precautions Referral Referring Physician: Dr. Shana Crum Reason for Referral: Evaluation/Treatment Medical History Pertinent Medical History: CAD, Renal Insufficiency Current History The patient is an 80 year-old female with a past medical history of CAD (with stents), HTN, neuropathy, GERD, GI bleed, TIA, hypothyroidism, depression, renal failure, and right hip replacement who presented to [facility] with a right dislocated hip. The patient underwent hip reduction in the emergency department and presents to the acute rehabilitation unit for skilled therapy. Reviewed History: Yes Social History Current Living Status: Alone Speech PLF/Current-Dysphagia Prior Level of Function The patient reports consumption of a regular consistency diet with thin liquids at home. Per patient, she "chokes about one time a week." The patient stated she mostly "chokes" on dry solids (steak, dry meat), however, can display difficulty swallowing her own saliva. The patient stated she has the most difficulty swallowing lettuce and consistencies such as steak but does "chew hamburgers, buns, and bread a lot" before swallowing. The patient stated the swallowing difficulty has occurred for the prior two years and during the episodes she "coughs and coughs." Subjective The patient was seated upright in her recliner, awake and alert upon entrance. The patient greeted the clinician appropriately and was agreeable to partic ipation in the clinical bedside swallowing evaluation. The patient's daughter presents throughout the assessment and remains at bedside with the patient. Cognitive Status Patient Orientation: Person, Place, Time, Situation Oral Motor Skills Dentition: Natural Current Food Consistancy: Regular, Thin Liquids Ability to Follow Directions: Excellent Oral Expression Ability: No Impairment Voice Voice Phonatory-Based Quality: Normal Voice Pitch: Normal Voice Loudness: Normal Face Facial Symmetry: Symmetrical Oral-Facial Assessment Oral-Facial Dentition: Normal Labial Seal Description: Normal Smile: Normal Puff Cheeks: Normal Lingual Protrusion: Normal Lingual ROM: Normal Lingual Strength: Normal Pharynx Velopharyngeal Move.: Normal Volitional Dry Swallow: Yes Voluntary Cough: Yes Can Clear Throat Volitionally: Yes Productive Cough: Yes Productive Throat Clear: Yes Dysphagia Evaluation Consistencies Presented: Regular, Thin Liquid, Mechanical Soft, Pureed Dietary Recommendations: Regular Liquid Recommendations: Thin Recommendations: - Regular consistency diet with thin liquids, as tolerated. - Fully upright and alert for PO intake. - Small, single bites and sips (only). - Alternate bites and sips on a 1:1 ratio. - Consider additional sauces and gravy to provide moisture to dry consistencies. - Monitor for s/s of suspected aspiration with PO intake. If demonstrated, contact speech pathology. - Consider a referral for an outpatient modified barium swallow evaluation. * The clinician visited with the patient and the patient's daughter regarding a modified barium swallowing evaluation (the patient's daughter requested the assessment). While s/s of suspected aspiration were not demonstrated throughout the clinical bedside swallowing evaluation, the clinician agrees a modified barium swallow (on an outpatient basis) may be appropriate to fully investigate the patient's dysphagia concerns and the overall oropharyngeal swallowing function as the patient does live alone. The clinician attempted to schedule the evaluation while the patient remained on the acute rehabilitation floor, however, the first available appointment was approximately one week in the future. At discharge, the patient would be appropriate for scheduling of an outpatient modified barium swallow evaluation if considered appropriate by the physician. The findings and recommendations were shared with the assigned RN following completion. Swallowing Precautions: Alternate Liquids/Solids, Small Bites and Sips, Sitting 90 Degrees 30 Post Intake Dysphagia Evaluation Summary The patient was presented thin liquid via straw, puree, and francia crackers. The patient independently fed herself throughout the evaluation and did not required assistance. Appropriate bolus acceptance, formation, and posterior transfer in the oral cavity were demonstrated. The patient appeared to trigger a timely pharyngeal swallow. Overt s/s of suspected aspiration were not demonstrated throughout the evaluation with any consistency tested. The patient's vocal quality remained clear following each swallow. Speech Short Term Goals Short Term Goals Short Term Goals 1. The patient will demonstrate memory strategies with 90% accuracy and mild clinician cueing. 2. The patient will demonstrate safe swallowing strategies with 90% accuracy, independently. Speech [facility]ci Goals Electronic Assembler Group Leader Goals 1. The patient will demonstrate increased cognitive linguistic skills for safe return to the least restrictive environment. 2. The patient will tolerate the least restrictive diet consistency without s/s of suspected aspiration with 90% accuracy. Speech-Plan Treatment Plan Speech Therapy Treatment Plan: Continue Plan of Care Treatment Duration: Jun 05, 2021 Frequency: 4 times per week Estimated Hrs Per Day: .5 hour per day Rehab Potential: Good Pt/Family Agrees to Plan: Yes Safety Risks/Education Teaching Recipient: Patient, Family Teaching Methods: Discussion Response to Teaching: Verbalize Understanding, Reinforcement Needed Education Topics Provided: Results and Recommendations, Swallowing Strategies, Scheduling of Outpatient Modified Barium Swallow Time Speech Therapy Time In: 09:45 Speech Therapy Time Out: 10:22 Total Billed Time: 37 Billed Treatment Time 1, DYSEVS, DYST No Expression of Ideas/Wants: Exhibits (3) Understanding Verbal Content: Usually Understands (3) Brief Interview-Mental Status: Yes Repetition of Three Words: Three (3) Temporal Orientation: Year: Correct (3) Temporal Orientation: Month: Accurate within 5 days(2) Temporal Orientation: Day: Correct (1) Recall : Wear to say "Sock": Yes, no cue required (2) Recall : Color: Yes, no cue required (2) Recall : Bed: Yes,no cue required (2) Memory/Recall Ability: Current season, That he or she is in a hsp/hsp unit LIZETTE BURGESS Jun 01, 2021 10:45
[2021-06-01] MEDS: FERROUS SULF 325 MG (IRON) TAB PO SCH (13:12)
[2021-06-01] MEDS: ASPIRIN 81 MG CHEW (CHILDREN'S ASA) PO SCH (13:12)
--- NOTE | 2021-06-01 13:25 | Physical Therapy Daily Note ---
PT Daily Note-Current Subjective Pt. agrees to Rx. Wants to walk without aid of FWW or cane. No c/o pain Pain Location: No Pain Reported Mental Status Patient Orientation: Normal For Age Transfers SCALE: Activities may be completed with or without assistive devices. 2-Mwqdprelcf-zzmeall completes the activity by him/herself with no assistance from a helper. 5-Set-up or Clean-up Assistance-helper sets up or cleans up; patient completes activity. [place] assists only prior to or following the activity. 4-Supervision or Touching Assistance-helper provides verbal cues and/or touching/steadying and/or contact guard assistance as patient completes activity. Assistance may be provided throughout the activity or intermittently. 3-Partial/Moderate Assistance-helper does LESS THAN HALF the effort. [place] lifts, holds or supports trunk or limbs, but provides less than half the effort. 2-Substantial/Maximal Assistance-helper does MORE THAN HALF the effort. [place] lifts or holds trunk or limbs and provides more than half the effort. 6-Yzthplxzo-klmfxy does ALL the effort. Patient does none of the effort to complete the activity. Or, the assistance of 2 or more helpers is required for the patient to complete the activity. If activity was not attempted, code reason: 7-Patient Refused. 9-Not Applicable-not attempted and the patient did not perform the activity b efore the current illness, exacerbation or injury. 10-Not Attempted due to Environmental Limitations-(lack of equipment, weather restraints, etc.). 88-Not Attempted due to Medical Conditions or Safety Concerns. all TRFs Mod I Weight Bearing Right Lower Extremity: Right Weight Bearing/Tolerated Left Lower Extremity: Left Full Weight Bearing Gait Training Does the Patient Walk?: Yes Gait Assistive Device: None gait 175 ft x 2 SBA no LOB, good cristino, equal step length, this SALES TRAINEE instructed pt to cont to use FWW while up ad vishnu in her room until cleared for no AD Exercises Seated Therapy Exercises: Ankle pumps, Sit to stand, Long arc quads Seated Reps: 15 Assessment Current Status: Excellent Progress PT Long-Term Goals Long-Term Goals PT Long-Term Goals Time Frame: Jun 06, 2021 Roll Left & Right (QC): 6 Sit to Lying (QC): 6 Lying-Sitting on Side/Bed(QC): 6 Sit to Stand (QC): 6 Chair/Zgi-wy-C[place] Xfer(QC): 6 Toilet Transfer (QC): 6 Car Transfer (QC): 6 Does the Patient Walk: Yes Walk 10 feet (QC): 6 Walk 50ft with 2 Turns (QC): 6 Walk 150 ft (QC): 6 Walking 10ft on Uneven Surface: 6 1 Step (curb) (QC): 4 4 Steps (QC): 4 12 Steps (QC): 4 Picking up an Object (QC): 88 (due to hip precautions (inability to flex at hip past 90 degrees)) Wheel 50 feet with 2 turns (QC: 9 Type: N/A Wheel 150 feet: 9 Type: N/A PT Plan Treatment/Plan Treatment Plan: Continue Plan of Care Treatment Plan: Bed Mobility, Concurrent Therapy, Education, Functional Activity [place], Functional Strength, Group Therapy, Gait, Safety, Therapeutic Exercise, Transfers Treatment Duration: Jun 06, 2021 Frequency: At least 5 of 7 days/Wk (IRF) Estimated Hrs Per Day: 1.5 hours per day Patient and/or Family Agrees t: Yes Safety Risks/Education Patient Education: Gait Training, Correct Positioning, Safety Issues Teaching Recipient: Patient Teaching Methods: Demonstration, Discussion Response to Teaching: Verbalize Understanding, Return Demonstration Time/GCodes Time In: 1305 Time Out: 1320 Total Billed Treatment Time: 15 Total Billed Treatment 1,GT15m ANNY MOORE SALES TRAINEE Jun 01, 2021 13:25
[2021-06-01] MEDS: ACETAMINOPHEN 325 MG TABLET PO PRN (13:42)
--- NOTE | 2021-06-01 17:47 | Podiatry Progress Note ---
Standard Progress Note Progress Notes/Assess & Plan Date Seen by a Provider: Jun 01, 2021 Time Seen by a Provider: 17:46 Progress/Assessment & Plan Consultation dictated. Foot care given. Final Diagnosis Onychomycosis, PVD, Peripheral Neuropathy SAMUEL AMEZQUITA DPM Jun 01, 2021 17:47
--- NOTE | 2021-06-01 20:18 | CONSULTATION REPORT ---
DATE OF SERVICE: 06/01/2021 REASON FOR CONSULTATION: Foot care. HISTORY OF PRESENT ILLNESS: This 80-year-old female was admitted after a fall where she felt a pop on her hip area, felt a significant pain. She subluxed her hip and was treated by Dr. Chau who reduced the dislocation and is currently going through rehabilitation on the second floor of [facility]. PAST SURGICAL HISTORY: Including a coronary stent, cholecystectomy, hysterectomy, joint replacement and various orthopedic surgeries. PAST MEDICAL HISTORY: Cardiac: She has coronary artery disease, hypertension, neuropathy, TIAs. She has a history of renal failure, UTIs, chronic gastroesophageal reflux, GI bleed polyps. Musculoskeletal findings have been osteoporosis, arthritis, back injury, chronic back pain, hypothyroidism, depression. ALLERGIES: SHE IS ALLERGIC TO SULFA. CURRENT MEDICATIONS: Listed on the patient's chart. SOCIAL HISTORY: The patient is single, retired and a former smoker. PHYSICAL EXAMINATION: LOWER EXTREMITY: The patient has 2/4 dorsalis pedis pulse on the right, 1/4 on the left, 0/4 posterior tibial pulse bilaterally. Cap refill time is less than 3 seconds. Cool skin temperature noted bilaterally. NEUROLOGIC: The patient has intact protective sensation with 10-gram monofilament wire examination bilaterally. Diminished vibratory sensation, and deep tendon reflexes bilaterally. INTEGUMENTARY: The patient has thick yellow dystrophic toenails with subungual debris R1, 2, 5 and L1, 2, 4, 5 digits. There are hyperkeratotic lesions medial aspect of the first metatarsal head bilaterally. MUSCULOSKELETAL FINDINGS: The patient has 4/5 muscle strength through the four major quadrants of the foot. There is some lateral deviation to the left hallux. ASSESSMENT: 1. Idiopathic neuropathy, onychomycosis, hallux valgus. PLAN: Various treatment options were discussed with the patient today. Her toenails were debrided R1, 2, 5 and L1, 2, 4, 5 digits, after which Betadine was applied. We discussed oral and topical antifungal. She is welcome to follow up in the office upon discharge. We also talked about appropriate shoe gear and fit and use of appropriate arch support, especially in lieu of her hallux valgus deformity on the left, for which she has had a surgical intervention by myself. We will see the patient back in the office again as necessary. Job ID: [id number] DocumentID: [id number] Dictated Date: 06/01/2021 17:51:57 Medication Manager Date: 06/01/2021 20:17:41 Dictated By: TAZ CHAMBERS
[2021-06-01 20:37] VITALS: BP 155/63
[2021-06-01] MEDS ORDERED: DICLOFENAC 1% GEL 100 GM (VOLTAREN) TUBE TOP SCH (21:00)
[2021-06-01] MEDS: rOPINIRole 1 MG (REQUIP) TABLET PO SCH (21:28)
[2021-06-01] MEDS: MIRTAZAPINE 15 MG (REMERON) TAB PO SCH (21:28)
[2021-06-01] MEDS: DULoxetine 30 MG (CYMBALTA) CAP PO SCH (21:28)
[2021-06-01] MEDS: VALACYCLOVIR 500 MG TAB (VALTREX) PO SCH (21:28)
[2021-06-01] MEDS: LOSARTAN 100 MG (COZAAR) TABLET PO SCH (21:28)
[2021-06-01] MEDS: MAGNESIUM OXIDE (MAG-OX)400 MG TAB PO SCH (21:29)
[2021-06-01] MEDS: DOCUSATE SODIUM 100 MG (COLACE) CAP PO SCH (21:37)
[2021-06-02] MEDS ORDERED: OXC5T PO ×2 (05:49→08:58)
[2021-06-02] MEDS ORDERED: SENN1TAB76 PO ×2 (05:49→08:58)
--- NOTE | 2021-06-02 05:50 | D/C HH Face to Face Order ---
D/C Face to Face Orders Reconcile Patient Problems Problems Reviewed?: Yes Instructions for Patient Via [facility], Patient Instructions/FollowUp: PCP 1 week Physician to follow Patient: PCP Discharge Diet for Home: No Restrictions Patient Problems: Hip dislocation Patient Data-Allergies,Ht & Wt Patient Allergies: Coded Allergies: Sulfa (Sulfonamide Antibiotics) (Verified Allergy, Unknown, 06/30/15) Height (Feet): 5 Height (Inches): 7.00 Weight (Pounds): 150 Weight (Ounces): 0.0 Home Health Need/Face to Face Date of Face to Face: Jun 02, 2021 Clinical Findings: Pain with ambulation, Unsteady gait I have seen Pt vquz-gg-ucdf: Yes Discharged To: Home Diagnosis/Conditions: Hip dislocation Patient is Homebound due to: Muscle weakness, Pain w/ambulation Homebound Status Due to the above stated illness, injury or surgical procedure (medical condition or diagnosis) and associated clinical findings, the patient is homebound because of his/her inability to leave home except with aid of a supportive device and/or person AND leaving the home requires a considerable and taxing effort or is medically contraindicated. Pt req the following assistanc: Walker Home Health Nursing Orders Home Health Services Order: Nursing Services, [place]-Evaluate & Treat, Physical Therapy-Evaluate & Treat Certify Stmt I certify that this patient is under my care and that I, a nurse practitioner or a physician; a bus assistant working with me, had a face to face encounter that - meets the physician face to face encounter requirements with this patient as dated. LORRAINE CARNEY DO Jun 02, 2021 05:50
--- NOTE | 2021-06-02 05:51 | Discharge Summary ---
Diagnosis/Chief Complaint Date of Admission May 22, 2021 at 12:20 Date of Discharge Discharge Date: Jun 02, 2021 Discharge Diagnosis Assessment: Right Hip Dislocation Hx Right Total Hip Arthroplasty Debility Hx Right Total Knee Arthroplasty Hx Left Total Knee Arthroplasty Osteoporosis Hiatal Hernia HTN Hypothryoidism Chronic Anemia Hx of Low GFR Restless Leg Syndrome Gastroesophageal Reflux Disease Toenail dysfunction Plan: s/p Closed Reduction of Right Hip on 05/21/21 Orthopedics managing hip precautions PT/OT Will transfer patient to inpatient rehab for debility 05/23/2021: Pain control Supportive care Monitor closely 05/24/2021: Supportive care Pain control 05/25/2021: Pain control Supportive care 05/26/2021: Pain management Increased ADLs 05/27/2021: Continue aggressive treatment Supportive care 05/28/2021: Continue aggressive therapy 05/29/2021: Supportive care Monitor closely 05/30/2021: Supportive care Monitor closely 05/31/2021: Speech therapy to evaluate dysphagia Supportive care Podiatry consult 06/01/2021: Discharge home tomorrow Problems: (1) Hip dislocation, right Status: Acute (2) History of total right hip arthroplasty (3) Osteoporosis (4) Hiatal hernia (5) History of total left knee replacement (TKR) (6) History of total right knee replacement (TKR) (7) Hypothyroidism (8) Chronic anemia (9) Restless leg syndrome (10) GERD (gastroesophageal reflux disease) (1) Hip dislocation, right Status: Acute (2) Chronic anemia (3) GERD (gastroesophageal reflux disease) (4) Restless leg syndrome (5) Hypothyroidism (6) Osteoporosis (7) Hiatal hernia (8) Chronic diastolic CHF (congestive heart failure) Onset Date: 06/04/2014 Status: Acute (9) History of total right hip arthroplasty (10) History of total left knee replacement (TKR) (11) History of total right knee replacement (TKR) Discharge Summary Discharge Physical Examination Allergies: Coded Allergies: Sulfa (Sulfonamide Antibiotics) (Verified Allergy, Unknown, 06/30/15) Vitals & I&Os Vital Signs Date Time Temp Pulse Resp B/P (MAP) Pulse Ox O2 Delivery O2 Flow Rate FiO2 06/02/21 09:00 94 Room Air 06/02/21 07:57 36.6 72 18 127/59 (81) General Appearance: Alert, Oriented X3, Cooperative Respiratory: Clear to Auscultation Cardiovascular: Regular Rate Psych/Mental Status: Mental Status NL Hospital Course Was the Problem List Reviewed?: Yes Pt had an uneventful 12 day hospital course after she was admitted for right hip dislocation, status post reduction in the ER by Dr. Chau. Pain was well controlled. Bowel function returned back to normal. She was deemed stable for discharge after she participated in all therapy and was back to her baseline status up ad vishnu. Labs (last 24 hrs) Laboratory Tests 05/23/21 06:05: White Blood Count 5.5, Red Blood Count 3.54L, Hemoglobin 10.5L, Hematocrit 33L, Mean Corpuscular Volume 93, Mean Corpuscular Hemoglobin 30, Mean Corpuscular Hem oglobin Concent 32, Red Cell Distribution Width 17.9H, Platelet Count 261, Mean Platelet Volume 9.4, Immature Granulocyte % (Auto) 0, Neutrophils (%) (Auto) 64, Lymphocytes (%) (Auto) 18, Monocytes (%) (Auto) 9, Eosinophils (%) (Auto) 9, Basophils (%) (Auto) 1, Neutrophils # (Auto) 3.6, Lymphocytes # (Auto) 1.0, Monocytes # (Auto) 0.5, Eosinophils # (Auto) 0.5H, Basophils # (Auto) 0.0, Immature Granulocyte # (Auto) 0.0, Sodium Level 138, Potassium Level 3.6, Chloride Level 106, Carbon Dioxide Level 21, Anion Gap 11, Blood Urea Nitrogen 21H, Creatinine 0.85, Estimat Glomerular Filtration Rate 68, BUN/Creatinine Ratio 25, Glucose Level 94, Calcium Level 8.8, Corrected Calcium 9.4, Total Bilirubin 0.3, Aspartate Amino Transf (AST/SGOT) 24, Alanine Aminotransferase (ALT/SGPT) 13, Alkaline Phosphatase 43, Total Protein 5.8L, Albumin 3.3 06/01/21 05:24: White Blood Count 4.5, Red Blood Count 3.42L, Hemoglobin 10.3L, Hematocrit 32L, Mean Corpuscular Volume 92, Mean Corpuscular Hemoglobin 30, Mean Corpuscular Hemoglobin Concent 33, Red Cell Distribution Width 17.0H, Platelet Count 323, Mean Platelet Volume 8.7L, Immature Granulocyte % (Auto) 0, Neutrophils (%) (Auto) 57, Lymphocytes (%) (Auto) 20, Monocytes (%) (Auto) 9, Eosinophils (%) (Auto) 13H, Basophils (%) (Auto) 1, Neutrophils # (Auto) 2.6, Lymphocytes # (Auto) 0.9L, Monocytes # (Auto) 0.4, Eosinophils # (Auto) 0.6H, Basophils # (Auto) 0.1, Immature Granulocyte # (Auto) 0.0, Sodium Level 138, Potassium Level 4.2, Chloride Level 107, Carbon Dioxide Level 22, Anion Gap 9, Blood Urea Nitrogen 27H, Creatinine 1.14, Estimat Glomerular Filtration Rate 48, BUN/Creatinine Ratio 24, Glucose Level 116H, Calcium Level 9.2, Corrected Calcium 9.8, Total Bilirubin 0.2, Aspartate Amino Transf (AST/SGOT) 26, Alanine Aminotransferase (ALT/SGPT) 16, Alkaline Phosphatase 44, Total Protein 6.1L, Albumin 3.2, Neutrophils % (Manual) 61, Lymphocytes % (Manual) 21, Monocytes % (Manual) 6, Eosinophils % (Manual) 11, Basophils % (Manual) 1, Anisocytosis SLIGHT, Microcytosis SLIGHT, Macrocytosis SLIGHT Pending Labs Laboratory Tests 05/23/21 06:05: White Blood Count 5.5, Red Blood Count 3.54, Hemoglobin 10.5, Hematocrit 33, Mean Corpuscular Volume 93, Mean Corpuscular Hemoglobin 30, Mean Corpuscular Hemoglobin Concent 32, Red Cell Distribution Width 17.9, Platelet Count 261, Mean Platelet Volume 9.4, Immature Granulocyte % (Auto) 0, Neutrophils (%) (Auto) 64, Lymphocytes (%) (Auto) 18, Monocytes (%) (Auto) 9, Eosinophils (%) (Auto) 9, Basophils (%) (Auto) 1, Neutrophils # (Auto) 3.6, Lymphocytes # (Auto) 1.0, Monocytes # (Auto) 0.5, Eosinophils # (Auto) 0.5, Basophils # (Auto) 0.0, Immature Granulocyte # (Auto) 0.0, Sodium Level 138, Potassium Level 3.6, Chloride Level 106, Carbon Dioxide Level 21, Anion Gap 11, Blood Urea Nitrogen 21, Creatinine 0.85, Estimat Glomerular Filtration Rate 68, BUN/Creatinine Ratio 25, Glucose Level 94, Calcium Level 8.8, Corrected Calcium 9.4, Total Bilirubin 0.3, Aspartate Amino Transf (AST/SGOT) 24, Alanine Aminotransferase (ALT/SGPT) 13, Alkaline Phosphatase 43, Total Protein 5.8, Albumin 3.3 06/01/21 05:24: White Blood Count 4.5, Red Blood Count 3.42, Hemoglobin 10.3, Hematocrit 32, Mean Corpuscular Volume 92, Mean Corpuscular Hemoglobin 30, Mean Corpuscular Hemoglobin Concent 33, Red Cell Distribution Width 17.0, Platelet Count 323, Mean Platelet Volume 8.7, Immature Granulocyte % (Auto) 0, Neutrophils (%) (Auto) 57, Lymphocytes (%) (Auto) 20, Monocytes (%) (Auto) 9, Eosinophils (%) (Auto) 13, Basophils (%) (Auto) 1, Neutrophils # (Auto) 2.6, Lymphocytes # (Auto) 0.9, Monocytes # (Auto) 0.4, Eosinophils # (Auto) 0.6, Basophils # (Auto) 0.1, Immature Granulocyte # (Auto) 0.0, Sodium Level 138, Potassium Level 4.2, Chloride Level 107, Carbon Dioxide Level 22, Anion Gap 9, Blood Urea Nitrogen 27, Creatinine 1.14, Estimat Glomerular Filtration Rate 48, BUN/Creatinine Ratio 24, Glucose Level 116, Calcium Level 9.2, Corrected Calcium 9.8, Total Bilirubin 0.2, Aspartate Amino Transf (AST/SGOT) 26, Alanine Aminotransferase (ALT/SGPT) 16, Alkaline Phosphatase 44, Total Protein 6.1, Albumin 3.2, Neutrophils % (Manual) 61, Lymphocytes % (Manual) 21, Monocytes % (Manual) 6, Eosinophils % (Manual) 11, Basophils % (Manual) 1, Anisocytosis SLIGHT, Microcytosis SLIGHT, Macrocytosis SLIGHT Discharge Home Medications: Active Scripts Active Oxyir Tablet (Oxycodone HCl) 5 Mg Tab 5-10 Mg PO Q4H PRN Stool Softener-Laxative Tablet (Sennosides/Docusate Sodium) 1 Each Tablet 1 Ea PO BID Reported Pantoprazole Sodium 40 Mg Tablet.dr 40 Mg PO DAILY LAST FILLED 09-15-2020 #30/30 DAY SUPPLY Mirtazapine 15 Mg Tablet 15 Mg PO HS LAST FILLED 03-16-2021 #30/30 DAY SUPPLY Vitamin D3 (Cholecalciferol (Vitamin D3)) 25 Mcg Tablet 25 Mcg PO DAILY Aspirin 81 Mg Tab.chew 81 Mg PO Q48H Docusate Sodium 100 Mg Capsule 200 Mg PO HS TAKES 2 (100MG) CAPS Vitamin B12 (Cyanocobalamin (Vitamin B-12)) 2,500 Mcg Tablet 2,500 Mcg PO DAILY Iron (Ferrous Sulfate) 325 Mg Tablet 650 Mg PO Q48H Vitamin C (Ascorbic Acid) 500 Mg Tablet 500 Mg PO DAILY Magnesium (Magnesium Oxide) 400 Mg Tablet 400 Mg PO HS Cyclobenzaprine HCl 5 Mg Tablet 5-10 Mg PO Q8H PRN Valacyclovir (Valacyclovir HCl) 500 Mg Tablet 250 Mg PO HS TAKES OF A 500MG TAB Oxybutynin Chloride ER (Oxybutynin Chloride) 15 Mg Tab.er.24 15 Mg PO DAILY Losartan-Hctz 100-25 mg Tab (Losartan/Hydrochlorothiazide) 1 Each Tablet 1 Ea PO HS Euthyrox (Levothyroxine Sodium) 50 Mcg Tablet 50 Mcg PO DAILY Alendronate Sodium 70 Mg Tablet 70 Mg PO THUR Duloxetine HCl 60 Mg Capsule.dr 60 Mg PO HS Ropinirole HCl 2 Mg Tablet 2 Mg PO HS Instructions to patient/family Please see electronic discharge instructions given to patient. Diagnosis/Problems Diagnosis/Problems (1) Hip dislocation, right Status: Acute (2) Chronic anemia (3) GERD (gastroesophageal reflux disease) (4) Restless leg syndrome (5) Hypothyroidism (6) Osteoporosis (7) Hiatal hernia (8) Chronic diastolic CHF (congestive heart failure) Onset Date: 06/04/2014 Status: Acute (9) History of total right hip arthroplasty (10) History of total left knee replacement (TKR) (11) History of total right knee replacement (TKR) LORRAINE CARNEY DO Jun 02, 2021 05:51
[2021-06-02] MEDS: LEVOTHYROXINE 50 MCG (LEVOTHROID) TAB PO SCH (06:37)
[2021-06-02] MEDS: ENOXAPARIN 40 MG/0.4 ML (LOVENOX) SYR SC SCH (06:39)
[2021-06-02 07:57] VITALS: BP 127/59
[2021-06-02] MEDS: VITAMIN D3 25 MCG (1,000 UNITS) TABLET PO SCH (07:59)
[2021-06-02] MEDS: PANTOPRAZOLE 40 MG (PROTONIX) TAB PO SCH (08:00)
[2021-06-02] MEDS: OXYBUTYNIN (DITROPAN) 5 MG TAB PO SCH (08:00)
[2021-06-02] MEDS: CYANOCOBALAMIN 1,000 MCG (VITAMIN B-12) TABLET PO SCH (08:00)
[2021-06-02] MEDS: ASCORBIC ACID (VIT C) 500 MG TABLET PO SCH (08:00)
--- NOTE | 2021-06-02 08:26 | Therapy Team Discharge Summary ---
Therapy Discharge Summary Discharge Recommendations Date of Discharge Physical Therapy Roll Left to Right (QC): 6 Sit to Lying (QC): 6 Lying to Sitting/Side of Bed(Q: 6 Sit to Stand (QC): 6 Chair/Ztf-nb-Vmbgv Xfer(QC): 6 Toilet Transfer (QC): 6 Car Transfer (QC): 6 Does the Patient Walk: Yes Mode of Locomotion: Walk Anticipated Mode of Locomotion: Walk Walk 10 feet (QC): 6 Walk 50 ft with 2 Turns(QC): 6 Walk 150 ft (QC): 6 Walking 10ft on uneven surface: 6 Distance: 200' x 3 Gait Assistive Device: None Does the Pt Use a Wheelchair: No Wheel 50 ft with 2 turns (QC): 9 Wheel 150 ft (QC): 9 Type of Wheelchair: N/A #of Steps: 12 1 Step (curb) (QC): 6 4 Steps (QC): 6 12 Steps (QC): 6 Walking Assistive Device: Walker Balance Sitting Static: Normal Balance Sitting Dynamic: Normal Balance-Standing Static: Normal Picking up an Object (QC): 88 (contrindicated secondary to precautions) Occupational Therapy Decreased Activ Tolerance, Decreased UE Strength, Impaired I ADL's Eating (QC): 6 (IND with breakfast) Oral Hygiene (QC): 6 (IND standing at sink) Shower/Bathe Self (QC): 6 (IND seated on SC) Upper Body Dressing (QC): 6 (IND, pt able to gather clothes from closet and don) Lower Body Dressing (QC): 6 (IND, pt able to gather clothes from closet and don using AE) On/Off Footwear (QC): 6 (IND, pt able to gather clothes from closet and don using AE) Toileting Hygiene (QC): 6 (IND, pt able to perform hygiene and bankruptcy manager agement) Speech-Language Pathology The patient completed skilled speech pathology services throughout her stay on the rehabilitation unit. The patient's speech pathology goals were related to memory, specifically recall of her hip precautions. Throughout the course of her stay, the patient reported long-standing swallowing concerns. A clinical bedside swallowing evaluation was completed which did not reveal s/s of suspected aspiration, however, a modified barium swallow was requested for additional information regarding the oropharyngeal swallowing function. As the study could not be completed as an inpatient (due to radiology scheduling), the clinician recommends completion of a swallow study on an outpatient basis. At discharge, the patient remained on a regular consistency diet with thin liquids and met functional cognition goals. PT Hook Puller Goals Fdc Goals PT Hook Puller Goals Time Frame: Jun 06, 2021 Roll Left to Right (QC): 6 Sit to Lying (QC): 6 Lying-Sitting on Side/Bed(QC): 6 Sit to Stand (QC): 6 Chair/Soy-zx-Itflm Xfer(QC): 6 Car Transfer (QC): 6 Does the Patient Walk: Yes Walk 10 feet (QC): 6 Walk 10ft-Uneven Surface(QC): 6 Walk 50ft with 2 Turns (QC): 6 Walk 150 ft (QC): 6 Wheel 50 feet with 2 turns (QC: 9 1 Step (curb) (QC): 4 4 Steps (QC): 4 12 Steps (QC): 4 Picking up an Object (QC): 88 (due to hip precautions (inability to flex at hip past 90 degrees)) OT Fdc Goals Fdc Goals Time Frame: Jun 12, 2021 Eating (QC): 6 (met) Oral Hygiene (QC): 6 (met) Shower/Bathe Self (QC): 6 (met) Upper Body Dressing (QC): 6 (met) Lower Body Dressing (QC): 6 (met) On/Off Footwear (QC): 6 (met) Toileting Hygiene (QC): 6 (met) Toilet/Commode Transfer (QC): 6 Additional Goals: 1-Demonstrate ADL Tasks, 2-Verbalize Understanding, 3- ImproveStrength/Shelby 1=Demonstrate adherence to instructed precautions during ADL tasks. 2=Patient will verbalize/demonstrate understanding of assistive devices/modifications for ADL. 3=Patient will improve strength/tolerance for activity to enable patient to perform ADL's. Speech Hook Puller Goals Fdc Goals 1. The patient will demonstrate increased cognitive linguistic skills for safe return to the least restrictive environment. MET 2. The patient will tolerate the least restrictive diet consistency without s/s of suspected aspiration with 90% accuracy. MET LIZETTE BURGESS Jun 02, 2021 08:26
[2021-06-02] MEDS: SENNA W/DOCUSATE (SENOKOT S) TABLET PO SCH (09:00)
[2021-06-02] MEDS: polyethylene glycoL POWDER 17 GM (MIRALAX) PACK PO SCH (09:00)
--- NOTE | 2021-06-02 09:41 | Therapy Team Discharge Summary ---
Therapy Discharge Summary Discharge Recommendations Date of Discharge Physical Therapy Patient came to rehab following a right hip dislocation. Upon evaluation patient performed bed mobility and transfers with min assist, car transfer min assist, ambulated 200' with a rolling walker with CGA (including 50' with at least 2 turns of 90 degrees and 10' over an uneven surface), and can go up and down 1 step using a rolling walker with CGA. Patient has been performing bed mobility and transfer training, balance and endurance training, functional strengthening, stair training, gait training, and education. Patient has made good progress and has met all of her longterm goals. Now, patient performs bed mobility and transfers with independence, independent with car transfer, ambulates over 150' with a single point cane with independence (including 50' with at least 2 turns of 90 degrees and 10' over an uneven surface), and can go up and down 12 steps using 2 handrails with independence. Patient is discharging from this facility today and will be discharged from PT at this time. Roll Left to Right (QC): 6 Sit to Lying (QC): 6 Lying to Sitting/Side of Bed(Q: 6 Sit to Stand (QC): 6 Chair/Huj-mj-Kdlcs Xfer(QC): 6 Toilet Transfer (QC): 6 Car Transfer (QC): 6 Does the Patient Walk: Yes Mode of Locomotion: Walk Anticipated Mode of Locomotion: Walk Walk 10 feet (QC): 6 Walk 50 ft with 2 Turns(QC): 6 Walk 150 ft (QC): 6 Walking 10ft on uneven surface: 6 Distance: 200' x 3 Gait Assistive Device: None Does the Pt Use a Wheelchair: No Wheel 50 ft with 2 turns (QC): 9 Wheel 150 ft (QC): 9 Type of Wheelchair: N/A #of Steps: 12 1 Step (curb) (QC): 6 4 Steps (QC): 6 12 Steps (QC): 6 Walking Assistive Device: Walker Balance Sitting Static: Normal Balance Sitting Dynamic: Normal Balance-Standing Static: Normal Picking up an Object (QC): 88 (contrindicated secondary to precautions) Occupational Therapy Decreased Activ Tolerance, Decreased UE Strength, Impaired I ADL's Eating (QC): 6 (IND with breakfast) Oral Hygiene (QC): 6 (IND standing at sink) Shower/Bathe Self (QC): 6 (IND seated on SC) Upper Body Dressing (QC): 6 (IND, pt able to gather clothes from closet and don) Lower Body Dressing (QC): 6 (IND, pt able to gather clothes from closet and don using AE) On/Off Footwear (QC): 6 (IND, pt able to gather clothes from closet and don using AE) Toileting Hygiene (QC): 6 (IND, pt able to perform hygiene and clothing management) PT Camp Coordinator Goals Camp Coordinator Goals PT Camp Coordinator Goals Time Frame: Jun 06, 2021 Roll Left to Right (QC): 6 Sit to Lying (QC): 6 Lying-Sitting on Side/Bed(QC): 6 Sit to Stand (QC): 6 Chair/Qmz-jt-Pufsc Xfer(QC): 6 Car Transfer (QC): 6 Does the Patient Walk: Yes Walk 10 feet (QC): 6 Walk 10ft-Uneven Surface(QC): 6 Walk 50ft with 2 Turns (QC): 6 Walk 150 ft (QC): 6 Wheel 50 feet with 2 turns (QC: 9 1 Step (curb) (QC): 4 4 Steps (QC): 4 12 Steps (QC): 4 Picking up an Object (QC): 88 (due to hip precautions (inability to flex at hip past 90 degrees)) OT Assisted Goals Assisted Goals Time Frame: Jun 12, 2021 Eating (QC): 6 (met) Oral Hygiene (QC): 6 (met) Shower/Bathe Self (QC): 6 (met) Upper Body Dressing (QC): 6 (met) Lower Body Dressing (QC): 6 (met) On/Off Footwear (QC): 6 (met) Toileting Hygiene (QC): 6 (met) Toilet/Commode Transfer (QC): 6 Additional Goals: 1-Demonstrate ADL Tasks, 2-Verbalize Understanding, 3- ImproveStrength/Shelby 1=Demonstrate adherence to instructed precautions during ADL tasks. 2=Patient will verbalize/demonstrate understanding of assistive devices/modifications for ADL. 3=Patient will improve strength/tolerance for activity to enable patient to perform ADL's. Speech Assisted Goals Assisted Goals 1. The patient will demonstrate increased cognitive linguistic skills for safe return to the least restrictive environment. MET 2. The patient will tolerate the least restrictive diet consistency without s/s of suspected aspiration with 90% accuracy. FRANCO BURCIAGA PT Jun 02, 2021 09:41
[2021-06-02] MEDS: ACETAMINOPHEN 325 MG TABLET PO PRN (10:24)
--- NOTE | 2021-06-02 14:42 | Therapy Team Discharge Summary ---
Therapy Discharge Summary Discharge Recommendations Date of Discharge Jun 02, 2021 at 11:26 Physical Therapy Roll Left to Right (QC): 6 Sit to Lying (QC): 6 Lying to Sitting/Side of Bed(Q: 6 Sit to Stand (QC): 6 Chair/Ohq-nu-Ewaay Xfer(QC): 6 Toilet Transfer (QC): 6 Car Transfer (QC): 6 Does the Patient Walk: Yes Mode of Locomotion: Walk Anticipated Mode of Locomotion: Walk Walk 10 feet (QC): 6 Walk 50 ft with 2 Turns(QC): 6 Walk 150 ft (QC): 6 Walking 10ft on uneven surface: 6 Distance: 200' x 3 Gait Assistive Device: None Does the Pt Use a Wheelchair: No Wheel 50 ft with 2 turns (QC): 9 Wheel 150 ft (QC): 9 Type of Wheelchair: N/A #of Steps: 12 1 Step (curb) (QC): 6 4 Steps (QC): 6 12 Steps (QC): 6 Walking Assistive Device: Walker Balance Sitting Static: Normal Balance Sitting Dynamic: Normal Balance-Standing Static: Normal Picking up an Object (QC): 88 (contrindicated secondary to precautions) Occupational Therapy Pt admitted to ARU after a R hip dislocation. At [facility], pt was independent with all ADLs and functional mobility without AD/AE. Upon initial evaluation, pt was independent with eating, SBA oral care, min A showering and toileting, set up upper body dressing, max A lower body dressing and total assist footwear. OT Txs focused on increasing BUE Strength and activity tolerance and increasing safety and independence with ADLs and functional mobility. OT recommendations include hip kit and tub transfer bench. Pt made good progress towards goals, meeting all LTGs. Pt discharged from facility, d/c from OT. Decreased Activ Tolerance, Decreased UE Strength, Impaired I ADL's Eating (QC): 6 (IND with breakfast) Oral Hygiene (QC): 6 (IND standing at sink) Shower/Bathe Self (QC): 6 (IND seated on SC) Upper Body Dressing (QC): 6 (IND, pt able to gather clothes from closet and don) Lower Body Dressing (QC): 6 (IND, pt able to gather clothes from closet and don using AE) On/Off Footwear (QC): 6 (IND, pt able to gather clothes from closet and don using AE) Toileting Hygiene (QC): 6 (IND, pt able to perform hygiene and clothing management) PT Sand Shoveler Goals Correction Goals PT Sand Shoveler Goals Time Frame: Jun 06, 2021 Roll Left to Right (QC): 6 Sit to Lying (QC): 6 Lying-Sitting on Side/Bed(QC): 6 Sit to Stand (QC): 6 Chair/Ftr-xn-Gicgj Xfer(QC): 6 Car Transfer (QC): 6 Does the Patient Walk: Yes Walk 10 feet (QC): 6 Walk 10ft-Uneven Surface(QC): 6 Walk 50ft with 2 Turns (QC): 6 Walk 150 ft (QC): 6 Wheel 50 feet with 2 turns (QC: 9 1 Step (curb) (QC): 4 4 Steps (QC): 4 12 Steps (QC): 4 Picking up an Object (QC): 88 (due to hip precautions (inability to flex at hip past 90 degrees)) OT Sand Shoveler Goals Correction Goals Time Frame: Jun 12, 2021 Eating (QC): 6 (met) Oral Hygiene (QC): 6 (met) Shower/Bathe Self (QC): 6 (met) Upper Body Dressing (QC): 6 (met) Lower Body Dressing (QC): 6 (met) On/Off Footwear (QC): 6 (met) Toileting Hygiene (QC): 6 (met) Toilet/Commode Transfer (QC): 6 Additional Goals: 1-Demonstrate ADL Tasks, 2-Verbalize Understanding, 3- ImproveStrength/Shelby 1=Demonstrate adherence to instructed precautions during ADL tasks. 2=Patient will verbalize/demonstrate understanding of assistive devices/modifications for ADL. 3=Patient will improve strength/tolerance for activity to enable patient to perform ADL's. Speech Sand Shoveler Goals Correction Goals 1. The patient will demonstrate increased cognitive linguistic skills for safe return to the least restrictive environment. MET 2. The patient will tolerate the least restrictive diet consistency without s/s of suspected aspiration with 90% accuracy. MET ASHWIN SMITH OT Jun 02, 2021 14:42
== END 2021-06-02 11:26 | disposition home health service (06) | DRG 949 ==
PROVIDERS: ADMIT Internal Medicine; ATTEND Internal Medicine
DX: T84.020D Dislocation of internal right hip prosthesis, subsequent encounter (principal); I50.32 Chronic diastolic (congestive) heart failure; I11.0 Hypertensive heart disease with heart failure; I25.10 Atherosclerotic heart disease of native coronary artery without angina pectoris; D64.9 Anemia, unspecified; G25.81 Restless legs syndrome; G62.9 Polyneuropathy, unspecified; K21.9 Gastro-esophageal reflux disease without esophagitis; M81.0 Age-related osteoporosis without current pathological fracture; M16.12 Unilateral primary osteoarthritis, left hip; E03.9 Hypothyroidism, unspecified; M54.9 Dorsalgia, unspecified; F32.A Depression, unspecified; B35.1 Tinea unguium; M20.12 Hallux valgus (acquired), left foot; K44.9 Diaphragmatic hernia without obstruction or gangrene; Z95.5 Presence of coronary angioplasty implant and graft; Z86.73 Personal history of transient ischemic attack (TIA), and cerebral infarction without residual deficits; Z96.653 Presence of artificial knee joint, bilateral; Z79.82 Long term (current) use of aspirin; Z88.2 Allergy status to sulfonamides
CPT/HCPCS: 36415; 73502; 80053; 85007; 85025; 85027

== ENCOUNTER → 2021-06-08 | Outpatient (CLI) | payer MEDICARE ==
[~2021-06-08] MED LIST changes: +OXC5T PO; +SENN1TAB76 PO
--- NOTE | 2021-06-09 12:48 | Diagnostic Imaging Report ---
INDICATION: Dysphagia. TECHNIQUE: The study was performed in conjunction with Speech Pathology. Video fluoroscopy was performed during the swallowing of barium in multiple consistencies. 1.5 minutes of fluoroscopic time was utilized. FINDINGS: The patient ingested thin barium as well as puree, nectar, and pudding consistencies. There was an episode of laryngeal penetration with a large swallow of thin barium. This was not present during smaller sips of thin barium. There was also a moderate amount of vallecular residue during the swallowing of pudding. This would clear with repeated swallows. There is normal epiglottic tilt and laryngeal elevation. No aspiration was observed. IMPRESSION: Unremarkable video swallow apart from an episode of penetration during the swallowing of a large amount of thin barium which would correct with smaller sips. Mild vallecular residue was present as well. No aspiration was observed. Dictated by: Dictated on workstation # [id number]
== END ==
LOC: RAD 10:30
PROVIDERS: ATTEND Internal Medicine
DX: R13.12 Dysphagia, oropharyngeal phase (principal)
CPT/HCPCS: 74230

== ENCOUNTER → 2021-06-24 | Outpatient (CLI) | payer MEDICARE ==
--- NOTE | 2021-06-24 17:52 | Diagnostic Imaging Report ---
INDICATION: Routine screening. COMPARISON: Prior mammogram from 06/30/2017. EXAMINATION: 2D and 3D bilateral screening mammography was performed with CAD. The current study was also evaluated with a Computer Aided Detection (CAD) system. FINDINGS: Bilateral breast implants are again noted. Implant contours are smooth. Scattered fibroglandular densities are identified, bilaterally. A cluster of microcalcifications in the outer left breast have increased. There is a biopsy marker clip anterior to the calcifications from prior biopsy. There is some associated soft tissue density with calcifications as well. Axillae are unremarkable. IMPRESSION: Increasing cluster of microcalcifications in the upper and outer aspect of the left breast when compared with prior study from 2018. Additional views are recommended. ACR BI-RADS Category 0: Incomplete. (Needs additional imaging evaluation). Result letter will be mailed to the patient. Note: At least 10% of breast cancer is not imaged by mammography. Dictated by: Dictated on workstation # [id number]
== END ==
LOC: RAD 15:15
PROVIDERS: ATTEND Nurse Practitioner Family
DX: Z12.31 Encounter for screening mammogram for malignant neoplasm of breast (principal); R92.0 Mammographic microcalcification found on diagnostic imaging of breast
CPT/HCPCS: 77063; 77067

== ENCOUNTER → 2021-07-01 | Outpatient (CLI) | payer MEDICARE ==
--- NOTE | 2021-07-01 15:34 | Diagnostic Imaging Report ---
INDICATION: Left breast calcifications. Patient presents for additional views. COMPARISON: Correlation is made with the screening study from 06/24/2021. TECHNIQUE: Unilateral left 2D and 3D diagnostic mammography was performed. This included exaggerated CC, implant displaced magnification views, and mediolateral implant displaced magnification view. FINDINGS: There is a cluster of microcalcifications in the upper outer left breast 5 to 7 cm from the nipple which are considered suspicious. There appears to be some pleomorphism present. There is some irregular soft tissue density as well at the region of calcifications and mass cannot be excluded. There is a marker clip anterior to the calcifications. IMPRESSION: Suspicious microcalcification cluster in the upper outer left breast 5-7 cm from the nipple with a possible associated soft tissue mass. Further evaluation with ultrasound is recommended and will be performed today. ACR BI-RADS Category 0: Incomplete. (Needs additional imaging evaluation). Result letter will be mailed to the patient. Note: At least 10% of breast cancer is not imaged by mammography. Dictated by: Dictated on workstation # [id number]
--- NOTE | 2021-07-01 15:36 | Diagnostic Imaging Report ---
INDICATION: Abnormal left mammogram with left breast calcifications and left breast density. COMPARISON: Correlation is made with the diagnostic mammogram from earlier this same day as well as the screening mammogram from 06/24/2021. FINDINGS: Sonographic interrogation of the upper outer left breast was performed. There is a hypoechoic, ill-defined mass at the 2 o'clock location of the left breast 5 cm from the nipple. There are some punctate echogenicities within the lesion, suggestive of calcifications. This likely accounts for the calcifications and density noted mammographically. This measures 7 mm x 7 mm x 5 mm and is located along the surface of the implant. Minimal internal vascularity is present. No other masses are seen. IMPRESSION: Ill-defined hypoechoic solid mass at the 2 o'clock location of the left breast 5 cm from from the nipple with internal calcifications. This likely accounts for the mammographic density and calcifications. Findings are concerning for a small breast neoplasm. Tissue sampling is recommended. This would be amenable to an ultrasound guided biopsy approach. ACR BI-RADS Category 4: Suspicious abnormality. Dictated by: Dictated on workstation # [id number]
== END ==
LOC: RAD 14:15
PROVIDERS: ATTEND Nurse Practitioner Family
DX: N63.21 Unspecified lump in the left breast, upper outer quadrant (principal)
CPT/HCPCS: 76642; 77065; G0279

== ENCOUNTER → 2021-07-06 | Outpatient (CLI) | payer MEDICARE ==
[~2021-07-06] VITALS: Ht 170 cm; Wt 64.0 kg
[~2021-07-06] MED LIST changes: +LIDOCAINE 1% INJ 20 ML VIAL INJ ONE
--- NOTE | 2021-07-06 09:50 | Diagnostic Imaging Report ---
INDICATION: Left breast mass. Patient presents for ultrasound-guided biopsy. DETAILS OF THE PROCEDURE: The patient was brought to the sonographic suite and placed on the table in the supine position. Ultrasound imaging of the left breast was performed to evaluate for an appropriate entry site. The left breast was then prepped and draped in the usual sterile fashion. A small amount of 1% lidocaine was utilized for local anesthesia. A 14-gauge Achieve needle was advanced and placed just deep to the hypoechoic lesion at the 2 o'clock location of the left breast 5 cm from the nipple. The biopsy chamber was positioned between the lesion and the patient's left breast implant. Core biopsy was obtained. A total of two passes was made. A marker clip was then deployed. Hemostasis was obtained using manual compression. The patient tolerated the procedure well and was sent for a postprocedure mammogram in satisfactory condition. IMPRESSION: Successful ultrasound guided core biopsy of a left breast mass at the 2 o'clock location 5 cm from the nipple. Pathology results are currently pending. Dictated by: Dictated on workstation # [id number]
--- NOTE | 2021-07-06 12:02 | Diagnostic Imaging Report ---
INDICATION: Left breast nodule, status post biopsy. Unilateral left 2-D CC and ML implant displaced views were obtained. A marker clip is noted adjacent to the areas of calcification in the upper outer aspect of left breast just superficial to the patient's implant. A 2nd marker clip is noted more anteriorly from a prior biopsy. IMPRESSION: Satisfactory marker clip location, as described, after patient underwent ultrasound-guided core biopsy of left breast nodule. Dictated by: Dictated on workstation # [id number]
== END ==
LOC: RAD 08:42
PROVIDERS: ATTEND Nurse Practitioner Family
DX: N63.21 Unspecified lump in the left breast, upper outer quadrant (principal); Z98.890 Other specified postprocedural states
CPT/HCPCS: 19083; 77065; G0279

== ENCOUNTER 2021-07-15 08:14 | Outpatient (RCR) | payer MEDICARE ==
[~2021-07-15 08:14] MED LIST changes: -LIDOCAINE 1% INJ 20 ML VIAL INJ ONE
== END 2021-08-08 | disposition home or self-care (01) ==
LOC: ONC 08:14
PROVIDERS: ATTEND Internal Medicine Hematology & Oncology
DX: C50.912 Malignant neoplasm of unspecified site of left female breast (principal); E78.5 Hyperlipidemia, unspecified; I10 Essential (primary) hypertension; I25.10 Atherosclerotic heart disease of native coronary artery without angina pectoris
CPT/HCPCS: 99214

== ENCOUNTER 2021-08-18 18:27 | Emergency (ER) | payer MEDICARE ==
[~2021-08-18] VITALS: Ht 165.1 cm; Wt 63.5 kg
[2021-08-18 19:25] VITALS: BP 157/69
--- NOTE | 2021-08-18 19:52 | ED Cough/URI ---
General Chief Complaint: Cough/Cold/Flu Symptoms Stated Complaint: CONGESTION, COUGH Nursing Triage Note: PT ARRIVED BY PRIVATE VEHICLE WITH DAUGHTER. PT HAS A CHIEF COMPLAINT OF COUGH AND CONGESTION. PT IS ALERT, ORIENTED X 4 AND AMBULATORY. PT HAS HAD A COUGH WITH PRODUCTION (CLEAR PHLEGM). PT THINKS IT IS ALLERGIES, BUT DAUGHTER IS WORRIED, BECAUSE PT IS HAVING A MASTECTOMY TOMORROW. PT DENIES FEVER, NAUSEA, VOMITING, OR DIARRHEA. PT HAS NOT TAKEN ANYTHING OVER THE COUNTER. VITALS WERE DONE AND REPORT WAS GIVEN TO PROVIDER. Source: patient Exam Limitations: no limitations (MARGUERITE GUERRERO) History of Present Illness Date Seen by Provider: August 18, 2021 Time Seen by Provider: 19:50 Initial Comments Patient is a 80-year-old female who presents ED with a wet productive cough since Tuesday. Denies of any shortness of breath, wheezing or chest pain. She reports some nasal congestion. She does have a history of allergies and has been taking allergy medication with improvement. She is scheduled for bilateral mastectomy secondary to breast cancer tomorrow. She is up-to-date on her COVID and influenza vaccines. She wanted to make sure that she does not not have pneumonia. History of coronary artery disease. Denies COPD or asthma, vomiting, fever, chills, body aches, diarrhea (MARGUERITE GUERRERO) Allergies and Home Medications Allergies Coded Allergies: Sulfa (Sulfonamide Antibiotics) (Verified Allergy, Unknown, 06/30/15) Patient Home Medication List Home Medication List Reviewed: Yes (MARGUERITE GUERRERO) Alendronate Sodium (Alendronate Sodium) 70 Mg Tablet, 70 MG PO THUR, (Reported) Entered as Reported by: MAYELA GONZALEZ on 05/22/21 1012 Ascorbic Acid (Vitamin C) 500 Mg Tablet, 500 MG PO DAILY, (Reported) Entered as Reported by: MAYELA GONZALEZ on 05/22/21 1012 Aspirin (Aspirin) 81 Mg Tab.chew, 81 MG PO Q48H, (Reported) Entered as Reported by: MAYELA GONZALEZ on 05/22/21 1012 Cholecalciferol (Vitamin D3) (Vitamin D3) 25 Mcg Tablet, 25 MCG PO DAILY, (Reported) Entered as Reported by: MAYELA GONZALEZ on 05/22/21 1012 Cyanocobalamin (Vitamin B-12) (Vitamin B12) 2,500 Mcg Tablet, 2,500 MCG PO DAILY, (Reported) Entered as Reported by: MAYELA GONZALEZ on 05/22/21 101 Cyclobenzaprine HCl (Cyclobenzaprine HCl) 5 Mg Tablet, 5-10 MG PO Q8H PRN for MUSCLE SPASMS, (Reported) Entered as Reported by: MAYELA GONZALEZ on 05/22/21 101 Docusate Sodium (Docusate Sodium) 100 Mg Capsule, 200 MG PO HS, (Reported) Entered as Reported by: MAYELA GONZALEZ on 05/22/21 101 Duloxetine HCl (Duloxetine HCl) 60 Mg Capsule.dr, 60 MG PO HS, (Reported) Entered as Reported by: JALEN FIGUEROA on 04/20/17 1057 Ferrous Sulfate (Iron) 325 Mg Tablet, 650 MG PO Q48H, (Reported) Entered as Reported by: MAYELA GONZALEZ on 05/22/21 101 Levothyroxine Sodium (Euthyrox) 50 Mcg Tablet, 50 MCG PO DAILY, (Reported) Entered as Reported by: MAYELA GONZALEZ on 05/22/21 101 Losartan/Hydrochlorothiazide (Losartan-Hctz 100-25 mg Tab) 1 Each Tablet, 1 EA PO HS, (Reported) Entered as Reported by: MAYELA GONZALEZ on 05/22/21 101 Magnesium Oxide (Magnesium) 400 Mg Tablet, 400 MG PO HS, (Reported) Entered as Reported by: MAYELA GONZALEZ on 05/22/21 101 Mirtazapine (Mirtazapine) 15 Mg Tablet, 15 MG PO HS, (Reported) Entered as Reported by: MAYELA GONZALEZ on 05/22/21 101 Oxybutynin Chloride (Oxybutynin Chloride ER) 15 Mg Tab.er.24, 15 MG PO DAILY, (Reported) Entered as Reported by: MAYELA GONZALEZ on 05/22/21 101 Oxycodone Hcl (Oxyir Tablet) 5 Mg Tab, 5-10 MG PO Q4H PRN for PAIN-SEVERE (8-10) Prescribed by: LORRAINE CARNEY on 06/02/21 0858 Pantoprazole Sodium (Pantoprazole Sodium) 40 Mg Tablet., 40 MG PO DAILY, (Reported) Entered as Reported by: MAYELA GONZALEZ on 05/22/21 1014 Ropinirole HCl (Ropinirole HCl) 2 Mg Tablet, 2 MG PO HS, (Reported) Entered as Reported by: JALEN FIGUEROA on 06/30/15 1228 Sennosides/Docusate Sodium (Stool Softener-Laxative Tablet) 1 Each Tablet, 1 EA PO BID Prescribed by: LORRAINE CARNEY on 06/02/21 0858 Valacyclovir HCl (Valacyclovir) 500 Mg Tablet, 250 MG PO HS, (Reported) Entered as Reported by: MAYELA GONZALEZ on 05/22/21 1012 Review of Systems Review of Systems Constitutional: No chills, No diaphoresis, No weakness EENTM: nose congestion; No blurred vision, No double vision, No dental problems, No mouth pain, No mouth swelling Respiratory: cough; No short of breath, No wheezing Cardiovascular: No chest pain, No edema Gastrointestinal: No abdominal pain, No diarrhea, No nausea, No vomiting Genitourinary: No discharge Musculoskeletal: No back pain, No joint pain Skin: No change in color, No change in hair/nails (MARGUERITE GUERRERO) Past Eeacdnw-Lxgqyn-Riryeo Hx Patient Social History Tobacco Use?: No Smoking Status: Never a Smoker Substance use?: No Alcohol Use?: No Pt feels they are or have been: No (MARGUERITE GUERRERO) Immunizations Up To Date Tetanus Booster (TDap): Less than 5yrs First/Initial COVID19 Vaccinat: 2020 Second COVID19 Vaccination Wilbur: 2020 Third COVID19 Vaccination Date: 2021 (MARGUERITE GUERRERO) Seasonal Allergies Seasonal Allergies: No (MARGUERITE GUERRERO) Past Medical History Coronary Stent, Gallbladder, Hysterectomy, Joint Replacement, Orthopedic Coronary Artery Disease, Hypertension Neuropathy, TIA FURNACE HAND History: Hysterectomy Renal Failure, UTI-Chronic Gastroesophageal Reflux, Gastrointestinal Bleed, Polyps, Ulcer Osteoporosis, Arthritis, Back Injury, Chronic Back Pain Hypothyroidsim Depression Adverse Reaction/Blood Tranf: No (MARGUERITE GUERRERO) Family Medical History No Pertinent Family Hx (MARGUERITE GUERRERO) Physical Exam Vital Signs - First Documented 08/18/21 19:25 Temp 37.1 Pulse 78 Resp 18 B/P (MAP) 157/69 (98) Pulse Ox 96 O2 Delivery Room Air (CHRISTIAN RIVAS MD) Capillary Refill : Less Than 3 Seconds (MARGUERITE GUERRERO) Height: 5'7.00" Weight: 150lbs. 0.0oz. 68.651126tz; 23.00 BMI Method:Stated General Appearance: WD/WN, no apparent distress Eyes: Bilateral Eye Normal Inspection, Bilateral Eye PERRL, Bilateral Eye EOMI HEENT: PERRL/EOMI, normal ENT inspection, TMs normal, pharynx normal Neck: non-tender, full range of motion, normal inspection Respiratory: chest non-tender, lungs clear, normal breath sounds, no respiratory distress, no accessory muscle use Cardiovascular: regular rate, rhythm, no edema, no gallop, no JVD Gastrointestinal: normal bowel sounds, non tender, soft, no organomegaly Extremities: normal range of motion, non-tender, normal inspection Neurologic/Psychiatric: 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, no motor/sensory deficits, alert, normal mood/affect, oriented x 3 Skin: normal color, warm/dry (MARGUERITE GUERRERO) Progress/Results/Core Measures Suspected Sepsis SIRS Temperature: Pulse: 78 Respiratory Rate: 18 Blood Pressure 157 /69 Mean: 98 (MARGUERITE GUERRERO) Results/Orders Lab Results Laboratory Tests Test 08/18/21 20:30 Range/Units Influenza Type A (RT-PCR) Not Detected Not Detecte Influenza Type B (RT-PCR) Not Detected Not Detecte SARS-CoV-2 RNA (RT-PCR) Not Detected Not Detecte (CHRISTIAN RIVAS MD) Vital Signs/I&O 08/18/21 19:25 Temp 37.1 Pulse 78 Resp 18 B/P (MAP) 157/69 (98) Pulse Ox 96 O2 Delivery Room Air (CHRISTIAN RIVAS MD) Vital Signs/I&O Capillary Refill : Less Than 3 Seconds (MARGUERITE GUERRERO) Blood Pressure Mean: 98 Departure Communication (PCP) Chest x-ray was negative for pneumonia, pneumothorax. She has no chest pain or abdominal pain. Vital signs stable. Afebrile. She is scheduled for bilateral mastectomy tomorrow. She wants to make sure she does not have COVID or pneumonia. Chest x-ray did not show any acute pulmonary disease process. Moderate hiatal hernia. COVID influenza negative. Continue with conservative treatment. No history of COPD, asthma. If any worsening symptoms return back to ED for further evaluation. Discussed conservative treatment (MARGUERITE GUERRERO) Impression Primary Impression: URI (upper respiratory infection) Qualified Codes: J06.9 - Acute upper respiratory infection, unspecified Disposition: HOME, SELF-CARE Condition: Stable Departure-Patient Inst. Decision time for Depature: 20:46 (MARGUERITE GUERRERO) Referrals: MARY BUSTAMANTE MD (PCP/Family) Primary Care Physician Patient Instructions: Cough, Adult (DC) Add. Discharge Instructions: Continue with conservative treatment. If any worsening symptoms return back to ED. All discharge instructions reviewed with patient and/or family. Voiced understanding. PHYSICIAN ATTESTATION NOTE: I was present in the ER while CHILDREN'S SERVICE WORKER / PA saw the patient, but I was not involved in the care, exam, or management of the patient. (CHRISTIAN RIVAS MD) MARGUERITE GUERRERO August 18, 2021 19:52 CHRISTIAN RIVAS MD August 20, 2021 22:31
--- NOTE | 2021-08-18 20:37 | Diagnostic Imaging Report ---
CLINICAL INDICATION: Patient with cough. EXAM: Chest x-ray PA and lateral views. COMPARISON: Chest x-ray dated 08/23/2012. FINDINGS: Lungs/pleura: Lungs are clear. There is no pneumothorax. There is no pleural effusion. Mediastinum: Suspected hiatal hernia noted which has increased in size. Moderate. Pulmonary vasculature: Unremarkable. Heart: Unremarkable. Bones/extrathoracic soft tissue: Compression fracture deformity with kyphoplasty changes involving the mid to lower thoracic vertebra which was performed in the interim. There is also stable chronic anterior wedge compression fracture deformity of the lower thoracic vertebra.. IMPRESSION: 1: There is no radiographic evidence of acute cardiopulmonary process. 2: Suspected moderate-sized hiatal hernia which has increased in size. Dictated by: Dictated on workstation # [id number]
== END 2021-08-18 20:52 | disposition home or self-care (01) ==
LOC: EDUNIT# 18:27 → ER 18:31
DX: J06.9 Acute upper respiratory infection, unspecified (principal); C50.911 Malignant neoplasm of unspecified site of right female breast; C50.912 Malignant neoplasm of unspecified site of left female breast; Z20.822 Contact with and (suspected) exposure to COVID-19; Z79.899 Other long term (current) drug therapy
CPT/HCPCS: 71046; 87636

== ENCOUNTER → 2022-01-08 | Outpatient (RCR) | payer MEDICARE ==
[~2022-01-08] MED LIST changes: -ALEN70TA2 PO; +ALEN70TA85 PO
== END | disposition home or self-care (01) ==
LOC: ONC 12-21 09:55
PROVIDERS: ATTEND Radiology Radiation Oncology
DX: Z51.0 Encounter for antineoplastic radiation therapy (principal); C50.912 Malignant neoplasm of unspecified site of left female breast; I25.10 Atherosclerotic heart disease of native coronary artery without angina pectoris; I11.0 Hypertensive heart disease with heart failure; I50.32 Chronic diastolic (congestive) heart failure; E78.5 Hyperlipidemia, unspecified
CPT/HCPCS: 77290; 77295; 77300; 77332; 77334; 77336; 77417; 99204

== ENCOUNTER 2022-01-14 09:49 | Outpatient (RCR) | payer MEDICARE | END 2022-02-08 | disposition home or self-care (01) | LOC: ONC 09:49 | PROVIDERS: ATTEND Radiology Radiation Oncology | DX: Z51.0 Encounter for antineoplastic radiation therapy (principal); C50.912 Malignant neoplasm of unspecified site of left female breast; I25.10 Atherosclerotic heart disease of native coronary artery without angina pectoris; I11.0 Hypertensive heart disease with heart failure; I50.32 Chronic diastolic (congestive) heart failure; E78.5 Hyperlipidemia, unspecified | CPT/HCPCS: 77336 ==

== ENCOUNTER 2022-03-11 11:04 | Outpatient (RCR) | payer MEDICARE | END 2022-04-10 | disposition home or self-care (01) | LOC: ONC 11:04 | PROVIDERS: ATTEND Radiology Radiation Oncology | DX: Z51.0 Encounter for antineoplastic radiation therapy (principal); C50.412 Malignant neoplasm of upper-outer quadrant of left female breast; I25.10 Atherosclerotic heart disease of native coronary artery without angina pectoris; I11.0 Hypertensive heart disease with heart failure; I50.32 Chronic diastolic (congestive) heart failure; E78.5 Hyperlipidemia, unspecified; Z90.12 Acquired absence of left breast and nipple | CPT/HCPCS: 99213 ==

== ENCOUNTER 2022-05-27 10:15 | Inpatient (IN) | payer MEDICARE ==
[~2022-05-27] VITALS: Ht 165 cm; Wt 64.4 kg
[2022-05-27] MEDS ORDERED: GABA300C PO (11:12)
[2022-05-27] MEDS ORDERED: OXYC5TAB PO (11:12)
[2022-05-27] MEDS ORDERED: TRM50T PO (11:12)
[2022-05-27] MEDS ORDERED: MELO15TA39 PO (11:12)
[2022-05-27] MEDS ORDERED: ACET-2267 PO (11:12)
[2022-05-27] MEDS ORDERED: ATOR40TA70 PO (11:12)
[2022-05-27] MEDS ORDERED: CHOL10008 PO (11:18)
[2022-05-27] MEDS ORDERED: guaiFENesin/CODEINE (ROBITUSSIN AC) 10ML UDC PO PRN (12:00)
[2022-05-27] MEDS ORDERED: LOPERAMIDE 2 MG (IMODIUM) TABLET PO PRN (12:00)
[2022-05-27] MEDS ORDERED: CALCIUM CARBONATE 500 MG (TUMS) TAB.CHEW PO PRN (12:00)
[2022-05-27] MEDS ORDERED: diphenhydrAMINE 25 MG TAB (BENADRYL) PO PRN (12:00)
[2022-05-27] MEDS ORDERED: ACETAMINOPHEN 325 MG TABLET PO PRN (12:00)
[2022-05-27] MEDS ORDERED: MELATONIN 3 MG TABLET PO PRN (12:00)
[2022-05-27] MEDS ORDERED: ONDANSETRON 4 MG (ZOFRAN) ORAL DISSOLVE TAB PO PRN (12:00)
[2022-05-27] MEDS ORDERED: FLEET ENEMA ADULT 1 EA BTL PR PRN (12:00)
[2022-05-27] MEDS ORDERED: DOCUSATE SODIUM 100 MG (COLACE) CAP PO PRN (12:00)
[2022-05-27] MEDS ORDERED: ALPRAZolam 0.25 MG (XANAX) TAB PO PRN (12:00)
--- OUTSIDE RECORDS SUMMARY | 2022-05-27 13:35 | XMS REPORT | Clinical Summary ---
Author Author [facility] Organization [facility] Address Unknown Phone Unavailable Care Team Providers Care Taper Machine Name Role Phone Naa Araiza MD PCP Source Comments Some departments are not documenting in the electronic medical record. If you d o not see the information that you expected, contact Release of Information in [facility] [employer] Information Management department at [phone] for further assistan ce in locating additional records.[facility] Allergies No known active allergies Medications End Date Status Medication Sig Dispensed Refills Start Date Active esomeprazole DR(+) Take 40 mg by 0 (NEXIUM) 40 mg capsule mouth every morning. Active aspirin 81 mg chewable Take 81 mg by 0 tablet mouth daily. Active traMADol (ULTRAM) 50 mg Take 100 mg 0 tablet by mouth every 6 hours as needed. Active fenofibrate Take 145 mg 0 nanocrystallized (TRICOR) by mouth 145 mg tablet daily. Active zolpidem (AMBIEN) 10 mg Take 10 mg by 0 tablet mouth at bedtime as needed. Active cephalexin (KEFLEX) 500 Take 500 mg 0 mg capsule by mouth four times daily. Active metoprolol XL (TOPROL XL) Take 25 mg by 0 25 mg tablet mouth daily. Active sertraline (ZOLOFT) 100 Take 100 mg 0 mg tablet by mouth daily. Active levothyroxine (SYNTHROID) Take 50 mcg 0 25 mcg tablet by mouth daily. Active acyclovir (ZOVIRAX) 400 Take 400 mg 0 mg tablet by mouth three times daily. Active clopiDOGrel (PLAVIX) 75 Take 75 mg by 0 mg tablet mouth daily. Active docusate (COLACE) 100 mg Take 100 mg 0 capsule by mouth twice daily. Active furosemide (LASIX) 20 mg Take 1 Tab by 30 Tab 0 tablet mouth daily. 4 Active potassium chloride SR Take 1 Tab by 30 Tab 0 (K-DUR) 20 mEq tablet mouth daily. 4 Active Problems Problem Noted Date History of TIA (transient ischemic attack) 3 Arteriosclerotic heart disease (ASHD) 12/15/2012 Overview: PCI [facility]DRICK September HTN (hypertension) 12/15/2012 HLD (hyperlipidemia) 12/15/2012 COLBERT (dyspnea on exertion) 12/15/2012 Medical History Medical History Date Comments History of TIA (transient ischemic 12/15/2012 attack) Arteriosclerotic heart disease (ASHD) 12/15/2012 PCI [facility] KENDRICK September HTN (hypertension) 12/15/2012 HLD (hyperlipidemia) 12/15/2012 Social History Date Tobacco Use Types Packs/Day Years Used Smoking Tobacco: Never Comments Alcohol Use Standard Drinks/Week occassional Yes 0 (1 standard drink = 0.6 o z pure alcohol) Sex Assigned at Date Recorded Not on file Obstetrics History Last Filed Vital Signs Reading Time Taken Comments Vital Sign 138/74 12/25/2012 3:30 PM CDT Blood Pressure 69 12/25/2012 3:29 PM CDT Pulse - - Temperature - - Respiratory Rate - - Oxygen Saturation - - Inhaled Oxygen Concentration 68.5 kg (151 lb) 12/25/2012 3:29 PM CDT Weight 170.2 cm (5' 7") 12/25/2012 3:29 PM CDT Height 23.65 12/25/2012 3:29 PM CDT Body Mass Index Plan of Treatment Health Maintenance Due Date Last Done Comments MEDICARE ANNUAL WELLNESS 1940 VISIT COVID-19 VACCINE (#1) 04/06/1939 DTAP/TDAP VACCINES (1 - 1956 Tdap) PHYSICAL (COMPREHENSIVE) 1956 EXAM SHINGLES RECOMBINANT 1988 VACCINE (1 of 2) OSTEOPOROSIS 10/06/2003 SCREENING/MONITORING PNEUMOCOCCAL VACCINE (1 - 10/06/2003 PCV) INFLUENZA VACCINE (#1) 2021 ADVANCED CARE PLANNING 04/11/2022 DISCUSSION AND DOCUMENTATION DEPRESSION SCREENING 04/11/2022 Results Not on filefrom Last 3 Months Insurance Type Payer Benefit Subscriber ID Effective Phone Address Plan / Dates Group Medicare MEDICARE MEDICARE [id number] 2003-P [phone] [address] [place] [address] Medicare BCBS JARED BCBS [id number] 2012-P [phone] [id number] [place] [id number] Care Teams Start Date End Date Taper Machine Relationship Specialty 12/15/12 Naa Araiza MD PCP - General [address] [place] [address]
--- NOTE | 2022-05-27 13:44 | Occupational Therapy Eval ---
OT Evaluation-General/PLF Medical Diagnosis Admission Date May 27, 2022 at 13:27 Medical Diagnosis: s/p L MENDEZ Onset Date: May 24, 2022 Therapy Diagnosis Therapy Diagnosis: decreased ADL Status Height/Weight Height (Feet): 5 Height (Inches): 7.00 Weight (Pounds): 150 Weight (Ounces): 0.0 Precautions Comments total hip precautions, may shower with incision/dressing covered. Referral Physician: Radames Referral Reason: Evaluation/Treatment Medical History Pertinent Medical History: CAD, Renal Insufficiency Additional Medical History HTN, CAD, osteoporosis, hypothyroidism, chronic anemia, RLS, GERD Current History s/p L MENDEZ due to degenerative joint disease Social History Home: Single Level Entry Into Home: Stairs With Railing Steps Into Home: 1 ADL-Prior Level of Function SCALE: Activities may be completed with or without assistive devices. 5-Dpqixzfdul-lxqdvvt completes the activity by him/herself with no assistance from a helper. 5-Set-up or Clean-up Assistance-helper sets up or cleans up; patient completes activity. [place] assists only prior to or following the activity. 4-Supervision or Touching Assistance-helper provides verbal cues and/or touching/steadying and/or contact guard assistance as patient completes activity. Assistance may be provided throughout the activity or intermittently. 3-Partial/Moderate Assistance-helper does LESS THAN HALF the effort. [place] lifts, holds or supports trunk or limbs, but provides less than half the effort. 2-Substantial/Maximal Assistance-helper does MORE THAN HALF the effort. [place] lifts or holds trunk or limbs and provides more than half the effort. 9-Qzgjuwqyc-xyofxf does ALL the effort. Patient does none of the effort to complete the activity. Or, the assistance of 2 or more helpers is required for the patient to complete the activity. If activity was not attempted, code reason: 7-Patient Refused. 9-Not Applicable-not attempted and the patient did not perform the activity before the current illness, exacerbation or injury. 10-Not Attempted due to Environmental Limitations-(lack of equipment, weather restraints, etc.). 88-Not Attempted due to Medical Conditions or Safety Concerns. ADL PLOF Comments Pt reports IND with ADLS and functional mobility at PLOF, no AD. She owns a FWW. Pt has a tub/shower with SC. Self Care: Independent Functional Cognition: Independent OT Current Status Subjective Pt agreeable to OT tx. rates pain 6-7/10 in L hip Mental Status/Objective Patient Orientation: Person, Place, Time, Situation Current Glasses/Contacts: No Hearing Aids: No Dentures/Partials: Yes Hand Dominance: Right Upper Extremity ROM WFL, BUE shoulder flexion to approx 140 degrees Upper Extremity Coordination WFL Upper Extremity Sensation WFL Upper Extremity Strength grossly 3+/5 ADL-Treatment Eating (QC): 6 Oral Hygiene (QC): 6 Shower/Bathe Self (QC): 3 (Min A ) Upper Body Dressing (QC): 5 Lower Body Dressing (QC): 3 (min A) On/Off Footwear (QC): 3 (Min A) Toileting Hygiene (QC): 4 (CGA) Other Treatments OT evaluation complete. OT/PT cotreat due to skill of 2 clinicians required which a rehab assistant could not perform in order to coordinate UE/LEs, decrease fall risk, and due to pt's limitations in strength, activity tolerance, mobility and transfers. OT focused on UE placement, ADLs and cues for sequencing and safety, PT focused on LE placement, gross overall movement. Pt performed functional mobility and transfers using FWW. Pt completed ADLs in w/c in room, declining full shower due to completing at other hospital prior to transfer. Pt able to demonstrate steps of showering and report assist needed for QC score. Pt taken to therapy gym. Tx focused on increasing standing tolerance, BUE reaching and dynamic standing balance. Pt stood in parallel bars, placing 1" pegs into foam pegboard, alternating hands. Pt kept 1 hand on parallel bar or table for support as needed. VALADEZ present to take over tx, all needs met. CGA 15' with FWW. SBA rolling, min A supine to/from sit, min A Sit to/from stand, CGA transfers. Occasional cues required for hand placement and positioning. Min A w/c mobility 100' Education OT Patient Education: Correct positioning, Energy conservation, Exercise program, Modified ADL techniques, Progress toward Goal/Update tx plan, Purpose of tx/functional activities, Reviewed precautions (3/3 recalled), Rehab process BIMS CAM BIMS Expression of Ideas and Wants: Without Difficulty Understanding Verbal Content: Understands Brief Interview/Mental Status: Yes IRF DEUCE BIMS: IRF DEUCE BIMS Response (Comments) Value Repitition of Three Words Three 3 Recalls Socks Yes, No Cue Required 2 Recalls Blue Yes, No Cue Required 2 Recalls Bed Yes, After Cueing 1 Year Correct 3 Month Accurate Within 5 Days 2 Day Incorrect or No Answer (Tuesday) 0 Total 13 [address] Staff Asses. Mental [address] No CAM Mental Status Change/Baseline: 0 Inattention: 0 Disorganized thinkin Altered level of consciousness: 0 OT Short Term Goals Short Term Goals Time Frame: Jun 04, 2022 Shower/bathe self: 5 Lower body dressin Putting on/taking off footwear: 5 OT Fpc Goals Fpc Goals Time Frame: Jun 25, 2022 Eating (QC): 6 Oral Hygiene (QC): 6 Toileting Hygiene (QC): 6 Shower/Bathe Self (QC): 6 Upper Body Dressing (QC): 6 Lower Body Dressing (QC): 6 On/Off Footwear (QC): 6 Additional Goals: 1-Demonstrate ADL Tasks, 2-Verbalize Understanding, 3- ImproveStrength/[place] 1=Demonstrate adherence to instructed precautions during ADL tasks. 2=Patient will verbalize/demonstrate understanding of assistive devices/modifications for ADL. 3=Patient will improve strength/tolerance for activity to enable patient to perform ADL's. OT Education/Plan Problem List/Assessment Assessment: Decreased Activ Tolerance, Decreased UE Strength, Impaired Funct Balance, Impaired I ADL's, Impaired Self-Care Skills Discharge Recommendations Plan/Recommendations: Continue POC Comment Pt owns hip kit and SC. Treatment Plan/Plan of Care Patient would benefit from OT for education, treatment and training to promote independence in ADL's, mobility, safety and/or upper extremity function for ADL's. Plan of Care: ADL Retraining, Functional Mobility, Group Exercise/Act as Ind, UE Funct Exercise/Act Treatment Duration: Jun 25, 2022 Frequency: At least 5 of 7 days/Wk (IRF) Estimated Hrs Per Day: 1.5 hours per day Agreement: Yes Rehab Potential: Good Time Start Time: 12:55 Stop Time: 13:50 DATE: May 27, 2022 Total Time Billed (hr/min): 55 Billed Treatment Time OT 10', cotreat 45' 1, EVM (10'), ADL (15'), FA 2 (30') CRUMPACKER,ASHWIN OT May 27, 2022 13:44
--- NOTE | 2022-05-27 13:46 | PM&R Post Admission Assessment ---
PM&R Date of Visit: May 27, 2022 Time of Visit: 19:30 History of Present Illness CC: s/p Left hip replacement due to DJD failed conservative management HPI: This is an 81yoWF clinic patient of Dr Ro who presents to ARU from [place] following an elective left hip replacement. Currently her pain is ma nageable taking Oxycodone. Her last BM was 05/23/22 so laxatives will be started. She is in constant fear of falling so aggressive therapy will be initiated to alleviate that fear. PLOF was ambulatory with RW and currently she is requiring FWW and assist with dressing and bathing. She was on the ARU on 05/2021 for debility. Past Rgqensk-Jhxnze-Neerpj Hx Past Med/Social Hx: Reviewed Nursing Past Med/Soc Hx, Reviewed and Corrections made Patient Social History Marrital Status: single Employed/Student: retired Alcohol Use: Denies Use Smoking Status: Never a Smoker Recent Hopitalizations: No Immunizations Up To Date Tetanus Booster (TDap): Less than 5yrs Date of Pneumonia Vaccine: Feb 09, 2010 Date of Influenza Vaccine: Jan 09, 2015 Seasonal Allergies Seasonal Allergies: No Past Medical History Surgeries: Coronary Stent, Gallbladder, Hysterectomy, Joint Replacement, Orthopedic Cardiac: Coronary Artery Disease, Hypertension Neurological: Neuropathy, TIA Hysterectomy Genitourinary: Renal Failure, UTI-Chronic Gastrointestinal: Gastroesophageal Reflux, Gastrointestinal Bleed, Polyps, Ulcer Musculoskeletal: Osteoporosis, Arthritis, Back Injury, Chronic Back Pain Endocrine: Hypothyroidsim Psychosocial: Depression Adverse Reaction to Blood Colon: No Family History No Pertinent Family Hx PM&R Allergy/Meds/Data Review Allergies Coded Allergies: Sulfa (Sulfonamide Antibiotics) (Verified Allergy, Unknown, 06/30/15) Home Medications Scheduled Acetaminophen (Tylenol Extra Strength), 1,000 MG PO Q8H, (Reported) Alendronate Sodium (Alendronate Sodium), 70 MG PO THUR, (Reported) Ascorbic Acid (Vitamin C), 500 MG PO DAILY, (Reported) Aspirin (Aspirin), 81 MG PO BID, (Reported) Atorvastatin Calcium (Atorvastatin Calcium), 40 MG PO HS, (Reported) Cholecalciferol (Vitamin D3) (Vitamin D3), 25 MCG PO DAILY, (Reported) Cyclobenzaprine HCl (Cyclobenzaprine HCl), 5 MG PO BID, (Reported) Docusate Sodium (Docusate Sodium), 200 MG PO HS, (Reported) Duloxetine HCl (Duloxetine HCl), 60 MG PO HS, (Reported) Gabapentin (Neurontin), 300 MG PO HS, (Reported) Levothyroxine Sodium (Euthyrox), 50 MCG PO DAILY, (Reported) Losartan/Hydrochlorothiazide (Losartan-Hctz 100-25 mg Tab), 1 EA PO HS, (Reported) Meloxicam (Meloxicam), 15 MG PO DAILY, (Reported) Mirtazapine (Mirtazapine), 15 MG PO HS, (Reported) Oxybutynin Chloride (Oxybutynin Chloride ER), 15 MG PO DAILY, (Reported) Pantoprazole Sodium (Pantoprazole Sodium), 40 MG PO DAILY, (Reported) Ropinirole HCl (Ropinirole HCl), 2 MG PO HS, (Reported) Valacyclovir HCl (Valacyclovir), 250 MG PO HS, (Reported) Scheduled PRN Oxycodone HCl (Oxycodone HCl), 5-10 MG PO Q4H PRN for PAIN-SEVERE (8-10), (Reported) Tramadol HCl (Tramadol HCl), 50-100 MG PO Q6H PRN for PAIN-MODERATE (5-7), (R eported) Discontinued Medications Cholecalciferol (Vitamin D3) (Vitamin D3), 25 MCG PO DAILY, (Reported) Discontinued Reason: No Longer Taking Cyanocobalamin (Vitamin B-12) (Vitamin B12), 2,500 MCG PO DAILY, (Reported) Discontinued Reason: No Longer Taking Ferrous Sulfate (Iron), 650 MG PO Q48H, (Reported) Discontinued Reason: No Longer Taking Magnesium Oxide (Magnesium), 400 MG PO HS, (Reported) Discontinued Reason: No Longer Taking Oxycodone Hcl (Oxyir Tablet), 5-10 MG PO Q4H PRN for PAIN-SEVERE (8-10) Discontinued Reason: No Longer Taking Sennosides/Docusate Sodium (Stool Softener-Laxative Tablet), 1 EA PO BID Discontinued Reason: No Longer Taking Current Medications Current Medications Reviewed Review of Systems Constitutional: see HPI, malaise, weakness EENTM: no symptoms reported Respiratory: no symptoms reported Cardiovascular: no symptoms reported Gastrointestinal: constipation Genitourinary: no symptoms reported Musculoskeletal: back pain, joint pain Skin: no symptoms reported Psychiatric/Neurological: No Symptoms Reported All Other Systems Reviewed Negative Unless Noted: Yes Physical Exam Physical Exam Vital Signs Capillary Refill : Height, Weight, BMI Height: 5'7.00" Weight: 150lbs. 0.0oz. [id number]; 23.50 BMI Method:Stated General Appearance: No Apparent Distress, WD/WN, Chronically ill, Thin, Other (frail) Eyes: Bilateral Eye Normal Inspection, Bilateral Eye PERRL HEENT: PERRL/EOMI, Normal ENT Inspection, Pharynx Normal Neck: Full Range of Motion, Normal Inspection, Non Tender, Supple, Carotid Bruit Respiratory: Chest Non Tender, Lungs Clear, Normal Breath Sounds, No Accessory Muscle Use, No Respiratory Distress Cardiovascular: Regular Rate, Rhythm, No Edema, No Gallop, No JVD, No Murmur, Normal Peripheral Pulses Gastrointestinal: Normal Bowel Sounds, No Organomegaly, No Pulsatile Mass, Non Tender, Soft Back: Normal Inspection, No CVA Tenderness, No Vertebral Tenderness Extremity: Normal Capillary Refill, Normal Inspection, Normal Range of Motion (except left leg), Non Tender, No Calf Tenderness, No Pedal Edema Neurologic/Psychiatric: Alert, Oriented x3, Normal Mood/Affect, environmental aid II-XII Norm as Tested, Abnormal Gait, Motor Weakness (generalized) Skin: Normal Color, Warm/Dry Lymphatic: No Adenopathy PM&R Medical Assessment & Plan REHAB/MEDICAL ASSESSMENT AND PLAN: REHAB IMPAIRMENT GROUP: s/p left hip arthroplasty due to DJD ETIOLOGIC DIAGNOSIS: s/p left hip arthroplasty due to DJD The comorbidities that impact the patients function and/or functional outcome by: advanced age, debility, frail status, severe pain, post op constipation REHAB PLAN: The patient is being admitted to our comprehensive inpatient rehabilitation facility and can tolerate the intensity of service consisting of at least: 180 minutes of therapy a day, 5 out of 7 days a week Rehab treatment will consist of: PT OT will focus on regaining function with use of AD in order to prevent falls and increase stamina and help with returning to independence The patient/family has a good understanding of our discharge process and will benefit from an interdisciplinary inpatient rehabilitation program. The patient has potential to make improvement and is in need of at least two of the following multidisciplinary therapies including but not limited to physical, occupational, speech, and prosthetics and orthotics. Additionally the patient will need services from respiratory, nutritional services, wound care, psychology, etc. (Customize this to each patient). Given the patients complex condition and risk of further medical complications, rehabilitation services cannot be safely or effectively provided at a lower level of care such as a senior living facility. BARRIERS TO DISCHARGE: Fear of falling ESTIMATED LOS: 10 days DISPOSITION: Home RELEVANT CHANGES SINCE PREADMISSION SCREENING: I have compared the patients medical and functional status at the time of the preadmission screening and there are: no changes PROGNOSIS: Fair REHABILITATION GOALS: 1. PT OT will focus on regaining function with use of AD in order to prevent falls and increase stamina and help with returning to independence All the above goals were reviewed with the patient and he/she is in agreement. By signing this document, I acknowledge that I have personally performed a full physical examination on this patient within 24 hours of admission to this inpatient rehabilitation facility and have determined the patient to be able to tolerate the above course of treatment at an intensive level for a reasonable period of time. I will be completing a detailed individualized Plan of Care for this patient by day #4 of the patients stay based upon the Preadmission Screen, the Post-Admission Evaluation, and the therapy evaluations. Admission Dx/Comorbidities: (1) Status post left hip replacement ICD Codes: Z96.642 - Presence of left artificial hip joint Assessment/Plan Assessment and Plan Assess & Plan/Chief Complaint Assessment: 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 h/o of Right Hip Dislocation Hx Right Total Hip Arthroplasty Chronic debility Hx Right Total Knee Arthroplasty Hx Left Total Knee Arthroplasty Osteoporosis Hiatal Hernia HTN Hypothryoidism Chronic Anemia Hx of Low GFR Restless Leg Syndrome Gastroesophageal Reflux Disease Post op constipation TIA CAD Plan: Aggressive rehab Fall risk Pain control BM regimen LORRAINE CARNEY DO May 27, 2022 13:46
[2022-05-27] MEDS ORDERED: NON-FORMULARY MEDICATION 1 EA EA (Alendronate Sodium 70 MG) PO SCH (14:00)
--- NOTE | 2022-05-27 14:11 | Occupational Ther Daily Note ---
OT Current Status-Daily Note Subjective Took over care of pt from OTR/L. Pt agrees to therapy. No c/o pain. Co-treat with PT ([id number]), skills of 2 clinicians required due to fall risk, decreased stamina, increasing strength and overall mobility. PT focusing on B LE strengthening, mobility while OT focusing on B UE strengthening, functional mo bility and increasing activity tolerance. Mental Status/Objective Patient Orientation: Person, Place, Time, Situation ADL-Treatment Therapy Code Descriptions/Definitions Functional [place] Measure: 0=Not Assessed/NA 4=Minimal Assistance 1=Total Assistance 5=Supervision or Setup 2=Maximal Assistance 6=Modified [place] 3=Moderate Assistance 7=Complete IndependenceSCALE: Activities may be completed with or without assistive devices. 5-Utlxmefqcq-wjybhxl completes the activity by him/herself with no assistance from a helper. 5-Set-up or Clean-up Assistance-helper sets up or cleans up; patient completes activity. [place] assists only prior to or following the activity. 4-Supervision or Touching Assistance-helper provides verbal cues and/or touching/steadying and/or contact guard assistance as patient completes activity. Assistance may be provided throughout the activity or intermittently. 3-Partial/Moderate Assistance-helper does LESS THAN HALF the effort. [place] lifts, holds or supports trunk or limbs, but provides less than half the effort. 2-Substantial/Maximal Assistance-helper does MORE THAN HALF the effort. [place] lifts or holds trunk or limbs and provides more than half the effort. 6-Ojclgvxbl-nthokn does ALL the effort. Patient does none of the effort to complete the activity. Or, the assistance of 2 or more helpers is required for the patient to complete the activity. If activity was not attempted, code reason: 7-Patient Refused. 9-Not Applicable-not attempted and the patient did not perform the activity before the current illness, exacerbation or injury. 10-Not Attempted due to Environmental Limitations-(lack of equipment, weather restraints, etc.). 88-Not Attempted due to Medical Conditions or Safety Concerns. Other Treatment Pt able to stand at parallel bars without B UE support while completing resistive fine motor tasks to increase B UE strength. Sit <--> stands CGA for safety. Min A for bed mobility. After session, pt lying in bed with call light/phone in reach. All needs met in room. OT Short Term Goals Short Term Goals Time Frame: Jun 04, 2022 Shower/bathe self: 5 Lower body dressin Putting on/taking off footwear: 5 OT Jail Goals Epidemiology Internship Goals Time Frame: Jun 25, 2022 Acute change in mental status: 0 Inattention: 0 Disorganized thinkin Altered level of consciousness: 0 Eating (QC): 6 Oral Hygiene (QC): 6 Toileting Hygiene (QC): 6 Shower/Bathe Self (QC): 6 Upper Body Dressing (QC): 6 Lower Body Dressing (QC): 6 On/Off Footwear (QC): 6 Additional Goals: 1-Demonstrate ADL Tasks, 2-Verbalize Understanding, 3-I mproveStrength/[place] 1=Demonstrate adherence to instructed precautions during ADL tasks. 2=Patient will verbalize/demonstrate understanding of assistive devices/modifications for ADL. 3=Patient will improve strength/tolerance for activity to enable patient to perform ADL's. OT Education/Plan Problem List/Assessment Assessment: Decreased Activ Tolerance, Decreased UE Strength, Impaired Self- Care Skills Discharge Recommendations Plan/Recommendations: Continue POC Treatment Plan/Plan of Care Patient would benefit from OT for education, treatment and training to promote independence in ADL's, mobility, safety and/or upper extremity function for ADL's. Plan of Care: ADL Retraining, Functional Mobility, Group Exercise/Act as Ind, UE Funct Exercise/Act Treatment Duration: Jun 25, 2022 Frequency: At least 5 of 7 days/Wk (IRF) Estimated Hrs Per Day: 1.5 hours per day Agreement: Yes Rehab Potential: Good Time Start Time: 13:50 Stop Time: 14:15 DATE: May 27, 2022 Total Time Billed (hr/min): 25 Billed Treatment Time 1 visit-FA 1 (10 min) EX 1 (15 min) co-treat with PT [id number] TODD GONZALEZ May 27, 2022 14:11
--- NOTE | 2022-05-27 14:28 | Physical Therapy Evaluation ---
PT Evaluation-General Medical Diagnosis Admission Date May 27, 2022 at 13:27 Medical Diagnosis: s/p L MENDEZ Onset Date: May 24, 2022 Therapy Diagnosis Therapy Diagnosis: impaired mobility Height/Weight Height (Feet): 5 Height (Inches): 7.00 Weight (Pounds): 150 Weight (Ounces): 0.0 Weight Bear Status Left Lower Extremity: Left Weight Bearing/Tolerated Referral Physician: Shana Crum DO Reason for Referral: Evaluation/Treatment Medical History Pertinent Medical History: CAD, Renal Insufficiency Additional Medical History Past Medical History Surgeries: Coronary Stent, Gallbladder, Hysterectomy, Joint Replacement, Orthopedic Cardiac: Coronary Artery Disease, Hypertension Neurological: Neuropathy, TIA Hysterectomy Genitourinary: Renal Failure, UTI-Chronic Gastrointestinal: Gastroesophageal Reflux, Gastrointestinal Bleed, Polyps, Ulcer Musculoskeletal: Osteoporosis, Arthritis, Back Injury, Chronic Back Pain Endocrine: Hypothyroidsim Psychosocial: Depression Adverse Reaction to Blood Colon: No Reviewed History: Yes Social History Home: Single Level Current Living Status: Alone Entry Into Home: Stairs With Railing PT Steps Into Home: 1 Prior Prior Level of Function SCALE: Activities may be completed with or without assistive devices. 8-Xoslsueydx-nykgkxn completes the activity by him/herself with no assistance from a helper. 5-Set-up or Clean-up Assistance-helper sets up or cleans up; patient completes activity. [place] assists only prior to or following the activity. 4-Supervision or Touching Assistance-helper provides verbal cues and/or touchin g/steadying and/or contact guard assistance as patient completes activity. Assistance may be provided throughout the activity or intermittently. 3-Partial/Moderate Assistance-helper does LESS THAN HALF the effort. [place] lifts, holds or supports trunk or limbs, but provides less than half the effort. 2-Substantial/Maximal Assistance-helper does MORE THAN HALF the effort. [place] lifts or holds trunk or limbs and provides more than half the effort. 6-Cqmetehkj-kaxrrs does ALL the effort. Patient does none of the effort to complete the activity. Or, the assistance of 2 or more helpers is required for the patient to complete the activity. If activity was not attempted, code reason: 7-Patient Refused. 9-Not Applicable-not attempted and the patient did not perform the activity before the current illness, exacerbation or injury. 10-Not Attempted due to Environmental Limitations-(lack of equipment, weather restraints, etc.). 88-Not Attempted due to Medical Conditions or Safety Concerns. Bed Mobility: 6 Transfers (B,C,W/C): 6 Gait: 6 Stairs: 6 Indoor Mobility (Ambulation): Independent Stairs: Independent PT Evaluation-Current Subjective Patient in family vehicle pre tx, agrees to PT, has 6/10 pain in left hip. Will be co-treating with OT for part of tx due to poor patient mobility, strength, endurance, severe debility, coordinate UE and LE during activity, safety and reduce risk of falls. Pain Section J - Health Conditions 1. Rarely or not at all 2. Occasionally 3. Frequently 4. Almost constantly 8. Unable to answer Pain Effect on Sleep: 3 Pain Interference with Therapy: 3 Pain Interference w/Day-to-Day: 3 Pt/Family Goals to be independent at home. Objective Patient Orientation: Person, Place, Situation Sensory Vision: Functional Hearing: Functional Hand Dominance: Right Sensation Right Lower Extremit: Intact Sensation Left Lower Extremity: Intact Transfers Roll Left & Right (QC): 4 Sit to Lying (QC): 3 Lying to Sitting/Side of Bed(Q: 3 Sit to Stand (QC): 3 Chair/Wdj-bg-Knzso Xfer(QC): 4 Toilet Transfer (QC): 4 Car Transfer (QC): 3 Patient performs rolling with SBA, supine <-> sit min assist, sit <-> stand min assist, transfers CGA, car transfer min assist. Patient needs occasional cues for hand placement and positioning. She has difficulty bearing much weight on her left leg. Gait Does the Patient Walk?: Yes Mode of Locomotion: Walk Anticipated Mode of Locomotion: Walk Walk 10 feet (QC): 4 Walk 50 ft with 2 Turns(QC): 88 Walk 150 ft (QC): 88 Walking 10ft/uneven surface-QC: 88 Distance: 15' Gait Assistive Device: FWW Comments/Gait Description Patient can ambulate 15' with a rolling walker with CGA, she cannot ambulate over an uneven surface at this time. Patient cannot elevate her left leg, she slides it across the floor and has trouble bearing much weight on it. She has a step-to gait pattern with very small steps. Wheelchair Training Does the Pt Use a Wheelchair?: Yes Distance: 100' Wheel 50 ft with 2 turns (QC): 3 Wheel 150 ft (QC): 88 Type of Wheelchair: Manual Patient can propel a manual WC 100' with min assist. She has difficulty coordinating turning. Stairs 1 Step (curb) (QC): 88 4 Steps (QC): 88 12 Steps (QC): 88 Balance Sitting Static: Normal Sitting Dynamic: Normal Standing Static: Fair Standing Dynamic: Poor Picking up an Object (QC): 4 (CGA using a environmental scientists) Treatment Patient also performed dressing and standing peg placing activity working on leg strength and endurance. PT performed bed mobility and transfers, ambulation, standing activity, OT performed dressing, peg activity, UE positioning and safety during activity. Assessment/Needs Patient in bed post tx with nurse call, phone, tray, all needs met. Patient has impaired mobility, strength, endurance. Needs min assist for sit to stand, has difficulty bearing weight on left leg. Rehab Potential: Fair PT Assisted Goals Assisted Goals PT Assisted Goals Time Frame: Jun 10, 2022 Roll Left to Right (QC): 6 Sit to Lying (QC): 6 Lying-Sitting on Side/Bed(QC): 6 Sit to Stand (QC): 4 (SBA) Chair/Cny-lb-Fxfgn Xfer(QC): 4 (SBA) Toilet/Commode Transfer (QC): 4 (SBA) Car Transfer (QC): 4 (SBA) Does the Patient Walk: Yes Walk 10 feet (QC): 4 (SBA) Walk 10ft-Uneven Surface(QC): 4 (SBA) Walk 50ft with 2 Turns (QC): 4 (SBA) Walk 150 ft (QC): 4 (SBA) Wheel 50 feet with 2 turns (QC: 9 Wheel 150 feet: 9 1 Step (curb) (QC): 4 (CGA) 4 Steps (QC): 4 (CGA) 12 Steps (QC): 88 Picking up an Object (QC): 4 (SBA) PT Plan Problem List Problem List: Activity Tolerance, Functional Strength, Safety, Balance, Gait, Transfer, Bed Mobility, ROM Treatment/Plan Treatment Plan: Continue Plan of Care Treatment Plan: Bed Mobility, Education, Functional Activity [place], Functional Strength, Group Therapy, Gait, Safety, Therapeutic Exercise, Transfers Treatment Duration: Jun 10, 2022 Frequency: At least 5 of 7 days/Wk (IRF) Estimated Hrs Per Day: 1.5 hours per day Patient and/or Family Agrees t: Yes Safety Risks/Education Patient Education: Gait Training, Transfer Techniques, Reviewed Precautions, Correct Positioning, W/C Management, Safety Issues Teaching Recipient: Patient Teaching Methods: Demonstration, Discussion Response to Teaching: Reinforcement Needed Discharge Recommendations Plan Patient will perform bed mobility and transfer training, balance and endurance training, functional strengthening, stair training, gait training, and education, to improve functional mobility and independence at home. Therapy Discharge Recommendati: Home & Family, Post Acute PT Time Time In: 1245 Time Out: 1415 DATE: May 27, 2022 Total Billed Treatment Time: 80 Total Billed Treatment 1 visit EVM 10' FA 70' (only charge for 4 units) PT eval from [id number], OT eval from [id number], co-treat from [id number] FRANCO WHALEY PT May 27, 2022 14:28
--- NOTE | 2022-05-27 14:54 | ST Cognitive Linguistic Eval ---
Speech Evaluation-General Medical Diagnosis s/p L MENDEZ Onset Date: May 24, 2022 Therapy Diagnosis Therapy Diagnosis: Baseline Cognitive Lingusitic Skills Precautions Precautions: Fall, Pressure Ulcer Precautions/Isolations: Fall Prevention, Standard Precautions, Pressure Ulcer Referral Referring Physician: Dr. Crum Reason for Referral: Evaluation/Treatment Medical History Pertinent Medical History: CAD, Renal Insufficiency Reviewed History: Yes Speech PLF-Current Status Prior Level of Function The patient denied changes or concerns to her speech, language, or cognition. The patient reported a globus sensation in her mid-chest region following the swallow intermittently with solid consistencies. The patient underwent a modified barium swallow with this clinician in June 2021. The report was reviewed which did not display aspiration with any consistency tested, however, did recommend safe swallowing precautions for the patient. The precautions were reviewed throughout the assessment on this date. Additionally, the patient's RN was notified of the patient's globus sensation. If the globus sensation continues, a referral to GI would be appropriate. Subjective The patient was seated upright in her bed, awake and alert, upon entrance to her room by the clinician. The patient greeted the clinician appropriately and was agreeable to participation in the cognitive linguistic assessment. Language Eval: Auditory Comprehends Simple Yes/No Ques: Functional Indent/Objects Multiple Colindres: Functional Follows 1-Step Commands: Functional Follows General Conversations: Functional Language Eval: Verbal Language Completes Spontaneous Greeting: Functional Produces Auto, Serial Info: Functional Imitates Simple Words/Phrases: Functional Word Finding: Functional Requests Basic Needs: Functional States Basic Personal Info: Functional Expresses Complex Ideas: Functional Cognitive Patient Orientation The patient was independently oriented to self, location, month, day of the week, date and year. Objective Cognitive Domain Attention: WNL Memory: WNL Problem Solving: Functional Objective Oral Motor/Speech Production The patient does not display dysarthria or apraxia of speech. The patient was 100% intelligible in known and unknown contexts. Impression The patient demonstrated intact and baseline cognitive linguistic skills. Speech-Plan Treatment Plan Speech Therapy Treatment Plan: Discontinue ST Treatment Duration: May 27, 2022 Frequency: 1 time per week Estimated Hrs Per Day: .25 hour per day Rehab Potential: Good Pt/Family Agrees to Plan: Yes Safety Risks/Education Teaching Recipient: Patient Teaching Methods: Discussion Response to Teaching: Verbalize Understanding Education Topics Provided: Results, Recommendations, Plan of Care, Safe Swallowing Precautions Time Speech Therapy Time In: 14:25 Speech Therapy Time Out: 14:45 DATE: May 27, 2022 Total Billed Time: 20 Billed Treatment Time 1, NEENA GRIMM [facility] ST May 27, 2022 14:54
[2022-05-27] MEDS: ACETAMINOPHEN 500 MG TAB (TYLENOL) PO SCH ×2 (15:51→21:51)
[2022-05-27 16:00] VITALS: BP 99/46
[2022-05-27] MEDS: ASPIRIN 81 MG CHEW (CHILDREN'S ASA) PO SCH (17:15)
[2022-05-27 20:12] VITALS: BP 112/56
[2022-05-27] MEDS ORDERED: NON-FORMULARY MEDICATION 1 EA EA (Duloxetine HCl 60 MG) PO SCH (21:00)
[2022-05-27] MEDS ORDERED: DOCUSATE SODIUM 100 MG (COLACE) CAP PO SCH (21:00)
[2022-05-27] MEDS ORDERED: NON-FORMULARY MEDICATION 1 EA EA (Cyclobenzaprine HCl 5 MG) PO SCH (21:00)
[2022-05-27] MEDS: polyethylene glycoL POWDER 17 GM (MIRALAX) PACK PO SCH (21:48)
[2022-05-27] MEDS: GABAPENTIN 300 MG (NEURONTIN) CAP PO SCH (21:50)
[2022-05-27] MEDS: rOPINIRole 1 MG (REQUIP) TABLET PO SCH (21:50)
[2022-05-27] MEDS: LOSARTAN 100 MG (COZAAR) TABLET PO SCH (21:51)
[2022-05-27] MEDS: DULoxetine 30 MG (CYMBALTA) CAP PO SCH (21:51)
[2022-05-27] MEDS: MIRTAZAPINE 15 MG (REMERON) TAB PO SCH (21:51)
[2022-05-27] MEDS: DOCUSATE SODIUM 100 MG (COLACE) CAP PO SCH (21:52)
[2022-05-27] MEDS: CYCLOBENZAPRINE 10 MG (FLEXERIL) TAB PO SCH (21:52)
[2022-05-27] MEDS: VALACYCLOVIR 500 MG TAB (VALTREX) PO SCH (22:01)
[2022-05-27] MEDS: SENNA W/DOCUSATE (SENOKOT S) TABLET PO SCH (22:01)
[2022-05-28] MEDS: ACETAMINOPHEN 500 MG TAB (TYLENOL) PO SCH ×3 (05:43→21:24)
[2022-05-28] MEDS: LEVOTHYROXINE 50 MCG (LEVOTHROID) TAB PO SCH (05:43)
[2022-05-28] MEDS: ASCORBIC ACID (VIT C) 500 MG TABLET PO SCH (05:44)
[2022-05-28 07:18] VITALS: BP 112/56
[2022-05-28 08:33] LABS: BASOPHILS % (AUTO) 0 % (0-10); EOSINOPHILS # (AUTO) 0.5 10^3/uL (0.0-0.3); EOSINOPHILS % (AUTO) 9 % (0-10); HEMATOCRIT 27 % (35-52); HEMOGLOBIN 9.3 g/dL (11.5-16.0); LYMPHOCYTES # (AUTO) 0.4 10^3/uL (1.0-4.0); LYMPHOCYTES % (AUTO) 7 % (12-44); MEAN CORPUSCULAR HEMOGLOBIN 33 pg (25-34); MEAN CORPUSCULAR HGB CONC 35 g/dL (32-36); MEAN CORPUSCULAR VOLUME 94 fL (80-99); MEAN PLATELET VOLUME 8.9 fL (9.0-12.2); MONOCYTES # (AUTO) 0.4 10^3/uL (0.0-1.0); MONOCYTES % (AUTO) 7 % (0-12); NEUTROPHILS # (AUTO) 4.4 10^3/uL (1.8-7.8); NEUTROPHILS % (AUTO) 77 % (42-75); PLATELET COUNT 197 10^3/uL (130-400); WHITE BLOOD COUNT 5.7 10^3/uL (4.3-11.0)
[2022-05-28 08:52] LABS: ALBUMIN 2.8 GM/DL (3.2-4.5); BILIRUBIN,TOTAL 0.6 MG/DL (0.1-1.0); CALCIUM 8.6 MG/DL (8.5-10.1); CREATININE SERUM 0.84 MG/DL (0.60-1.30); POTASSIUM 3.8 MMOL/L (3.6-5.0); TOTAL PROTEIN 5.5 GM/DL (6.4-8.2)
[2022-05-28] MEDS: OXYBUTYNIN (DITROPAN) 5 MG TAB PO SCH ×3 (08:52→21:24)
[2022-05-28] MEDS: PANTOPRAZOLE 40 MG (PROTONIX) TAB PO SCH (08:52)
[2022-05-28] MEDS: CYCLOBENZAPRINE 10 MG (FLEXERIL) TAB PO SCH ×2 (08:52→21:25)
[2022-05-28] MEDS: ASPIRIN 81 MG CHEW (CHILDREN'S ASA) PO SCH ×2 (08:52→18:01)
[2022-05-28] MEDS: MELOXICAM 7.5 MG (MOBIC) TABLET PO SCH (08:53)
--- NOTE | 2022-05-28 09:27 | Individualized Plan of Care ---
Individualized Plan of Care Rehab Nursing IPOC Order Admission Date May 27, 2022 at 13:27 Current Orders Orders Admission Order(Inpt,Obs,Sdc) (05/27/22 11:50) Vital Signs: Per Unit Policy ( (05/27/22 11:50) Husam Corbett (05/27/22 11:50) Sequential Compression Device (05/27/22 11:50) Director Executive Communications-Inpt Rehab Con (05/27/22 11:50) Rehab Nursing Orders-Ipoc (05/27/22 11:50) Physical Therapy Rehab Orders (05/27/22 11:50) Occupational Therapy Rehab Ord (05/27/22 11:50) Speech Therapy Rehab Orders (05/27/22 11:50) Cbc With Automated Diff (05/28/22 06:00) Comprehensive Metabolic Panel (05/28/22 06:00) Precautions (Aru) (05/27/22 11:50) Weekly Weight WEEK (05/27/22 11:50) Rehab-Intensity Of Therapy (05/27/22 11:50) Initiate Admission Nursing Pro .admission (05/27/22 11:50) Alprazolam Tablet (Xanax Tablet) (05/27/22 12:00) Calcium Carbonate Chew Tablet (Antacid C (05/27/22 12:00) Diphenhydramine Tablet (Benadryl Tablet) (05/27/22 12:00) Docusate Sodium Capsule (Colace Capsule) (05/27/22 21:00) Docusate Sodium Capsule (Colace Capsule) (05/27/22 12:00) Bisacodyl Suppository (Dulcolax Supposit (05/27/22 12:00) Lactulose Oral Solution (Enulose Oral So (05/27/22 12:00) Na Phos/Na Biphos Enema (Fleet Enema Sudhakar (05/27/22 12:00) Guaifenesin/Codeine Syrup (Robitussin Ac (05/27/22 12:00) Loperamide Tablet (Imodium Tablet) (05/27/22 12:00) Melatonin Tablet (Melatonin Tablet) (05/27/22 12:00) Polyethylene Glycol Powder Pkt (Miralax (05/27/22 21:00) Ondansetron Oral Dissolve Tab (Zofran (05/27/22 12:00) Senna S Tablet (Senokot S Tablet) (05/27/22 21:00) Acetaminophen Tablet/Caplet (Tylenol T (05/27/22 12:00) Initiate Admission Nursing Pro .admission (05/27/22 11:50) Admission Arrival Bed Request (05/27/22 13:27) General/Regular (05/27/22 Lunch) Acetaminophen Tablet (Tylenol Tablet) (05/27/22 14:00) Ascorbic Acid Tablet (Vitamin C Tablet) (05/28/22 07:00) Aspirin Chewable Tablet (Baby Aspirin Ch (05/27/22 18:00) Atorvastatin Tablet (Lipitor Tablet) (05/27/22 21:00) Docusate Sodium Capsule (Colace Capsule) (05/27/22 21:00) Gabapentin Capsule/Tablet (Neurontin Cap (05/27/22 21:00) Levothyroxine Tablet (Synthroid Tablet) (05/28/22 06:30) Oxycodone Immediate Rel Tablet (Oxyir Ta (05/27/22 14:00) Pantoprazole Tablet (Protonix Tablet) (05/28/22 09:00) Tramadol Tablet (Ultram Tablet) (05/27/22 14:00) Valacyclovir Tablet (Valtrex Tablet) (05/27/22 21:00) (Nf) Alendronate Sodium (05/27/22 14:00) (Nf) Cyclobenzaprine Hcl (05/27/22 21:00) (Nf) Duloxetine Hcl (05/27/22 21:00) Losartan Tablet (Cozaar Tablet) (05/27/22 21:00) Meloxicam Tablet (Mobic Tablet) (05/28/22 09:00) Mirtazapine Tablet (Remeron Tablet) (05/27/22 21:00) Oxybutynin Tablet (Ditropan Tablet) (05/28/22 09:00) Ropinirole Tablet (Requip Tablet) (05/27/22 21:00) Duloxetine Capsule (Cymbalta Capsule) (05/27/22 21:00) Cyclobenzaprine Tablet (Flexeril Tablet) (05/27/22 21:00) Hydrochlorothiazide Cap/Tablet (Hctz Cap (05/27/22 21:00) Patient Visit (05/27/22 ) Speech Sound Lang Comp (05/27/22 ) Treat. Speech/Lang/Voice (05/27/22 ) Patient Visit (05/27/22 ) Pt Eval Moderate Complexity (05/27/22 ) Functional Activities, Ea 15 (05/27/22 ) Manual Differential (05/28/22 08:23) Iron Test (Fe) (05/28/22 12:18) Vitamin B 12 (05/28/22 12:18) Code/Resuscitation (05/28/22 13:04) Patient Visit (05/28/22 ) Exercise Therap, Ea 15 Min (05/28/22 ) Gait Training, Ea 15 Min (05/28/22 ) Functional Activities, Ea 15 (05/28/22 ) Patient Visit (05/28/22 ) Functional Activities, Ea 15 (05/28/22 ) Gait Training, Ea 15 Min (05/28/22 ) Exercise Therap, Ea 15 Min (05/28/22 ) Massage, Ea 15 Min (05/28/22 ) Rehab Nursing Orders: Ongoing Assess. of Cognitive Status, Ongoing Assess. of Function Status, Bladder Management, Bladder Scan, Bladder Training, Bowel Management, Bowel Training, Disease Management & Educaiton, DVT Prophylaxis, Fall Prevention, Fluid/Electrolyte/Nutrition Mgmt, Infection Prevention, Medication Management & Education, Management of Risks & Complications, Management of Skin Intergrity, Nutrition Management, Pain Management, Patient/Family Support Intensity of Therapy to be met Patient to be seen: Min.3h per day/5 of 7d PT IPOC Problem List: Activity Tolerance, Functional Strength, Safety, Balance, Gait, Transfer, Bed Mobility, ROM Treatment Plan: Continue Plan of Care Bed Mobility, Education, Functional Activity [place], Functional Strength, Group Therapy, Gait, Safety, Therapeutic Exercise, Transfers Treatment Duration: Jun 10, 2022 Frequency: At least 5 of 7 days/Wk (IRF) Estimated Hrs Per Day: 1.5 hours per day OT IPOC Problems: Decreased Activ Tolerance, Decreased UE Strength, Impaired Self-Care Skills OT Treatment, Training and Edu: Yes Plan of Care: ADL Retraining, Functional Mobility, Group Exercise/Act as Ind, UE Funct Exercise/Act Treatment Duration: Jun 25, 2022 Frequency: At least 5 of 7 days/Wk (IRF) Estimated Hrs Per Day: 1.[address] IPOC Speech Therapy Treatment Plan: Discontinue ST Treatment Duration: May 27, 2022 Frequency: 1 time per week Estimated Hrs Per Day: .25 hour per day Director Executive Communications/Case Mgmt Director Executive Communications/Case Managemen: Discharge Planning Dietitian/Newspaper Carrier Dietitian/Newspaper Carrier to monitor nutritional status and make changes and/or recommendations as needed and work with speech pathology on dietary upgrades as the occur. Physician IPOC Medical Issues being managed closely and that require the 24 hour availability of a physician: Recent hip replacement with post op anemia and frail status will require close monitoring to identify any signs of decompensation Medical Issues: Bowel/Bladder Function, DVT Prophylaxis, Falls Precautions, Fluid/Electrolyte/Nutrition Balance, Infection Protection, Pain Management Brief Synthesis of Preadmission Screen, Post-Admission Evaluation, and Therapy Evaluations: PT OT will focus on regaining function with use of AD in order to improve independence in ADL's and ambulation and to increase stamina in order to return to independence Medical Prognosis: 10 days Anticipated Length of Stay: LORRAINE Wagoner DO May 28, 2022 09:27
--- NOTE | 2022-05-28 09:27 | PM&R Progress Note ---
Subjective HPI/CC On Admission Date Seen by Provider: May 28, 2022 Time Seen by Provider: 11:30 Subjective/Events-last exam 05/28/2022: Patient doing well Family at bedside Pain controlled on pain meds Labs reviewed and updated Iron and B12 will be added No falls BM regimen added Review of Systems General: Fatigue, Malaise Musculoskeletal: leg pain Objective Exam Vital Signs Vital Signs Date Time Temp Pulse Resp B/P (MAP) Pulse Ox O2 Delivery O2 Flow Rate FiO2 05/28/22 20:20 Nasal Cannula 2.00 05/28/22 19:50 35.4 70 16 135/62 (86) 100 Capillary Refill : General Appearance: No Apparent Distress, WD/WN, Chronically ill, Thin, Other (frail) HEENT: PERRL/EOMI, Normal ENT Inspection, Pharynx Normal Neck: Full Range of Motion, Normal Inspection, Non Tender, Supple, Carotid Bruit Respiratory: Chest Non Tender, Lungs Clear, Normal Breath Sounds, No Accessory Muscle Use, No Respiratory Distress Cardiovascular: Regular Rate, Rhythm, No Edema, No Gallop, No JVD, No Murmur, Normal Peripheral Pulses Gastrointestinal: Normal Bowel Sounds, No Organomegaly, No Pulsatile Mass, Non Tender, Soft Back: Normal Inspection, No CVA Tenderness, No Vertebral Tenderness Extremity: Normal Capillary Refill, Normal Inspection, Normal Range of Motion (except left leg), Non Tender, No Calf Tenderness, No Pedal Edema Neurologic/Psychiatric: Alert, Oriented x3, Normal Mood/Affect, package center supervisor II-XII Norm as Tested, Abnormal Gait, Motor Weakness (generalized) Skin: Normal Color, Warm/Dry Lymphatic: No Adenopathy Results/Procedures Lab Laboratory Tests 05/28/22 08:23 Patient resulted labs reviewed. FIM Transfers Therapy Code Descriptions/Definitions Functional [place] Measure: 0=Not Assessed/NA 4=Minimal Assistance 1=Total Assistance 5=Supervision or Setup 2=Maximal Assistance 6=Modified [place] 3=Moderate Assistance 7=Complete IndependenceSCALE: Activities may be completed with or without assistive devices. 5-Kofnegodqg-pmqkcwe completes the activity by him/herself with no assistance from a helper. 5-Set-up or Clean-up Assistance-helper sets up or cleans up; patient completes activity. [place] assists only prior to or following the activity. 4-Supervision or Touching Assistance-helper provides verbal cues and/or touching/steadying and/or contact guard assistance as patient completes activity. Assistance may be provided throughout the activity or intermittently. 3-Partial/Moderate Assistance-helper does LESS THAN HALF the effort. [place] lifts, holds or supports trunk or limbs, but provides less than half the effort. 2-Substantial/Maximal Assistance-helper does MORE THAN HALF the effort. [place] lifts or holds trunk or limbs and provides more than half the effort. 6-Yodfhcvic-vfiksc does ALL the effort. Patient does none of the effort to complete the activity. Or, the assistance of 2 or more helpers is required for the patient to complete the activity. If activity was not attempted, code reason: 7-Patient Refused. 9-Not Applicable-not attempted and the patient did not perform the activity before the current illness, exacerbation or injury. 10-Not Attempted due to Environmental Limitations-(lack of equipment, weather restraints, etc.). 88-Not Attempted due to Medical Conditions or Safety Concerns. Roll Left to Right (QC): 4 Sit to Lying (QC): 3 Sit to Stand (QC): 3 Chair/Okq-kr-Vwtxk Xfer(QC): 4 Car Transfer (QC): 3 Gait Training Does the Patient Walk?: Yes Walk 10 feet (QC): 4 Walk 50 ft with 2 Turns(QC): 88 Walk 150 ft (QC): 88 Walking 10ft/uneven surface-QC: 88 Gait Assistive Device: FWW Wheelchair Training Does the Pt Use a Wheelchair?: Yes Distance: 100' Wheel 50 ft with 2 turns (QC): 3 Wheel 150 ft (QC): 88 Type of Wheelchair: Manual Stair Training 1 Step (curb) (QC): 88 4 Steps (QC): 88 12 Steps (QC): 88 Balance Picking up an Object (QC): 4 (CGA using a skills trainer) ADL-Treatment Eating (QC): 6 Oral Hygiene (QC): 6 Shower/Bathe Self (QC): 3 (Min A ) Upper Body Dressing (QC): 5 Lower Body Dressing (QC): 3 (min A) On/Off Footwear (QC): 3 (Min A) Toileting Hygiene (QC): 4 (CGA) Assessment/Plan Assessment and Plan Assess & Plan/Chief Complaint Assessment: 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
[2022-05-28 09:32] LABS: EOSINOPHILS % (MANUAL) 9 %; LYMPHOCYTES % (MANUAL) 9 %; MONOCYTES % (MANUAL) 1 %; NEUTROPHILS % (MANUAL) 81 %; PLATELET CLUMPS SLIGHT; RBC MORPH NORMAL
[2022-05-28] MEDS: polyethylene glycoL POWDER 17 GM (MIRALAX) PACK PO SCH ×2 (10:25→21:23)
--- NOTE | 2022-05-28 11:29 | Physical Therapy Daily Note ---
PT Daily Note-Current Subjective Pt. agrees to Rx and c/o pain in left hip at 8/10 during gait and TRFs but feels she has made funct gains Pain Location: Left Location Body Site: Hip Pain Description: Ache Section J - Health Conditions 1. Rarely or not at all 2. Occasionally 3. Frequently 4. Almost constantly 8. Unable to answer Pain Effect on Sleep: 3 Pain Interference with Therapy: 3 Pain Interference w/Day-to-Day: 3 Mental Status Patient Orientation: Normal For Age Attachments: Oxygen (2L) Transfers SCALE: Activities may be completed with or without assistive devices. 2-Tatoprsmtj-ydwdosm completes the activity by him/herself with no assistance from a helper. 5-Set-up or Clean-up Assistance-helper sets up or cleans up; patient completes activity. [place] assists only prior to or following the activity. 4-Supervision or Touching Assistance-helper provides verbal cues and/or touching/steadying and/or contact guard assistance as patient completes activity. Assistance may be provided throughout the activity or intermittently. 3-Partial/Moderate Assistance-helper does LESS THAN HALF the effort. [place] lifts, holds or supports trunk or limbs, but provides less than half the effort. 2-Substantial/Maximal Assistance-helper does MORE THAN HALF the effort. [place] lifts or holds trunk or limbs and provides more than half the effort. 2-Psybdsiib-uvtkgi does ALL the effort. Patient does none of the effort to complete the activity. Or, the assistance of 2 or more helpers is required for the patient to complete the activity. If activity was not attempted, code reason: 7-Patient Refused. 9-Not Applicable-not attempted and the patient did not perform the activity before the current illness, exacerbation or injury. 10-Not Attempted due to Environmental Limitations-(lack of equipment, weather restraints, etc.). 88-Not Attempted due to Medical Conditions or Safety Concerns. Roll Left & Right (QC): 4 Sit to Lying (QC): 4 Lying to Sitting/Side of Bed(Q: 6 Sit to Stand (QC): 4 Chair/Bsp-mm-Fvbfh Xfer(QC): 4 needs instruction in safety and use of hands etc, also in approach to chair and efficiency of funct Weight Bearing Left Lower Extremity: Left Weight Bearing/Tolerated Gait Training Does the Patient Walk?: Yes Walk 10 feet (QC): 4 Walk 50 ft with 2 Turns(QC): 4 Gait Persons Needed: 1 Gait Assistive Device: FWW 50ft x 1, 20 ft x 3 FWW slow, pain with wt bearing, asst for O2 and CGA and instruction etc for pattern Wheelchair Training Does the Pt Use a Wheelchair?: Yes Wheel 50 ft with 2 turns (QC): 3 Type of Wheelchair: Manual Exercises Supine Ex: Ankle pumps, Quad Set, Glut sets, Heel Slides, Short Arc Quads, Straight leg raise, Hip abd/add Supine Reps: 15 Seated Therapy Exercises: Ankle pumps, Sit to stand, Long arc quads Seated Reps: 0 Treatments slow movemnt, emphasis on TRFs, safety, hip prec , gait pattern, and left hip ex, pain limits Rx , needs breaks Assessment Current Status: Good Progress gives full effort , needs encouragement and instruction for safety PT Care Home Goals Research Electrician Goals PT Research Electrician Goals Time Frame: Jun 10, 2022 Roll Left & Right (QC): 6 Sit to Lying (QC): 6 Lying-Sitting on Side/Bed(QC): 6 Sit to Stand (QC): 4 (SBA) Chair/Mhe-ue-Wrjhz Xfer(QC): 4 (SBA) Toilet Transfer (QC): 4 (SBA) Car Transfer (QC): 4 (SBA) Does the Patient Walk: Yes Walk 10 feet (QC): 4 (SBA) Walk 50ft with 2 Turns (QC): 4 (SBA) Walk 150 ft (QC): 4 (SBA) Walking 10ft on Uneven Surface: 4 (SBA) 1 Step (curb) (QC): 4 (CGA) 4 Steps (QC): 4 (CGA) 12 Steps (QC): 88 Picking up an Object (QC): 4 (SBA) Wheel 50 feet with 2 turns (QC: 9 Wheel 150 feet: 9 PT Plan Treatment/Plan Treatment Plan: Continue Plan of Care Treatment Plan: Bed Mobility, Education, Functional Activity [place], Functional Strength, Group Therapy, Gait, Safety, Therapeutic Exercise, Transfers Treatment Duration: Jun 10, 2022 Frequency: At least 5 of 7 days/Wk (IRF) Estimated Hrs Per Day: 1.5 hours per day Patient and/or Family Agrees t: Yes Safety Risks/Education Patient Education: Gait Training, Transfer Techniques, Reviewed Precautions, Correct Positioning, Disease Process, Safety Issues Teaching Recipient: Patient Teaching Methods: Demonstration, Discussion Response to Teaching: Verbalize Understanding, Return Demonstration, Reinforcement Needed Time Time In: 1030 Time Out: 1130 DATE: May 28, 2022 Total Billed Treatment Time: 60 Total Billed Treatment 1,gt17m,EX32m,FA11m ANNY MOORE PRICING STRATEGIST May 28, 2022 11:29
--- NOTE | 2022-05-28 11:55 | Occupational Ther Daily Note ---
OT Current Status-Daily Note Subjective Pt alert, lying in bed. Pt agrees to therapy. Pt c/o pain with L hip. Mental Status/Objective Patient Orientation: Person, Place, Time, Situation Attachments: IV, Oxygen (2L) ADL-Treatment Pt agrees to shower. Pt has own hip kit to complete lower body dressing and bathing. Pt ambulated to shower using FWW with CGA. Min A for stand to sit on shower bench. Pt completed 90% of shower sitting on shower bench then CGA in standing to cleanse buttocks and maisha area. Pt utilized LH sponge, grabbars and hand held shower. Independent with oral care. Set up for upper body dressing. Min A for lower body dressing, utilizing neck band maker. Due to fatigue and pain, assist to don/doff socks. After therapy, pt sitting in recliner with call light/phone in reach. All needs met in room. Safety measures in place. Therapy Code Descriptions/Definitions Functional [place] Measure: 0=Not Assessed/NA 4=Minimal Assistance 1=Total Assistance 5=Supervision or Setup 2=Maximal Assistance 6=Modified [place] 3=Moderate Assistance 7=Complete IndependenceSCALE: Activities may be completed with or without assistive devices. 0-Ktemtzgmux-wtwfigr completes the activity by him/herself with no assistance from a helper. 5-Set-up or Clean-up Assistance-helper sets up or cleans up; patient completes activity. [place] assists only prior to or following the activity. 4-Supervision or Touching Assistance-helper provides verbal cues and/or touching/steadying and/or contact guard assistance as patient completes activity. Assistance may be provided throughout the activity or intermittently. 3-Partial/Moderate Assistance-helper does LESS THAN HALF the effort. [place] lifts, holds or supports trunk or limbs, but provides less than half the effort. 2-Substantial/Maximal Assistance-helper does MORE THAN HALF the effort. [place] lifts or holds trunk or limbs and provides more than half the effort. 9-Ebwoxmate-klthac does ALL the effort. Patient does none of the effort to complete the activity. Or, the assistance of 2 or more helpers is required for the patient to complete the activity. If activity was not attempted, code reason: 7-Patient Refused. 9-Not Applicable-not attempted and the patient did not perform the activity before the current illness, exacerbation or injury. 10-Not Attempted due to Environmental Limitations-(lack of equipment, weather restraints, etc.). 88-Not Attempted due to Medical Conditions or Safety Concerns. Oral Hygiene (QC): 6 Shower/Bathe Self (QC): 4 Upper Body Dressing (QC): 5 Lower Body Dressing (QC): 3 On/Off Footwear: 2 OT Short Term Goals Short Term Goals Time Frame: Jun 04, 2022 Shower/bathe self: 5 Lower body dressin Putting on/taking off footwear: 5 OT Temperature Control Inspector Goals Temperature Control Inspector Goals Time Frame: Jun 25, 2022 Acute change in mental status: 0 Inattention: 0 Disorganized thinkin Altered level of consciousness: 0 Eating (QC): 6 Oral Hygiene (QC): 6 Toileting Hygiene (QC): 6 Shower/Bathe Self (QC): 6 Upper Body Dressing (QC): 6 Lower Body Dressing (QC): 6 On/Off Footwear (QC): 6 Additional Goals: 1-Demonstrate ADL Tasks, 2-Verbalize Understanding, 3- ImproveStrength/[place] 1=Demonstrate adherence to instructed precautions during ADL tasks. 2=Patient will verbalize/demonstrate understanding of assistive devices/modifications for ADL. 3=Patient will improve strength/tolerance for activity to enable patient to perform ADL's. OT Education/Plan Problem List/Assessment Assessment: Decreased Activ Tolerance, Impaired Self-Care Skills Discharge Recommendations Plan/Recommendations: Continue POC Treatment Plan/Plan of Care Patient would benefit from OT for education, treatment and training to promote independence in ADL's, mobility, safety and/or upper extremity function for ADL's. Plan of Care: ADL Retraining, Functional Mobility, Group Exercise/Act as Ind, UE Funct Exercise/Act Treatment Duration: Jun 25, 2022 Frequency: At least 5 of 7 days/Wk (IRF) Estimated Hrs Per Day: 1.5 hours per day Agreement: Yes Rehab Potential: Fair Time Start Time: 09:00 Stop Time: 10:00 DATE: May 28, 2022 Total Time Billed (hr/min): 60 Billed Treatment Time 1 visit-ADL 4 (60 min) TODD GONZALEZ May 28, 2022 11:54
--- NOTE | 2022-05-28 13:26 | Occupational Ther Daily Note ---
OT Current Status-Daily Note Subjective Pt alert, sitting in recliner. Family present in room. Pt agrees to therapy. No c/o pain. Mental Status/Objective Patient Orientation: Person, Place, Time, Situation Attachments: IV ADL-Treatment CGA for pt to manipulate clothing for toileting then completes hygiene in sitting. After session, pt sitting in recliner with call light/phone in reach. All needs Therapy Code Descriptions/Definitions Functional [place] Measure: 0=Not Assessed/NA 4=Minimal Assistance 1=Total Assistance 5=Supervision or Setup 2=Maximal Assistance 6=Modified [place] 3=Moderate Assistance 7=Complete IndependenceSCALE: Activities may be completed with or without assistive devices. 9-Ahgabvpklv-xsjokuh completes the activity by him/herself with no assistance from a helper. 5-Set-up or Clean-up Assistance-helper sets up or cleans up; patient completes activity. [place] assists only prior to or following the activity. 4-Supervision or Touching Assistance-helper provides verbal cues and/or touching/steadying and/or contact guard assistance as patient completes activity. Assistance may be provided throughout the activity or intermittently. 3-Partial/Moderate Assistance-helper does LESS THAN HALF the effort. [place] lifts, holds or supports trunk or limbs, but provides less than half the effort. 2-Substantial/Maximal Assistance-helper does MORE THAN HALF the effort. [place] lifts or holds trunk or limbs and provides more than half the effort. 8-Qffifjymx-maerrq does ALL the effort. Patient does none of the effort to complete the activity. Or, the assistance of 2 or more helpers is required for the patient to complete the activity. If activity was not attempted, code reason: 7-Patient Refused. 9-Not Applicable-not attempted and the patient did not perform the activity bef ore the current illness, exacerbation or injury. 10-Not Attempted due to Environmental Limitations-(lack of equipment, weather r estraints, etc.). 88-Not Attempted due to Medical Conditions or Safety Concerns. Toileting Hygiene (QC): 4 Toilet Transfer (QC): 3 OT Short Term Goals Short Term Goals Time Frame: Jun 04, 2022 Shower/bathe self: 5 Lower body dressin Putting on/taking off footwear: 5 OT Assisted Goals Assisted Goals Time Frame: Jun 25, 2022 Acute change in mental status: 0 Inattention: 0 Disorganized thinkin Altered level of consciousness: 0 Eating (QC): 6 Oral Hygiene (QC): 6 Toileting Hygiene (QC): 6 Shower/Bathe Self (QC): 6 Upper Body Dressing (QC): 6 Lower Body Dressing (QC): 6 On/Off Footwear (QC): 6 Additional Goals: 1-Demonstrate ADL Tasks, 2-Verbalize Understanding, 3-ImproveStrength/[place] 1=Demonstrate adherence to instructed precautions during ADL tasks. 2=Patient will verbalize/demonstrate understanding of assistive devices/modifications for ADL. 3=Patient will improve strength/tolerance for activity to enable patient to per form ADL's. OT Education/Plan Problem List/Assessment Assessment: Decreased Activ Tolerance, Impaired Self-Care Skills Discharge Recommendations Plan/Recommendations: Continue POC Treatment Plan/Plan of Care Patient would benefit from OT for education, treatment and training to promote independence in ADL's, mobility, safety and/or upper extremity function for ADL's. Plan of Care: ADL Retraining, Functional Mobility, Group Exercise/Act as Ind, UE Funct Exercise/Act Treatment Duration: Jun 25, 2022 Frequency: At least 5 of 7 days/Wk (IRF) Estimated Hrs Per Day: 1.5 hours per day Agreement: Yes Rehab Potential: Fair Time Start Time: 13:00 Stop Time: 13:30 DATE: May 28, 2022 Total Time Billed (hr/min): 30 Billed Treatment Time 1 visit-EX 1 (15 min) ADL 1 (15 min) TODD GONZALEZ May 28, 2022 13:26
--- NOTE | 2022-05-28 14:01 | Physical Therapy Daily Note ---
PT Daily Note-Current Subjective Pt and family present. Pt. agrees to Rx then asks to lay down for nap Pain Location: No Pain Reported Section J - Health Conditions 1. Rarely or not at all 2. Occasionally 3. Frequently 4. Almost constantly 8. Unable to answer Pain Effect on Sleep: 1 Pain Interference with Therapy: 2 Pain Interference w/Day-to-Day: 2 Mental Status Patient Orientation: Normal For Age Transfers SCALE: Activities may be completed with or without assistive devices. 0-Mgtwuqkvdf-arwxtjf completes the activity by him/herself with no assistance from a helper. 5-Set-up or Clean-up Assistance-helper sets up or cleans up; patient completes activity. [place] assists only prior to or following the activity. 4-Supervision or Touching Assistance-helper provides verbal cues and/or touching/steadying and/or contact guard assistance as patient completes activity. Assistance may be provided throughout the activity or intermittently. 3-Partial/Moderate Assistance-helper does LESS THAN HALF the effort. [place] lifts, holds or supports trunk or limbs, but provides less than half the effort. 2-Substantial/Maximal Assistance-helper does MORE THAN HALF the effort. [place] lifts or holds trunk or limbs and provides more than half the effort. 0-Gcymphize-zcegpn does ALL the effort. Patient does none of the effort to complete the activity. Or, the assistance of 2 or more helpers is required for the patient to complete the activity. If activity was not attempted, code reason: 7-Patient Refused. 9-Not Applicable-not attempted and the patient did not perform the activity before the current illness, exacerbation or injury. 10-Not Attempted due to Environmental Limitations-(lack of equipment, weather restraints, etc.). 88-Not Attempted due to Medical Conditions or Safety Concerns. Sit to Lying (QC): 3 sit to stand SBA to CGA, sit to sup mod asst RLE Weight Bearing Left Lower Extremity: Left Weight Bearing/Tolerated Gait Training Does the Patient Walk?: Yes Walk 50 ft with 2 Turns(QC): 4 Gait Persons Needed: 1 Gait Assistive Device: FWW gait 70 ft x 2 FWW improved pattern and less pain this aftn, step to gait pattern Exercises Seated Therapy Exercises: Ankle pumps, Sit to stand, Long arc quads, Hip abd/add Seated Reps: 15 Treatments TRFs, gait, LE seated ex, in bed aft Rx , call orta at hand, abd pillow insitu Assessment Current Status: Good Progress progress noted PT Fpc Goals Fpc Goals PT Parachute Manufacturing Supervisor Goals Time Frame: Jun 10, 2022 Roll Left & Right (QC): 6 Sit to Lying (QC): 6 Lying-Sitting on Side/Bed(QC): 6 Sit to Stand (QC): 4 (SBA) Chair/Dtm-ew-Ajbmo Xfer(QC): 4 (SBA) Toilet Transfer (QC): 4 (SBA) Car Transfer (QC): 4 (SBA) Does the Patient Walk: Yes Walk 10 feet (QC): 4 (SBA) Walk 50ft with 2 Turns (QC): 4 (SBA) Walk 150 ft (QC): 4 (SBA) Walking 10ft on Uneven Surface: 4 (SBA) 1 Step (curb) (QC): 4 (CGA) 4 Steps (QC): 4 (CGA) 12 Steps (QC): 88 Picking up an Object (QC): 4 (SBA) Wheel 50 feet with 2 turns (QC: 9 Wheel 150 feet: 9 PT Plan Treatment/Plan Treatment Plan: Continue Plan of Care Treatment Plan: Bed Mobility, Education, Functional Activity [place], Functional Strength, Group Therapy, Gait, Safety, Therapeutic Exercise, Transfers Treatment Duration: Jun 10, 2022 Frequency: At least 5 of 7 days/Wk (IRF) Estimated Hrs Per Day: 1.5 hours per day Patient and/or Family Agrees t: Yes Safety Risks/Education Patient Education: Gait Training, Transfer Techniques, Reviewed Precautions, Correct Positioning, Safety Issues Response to Teaching: Reinforcement Needed Time Time In: 1330 Time Out: 1400 DATE: May 28, 2022 Total Billed Treatment Time: 30 Total Billed Treatment 1,GT13,EX17 ANNY MOORE FLEET MAINTENANCE FOREMAN May 28, 2022 14:01
[2022-05-28] MEDS: SENNA W/DOCUSATE (SENOKOT S) TABLET PO SCH ×2 (14:33→21:24)
[2022-05-28 19:50] VITALS: BP 135/62
[2022-05-28] MEDS: rOPINIRole 1 MG (REQUIP) TABLET PO SCH (21:24)
[2022-05-28] MEDS: DULoxetine 30 MG (CYMBALTA) CAP PO SCH (21:24)
[2022-05-28] MEDS: LOSARTAN 100 MG (COZAAR) TABLET PO SCH (21:25)
[2022-05-28] MEDS: GABAPENTIN 300 MG (NEURONTIN) CAP PO SCH (21:25)
[2022-05-28] MEDS: DOCUSATE SODIUM 100 MG (COLACE) CAP PO SCH (21:25)
[2022-05-28] MEDS: MIRTAZAPINE 15 MG (REMERON) TAB PO SCH (21:25)
[2022-05-28] MEDS: VALACYCLOVIR 500 MG TAB (VALTREX) PO SCH (21:25)
[2022-05-29] MEDS: ASCORBIC ACID (VIT C) 500 MG TABLET PO SCH (06:33)
[2022-05-29] MEDS: LEVOTHYROXINE 50 MCG (LEVOTHROID) TAB PO SCH (06:33)
[2022-05-29] MEDS: ACETAMINOPHEN 500 MG TAB (TYLENOL) PO SCH ×3 (06:34→22:26)
[2022-05-29 07:17] VITALS: BP 149/67
[2022-05-29] MEDS: ASPIRIN 81 MG CHEW (CHILDREN'S ASA) PO SCH ×2 (08:32→17:46)
[2022-05-29] MEDS: OXYBUTYNIN (DITROPAN) 5 MG TAB PO SCH (08:32)
[2022-05-29] MEDS: CYCLOBENZAPRINE 10 MG (FLEXERIL) TAB PO SCH ×2 (08:32→20:13)
[2022-05-29] MEDS: PANTOPRAZOLE 40 MG (PROTONIX) TAB PO SCH (08:33)
[2022-05-29] MEDS: MELOXICAM 7.5 MG (MOBIC) TABLET PO SCH (08:33)
[2022-05-29] MEDS: SENNA W/DOCUSATE (SENOKOT S) TABLET PO SCH ×2 (08:33→20:14)
[2022-05-29] MEDS: polyethylene glycoL POWDER 17 GM (MIRALAX) PACK PO SCH ×2 (08:33→20:12)
[2022-05-29] MEDS: LACTULOSE SYRUP 10GM/15ML (ENULOSE) 30ML UDC PO PRN ×2 (08:37→18:15)
--- NOTE | 2022-05-29 09:35 | PM&R Progress Note ---
Subjective HPI/CC On Admission Date Seen by Provider: May 29, 2022 Time Seen by Provider: 12:00 Subjective/Events-last exam 05/29/2022: Much improved status Pain controlled No BM since 05/23/22 will add more laxatives and suppository too 05/28/2022: Patient doing well Family at bedside Pain controlled on pain meds Labs reviewed and updated Iron and B12 will be added No falls BM regimen added Review of Systems General: Fatigue, Malaise Objective Exam Vital Signs Vital Signs Date Time Temp Pulse Resp B/P (MAP) Pulse Ox O2 Delivery O2 Flow Rate FiO2 05/29/22 10:38 97 Room Air 05/29/22 07:17 36.9 75 18 149/67 (94) 2.00 Capillary Refill : General Appearance: No Apparent Distress, WD/WN, Chronically ill, Thin, Other (frail) HEENT: PERRL/EOMI, Normal ENT Inspection, Pharynx Normal Neck: Full Range of Motion, Normal Inspection, Non Tender, Supple, Carotid Bruit Respiratory: Chest Non Tender, Lungs Clear, Normal Breath Sounds, No Accessory Muscle Use, No Respiratory Distress Cardiovascular: Regular Rate, Rhythm, No Edema, No Gallop, No JVD, No Murmur, Normal Peripheral Pulses Gastrointestinal: Normal Bowel Sounds, No Organomegaly, No Pulsatile Mass, Non Tender, Soft Back: Normal Inspection, No CVA Tenderness, No Vertebral Tenderness Extremity: Normal Capillary Refill, Normal Inspection, Normal Range of Motion (except left leg), Non Tender, No Calf Tenderness, No Pedal Edema Neurologic/Psychiatric: Alert, Oriented x3, Normal Mood/Affect, director of group sales II-XII Norm as Tested, Abnormal Gait, Motor Weakness (generalized) Skin: Normal Color, Warm/Dry Lymphatic: No Adenopathy Results/Procedures Lab Patient resulted labs reviewed. FIM Transfers Therapy Code Descriptions/Definitions Functional [place] Measure: 0=Not Assessed/NA 4=Minimal Assistance 1=Total Assistance 5=Supervision or Setup 2=Maximal Assistance 6=Modified [place] 3=Moderate Assistance 7=Complete IndependenceSCALE: Activities may be completed with or without assistive devices. 7-Tsoayfzifn-aprtlzh completes the activity by him/herself with no assistance from a helper. 5-Set-up or Clean-up Assistance-helper sets up or cleans up; patient completes activity. [place] assists only prior to or following the activity. 4-Supervision or Touching Assistance-helper provides verbal cues and/or touching/steadying and/or contact guard assistance as patient completes a ctivity. Assistance may be provided throughout the activity or intermittently. 3-Partial/Moderate Assistance-helper does LESS THAN HALF the effort. [place] lifts, holds or supports trunk or limbs, but provides less than half the effort. 2-Substantial/Maximal Assistance-helper does MORE THAN HALF the effort. [place] lifts or holds trunk or limbs and provides more than half the effort. 9-Iqtavikjn-lpbrbf does ALL the effort. Patient does none of the effort to complete the activity. Or, the assistance of 2 or more helpers is required for the patient to complete the activity. If activity was not attempted, code reason: 7-Patient Refused. 9-Not Applicable-not attempted and the patient did not perform the activity before the current illness, exacerbation or injury. 10-Not Attempted due to Environmental Limitations-(lack of equipment, weather restraints, etc.). 88-Not Attempted due to Medical Conditions or Safety Concerns. Roll Left to Right (QC): 4 Sit to Lying (QC): 3 Sit to Stand (QC): 4 Chair/Xel-hp-Bjpap Xfer(QC): 4 Car Transfer (QC): 3 Gait Training Does the Patient Walk?: Yes Walk 10 feet (QC): 4 Walk 50 ft with 2 Turns(QC): 4 Walk 150 ft (QC): 88 Walking 10ft/uneven surface-QC: 88 Gait Persons Needed: 1 Gait Assistive Device: FWW Wheelchair Training Does the Pt Use a Wheelchair?: Yes Distance: 100' Wheel 50 ft with 2 turns (QC): 3 Wheel 150 ft (QC): 88 Type of Wheelchair: Manual Stair Training 1 Step (curb) (QC): 88 4 Steps (QC): 88 12 Steps (QC): 88 Balance Picking up an Object (QC): 4 (CGA using a data management analyst) ADL-Treatment Eating (QC): 6 Oral Hygiene (QC): 6 Shower/Bathe Self (QC): 4 Upper Body Dressing (QC): 5 Lower Body Dressing (QC): 3 On/Off Footwear (QC): 2 Toileting Hygiene (QC): 4 Toilet Transfer (QC): 3 Assessment/Plan Assessment and Plan Assess & Plan/Chief Complaint Assessment: 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
[2022-05-29] MEDS: IRON SUCROSE 200 MG/10 ML (VENOFER) VIAL IV SCH (10:19)
--- NOTE | 2022-05-29 10:49 | Physical Therapy Daily Note ---
PT Daily Note-Current Subjective (L) hip pain reported with ROM. Pain Numeric Pain Scale: 4 Location: Left Location Body Site: Hip Pain Description: Ache, Dull Section J - Health Conditions 1. Rarely or not at all 2. Occasionally 3. Frequently 4. Almost constantly 8. Unable to answer Pain Effect on Sleep: 1 Pain Interference with Therapy: 2 Pain Interference w/Day-to-Day: 2 Mental Status Patient Orientation: Person, Place, Time, Situation Attachments: Oxygen Transfers SCALE: Activities may be completed with or without assistive devices. 5-Tpjqoyozfy-jdcoloc completes the activity by him/herself with no assistance from a helper. 5-Set-up or Clean-up Assistance-helper sets up or cleans up; patient completes activity. [place] assists only prior to or following the activity. 4-Supervision or Touching Assistance-helper provides verbal cues and/or touching/steadying and/or contact guard assistance as patient completes activity. Assistance may be provided throughout the activity or intermittently. 3-Partial/Moderate Assistance-helper does LESS THAN HALF the effort. [place] li fts, holds or supports trunk or limbs, but provides less than half the effort. 2-Substantial/Maximal Assistance-helper does MORE THAN HALF the effort. [place] lifts or holds trunk or limbs and provides more than half the effort. 6-Fxxctmkoj-zoflas does ALL the effort. Patient does none of the effort to complete the activity. Or, the assistance of 2 or more helpers is required for the patient to complete the activity. If activity was not attempted, code reason: 7-Patient Refused. 9-Not Applicable-not attempted and the patient did not perform the activity before the current illness, exacerbation or injury. 10-Not Attempted due to Environmental Limitations-(lack of equipment, weather restraints, etc.). 88-Not Attempted due to Medical Conditions or Safety Concerns. Roll Left & Right (QC): 6 Sit to Lying (QC): 6 Lying to Sitting/Side of Bed(Q: 6 Sit to Stand (QC): 6 Chair/Tlu-si-Qbsgy Xfer(QC): 6 Toilet Transfer (QC): 6 Placed the commode over the toilet to act as a riser. Pt was able to manage toileting (I). Weight Bearing Left Lower Extremity: Left Weight Bearing/Tolerated Gait Training Does the Patient Walk?: Yes Distance: 90ft Walk 10 feet (QC): 6 Walk 50 ft with 2 Turns(QC): 6 Gait Persons Needed: 1 Gait Assistive Device: FWW Wheelchair Training Does the Pt Use a Wheelchair?: No Exercises Supine Ex: LE Protocol Supine Reps: 20 Assessment Current Status: Good Progress Good tolerance to (L) LE ROM. 10% assist with (L) LE supine exercises. PT Alf Goals Alf Goals PT Alf Goals Time Frame: Jun 10, 2022 Roll Left & Right (QC): 6 Sit to Lying (QC): 6 Lying-Sitting on Side/Bed(QC): 6 Sit to Stand (QC): 4 (SBA) Chair/Rsy-ts-Slvge Xfer(QC): 4 (SBA) Toilet Transfer (QC): 4 (SBA) Car Transfer (QC): 4 (SBA) Does the Patient Walk: Yes Walk 10 feet (QC): 4 (SBA) Walk 50ft with 2 Turns (QC): 4 (SBA) Walk 150 ft (QC): 4 (SBA) Walking 10ft on Uneven Surface: 4 (SBA) 1 Step (curb) (QC): 4 (CGA) 4 Steps (QC): 4 (CGA) 12 Steps (QC): 88 Picking up an Object (QC): 4 (SBA) Wheel 50 feet with 2 turns (QC: 9 Wheel 150 feet: 9 PT Plan Treatment/Plan Treatment Plan: Continue Plan of Care Treatment Plan: Bed Mobility, Education, Functional Activity [place], Functional Strength, Group Therapy, Gait, Safety, Therapeutic Exercise, Transfers Treatment Duration: Jun 10, 2022 Frequency: At least 5 of 7 days/Wk (IRF) Estimated Hrs Per Day: 1.5 hours per day Patient and/or Family Agrees t: Yes Time Time In: 919 Time Out: 947 DATE: May 29, 2022 Total Billed Treatment Time: 28 Total Billed Treatment 1, ex 15, gt 13 MARGARITO MITCHELL PT May 29, 2022 10:49
[2022-05-29] MEDS: BISACODYL 10 MG SUPP (DULCOLAX) PR PRN (15:08)
[2022-05-29 20:00] VITALS: BP 132/72
[2022-05-29] MEDS: DOCUSATE SODIUM 100 MG (COLACE) CAP PO SCH (20:14)
[2022-05-29] MEDS: rOPINIRole 1 MG (REQUIP) TABLET PO SCH (20:14)
[2022-05-29] MEDS: GABAPENTIN 300 MG (NEURONTIN) CAP PO SCH (20:14)
[2022-05-29] MEDS: LOSARTAN 100 MG (COZAAR) TABLET PO SCH (20:15)
[2022-05-29] MEDS: MIRTAZAPINE 15 MG (REMERON) TAB PO SCH (20:15)
[2022-05-29] MEDS: VALACYCLOVIR 500 MG TAB (VALTREX) PO SCH (20:16)
[2022-05-29] MEDS: DULoxetine 30 MG (CYMBALTA) CAP PO SCH (20:16)
[2022-05-30] MEDS: ASCORBIC ACID (VIT C) 500 MG TABLET PO SCH (06:34)
[2022-05-30] MEDS: LEVOTHYROXINE 50 MCG (LEVOTHROID) TAB PO SCH (06:34)
[2022-05-30] MEDS: ACETAMINOPHEN 500 MG TAB (TYLENOL) PO SCH ×3 (06:36→22:52)
[2022-05-30 07:14] VITALS: BP 167/72
[2022-05-30] MEDS: polyethylene glycoL POWDER 17 GM (MIRALAX) PACK PO SCH ×2 (08:54→20:23)
[2022-05-30] MEDS: MELOXICAM 7.5 MG (MOBIC) TABLET PO SCH (08:56)
[2022-05-30] MEDS: PANTOPRAZOLE 40 MG (PROTONIX) TAB PO SCH (08:56)
[2022-05-30] MEDS: ASPIRIN 81 MG CHEW (CHILDREN'S ASA) PO SCH ×2 (08:56→17:02)
[2022-05-30] MEDS: CYCLOBENZAPRINE 10 MG (FLEXERIL) TAB PO SCH ×2 (08:56→20:24)
[2022-05-30] MEDS: LACTULOSE SYRUP 10GM/15ML (ENULOSE) 30ML UDC PO PRN (08:56)
[2022-05-30] MEDS: SENNA W/DOCUSATE (SENOKOT S) TABLET PO SCH ×2 (08:56→20:23)
--- NOTE | 2022-05-30 10:50 | PM&R Progress Note ---
Subjective HPI/CC On Admission Date Seen by Provider: May 30, 2022 Time Seen by Provider: 15:00 Subjective/Events-last exam 05/30/2022: Much improved Pain controlled and it is getting better Daughter at bedside Concerned about her BP and the wide fluctuations No BM yet last BM 05/23/22 05/29/2022: Much improved status Pain controlled No BM since 05/23/22 will add more laxatives and suppository too 05/28/2022: Patient doing well Family at bedside Pain controlled on pain meds Labs reviewed and updated Iron and B12 will be added No falls BM regimen added Review of Systems General: Fatigue, Malaise Gastrointestinal: Constipation Musculoskeletal: leg pain Objective Exam Vital Signs Vital Signs Date Time Temp Pulse Resp B/P (MAP) Pulse Ox O2 Delivery O2 Flow Rate FiO2 05/30/22 20:30 36.8 72 20 128/59 (82) 100 Nasal Cannula 1.00 Capillary Refill : General Appearance: No Apparent Distress, WD/WN, Chronically ill, Thin, Other (frail) HEENT: PERRL/EOMI, Normal ENT Inspection, Pharynx Normal Neck: Full Range of Motion, Normal Inspection, Non Tender, Supple, Carotid Bruit Respiratory: Chest Non Tender, Lungs Clear, Normal Breath Sounds, No Accessory Muscle Use, No Respiratory Distress Cardiovascular: Regular Rate, Rhythm, No Edema, No Gallop, No JVD, No Murmur, Normal Peripheral Pulses Gastrointestinal: Normal Bowel Sounds, No Organomegaly, No Pulsatile Mass, Non Tender, Soft Back: Normal Inspection, No CVA Tenderness, No Vertebral Tenderness Extremity: Normal Capillary Refill, Normal Inspection, Normal Range of Motion (except left leg), Non Tender, No Calf Tenderness, No Pedal Edema Neurologic/Psychiatric: Alert, Oriented x3, Normal Mood/Affect, snake charmer II-XII Norm as Tested, Abnormal Gait, Motor Weakness (generalized) Skin: Normal Color, Warm/Dry Lymphatic: No Adenopathy Results/Procedures Lab Patient resulted labs reviewed. FIM Transfers Therapy Code Descriptions/Definitions Functional [place] Measure: 0=Not Assessed/NA 4=Minimal Assistance 1=Total Assistance 5=Supervision or Setup 2=Maximal Assistance 6=Modified [place] 3=Moderate Assistance 7=Complete IndependenceSCALE: Activities may be completed with or without assistive devices. 5-Jhlkwvagto-uklyelo completes the activity by him/herself with no assistance from a helper. 5-Set-up or Clean-up Assistance-helper sets up or cleans up; patient completes activity. [place] assists only prior to or following the activity. 4-Supervision or Touching Assistance-helper provides verbal cues and/or touching/steadying and/or contact guard assistance as patient completes activity. Assistance may be provided throughout the activity or intermittently. 3-Partial/Moderate Assistance-helper does LESS THAN HALF the effort. [place] lifts, holds or supports trunk or limbs, but provides less than half the effort. 2-Substantial/Maximal Assistance-helper does MORE THAN HALF the effort. [place] lifts or holds trunk or limbs and provides more than half the effort. 3-Tghxygvgw-vweafz does ALL the effort. Patient does none of the effort to complete the activity. Or, the assistance of 2 or more helpers is required for the patient to complete the activity. If activity was not attempted, code reason: 7-Patient Refused. 9-Not Applicable-not attempted and the patient did not perform the activity before the current illness, exacerbation or injury. 10-Not Attempted due to Environmental Limitations-(lack of equipment, weather restraints, etc.). 88-Not Attempted due to Medical Conditions or Safety Concerns. Roll Left to Right (QC): 6 Sit to Lying (QC): 6 Sit to Stand (QC): 6 Chair/Hcr-ye-Qnmtc Xfer(QC): 6 Car Transfer (QC): 3 Gait Training Does the Patient Walk?: Yes Distance: 90ft Walk 10 feet (QC): 6 Walk 50 ft with 2 Turns(QC): 6 Walk 150 ft (QC): 88 Walking 10ft/uneven surface-QC: 88 Gait Persons Needed: 1 Gait Assistive Device: FWW Wheelchair Training Does the Pt Use a Wheelchair?: No Distance: 100' Wheel 50 ft with 2 turns (QC): 3 Wheel 150 ft (QC): 88 Type of Wheelchair: Manual Stair Training 1 Step (curb) (QC): 88 4 Steps (QC): 88 12 Steps (QC): 88 Balance Picking up an Object (QC): 4 (CGA using a clinical informatics strategist) ADL-Treatment Eating (QC): 6 Oral Hygiene (QC): 6 Shower/Bathe Self (QC): 4 Upper Body Dressing (QC): 5 Lower Body Dressing (QC): 3 On/Off Footwear (QC): 2 Toileting Hygiene (QC): 4 Toilet Transfer (QC): 3 Assessment/Plan Assessment and Plan Assess & Plan/Chief Complaint Assessment: 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 h/o of Right Hip Dislocation Hx Right Total Hip Arthroplasty Chronic debility Hx Right Total Knee Arthroplasty Hx Left Total Knee Arthroplasty Osteoporosis Hiatal Hernia HTN Hypothryoidism Chronic Anemia Hx of Low GFR Restless Leg Syndrome Gastroesophageal Reflux Disease Post op constipation severe TIA CAD Post op anemia acute on chronic but iron deficiency noted at 24 so ordered Venofer 05/29/22 Plan: Aggressive rehab Fall risk Pain control BM regimen 05/28/2022: Add iron and B12 Monitor BP 05/29/2022: BM regimen 05/30/2022: Monitor flucuations of BP (1) Status post left hip replacement LORRAINE CARNEY DO May 30, 2022 10:50
[2022-05-30] MEDS: LOSARTAN 100 MG (COZAAR) TABLET PO SCH (20:23)
[2022-05-30] MEDS: DULoxetine 30 MG (CYMBALTA) CAP PO SCH (20:24)
[2022-05-30] MEDS: GABAPENTIN 300 MG (NEURONTIN) CAP PO SCH (20:24)
[2022-05-30] MEDS: MIRTAZAPINE 15 MG (REMERON) TAB PO SCH (20:24)
[2022-05-30] MEDS: rOPINIRole 1 MG (REQUIP) TABLET PO SCH (20:24)
[2022-05-30] MEDS: VALACYCLOVIR 500 MG TAB (VALTREX) PO SCH (20:24)
[2022-05-30] MEDS: DOCUSATE SODIUM 100 MG (COLACE) CAP PO SCH (20:25)
[2022-05-30 20:30] VITALS: BP 128/59
[2022-05-31 05:42] LABS: BASOPHILS # (AUTO) 0.1 10^3/uL (0.0-0.1); BASOPHILS % (AUTO) 1 % (0-10); EOSINOPHILS # (AUTO) 0.9 10^3/uL (0.0-0.3); EOSINOPHILS % (AUTO) 15 % (0-10); HEMATOCRIT 29 % (35-52); HEMOGLOBIN 9.9 g/dL (11.5-16.0); LYMPHOCYTES # (AUTO) 0.8 10^3/uL (1.0-4.0); LYMPHOCYTES % (AUTO) 15 % (12-44); MEAN CORPUSCULAR HEMOGLOBIN 32 pg (25-34); MEAN CORPUSCULAR HGB CONC 34 g/dL (32-36); MEAN CORPUSCULAR VOLUME 94 fL (80-99); MEAN PLATELET VOLUME 8.8 fL (9.0-12.2); MONOCYTES # (AUTO) 0.6 10^3/uL (0.0-1.0); MONOCYTES % (AUTO) 11 % (0-12); NEUTROPHILS # (AUTO) 3.2 10^3/uL (1.8-7.8); NEUTROPHILS % (AUTO) 57 % (42-75); PLATELET COUNT 295 10^3/uL (130-400); WHITE BLOOD COUNT 5.6 10^3/uL (4.3-11.0)
[2022-05-31 06:04] LABS: ALBUMIN 2.8 GM/DL (3.2-4.5); BILIRUBIN,TOTAL 0.4 MG/DL (0.1-1.0); CALCIUM 8.9 MG/DL (8.5-10.1); CREATININE SERUM 0.87 MG/DL (0.60-1.30); POTASSIUM 4.1 MMOL/L (3.6-5.0); TOTAL PROTEIN 5.4 GM/DL (6.4-8.2)
[2022-05-31] MEDS: LEVOTHYROXINE 50 MCG (LEVOTHROID) TAB PO SCH (06:25)
[2022-05-31] MEDS: ASCORBIC ACID (VIT C) 500 MG TABLET PO SCH (06:25)
[2022-05-31] MEDS: ACETAMINOPHEN 500 MG TAB (TYLENOL) PO SCH ×3 (06:26→21:47)
--- NOTE | 2022-05-31 07:20 | PM&R Progress Note ---
Subjective HPI/CC On Admission Date Seen by Provider: May 31, 2022 Time Seen by Provider: 08:30 Subjective/Events-last exam 05/31/2022: Much improved status Pain less intense Labs stable Iron infusions tolerated 05/30/2022: Much improved Pain controlled and it is getting better Daughter at bedside Concerned about her BP and the wide fluctuations No BM yet last BM 05/23/22 05/29/2022: Much improved status Pain controlled No BM since 05/23/22 will add more laxatives and suppository too 05/28/2022: Patient doing well Family at bedside Pain controlled on pain meds Labs reviewed and updated Iron and B12 will be added No falls BM regimen added Review of Systems General: Fatigue, Malaise Gastrointestinal: Constipation Musculoskeletal: leg pain Objective Exam Vital Signs Vital Signs Date Time Temp Pulse Resp B/P (MAP) Pulse Ox O2 Delivery O2 Flow Rate FiO2 05/31/22 21:30 96 Nasal Cannula 1.00 05/31/22 21:24 35.5 80 16 117/62 (80) Capillary Refill : General Appearance: No Apparent Distress, WD/WN, Chronically ill, Thin, Other (frail) HEENT: PERRL/EOMI, Normal ENT Inspection, Pharynx Normal Neck: Full Range of Motion, Normal Inspection, Non Tender, Supple, Carotid Bruit Respiratory: Chest Non Tender, Lungs Clear, Normal Breath Sounds, No Accessory Muscle Use, No Respiratory Distress Cardiovascular: Regular Rate, Rhythm, No Edema, No Gallop, No JVD, No Murmur, Normal Peripheral Pulses Gastrointestinal: Normal Bowel Sounds, No Organomegaly, No Pulsatile Mass, Non Tender, Soft Back: Normal Inspection, No CVA Tenderness, No Vertebral Tenderness Extremity: Normal Capillary Refill, Normal Inspection, Normal Range of Motion (except left leg), Non Tender, No Calf Tenderness, No Pedal Edema Neurologic/Psychiatric: Alert, Oriented x3, Normal Mood/Affect, marine rigger II-XII Norm as Tested, Abnormal Gait, Motor Weakness (generalized) Skin: Normal Color, Warm/Dry Lymphatic: No Adenopathy Results/Procedures Lab Patient resulted labs reviewed. FIM Transfers Therapy Code Descriptions/Definitions Functional [place] Measure: 0=Not Assessed/NA 4=Minimal Assistance 1=Total Assistance 5=Supervision or Setup 2=Maximal Assistance 6=Modified [place] 3=Moderate Assistance 7=Complete IndependenceSCALE: Activities may be completed with or without assistive devices. 2-Cpxoeijbnr-jrjzayc completes the activity by him/herself with no assistance from a helper. 5-Set-up or Clean-up Assistance-helper sets up or cleans up; patient completes activity. [place] assists only prior to or following the activity. 4-Supervision or Touching Assistance-helper provides verbal cues and/or touching/steadying and/or contact guard assistance as patient completes activity. Assistance may be provided throughout the activity or intermittently. 3-Partial/Moderate Assistance-helper does LESS THAN HALF the effort. [place] lifts, holds or supports trunk or limbs, but provides less than half the effort. 2-Substantial/Maximal Assistance-helper does MORE THAN HALF the effort. [place] lifts or holds trunk or limbs and provides more than half the effort. 7-Mekzgumvv-lsrvuy does ALL the effort. Patient does none of the effort to complete the activity. Or, the assistance of 2 or more helpers is required for the patient to complete the activity. If activity was not attempted, code reason: 7-Patient Refused. 9-Not Applicable-not attempted and the patient did not perform the activity before the current illness, exacerbation or injury. 10-Not Attempted due to Environmental Limitations-(lack of equipment, weather restraints, etc.). 88-Not Attempted due to Medical Conditions or Safety Concerns. Roll Left to Right (QC): 6 Sit to Lying (QC): 6 Sit to Stand (QC): 6 Chair/Bcv-oc-Jwtwq Xfer(QC): 6 Car Transfer (QC): 3 Gait Training Does the Patient Walk?: Yes Distance: 90ft Walk 10 feet (QC): 6 Walk 50 ft with 2 Turns(QC): 6 Walk 150 ft (QC): 88 Walking 10ft/uneven surface-QC: 88 Gait Persons Needed: 1 Gait Assistive Device: FWW Wheelchair Training Does the Pt Use a Wheelchair?: No Distance: 100' Wheel 50 ft with 2 turns (QC): 3 Wheel 150 ft (QC): 88 Type of Wheelchair: Manual Stair Training 1 Step (curb) (QC): 88 4 Steps (QC): 88 12 Steps (QC): 88 Balance Picking up an Object (QC): 4 (CGA using a heavy duty truck mechanic) ADL-Treatment Eating (QC): 6 Oral Hygiene (QC): 6 Shower/Bathe Self (QC): 4 Upper Body Dressing (QC): 5 Lower Body Dressing (QC): 3 On/Off Footwear (QC): 2 Toileting Hygiene (QC): 4 Toilet Transfer (QC): 3 Assessment/Plan Assessment and Plan Assess & Plan/Chief Complaint Assessment: 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 h/o of Right Hip Dislocation Hx Right Total Hip Arthroplasty Chronic debility Hx Right Total Knee Arthroplasty Hx Left Total Knee Arthroplasty Osteoporosis Hiatal Hernia HTN Hypothryoidism Chronic Anemia Hx of Low GFR Restless Leg Syndrome Gastroesophageal Reflux Disease Post op constipation severe TIA CAD Post op anemia acute on chronic but iron deficiency noted at 24 so ordered Venofer 05/29/22 Plan: Aggressive rehab Fall risk Pain control BM regimen 05/28/2022: Add iron and B12 Monitor BP 05/29/2022: BM regimen 05/30/2022: Monitor flucuations of BP 05/31/2022: Supportive care (1) Status post left hip replacement LORRAINE CARNEY DO May 31, 2022 07:20
[2022-05-31 07:34] VITALS: BP 150/70
[2022-05-31] MEDS: SENNA W/DOCUSATE (SENOKOT S) TABLET PO SCH ×2 (07:56→21:53)
[2022-05-31] MEDS: PANTOPRAZOLE 40 MG (PROTONIX) TAB PO SCH (07:56)
[2022-05-31] MEDS: ASPIRIN 81 MG CHEW (CHILDREN'S ASA) PO SCH ×2 (07:56→17:28)
[2022-05-31] MEDS: CYCLOBENZAPRINE 10 MG (FLEXERIL) TAB PO SCH ×2 (07:56→21:48)
[2022-05-31] MEDS: MELOXICAM 7.5 MG (MOBIC) TABLET PO SCH (07:57)
[2022-05-31] MEDS: LACTULOSE SYRUP 10GM/15ML (ENULOSE) 30ML UDC PO PRN (07:57)
[2022-05-31] MEDS: polyethylene glycoL POWDER 17 GM (MIRALAX) PACK PO SCH ×2 (07:57→21:45)
[2022-05-31] MEDS: IRON SUCROSE 200 MG/10 ML (VENOFER) VIAL IV SCH (07:57)
--- NOTE | 2022-05-31 09:37 | Occupational Ther Daily Note ---
OT Current Status-Daily Note Subjective Pt alert, sitting in recliner. Pt agrees to therapy. Pt c/o fatigue, no pain. Mental Status/Objective Patient Orientation: Person, Place, Time, Situation Attachments: IV ADL-Treatment Pt declines shower. Agrees to sponge bath and changing clothing. Pt set up for sponge bathe, dressing and footwear. Pt ambulated to bathroom and stood at sink to complete oral care with supervision, is independent in sitting. Pt utilizes AE to don/doff lower body clothing and footwear. After session, pt sitting Therapy Code Descriptions/Definitions Functional [place] Measure: 0=Not Assessed/NA 4=Minimal Assistance 1=Total Assistance 5=Supervision or Setup 2=Maximal Assistance 6=Modified [place] 3=Moderate Assistance 7=Complete IndependenceSCALE: Activities may be completed with or without assistive devices. 3-Pbxewlmzvi-yezuggl completes the activity by him/herself with no assistance from a helper. 5-Set-up or Clean-up Assistance-helper sets up or cleans up; patient completes activity. [place] assists only prior to or following the activity. 4-Supervision or Touching Assistance-helper provides verbal cues and/or touching/steadying and/or contact guard assistance as patient completes activity. Assistance may be provided throughout the activity or intermittently. 3-Partial/Moderate Assistance-helper does LESS THAN HALF the effort. [place] lifts, holds or supports trunk or limbs, but provides less than half the effort. 2-Substantial/Maximal Assistance-helper does MORE THAN HALF the effort. [place] lifts or holds trunk or limbs and provides more than half the effort. 3-Yqcpbwxgk-jxuker does ALL the effort. Patient does none of the effort to complete the activity. Or, the assistance of 2 or more helpers is required for the patient to complete the activity. If activity was not attempted, code reason: 7-Patient Refused. 9-Not Applicable-not attempted and the patient did not perform the activity before the current illness, exacerbation or injury. 10-Not Attempted due to Environmental Limitations-(lack of equipment, weather restraints, etc.). 88-Not Attempted due to Medical Conditions or Safety Concerns. OT Short Term Goals Short Term Goals Time Frame: Jun 04, 2022 Shower/bathe self: 5 Lower body dressin Putting on/taking off footwear: 5 OT Respiratory Care Technician Goals Respiratory Care Technician Goals Time Frame: Jun 25, 2022 Acute change in mental status: 0 Inattention: 0 Disorganized thinkin Altered level of consciousness: 0 Eating (QC): 6 Oral Hygiene (QC): 6 Toileting Hygiene (QC): 6 Shower/Bathe Self (QC): 6 Upper Body Dressing (QC): 6 Lower Body Dressing (QC): 6 On/Off Footwear (QC): 6 Additional Goals: 1-Demonstrate ADL Tasks, 2-Verbalize Understanding, 3- ImproveStrength/[place] 1=Demonstrate adherence to instructed precautions during ADL tasks. 2=Patient will verbalize/demonstrate understanding of assistive devices/modifications for ADL. 3=Patient will improve strength/tolerance for activity to enable patient to perform ADL's. OT Education/Plan Problem List/Assessment Assessment: Decreased Activ Tolerance, Impaired Self-Care Skills Discharge Recommendations Plan/Recommendations: Continue POC Treatment Plan/Plan of Care Patient would benefit from OT for education, treatment and training to promote independence in ADL's, mobility, safety and/or upper extremity function for A DL's. Plan of Care: ADL Retraining, Functional Mobility, Group Exercise/Act as Ind, UE Funct Exercise/Act Treatment Duration: Jun 25, 2022 Frequency: At least 5 of 7 days/Wk (IRF) Estimated Hrs Per Day: 1.5 hours per day Agreement: Yes Rehab Potential: Fair Time Start Time: 09:00 Stop Time: 10:00 DATE: May 31, 2022 Total Time Billed (hr/min): 60 Billed Treatment Time 1 visit-ADL 4 (60 min) TODD GONZALEZ May 31, 2022 09:37
--- NOTE | 2022-05-31 12:28 | Physical Therapy Daily Note ---
PT Daily Note-Current Subjective Pt sitting in recliner upon arrival. Pt agrees to PT. Pain Numeric Pain Scale: 3 Location: Left Location Body Site: Hip Pain Description: Ache Section J - Health Conditions 1. Rarely or not at all 2. Occasionally 3. Frequently 4. Almost constantly 8. Unable to answer Pain Effect on Sleep: 1 Pain Interference with Therapy: 2 Pain Interference w/Day-to-Day: 2 Mental Status Patient Orientation: Person, Place, Time, Situation Transfers SCALE: Activities may be completed with or without assistive devices. 1-Icthimimhh-mjrfcgl completes the activity by him/herself with no assistance from a helper. 5-Set-up or Clean-up Assistance-helper sets up or cleans up; patient completes activity. [place] assists only prior to or following the activity. 4-Supervision or Touching Assistance-helper provides verbal cues and/or touchi ng/steadying and/or contact guard assistance as patient completes activity. Assistance may be provided throughout the activity or intermittently. 3-Partial/Moderate Assistance-helper does LESS THAN HALF the effort. [place] lifts, holds or supports trunk or limbs, but provides less than half the effort. 2-Substantial/Maximal Assistance-helper does MORE THAN HALF the effort. [place] lifts or holds trunk or limbs and provides more than half the effort. 6-Qcxweonfp-ytlcoy does ALL the effort. Patient does none of the effort to complete the activity. Or, the assistance of 2 or more helpers is required for the patient to complete the activity. If activity was not attempted, code reason: 7-Patient Refused. 9-Not Applicable-not attempted and the patient did not perform the activity before the current illness, exacerbation or injury. 10-Not Attempted due to Environmental Limitations-(lack of equipment, weather restraints, etc.). 88-Not Attempted due to Medical Conditions or Safety Concerns. Sit to Stand (QC): 5 Toilet Transfer (QC): 5 Weight Bearing Left Lower Extremity: Left Weight Bearing/Tolerated Gait Training Does the Patient Walk?: Yes Distance: 150' x2 Walk 10 feet (QC): 5 Walk 50 ft with 2 Turns(QC): 5 Walk 150 ft (QC): 5 Gait Assistive Device: FWW Wheelchair Training Does the Pt Use a Wheelchair?: No Exercises Standing: Hamstring curls, Marching, Weight shifts Standing Reps: 15 NuStep Minutes: 12 NuStep Workload: 3 Treatments TF to standing from recliner and used BR. Pt amb in hallway followed by using N uStep. Pt completed Standing EX at //bars before amb in hallway and returning to room. Pt's daughter had arrived so DENTAL ASSISTANT reviewed written HEP for Supine & Seated Ex w/pt & daughter. Pt resting in recliner at end of tx. All needs met, call light in hand. Assessment Current Status: Good Progress Pt reports decreased pain from previous tx as well improved amb. PT Care Home Goals Care Home Goals PT Obstetrics Gynecology Md Goals Time Frame: Jun 10, 2022 Roll Left & Right (QC): 6 Sit to Lying (QC): 6 Lying-Sitting on Side/Bed(QC): 6 Sit to Stand (QC): 4 (SBA) Chair/Hgp-iw-Ulubi Xfer(QC): 4 (SBA) Toilet Transfer (QC): 4 (SBA) Car Transfer (QC): 4 (SBA) Does the Patient Walk: Yes Walk 10 feet (QC): 4 (SBA) Walk 50ft with 2 Turns (QC): 4 (SBA) Walk 150 ft (QC): 4 (SBA) Walking 10ft on Uneven Surface: 4 (SBA) 1 Step (curb) (QC): 4 (CGA) 4 Steps (QC): 4 (CGA) 12 Steps (QC): 88 Picking up an Object (QC): 4 (SBA) Wheel 50 feet with 2 turns (QC: 9 Wheel 150 feet: 9 PT Plan Treatment/Plan Treatment Plan: Continue Plan of Care Treatment Plan: Bed Mobility, Education, Functional Activity [place], Functional Strength, Group Therapy, Gait, Safety, Therapeutic Exercise, Transfers Treatment Duration: Jun 10, 2022 Frequency: At least 5 of 7 days/Wk (IRF) Estimated Hrs Per Day: 1.5 hours per day Patient and/or Family Agrees t: Yes Safety Risks/Education Patient Education: Issued Written HEP Teaching Recipient: Patient, Family Teaching Methods: Demonstration, Discussion Response to Teaching: Verbalize Understanding, Return Demonstration Time Time In: 1000 Time Out: 1130 DATE: May 31, 2022 Total Billed Treatment Time: 90 Total Billed Treatment 1, EX x3 (45m), FA (20m) & GT x2 (25m) ZOE SANTACRUZ DENTAL ASSISTANT May 31, 2022 12:28
--- NOTE | 2022-05-31 12:41 | Occupational Ther Daily Note ---
OT Current Status-Daily Note Subjective Pt alert, sitting in recliner. Took over care from PT. Pt agrees to therapy. Mental Status/Objective Patient Orientation: Person, Place, Time, Situation Attachments: IV ADL-Treatment Therapy Code Descriptions/Definitions Functional [place] Measure: 0=Not Assessed/NA 4=Minimal Assistance 1=Total Assistance 5=Supervision or Setup 2=Maximal Assistance 6=Modified [place] 3=Moderate Assistance 7=Complete IndependenceSCALE: Activities may be completed with or without assistive devices. 4-Hdpwmtqjht-rsuwmor completes the activity by him/herself with no assistance from a helper. 5-Set-up or Clean-up Assistance-helper sets up or cleans up; patient completes activity. [place] assists only prior to or following the activity. 4-Supervision or Touching Assistance-helper provides verbal cues and/or touching/steadying and/or contact guard assistance as patient completes activity. Assistance may be provided throughout the activity or intermittently. 3-Partial/Moderate Assistance-helper does LESS THAN HALF the effort. [place] lifts, holds or supports trunk or limbs, but provides less than half the effort. 2-Substantial/Maximal Assistance-helper does MORE THAN HALF the effort. [place] lifts or holds trunk or limbs and provides more than half the effort. 6-Mufuoxqga-ucwlgz does ALL the effort. Patient does none of the effort to complete the activity. Or, the assistance of 2 or more helpers is required for the patient to complete the activity. If activity was not attempted, code reason: 7-Patient Refused. 9-Not Applicable-not attempted and the patient did not perform the activity before the current illness, exacerbation or injury. 10-Not Attempted due to Environmental Limitations-(lack of equipment, weather restraints, etc.). 88-Not Attempted due to Medical Conditions or Safety Concerns. Toileting Hygiene (QC): 6 (Using FWW, BSC and grabbars) Toilet Transfer (QC): 6 (Using FWW, BSC and grabbars) Other Treatment Pt ambulated around ARU using FWW independently. Pt asking about when she can begin to ambulate without AD. Will discuss with PT. After session, pt lying in bed with call light/phone in reach. All needs met in room. OT Short Term Goals Short Term Goals Time Frame: Jun 04, 2022 Shower/bathe self: 5 Lower body dressin Putting on/taking off footwear: 5 OT Chcf Goals Chcf Goals Time Frame: Jun 25, 2022 Acute change in mental status: 0 Inattention: 0 Disorganized thinkin Altered level of consciousness: 0 Eating (QC): 6 Oral Hygiene (QC): 6 Toileting Hygiene (QC): 6 Shower/Bathe Self (QC): 6 Upper Body Dressing (QC): 6 Lower Body Dressing (QC): 6 On/Off Footwear (QC): 6 Additional Goals: 1-Demonstrate ADL Tasks, 2-Verbalize Understanding, 3-Improve Strength/[place] 1=Demonstrate adherence to instructed precautions during ADL tasks. 2=Patient will verbalize/demonstrate understanding of assistive devices/modifications for ADL. 3=Patient will improve strength/tolerance for activity to enable patient to pe rform ADL's. OT Education/Plan Problem List/Assessment Assessment: Decreased Activ Tolerance Discharge Recommendations Plan/Recommendations: Continue POC Treatment Plan/Plan of Care Patient would benefit from OT for education, treatment and training to promote independence in ADL's, mobility, safety and/or upper extremity function for ADL's. Plan of Care: ADL Retraining, Functional Mobility, Group Exercise/Act as Ind, UE Funct Exercise/Act Treatment Duration: Jun 25, 2022 Frequency: At least 5 of 7 days/Wk (IRF) Estimated Hrs Per Day: 1.5 hours per day Agreement: Yes Rehab Potential: Fair Time Start Time: 11:30 Stop Time: 12:00 DATE: May 31, 2022 Total Time Billed (hr/min): 30 Billed Treatment Time 1 visit-ADL 1 (20 min) FA 1 (10 min) TODD GONZALEZ May 31, 2022 12:41
[2022-05-31] MEDS: BISACODYL 10 MG SUPP (DULCOLAX) PR PRN (18:19)
[2022-05-31 21:24] VITALS: BP 117/62
[2022-05-31] MEDS: DULoxetine 30 MG (CYMBALTA) CAP PO SCH (21:49)
[2022-05-31] MEDS: rOPINIRole 1 MG (REQUIP) TABLET PO SCH (21:49)
[2022-05-31] MEDS: DOCUSATE SODIUM 100 MG (COLACE) CAP PO SCH (21:50)
[2022-05-31] MEDS: GABAPENTIN 300 MG (NEURONTIN) CAP PO SCH (21:50)
[2022-05-31] MEDS: VALACYCLOVIR 500 MG TAB (VALTREX) PO SCH (21:51)
[2022-05-31] MEDS: LOSARTAN 100 MG (COZAAR) TABLET PO SCH (21:51)
[2022-05-31] MEDS: MIRTAZAPINE 15 MG (REMERON) TAB PO SCH (21:52)
[2022-06-01] MEDS: ASCORBIC ACID (VIT C) 500 MG TABLET PO SCH (05:57)
[2022-06-01] MEDS: ACETAMINOPHEN 500 MG TAB (TYLENOL) PO SCH ×3 (05:57→21:08)
[2022-06-01] MEDS: LEVOTHYROXINE 50 MCG (LEVOTHROID) TAB PO SCH (05:57)
--- NOTE | 2022-06-01 06:48 | PM&R Progress Note ---
Subjective HPI/CC On Admission Date Seen by Provider: Jun 01, 2022 Time Seen by Provider: 08:30 Subjective/Events-last exam 06/01/2022: Improved status No pain at this time and it is improved No falls Eating well BM finally 05/31/2022: Much improved status Pain less intense Labs stable Iron infusions tolerated 05/30/2022: Much improved Pain controlled and it is getting better Daughter at bedside Concerned about her BP and the wide fluctuations No BM yet last BM 05/23/22 05/29/2022: Much improved status Pain controlled No BM since 05/23/22 will add more laxatives and suppository too 05/28/2022: Patient doing well Family at bedside Pain controlled on pain meds Labs reviewed and updated Iron and B12 will be added No falls BM regimen added Review of Systems General: Fatigue, Malaise Musculoskeletal: leg pain Objective Exam Vital Signs Vital Signs Date Time Temp Pulse Resp B/P (MAP) Pulse Ox O2 Delivery O2 Flow Rate FiO2 06/01/22 21:00 96 Room Air 06/01/22 19:48 36.2 74 20 114/69 (84) 06/01/22 10:23 2.00 Capillary Refill : General Appearance: No Apparent Distress, WD/WN, Chronically ill, Thin, Other (frail) HEENT: PERRL/EOMI, Normal ENT Inspection, Pharynx Normal Neck: Full Range of Motion, Normal Inspection, Non Tender, Supple, Carotid Bruit Respiratory: Chest Non Tender, Lungs Clear, Normal Breath Sounds, No Accessory Muscle Use, No Respiratory Distress Cardiovascular: Regular Rate, Rhythm, No Edema, No Gallop, No JVD, No Murmur, Normal Peripheral Pulses Gastrointestinal: Normal Bowel Sounds, No Organomegaly, No Pulsatile Mass, Non Tender, Soft Back: Normal Inspection, No CVA Tenderness, No Vertebral Tenderness Extremity: Normal Capillary Refill, Normal Inspection, Normal Range of Motion (except left leg), Non Tender, No Calf Tenderness, No Pedal Edema Neurologic/Psychiatric: Alert, Oriented x3, Normal Mood/Affect, peanut cleaner II-XII Norm as Tested, Abnormal Gait, Motor Weakness (generalized) Skin: Normal Color, Warm/Dry Lymphatic: No Adenopathy Results/Procedures Lab Patient resulted labs reviewed. FIM Transfers Therapy Code Descriptions/Definitions Functional [place] Measure: 0=Not Assessed/NA 4=Minimal Assistance 1=Total Assistance 5=Supervision or Setup 2=Maximal Assistance 6=Modified [place] 3=Moderate Assistance 7=Complete IndependenceSCALE: Activities may be completed with or without assistive devices. 6-Jbalcmqmyb-wzcpxcu completes the activity by him/herself with no assistance from a helper. 5-Set-up or Clean-up Assistance-helper sets up or cleans up; patient completes activity. [place] assists only prior to or following the activity. 4-Supervision or Touching Assistance-helper provides verbal cues and/or touching/steadying and/or contact guard assistance as patient completes activity. Assistance may be provided throughout the activity or intermittently. 3-Partial/Moderate Assistance-helper does LESS THAN HALF the effort. [place] lifts, holds or supports trunk or limbs, but provides less than half the effort. 2-Substantial/Maximal Assistance-helper does MORE THAN HALF the effort. [place] lifts or holds trunk or limbs and provides more than half the effort. 8-Fckkjwbsw-gjzprn does ALL the effort. Patient does none of the effort to comp lete the activity. Or, the assistance of 2 or more helpers is required for the patient to complete the activity. If activity was not attempted, code reason: 7-Patient Refused. 9-Not Applicable-not attempted and the patient did not perform the activity before the current illness, exacerbation or injury. 10-Not Attempted due to Environmental Limitations-(lack of equipment, weather restraints, etc.). 88-Not Attempted due to Medical Conditions or Safety Concerns. Roll Left to Right (QC): 6 Sit to Lying (QC): 6 Sit to Stand (QC): 5 Chair/Gaa-na-Fbhpn Xfer(QC): 6 Car Transfer (QC): 3 Gait Training Does the Patient Walk?: Yes Distance: 150' x2 Walk 10 feet (QC): 5 Walk 50 ft with 2 Turns(QC): 5 Walk 150 ft (QC): 5 Walking 10ft/uneven surface-QC: 88 Gait Persons Needed: 1 Gait Assistive Device: FWW Wheelchair Training Does the Pt Use a Wheelchair?: No Distance: 100' Wheel 50 ft with 2 turns (QC): 3 Wheel 150 ft (QC): 88 Type of Wheelchair: Manual Stair Training 1 Step (curb) (QC): 88 4 Steps (QC): 88 12 Steps (QC): 88 Balance Picking up an Object (QC): 4 (CGA using a cemetery counselor) ADL-Treatment Eating (QC): 6 Oral Hygiene (QC): 6 Shower/Bathe Self (QC): 4 Upper Body Dressing (QC): 5 Lower Body Dressing (QC): 3 On/Off Footwear (QC): 2 Toileting Hygiene (QC): 6 (Using FWW, BSC and grabbars) Toilet Transfer (QC): 6 (Using FWW, BSC and grabbars) Assessment/Plan Assessment and Plan Assess & Plan/Chief Complaint Assessment: 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 h/o of Right Hip Dislocation Hx Right Total Hip Arthroplasty Chronic debility Hx Right Total Knee Arthroplasty Hx Left Total Knee Arthroplasty Osteoporosis Hiatal Hernia HTN Hypothryoidism Chronic Anemia Hx of Low GFR Restless Leg Syndrome Gastroesophageal Reflux Disease Post op constipation severe TIA CAD Post op anemia acute on chronic but iron deficiency noted at 24 so ordered Venofer 05/29/22 Plan: Aggressive rehab Fall risk Pain control BM regimen 05/28/2022: Add iron and B12 Monitor BP 05/29/2022: BM regimen 05/30/2022: Monitor flucuations of BP 05/31/2022: Supportive care 06/01/2022: Monitor closely (1) Status post left hip replacement LORRAINE CARNEY DO Jun 01, 2022 06:48
[2022-06-01] MEDS: ASPIRIN 81 MG CHEW (CHILDREN'S ASA) PO SCH ×2 (07:39→18:34)
[2022-06-01] MEDS: MELOXICAM 7.5 MG (MOBIC) TABLET PO SCH (07:39)
[2022-06-01] MEDS: PANTOPRAZOLE 40 MG (PROTONIX) TAB PO SCH (07:39)
[2022-06-01] MEDS: SENNA W/DOCUSATE (SENOKOT S) TABLET PO SCH ×2 (07:39→21:09)
[2022-06-01] MEDS: CYCLOBENZAPRINE 10 MG (FLEXERIL) TAB PO SCH ×2 (07:39→21:10)
[2022-06-01 08:00] VITALS: BP 132/72
[2022-06-01] MEDS: polyethylene glycoL POWDER 17 GM (MIRALAX) PACK PO SCH ×2 (08:28→21:14)
--- NOTE | 2022-06-01 08:56 | Occupational Ther Daily Note ---
OT Current Status-Daily Note Subjective Pt alert, sitting in recliner. Pt c/o soreness from exercises yesterday. Pt agrees to therapy after encouragement. Mental Status/Objective Patient Orientation: Person, Place, Time, Situation Attachments: IV ADL-Treatment Pt agrees to shower. Using FWW, pt able to retrieve clothing and supplies from drawers and counter top. Pt doffed lower body clothing in standing with SBA for safety. VALADEZ educated pt on safety of sitting to thread feet in/out of pants and to don/doff shirt. Sitting 75% of the time, pt completed shower using shower bench, grabbar, hand held shower and LH sponge. Pt donned/doffed upper b gianni clothing by self. Using aquaculture director, pt threaded feet through pants then SBA for safety to hike pants over hips. Using sock aide to don socks, aquaculture director to doff socks by self (equipment gathered). Due to B LE soreness, pt sitting at sink, to completed grooming independently. Therapy Code Descriptions/Definitions Functional [place] Measure: 0=Not Assessed/NA 4=Minimal Assistance 1=Total Assistance 5=Supervision or Setup 2=Maximal Assistance 6=Modified [place] 3=Moderate Assistance 7=Complete IndependenceSCALE: Activities may be completed with or without assistive devices. 7-Qtdzgvuzaz-pkwcthy completes the activity by him/herself with no assistance from a helper. 5-Set-up or Clean-up Assistance-helper sets up or cleans up; patient completes activity. [place] assists only prior to or following the activity. 4-Supervision or Touching Assistance-helper provides verbal cues and/or touching/steadying and/or contact guard assistance as patient completes activity. Assistance may be provided throughout the activity or intermittently. 3-Partial/Moderate Assistance-helper does LESS THAN HALF the effort. [place] lifts, holds or supports trunk or limbs, but provides less than half the effort. 2-Substantial/Maximal Assistance-helper does MORE THAN HALF the effort. [place] lifts or holds trunk or limbs and provides more than half the effort. 0-Wnnpysvsm-xivlol does ALL the effort. Patient does none of the effort to complete the activity. Or, the assistance of 2 or more helpers is required for the patient to complete the activity. If activity was not attempted, code reason: 7-Patient Refused. 9-Not Applicable-not attempted and the patient did not perform the activity before the current illness, exacerbation or injury. 10-Not Attempted due to Environmental Limitations-(lack of equipment, weather restraints, etc.). 88-Not Attempted due to Medical Conditions or Safety Concerns. Oral Hygiene (QC): 6 (Completed during shower.) Shower/Bathe Self (QC): 6 Upper Body Dressing (QC): 4 (verbal cues for safety) Lower Body Dressing (QC): 4 (SBA and verbal cues for safety) On/Off Footwear: 5 Toileting Hygiene (QC): 6 Toilet Transfer (QC): 6 Other Treatment Pt given HEP and light resistance theraband for use in room. Skilled instruction for correct technique and modifications when completing B UE theraband exercises. Pt verbalized understanding of exercises. After therapy, pt sitting in recliner with call light/phone in reach. All needs met in room. OT Short Term Goals Short Term Goals Time Frame: Jun 04, 2022 Shower/bathe self: 5 Lower body dressin Putting on/taking off footwear: 5 OT Crossing Guard Goals Crossing Guard Goals Time Frame: Jun 25, 2022 Acute change in mental status: 0 Inattention: 0 Disorganized thinkin Altered level of consciousness: 0 Eating (QC): 6 Oral Hygiene (QC): 6 Toileting Hygiene (QC): 6 Shower/Bathe Self (QC): 6 Upper Body Dressing (QC): 6 Lower Body Dressing (QC): 6 On/Off Footwear (QC): 6 Additional Goals: 1-Demonstrate ADL Tasks, 2-Verbalize Understanding, 3- ImproveStrength/[place] 1=Demonstrate adherence to instructed precautions during ADL tasks. 2=Patient will verbalize/demonstrate understanding of assistive devices/modifications for ADL. 3=Patient will improve strength/tolerance for activity to enable patient to perform ADL's. OT Education/Plan Problem List/Assessment Assessment: Decreased Safety Aware, Impaired Self-Care Skills Discharge Recommendations Plan/Recommendations: Continue POC Treatment Plan/Plan of Care Patient would benefit from OT for education, treatment and training to promote independence in ADL's, mobility, safety and/or upper extremity function for ADL's. Plan of Care: ADL Retraining, Functional Mobility, Group Exercise/Act as Ind, UE Funct Exercise/Act Treatment Duration: Jun 25, 2022 Frequency: At least 5 of 7 days/Wk (IRF) Estimated Hrs Per Day: 1.5 hours per day Agreement: Yes Rehab Potential: Fair Time Start Time: 08:30 Stop Time: 10:00 DATE: Jun 01, 2022 Total Time Billed (hr/min): 90 Billed Treatment Time 1 visit-ADL 5 (80 min) EX 1 (10 min) TODD GONZALEZ Jun 01, 2022 08:56
--- NOTE | 2022-06-01 11:03 | Physical Therapy Daily Note ---
PT Daily Note-Current Subjective Pt sitting in recliner upon arrival. Pt agrees to PT. Pain Numeric Pain Scale: 5-Moderate Pain Location: Left Location Body Site: Hip Pain Description: Ache Section J - Health Conditions 1. Rarely or not at all 2. Occasionally 3. Frequently 4. Almost constantly 8. Unable to answer Pain Effect on Sleep: 1 Pain Interference with Therapy: 2 Pain Interference w/Day-to-Day: 2 Mental Status Patient Orientation: Person, Place, Time, Situation Transfers SCALE: Activities may be completed with or without assistive devices. 5-Cskehvshba-vrmprdo completes the activity by him/herself with no assistance from a helper. 5-Set-up or Clean-up Assistance-helper sets up or cleans up; patient completes activity. [place] assists only prior to or following the activity. 4-Supervision or Touching Assistance-helper provides verbal cues and/or touching/steadying and/or contact guard assistance as patient completes activity. Assistance may be provided throughout the activity or intermittently. 3-Partial/Moderate Assistance-helper does LESS THAN HALF the effort. [place] lifts, holds or supports trunk or limbs, but provides less than half the effort. 2-Substantial/Maximal Assistance-helper does MORE THAN HALF the effort. [place] lifts or holds trunk or limbs and provides more than half the effort. 7-Egzolrtff-nnswwq does ALL the effort. Patient does none of the effort to complete the activity. Or, the assistance of 2 or more helpers is required for the patient to complete the activity. If activity was not attempted, code reason: 7-Patient Refused. 9-Not Applicable-not attempted and the patient did not perform the activity before the current illness, exacerbation or injury. 10-Not Attempted due to Environmental Limitations-(lack of equipment, weather restraints, etc.). 88-Not Attempted due to Medical Conditions or Safety Concerns. Sit to Stand (QC): 6 Weight Bearing Left Lower Extremity: Left Weight Bearing/Tolerated Gait Training Does the Patient Walk?: Yes (150) Distance: 150' x2 Walk 10 feet (QC): 4 Walk 50 ft with 2 Turns(QC): 4 Walk 150 ft (QC): 4 Gait Assistive Device: None Pt wants to practice walking w/o AE before d/c. STICK INSERTER discusses what it takes to complete this task and pt attempts this tasks in hallway. Stair Training Stair Training: Handrails/: 2 handrails #of Steps: 4 1 Step (curb) (QC): 5 4 Steps (QC): 5 Stairs: Pattern: Step to Exercises Seated Therapy Exercises: Ankle pumps, Long arc quads, Hip flexion, Hip abd/add Seated Reps: 15 Treatments TF to standing and amb. in hallway including w/o FWW, starting w/just hand rails and working to not AE in hallway. Pt amb stairs using hand rails. Pt takes RB before returning to room after another amb. in hallway. Pt resting in recliner at end of tx. All needs met, call light in hand. Assessment Current Status: Good Progress Pt ronn. tx. Pt reports feeling comfortable while walking including w/pain & balance. PT Crew Supervisor Goals Crew Supervisor Goals PT Crew Supervisor Goals Time Frame: Jun 10, 2022 Roll Left & Right (QC): 6 Sit to Lying (QC): 6 Lying-Sitting on Side/Bed(QC): 6 Sit to Stand (QC): 4 (SBA) Chair/Eeb-gu-Lsrlc Xfer(QC): 4 (SBA) Toilet Transfer (QC): 4 (SBA) Car Transfer (QC): 4 (SBA) Does the Patient Walk: Yes Walk 10 feet (QC): 4 (SBA) Walk 50ft with 2 Turns (QC): 4 (SBA) Walk 150 ft (QC): 4 (SBA) Walking 10ft on Uneven Surface: 4 (SBA) 1 Step (curb) (QC): 4 (CGA) 4 Steps (QC): 4 (CGA) 12 Steps (QC): 88 Picking up an Object (QC): 4 (SBA) Wheel 50 feet with 2 turns (QC: 9 Wheel 150 feet: 9 PT Plan Treatment/Plan Treatment Plan: Continue Plan of Care Treatment Plan: Bed Mobility, Education, Functional Activity [place], Functional Strength, Group Therapy, Gait, Safety, Therapeutic Exercise, Transfers Treatment Duration: Jun 10, 2022 Frequency: At least 5 of 7 days/Wk (IRF) Estimated Hrs Per Day: 1.5 hours per day Patient and/or Family Agrees t: Yes Safety Risks/Education Patient Education: Gait Training, Steps, Correct Positioning Teaching Recipient: Patient Response to Teaching: Verbalize Understanding Time Time In: 1000 Time Out: 1100 DATE: Jun 01, 2022 Total Billed Treatment Time: 60 Total Billed Treatment 1, GT x2 (30m), FA (15m) & EX (15m) ZOE SANTACRUZ STICK INSERTER Jun 01, 2022 11:03
--- NOTE | 2022-06-01 13:32 | Occupational Ther Daily Note ---
OT Current Status-Daily Note Subjective Pt up in recliner, agreeable to OT Tx. Pt reports anxiety associated with discharging home. Mental Status/Objective Patient Orientation: Person, Place, Time, Situation ADL-Treatment Therapy Code Descriptions/Definitions Functional [place] Measure: 0=Not Assessed/NA 4=Minimal Assistance 1=Total Assistance 5=Supervision or Setup 2=Maximal Assistance 6=Modified [place] 3=Moderate Assistance 7=Complete IndependenceSCALE: Activities may be completed with or without assistive devices. 5-Kvqrcjncrx-vxnupgo completes the activity by him/herself with no assistance from a helper. 5-Set-up or Clean-up Assistance-helper sets up or cleans up; patient completes activity. [place] assists only prior to or following the activity. 4-Supervision or Touching Assistance-helper provides verbal cues and/or touching/steadying and/or contact guard assistance as patient completes activity. Assistance may be provided throughout the activity or intermittently. 3-Partial/Moderate Assistance-helper does LESS THAN HALF the effort. [place] lifts, holds or supports trunk or limbs, but provides less than half the effort. 2-Substantial/Maximal Assistance-helper does MORE THAN HALF the effort. [place] lifts or holds trunk or limbs and provides more than half the effort. 9-Ktmopwgis-jbncuf does ALL the effort. Patient does none of the effort to complete the activity. Or, the assistance of 2 or more helpers is required for the patient to complete the activity. If activity was not attempted, code reason: 7-Patient Refused. 9-Not Applicable-not attempted and the patient did not perform the activity before the current illness, exacerbation or injury. 10-Not Attempted due to Environmental Limitations-(lack of equipment, weather restraints, etc.). 88-Not Attempted due to Medical Conditions or Safety Concerns. Other Treatment Pt up in recliner, performed functional mobility to kitchen area, no AD, CGA. Pt educated on kitchen management while maintaining hip precautions. Pt demo'd ability to reach in various cabinet heights while maintaining precautions. Pt then able to locate x9 mullins bags throughout cabinets, utilizing perforator operator as needed, SBA-CGA. Pt returned to her room, CGA, transferring to recliner. Post tx, pt in recliner, call light in reach and all needs met. OT Short Term Goals Short Term Goals Time Frame: Jun 04, 2022 Shower/bathe self: 5 Lower body dressin Putting on/taking off footwear: 5 OT Machine Room Operator Goals Senior Living Goals Time Frame: Jun 25, 2022 Acute change in mental status: 0 Inattention: 0 Disorganized thinkin Altered level of consciousness: 0 Eating (QC): 6 Oral Hygiene (QC): 6 Toileting Hygiene (QC): 6 Shower/Bathe Self (QC): 6 Upper Body Dressing (QC): 6 Lower Body Dressing (QC): 6 On/Off Footwear (QC): 6 Additional Goals: 1-Demonstrate ADL Tasks, 2-Verbalize Understanding, 3- ImproveStrength/[place] 1=Demonstrate adherence to instructed precautions during ADL tasks. 2=Patient will verbalize/demonstrate understanding of assistive devices/modifications for ADL. 3=Patient will improve strength/tolerance for activity to enable patient to perform ADL's. OT Education/Plan Problem List/Assessment Assessment: Decreased Activ Tolerance, Decreased UE Strength, Impaired Funct Balance, Impaired I ADL's Discharge Recommendations Plan/Recommendations: Continue POC Treatment Plan/Plan of Care Patient would benefit from OT for education, treatment and training to promote independence in ADL's, mobility, safety and/or upper extremity function for ADL's. Plan of Care: ADL Retraining, Functional Mobility, Group Exercise/Act as Ind, UE Funct Exercise/Act Treatment Duration: Jun 25, 2022 Frequency: At least 5 of 7 days/Wk (IRF) Estimated Hrs Per Day: 1.5 hours per day Agreement: Yes Rehab Potential: Fair Time Start Time: 13:05 Stop Time: 13:35 DATE: Jun 01, 2022 Total Time Billed (hr/min): 30 Billed Treatment Time 1, ADL 2 ASHWIN SMITH OT Jun 01, 2022 13:32
[2022-06-01 19:48] VITALS: BP 114/69
[2022-06-01] MEDS: DULoxetine 30 MG (CYMBALTA) CAP PO SCH (21:07)
[2022-06-01] MEDS: MIRTAZAPINE 15 MG (REMERON) TAB PO SCH (21:09)
[2022-06-01] MEDS: VALACYCLOVIR 500 MG TAB (VALTREX) PO SCH (21:09)
[2022-06-01] MEDS: GABAPENTIN 300 MG (NEURONTIN) CAP PO SCH (21:10)
[2022-06-01] MEDS: LOSARTAN 100 MG (COZAAR) TABLET PO SCH (21:11)
[2022-06-01] MEDS: rOPINIRole 1 MG (REQUIP) TABLET PO SCH (21:11)
[2022-06-01] MEDS: DOCUSATE SODIUM 100 MG (COLACE) CAP PO SCH (21:12)
[2022-06-02] MEDS: LEVOTHYROXINE 50 MCG (LEVOTHROID) TAB PO SCH (06:24)
[2022-06-02] MEDS: ASCORBIC ACID (VIT C) 500 MG TABLET PO SCH (06:24)
[2022-06-02] MEDS: ACETAMINOPHEN 500 MG TAB (TYLENOL) PO SCH ×3 (06:25→21:33)
[2022-06-02 07:50] VITALS: BP 147/71
--- NOTE | 2022-06-02 08:34 | Physical Therapy Daily Note ---
PT Daily Note-Current Subjective Pt. states she has made much progress since seeing this TEST SKEIN WINDER last. No pain c/o, indep with all TRFs and feels she is safe to walk without a FWW. Pain Location: No Pain Reported Section J - Health Conditions 1. Rarely or not at all 2. Occasionally 3. Frequently 4. Almost constantly 8. Unable to answer Pain Effect on Sleep: 1 Pain Interference with Therapy: 1 Pain Interference w/Day-to-Day: 1 Mental Status Patient Orientation: Normal For Age Transfers SCALE: Activities may be completed with or without assistive devices. 4-Ynnrohkusg-hwyrfun completes the activity by him/herself with no assistance from a helper. 5-Set-up or Clean-up Assistance-helper sets up or cleans up; patient completes activity. [place] assists only prior to or following the activity. 4-Supervision or Touching Assistance-helper provides verbal cues and/or touching/steadying and/or contact guard assistance as patient completes activity. Assistance may be provided throughout the activity or intermittently. 3-Partial/Moderate Assistance-helper does LESS THAN HALF the effort. [place] lifts, holds or supports trunk or limbs, but provides less than half the effort. 2-Substantial/Maximal Assistance-helper does MORE THAN HALF the effort. [place] lifts or holds trunk or limbs and provides more than half the effort. 1-Ahqfjnycm-sxjzgz does ALL the effort. Patient does none of the effort to complete the activity. Or, the assistance of 2 or more helpers is required for the patient to complete the activity. If activity was not attempted, code reason: 7-Patient Refused. 9-Not Applicable-not attempted and the patient did not perform the activity before the current illness, exacerbation or injury. 10-Not Attempted due to Environmental Limitations-(lack of equipment, weather restraints, etc.). 88-Not Attempted due to Medical Conditions or Safety Concerns. Roll Left & Right (QC): 6 Sit to Lying (QC): 6 Lying to Sitting/Side of Bed(Q: 6 Sit to Stand (QC): 6 Chair/Fgb-gd-Suoxr Xfer(QC): 6 Toilet Transfer (QC): 6 Weight Bearing Left Lower Extremity: Left Weight Bearing/Tolerated Gait Training Does the Patient Walk?: Yes Walk 10 feet (QC): 6 Walk 50 ft with 2 Turns(QC): 6 Walk 150 ft (QC): 6 Gait Persons Needed: 0 Gait Assistive Device: FWW (175x2) pt. ambulated with FWW 175ft x 2 SBA to indep, then ambulated 25 ft x 3 at rail in [place] trialing no AD as pt. did not hold to rail but did skim it once in awhile. No LOB and very little antalgia, even step length , good pattern Stair Training Stair Training: Handrails/: 2 handrails #of Steps: 4 4 Steps (QC): 6 Stairs: Pattern: Step to Exercises Supine Ex: Ankle pumps, Quad Set, Rolling, Glut sets, Heel Slides, Short Arc Quads, Scooting, Straight leg raise, Hip abd/add Supine Reps: 20 Seated Therapy Exercises: Ankle pumps, Sit to stand, Long arc quads Seated Reps: 20 Treatments sup and sit ex, gait, TRFs , up in recliner after Rx awaiting marivel FULLER at hand Assessment Current Status: Excellent Progress no paib, markedly improved balance and gait, recites and follows all hip prec PT Senior Living Goals Taper Machine Goals PT Taper Machine Goals Time Frame: Jun 10, 2022 Roll Left & Right (QC): 6 Sit to Lying (QC): 6 Lying-Sitting on Side/Bed(QC): 6 Sit to Stand (QC): 4 (SBA) Chair/Xmj-su-Aniem Xfer(QC): 4 (SBA) Toilet Transfer (QC): 4 (SBA) Car Transfer (QC): 4 (SBA) Does the Patient Walk: Yes Walk 10 feet (QC): 4 (SBA) Walk 50ft with 2 Turns (QC): 4 (SBA) Walk 150 ft (QC): 4 (SBA) Walking 10ft on Uneven Surface: 4 (SBA) 1 Step (curb) (QC): 4 (CGA) 4 Steps (QC): 4 (CGA) 12 Steps (QC): 88 Picking up an Object (QC): 4 (SBA) Wheel 50 feet with 2 turns (QC: 9 Wheel 150 feet: 9 PT Plan Treatment/Plan Treatment Plan: Continue Plan of Care Treatment Plan: Bed Mobility, Education, Functional Activity [place], Functional Strength, Group Therapy, Gait, Safety, Therapeutic Exercise, Transfers Treatment Duration: Jun 10, 2022 Frequency: At least 5 of 7 days/Wk (IRF) Estimated Hrs Per Day: 1.5 hours per day Patient and/or Family Agrees t: Yes Safety Risks/Education Patient Education: Gait Training, Transfer Techniques, Steps, Reviewed Precautions, Correct Positioning, Disease Process, Safety Issues Teaching Recipient: Patient Teaching Methods: Demonstration, Discussion Response to Teaching: Verbalize Understanding, Return Demonstration, Reinforcement Needed Time Time In: 800 Time Out: 830 DATE: Jun 02, 2022 Total Billed Treatment Time: 30 Total Billed Treatment 1,GT17m,EX13m ANNY MOORE TEST SKEIN WINDER Jun 02, 2022 08:34
[2022-06-02] MEDS: IRON SUCROSE 200 MG/10 ML (VENOFER) VIAL IV SCH (08:53)
[2022-06-02] MEDS: PANTOPRAZOLE 40 MG (PROTONIX) TAB PO SCH (08:54)
[2022-06-02] MEDS: SENNA W/DOCUSATE (SENOKOT S) TABLET PO SCH ×2 (08:54→21:34)
[2022-06-02] MEDS: MELOXICAM 7.5 MG (MOBIC) TABLET PO SCH (08:54)
[2022-06-02] MEDS: polyethylene glycoL POWDER 17 GM (MIRALAX) PACK PO SCH ×2 (08:54→21:38)
[2022-06-02] MEDS: ASPIRIN 81 MG CHEW (CHILDREN'S ASA) PO SCH ×2 (08:54→17:32)
[2022-06-02] MEDS: CYCLOBENZAPRINE 10 MG (FLEXERIL) TAB PO SCH ×2 (08:54→21:31)
--- NOTE | 2022-06-02 09:30 | PM&R Progress Note ---
Subjective HPI/CC On Admission Date Seen by Provider: Jun 02, 2022 Time Seen by Provider: 09:15 Subjective/Events-last exam 06/02/2022: Doing well No major issues BM regimen maintained Improved ROM leg 06/01/2022: Improved status No pain at this time and it is improved No falls Eating well BM finally 05/31/2022: Much improved status Pain less intense Labs stable Iron infusions tolerated 05/30/2022: Much improved Pain controlled and it is getting better Daughter at bedside Concerned about her BP and the wide fluctuations No BM yet last BM 05/23/22 05/29/2022: Much improved status Pain controlled No BM since 05/23/22 will add more laxatives and suppository too 05/28/2022: Patient doing well Family at bedside Pain controlled on pain meds Labs reviewed and updated Iron and B12 will be added No falls BM regimen added Review of Systems General: Fatigue, Malaise Objective Exam Vital Signs Vital Signs Date Time Temp Pulse Resp B/P (MAP) Pulse Ox O2 Delivery O2 Flow Rate FiO2 06/02/22 21:30 94 Room Air 06/02/22 20:32 36.4 81 16 123/67 (85) 06/01/22 10:23 2.00 Capillary Refill : General Appearance: No Apparent Distress, WD/WN, Chronically ill, Thin, Other (frail) HEENT: PERRL/EOMI, Normal ENT Inspection, Pharynx Normal Neck: Full Range of Motion, Normal Inspection, Non Tender, Supple, Carotid Bruit Respiratory: Chest Non Tender, Lungs Clear, Normal Breath Sounds, No Accessory Muscle Use, No Respiratory Distress Cardiovascular: Regular Rate, Rhythm, No Edema, No Gallop, No JVD, No Murmur, Normal Peripheral Pulses Gastrointestinal: Normal Bowel Sounds, No Organomegaly, No Pulsatile Mass, Non Tender, Soft Back: Normal Inspection, No CVA Tenderness, No Vertebral Tenderness Extremity: Normal Capillary Refill, Normal Inspection, Normal Range of Motion (except left leg), Non Tender, No Calf Tenderness, No Pedal Edema Neurologic/Psychiatric: Alert, Oriented x3, Normal Mood/Affect, client technologies analyst II-XII Norm as Tested, Abnormal Gait, Motor Weakness (generalized) Skin: Normal Color, Warm/Dry Lymphatic: No Adenopathy Results/Procedures Lab Patient resulted labs reviewed. FIM Transfers Therapy Code Descriptions/Definitions Functional [place] Measure: 0=Not Assessed/NA 4=Minimal Assistance 1=Total Assistance 5=Supervision or Setup 2=Maximal Assistance 6=Modified [place] 3=Moderate Assistance 7=Complete IndependenceSCALE: Activities may be completed with or without assistive devices. 4-Jbvxypexwn-dbrjqiq completes the activity by him/herself with no assistance from a helper. 5-Set-up or Clean-up Assistance-helper sets up or cleans up; patient completes activity. [place] assists only prior to or following the activity. 4-Supervision or Touching Assistance-helper provides verbal cues and/or t ouching/steadying and/or contact guard assistance as patient completes activity. Assistance may be provided throughout the activity or intermittently. 3-Partial/Moderate Assistance-helper does LESS THAN HALF the effort. [place] lifts, holds or supports trunk or limbs, but provides less than half the effort. 2-Substantial/Maximal Assistance-helper does MORE THAN HALF the effort. [place] lifts or holds trunk or limbs and provides more than half the effort. 5-Jkyhmkrty-lygesx does ALL the effort. Patient does none of the effort to complete the activity. Or, the assistance of 2 or more helpers is required for the patient to complete the activity. If activity was not attempted, code reason: 7-Patient Refused. 9-Not Applicable-not attempted and the patient did not perform the activity before the current illness, exacerbation or injury. 10-Not Attempted due to Environmental Limitations-(lack of equipment, weather restraints, etc.). 88-Not Attempted due to Medical Conditions or Safety Concerns. Roll Left to Right (QC): 6 Sit to Lying (QC): 6 Sit to Stand (QC): 6 Chair/Ozk-gc-Hjnhs Xfer(QC): 6 Car Transfer (QC): 3 Gait Training Does the Patient Walk?: Yes Distance: 150' x2 Walk 10 feet (QC): 6 Walk 50 ft with 2 Turns(QC): 6 Walk 150 ft (QC): 6 Walking 10ft/uneven surface-QC: 88 Gait Persons Needed: 0 Gait Assistive Device: FWW (175x2) Wheelchair Training Does the Pt Use a Wheelchair?: No Distance: 100' Wheel 50 ft with 2 turns (QC): 3 Wheel 150 ft (QC): 88 Type of Wheelchair: Manual Stair Training Stair Training: Handrails/: 2 handrails #of Steps: 4 1 Step (curb) (QC): 5 4 Steps (QC): 6 12 Steps (QC): 88 Stairs: Pattern: Step to Balance Picking up an Object (QC): 4 (CGA using a partner integration planner) ADL-Treatment Eating (QC): 6 Oral Hygiene (QC): 6 (Completed during shower.) Shower/Bathe Self (QC): 6 Upper Body Dressing (QC): 4 (verbal cues for safety) Lower Body Dressing (QC): 4 (SBA and verbal cues for safety) On/Off Footwear (QC): 5 Toileting Hygiene (QC): 6 Toilet Transfer (QC): 6 Assessment/Plan Assessment and Plan Assess & Plan/Chief Complaint Assessment: 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 h/o of Right Hip Dislocation Hx Right Total Hip Arthroplasty Chronic debility Hx Right Total Knee Arthroplasty Hx Left Total Knee Arthroplasty Osteoporosis Hiatal Hernia HTN Hypothryoidism Chronic Anemia Hx of Low GFR Restless Leg Syndrome Gastroesophageal Reflux Disease Post op constipation severe-resolved 05/31/22 TIA CAD Post op anemia acute on chronic but iron deficiency noted at 24 so ordered Venofer 05/29/22 Plan: Aggressive rehab Fall risk Pain control BM regimen 05/28/2022: Add iron and B12 Monitor BP 05/29/2022: BM regimen 05/30/2022: Monitor flucuations of BP 05/31/2022: Supportive care 06/01/2022: Monitor closely 06/02/2022: BM regimen Pain control (1) Status post left hip replacement LORRAINE CARNEY DO Jun 02, 2022 09:30
--- NOTE | 2022-06-02 10:00 | Occupational Ther Daily Note ---
OT Current Status-Daily Note Subjective Pt alert, sitting in recliner. Pt agrees to therapy. Pt anxious about going home Tuesday and states that she would be okay to stay longer. VALADEZ encouraged pt and let pt know that she is doing extremely well in OT sessions. Mental Status/Objective Patient Orientation: Person, Place, Time, Situation Attachments: IV ADL-Treatment Pt ambulates around room using FWW independent. Independent with toileting. Independent gathering clothing and supplies to get ready for the day. Sitting/s tanding at sink to complete grooming/oral care/sponge bath independently. Dressing independently, using AE with lower body dressing and footwear. Therapy Code Descriptions/Definitions Functional [place] Measure: 0=Not Assessed/NA 4=Minimal Assistance 1=Total Assistance 5=Supervision or Setup 2=Maximal Assistance 6=Modified [place] 3=Moderate Assistance 7=Complete IndependenceSCALE: Activities may be completed with or without assistive devices. 0-Cqaocwpfqs-pjgjmop completes the activity by him/herself with no assistance from a helper. 5-Set-up or Clean-up Assistance-helper sets up or cleans up; patient completes activity. [place] assists only prior to or following the activity. 4-Supervision or Touching Assistance-helper provides verbal cues and/or touching/steadying and/or contact guard assistance as patient completes activity. Assistance may be provided throughout the activity or intermittently. 3-Partial/Moderate Assistance-helper does LESS THAN HALF the effort. [place] lifts, holds or supports trunk or limbs, but provides less than half the effort. 2-Substantial/Maximal Assistance-helper does MORE THAN HALF the effort. [place] lifts or holds trunk or limbs and provides more than half the effort. 8-Kdaezaddt-khrdan does ALL the effort. Patient does none of the effort to complete the activity. Or, the assistance of 2 or more helpers is required for the patient to complete the activity. If activity was not attempted, code reason: 7-Patient Refused. 9-Not Applicable-not attempted and the patient did not perform the activity before the current illness, exacerbation or injury. 10-Not Attempted due to Environmental Limitations-(lack of equipment, weather restraints, etc.). 88-Not Attempted due to Medical Conditions or Safety Concerns. Oral Hygiene (QC): 6 Upper Body Dressing (QC): 6 Lower Body Dressing (QC): 6 On/Off Footwear: 6 Toileting Hygiene (QC): 6 Toilet Transfer (QC): 6 Other Treatment Pt completed dynamic standing/sitting activity to work on balance, sit to stands and over all strength. Pt tolerated well and no LOB noted. After session, pt sitting in recliner with call light/phone in reach. All needs met in room. OT Short Term Goals Short Term Goals Time Frame: Jun 04, 2022 Shower/bathe self: 5 Lower body dressin Putting on/taking off footwear: 5 OT Group Home Goals Lining Stamper Goals Time Frame: Jun 25, 2022 Acute change in mental status: 0 Inattention: 0 Disorganized thinkin Altered level of consciousness: 0 Eating (QC): 6 Oral Hygiene (QC): 6 Toileting Hygiene (QC): 6 Shower/Bathe Self (QC): 6 Upper Body Dressing (QC): 6 Lower Body Dressing (QC): 6 On/Off Footwear (QC): 6 Additional Goals: 1-Demonstrate ADL Tasks, 2-Verbalize Understanding, 3- ImproveStrength/[place] 1=Demonstrate adherence to instructed precautions during ADL tasks. 2=Patient will verbalize/demonstrate understanding of assistive devices/modifications for ADL. 3=Patient will improve strength/tolerance for activity to enable patient to perform ADL's. OT Education/Plan Problem List/Assessment Assessment: Decreased Activ Tolerance, Decreased UE Strength, Impaired Funct Balance, Impaired Self-Care Skills Discharge Recommendations Plan/Recommendations: Continue POC Treatment Plan/Plan of Care Patient would benefit from OT for education, treatment and training to promote independence in ADL's, mobility, safety and/or upper extremity function for ADL's. Plan of Care: ADL Retraining, Functional Mobility, Group Exercise/Act as Ind, UE Funct Exercise/Act Treatment Duration: Jun 25, 2022 Frequency: At least 5 of 7 days/Wk (IRF) Estimated Hrs Per Day: 1.5 hours per day Agreement: Yes Rehab Potential: Fair Time Start Time: 08:30 Stop Time: 10:00 DATE: Jun 02, 2022 Total Time Billed (hr/min): 90 Billed Treatment Time 1 visit-ADL 3 (45 min) EX 3 (45 min) TODD GONZALEZ Jun 02, 2022 10:00
--- NOTE | 2022-06-02 10:58 | Physical Therapy Daily Note ---
PT Daily Note-Current Subjective No c/o pain, feeling stronger, agrees to rx. Pain Location: No Pain Reported Section J - Health Conditions 1. Rarely or not at all 2. Occasionally 3. Frequently 4. Almost constantly 8. Unable to answer Pain Effect on Sleep: 1 Pain Interference with Therapy: 1 Pain Interference w/Day-to-Day: 1 Mental Status Patient Orientation: Normal For Age Transfers SCALE: Activities may be completed with or without assistive devices. 2-Mvvzfbpuky-ksxtgfg completes the activity by him/herself with no assistance from a helper. 5-Set-up or Clean-up Assistance-helper sets up or cleans up; patient completes activity. [place] assists only prior to or following the activity. 4-Supervision or Touching Assistance-helper provides verbal cues and/or touching/steadying and/or contact guard assistance as patient completes activity. Assistance may be provided throughout the activity or intermittently. 3-Partial/Moderate Assistance-helper does LESS THAN HALF the effort. [place] lifts, holds or supports trunk or limbs, but provides less than half the effort. 2-Substantial/Maximal Assistance-helper does MORE THAN HALF the effort. [place] lifts or holds trunk or limbs and provides more than half the effort. 4-Qooazmkmb-lyjvvm does ALL the effort. Patient does none of the effort to complete the activity. Or, the assistance of 2 or more helpers is required for the patient to complete the activity. If activity was not attempted, code reason: 7-Patient Refused. 9-Not Applicable-not attempted and the patient did not perform the activity be fore the current illness, exacerbation or injury. 10-Not Attempted due to Environmental Limitations-(lack of equipment, weather restraints, etc.). 88-Not Attempted due to Medical Conditions or Safety Concerns. Roll Left & Right (QC): 6 Sit to Lying (QC): 6 Lying to Sitting/Side of Bed(Q: 6 Sit to Stand (QC): 6 Chair/Dsj-bc-Fdgch Xfer(QC): 6 Toilet Transfer (QC): 6 Car Transfer (QC): 6 Weight Bearing Left Lower Extremity: Left Weight Bearing/Tolerated Gait Training Does the Patient Walk?: Yes Walk 150 ft (QC): 4 Walking 10ft/uneven surface-QC: 4 Gait Persons Needed: 1 Gait Assistive Device: Cane Single Point with FWW pt. is mod I, with SPC pt. requires SBA to CGA and instruction in sequence, has some min LOB episodes bc of sequence during turns etc. but very safe with FWW Stair Training Stair Training: Handrails/: 2 handrails Exercises Supine Ex: Ankle pumps, Quad Set, Heel Slides, Short Arc Quads, Scooting, Straight leg raise, Hip abd/add Supine Reps: 12 Seated Therapy Exercises: Ankle pumps, Sit to stand, Long arc quads, Hip abd/add Seated Reps: 15 NuStep Minutes: 11 NuStep Workload: 3 Treatments gait FWW, progressing to SPC, therex, nustep, steps, Assessment Current Status: Good Progress PT Pharmacist Goals Pharmacist Goals PT Pharmacist Goals Time Frame: Jun 10, 2022 Roll Left & Right (QC): 6 Sit to Lying (QC): 6 Lying-Sitting on Side/Bed(QC): 6 Sit to Stand (QC): 4 (SBA) Chair/Fts-ad-Xmcou Xfer(QC): 4 (SBA) Toilet Transfer (QC): 4 (SBA) Car Transfer (QC): 4 (SBA) Does the Patient Walk: Yes Walk 10 feet (QC): 4 (SBA) Walk 50ft with 2 Turns (QC): 4 (SBA) Walk 150 ft (QC): 4 (SBA) Walking 10ft on Uneven Surface: 4 (SBA) 1 Step (curb) (QC): 4 (CGA) 4 Steps (QC): 4 (CGA) 12 Steps (QC): 88 Picking up an Object (QC): 4 (SBA) Wheel 50 feet with 2 turns (QC: 9 Wheel 150 feet: 9 PT Plan Treatment/Plan Treatment Plan: Continue Plan of Care Treatment Plan: Bed Mobility, Education, Functional Activity [place], Functional Strength, Group Therapy, Gait, Safety, Therapeutic Exercise, Transfers Treatment Duration: Jun 10, 2022 Frequency: At least 5 of 7 days/Wk (IRF) Estimated Hrs Per Day: 1.5 hours per day Patient and/or Family Agrees t: Yes Safety Risks/Education Patient Education: Gait Training, Transfer Techniques, Steps, Reviewed Precautions, Correct Positioning, Safety Issues Teaching Recipient: Patient Teaching Methods: Demonstration, Discussion Response to Teaching: Verbalize Understanding, Return Demonstration, Reinforcement Needed Time Time In: 955 Time Out: 1055 DATE: Jun 02, 2022 Total Billed Treatment Time: 60 Total Billed Treatment 1,GT29m,EX15m,FA16 ANNY MOORE ARMORED SERVICE TECHNICIAN Jun 02, 2022 10:58
[2022-06-02 20:32] VITALS: BP 123/67
[2022-06-02] MEDS: GABAPENTIN 300 MG (NEURONTIN) CAP PO SCH (21:32)
[2022-06-02] MEDS: MIRTAZAPINE 15 MG (REMERON) TAB PO SCH (21:33)
[2022-06-02] MEDS: VALACYCLOVIR 500 MG TAB (VALTREX) PO SCH (21:33)
[2022-06-02] MEDS: rOPINIRole 1 MG (REQUIP) TABLET PO SCH (21:33)
[2022-06-02] MEDS: DULoxetine 30 MG (CYMBALTA) CAP PO SCH (21:33)
[2022-06-02] MEDS: LOSARTAN 100 MG (COZAAR) TABLET PO SCH (21:34)
[2022-06-02] MEDS: DOCUSATE SODIUM 100 MG (COLACE) CAP PO SCH (21:38)
--- NOTE | 2022-06-03 06:23 | PM&R Progress Note ---
Subjective HPI/CC On Admission Date Seen by Provider: Jun 03, 2022 Time Seen by Provider: 12:00 Subjective/Events-last exam 06/03/2022: Doing well DC planned from tomorrow No pain reported 06/02/2022: Doing well No major issues BM regimen maintained Improved ROM leg 06/01/2022: Improved status No pain at this time and it is improved No falls Eating well BM finally 05/31/2022: Much improved status Pain less intense Labs stable Iron infusions tolerated 05/30/2022: Much improved Pain controlled and it is getting better Daughter at bedside Concerned about her BP and the wide fluctuations No BM yet last BM 05/23/22 05/29/2022: Much improved status Pain controlled No BM since 05/23/22 will add more laxatives and suppository too 05/28/2022: Patient doing well Family at bedside Pain controlled on pain meds Labs reviewed and updated Iron and B12 will be added No falls BM regimen added Review of Systems General: Fatigue, Malaise Objective Exam Vital Signs Vital Signs Date Time Temp Pulse Resp B/P (MAP) Pulse Ox O2 Delivery O2 Flow Rate FiO2 06/03/22 20:10 Room Air 06/03/22 19:09 36.2 78 16 121/68 (85) 97 06/03/22 07:34 2.00 0 Capillary Refill : General Appearance: No Apparent Distress, WD/WN, Chronically ill, Thin, Other (frail) HEENT: PERRL/EOMI, Normal ENT Inspection, Pharynx Normal Neck: Full Range of Motion, Normal Inspection, Non Tender, Supple, Carotid Bruit Respiratory: Chest Non Tender, Lungs Clear, Normal Breath Sounds, No Accessory Muscle Use, No Respiratory Distress Cardiovascular: Regular Rate, Rhythm, No Edema, No Gallop, No JVD, No Murmur, Normal Peripheral Pulses Gastrointestinal: Normal Bowel Sounds, No Organomegaly, No Pulsatile Mass, Non Tender, Soft Back: Normal Inspection, No CVA Tenderness, No Vertebral Tenderness Extremity: Normal Capillary Refill, Normal Inspection, Normal Range of Motion (except left leg), Non Tender, No Calf Tenderness, No Pedal Edema Neurologic/Psychiatric: Alert, Oriented x3, Normal Mood/Affect, entry tech II-XII Norm as Tested, Abnormal Gait, Motor Weakness (generalized) Skin: Normal Color, Warm/Dry Lymphatic: No Adenopathy Results/Procedures Lab Patient resulted labs reviewed. FIM Transfers Therapy Code Descriptions/Definitions Functional [place] Measure: 0=Not Assessed/NA 4=Minimal Assistance 1=Total Assistance 5=Supervision or Setup 2=Maximal Assistance 6=Modified [place] 3=Moderate Assistance 7=Complete IndependenceSCALE: Activities may be completed with or without assistive devices. 1-Hngelllvdb-hltnwwt completes the activity by him/herself with no assistance from a helper. 5-Set-up or Clean-up Assistance-helper sets up or cleans up; patient completes activity. [place] assists only prior to or following the activity. 4-Supervision or Touching Assistance-helper provides verbal cues and/or touching/steadying and/or contact guard assistance as patient completes activity. Assistance may be provided throughout the activity or intermittently. 3-Partial/Moderate Assistance-helper does LESS THAN HALF the effort. [place] lifts, holds or supports trunk or limbs, but provides less than half the effort. 2-Substantial/Maximal Assistance-helper does MORE THAN HALF the effort. [place] lifts or holds trunk or limbs and provides more than half the effort. 6-Sesqaoxhe-bbjfae does ALL the effort. Patient does none of the effort to complete the activity. Or, the assistance of 2 or more helpers is required for the patient to complete the activity. If activity was not attempted, code reason: 7-Patient Refused. 9-Not Applicable-not attempted and the patient did not perform the activity before the current illness, exacerbation or injury. 10-Not Attempted due to Environmental Limitations-(lack of equipment, weather restraints, etc.). 88-Not Attempted due to Medical Conditions or Safety Concerns. Roll Left to Right (QC): 6 Sit to Lying (QC): 6 Sit to Stand (QC): 6 Chair/Ppy-fh-Ciftg Xfer(QC): 6 Car Transfer (QC): 6 Gait Training Does the Patient Walk?: Yes Distance: 150' x2 Walk 10 feet (QC): 6 Walk 50 ft with 2 Turns(QC): 6 Walk 150 ft (QC): 4 Walking 10ft/uneven surface-QC: 4 Gait Persons Needed: 1 Gait Assistive Device: Cane Single Point Wheelchair Training Does the Pt Use a Wheelchair?: No Distance: 100' Wheel 50 ft with 2 turns (QC): 3 Wheel 150 ft (QC): 88 Type of Wheelchair: Manual Stair Training Stair Training: Handrails/: 2 handrails #of Steps: 4 1 Step (curb) (QC): 5 4 Steps (QC): 6 12 Steps (QC): 88 Stairs: Pattern: Step to Balance Picking up an Object (QC): 4 (CGA using a whipper) ADL-Treatment Eating (QC): 6 Oral Hygiene (QC): 6 Shower/Bathe Self (QC): 6 Upper Body Dressing (QC): 6 Lower Body Dressing (QC): 6 On/Off Footwear (QC): 6 Toileting Hygiene (QC): 6 Toilet Transfer (QC): 6 Assessment/Plan Assessment and Plan Assess & Plan/Chief Complaint Assessment: 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 h/o of Right Hip Dislocation Hx Right Total Hip Arthroplasty Chronic debility Hx Right Total Knee Arthroplasty Hx Left Total Knee Arthroplasty Osteoporosis Hiatal Hernia HTN Hypothryoidism Chronic Anemia Hx of Low GFR Restless Leg Syndrome Gastroesophageal Reflux Disease Post op constipation severe-resolved 05/31/22 TIA CAD Post op anemia acute on chronic but iron deficiency noted at 24 so ordered Venofer 05/29/22 New home O2 requirement Plan: Aggressive rehab Fall risk Pain control BM regimen 05/28/2022: Add iron and B12 Monitor BP 05/29/2022: BM regimen 05/30/2022: Monitor flucuations of BP 05/31/2022: Supportive care 06/01/2022: Monitor closely 06/02/2022: BM regimen Pain control 06/03/2022: DC tomorrow on O2 (1) Status post left hip replacement LORRAINE CARNEY DO Jun 03, 2022 06:23
[2022-06-03] MEDS: ASCORBIC ACID (VIT C) 500 MG TABLET PO SCH (06:28)
[2022-06-03] MEDS: ACETAMINOPHEN 500 MG TAB (TYLENOL) PO SCH ×3 (06:29→21:45)
[2022-06-03] MEDS: LEVOTHYROXINE 50 MCG (LEVOTHROID) TAB PO SCH (06:29)
[2022-06-03] MEDS: polyethylene glycoL POWDER 17 GM (MIRALAX) PACK PO SCH ×2 (07:50→20:49)
[2022-06-03] MEDS: PANTOPRAZOLE 40 MG (PROTONIX) TAB PO SCH (07:50)
[2022-06-03] MEDS: ASPIRIN 81 MG CHEW (CHILDREN'S ASA) PO SCH ×2 (07:50→17:17)
[2022-06-03] MEDS: MELOXICAM 7.5 MG (MOBIC) TABLET PO SCH (07:50)
[2022-06-03] MEDS: SENNA W/DOCUSATE (SENOKOT S) TABLET PO SCH ×2 (07:50→20:49)
[2022-06-03] MEDS: CYCLOBENZAPRINE 10 MG (FLEXERIL) TAB PO SCH ×2 (07:50→20:48)
[2022-06-03 08:00] VITALS: BP 154/75
--- NOTE | 2022-06-03 09:46 | Physical Therapy Daily Note ---
PT Daily Note-Current Subjective Pt. agrees to Rx, states she is tired today but denies any pain. Pt. asks if she can drive at DC, this question was referred to . Pt recites and follows THR precautions consistently Pain Location: No Pain Reported Section J - Health Conditions 1. Rarely or not at all 2. Occasionally 3. Frequently 4. Almost constantly 8. Unable to answer Pain Effect on Sleep: 1 Pain Interference with Therapy: 1 Pain Interference w/Day-to-Day: 1 Mental Status Patient Orientation: Normal For Age Transfers SCALE: Activities may be completed with or without assistive devices. 6-Llgknjuiaf-oadivdr completes the activity by him/herself with no assistance from a helper. 5-Set-up or Clean-up Assistance-helper sets up or cleans up; patient completes activity. [place] assists only prior to or following the activity. 4-Supervision or Touching Assistance-helper provides verbal cues and/or touching/steadying and/or contact guard assistance as patient completes activity. Assistance may be provided throughout the activity or intermittently. 3-Partial/Moderate Assistance-helper does LESS THAN HALF the effort. [place] lifts, holds or supports trunk or limbs, but provides less than half the effort. 2-Substantial/Maximal Assistance-helper does MORE THAN HALF the effort. [place] lifts or holds trunk or limbs and provides more than half the effort. 9-Rdkvoxpgn-eqkjjf does ALL the effort. Patient does none of the effort to complete the activity. Or, the assistance of 2 or more helpers is required for the patient to complete the activity. If activity was not attempted, code reason: 7-Patient Refused. 9-Not Applicable-not attempted and the patient did not perform the activity before the current illness, exacerbation or injury. 10-Not Attempted due to Environmental Limitations-(lack of equipment, weather restraints, etc.). 88-Not Attempted due to Medical Conditions or Safety Concerns. Roll Left & Right (QC): 6 Sit to Lying (QC): 6 Lying to Sitting/Side of Bed(Q: 6 Sit to Stand (QC): 6 Chair/Jsh-xo-Tclpt Xfer(QC): 6 Toilet Transfer (QC): 6 Car Transfer (QC): 6 Weight Bearing Left Lower Extremity: Left Weight Bearing/Tolerated Gait Training Does the Patient Walk?: Yes Walk 10 feet (QC): 6 Walk 50 ft with 2 Turns(QC): 6 Walk 150 ft (QC): 6 Walking 10ft/uneven surface-QC: 6 Gait Persons Needed: 0 Gait Assistive Device: FWW pt. hopes to progress to no AD soon but prudent choice at this time is for pt; to use FWW. Observing pt. using SPC she had 2-3 episodes of slight LOB Wheelchair Training Does the Pt Use a Wheelchair?: No Stair Training Stair Training: Handrails/: 2 handrails #of Steps: 12 1 Step (curb) (QC): 6 4 Steps (QC): 6 12 Steps (QC): 6 Stairs: Pattern: Step to pt. knows safe sequence and uses it consistently Balance Picking up an Object (QC): 6 (uses straightening press operator indep) Exercises Supine Ex: Ankle pumps, Quad Set, Rolling, Glut sets, Heel Slides, Short Arc Quads, Scooting, Straight leg raise, Hip abd/add Supine Reps: 15 (x2) Seated Therapy Exercises: Ankle pumps, Sit to stand, Long arc quads, Hip abd/add Seated Reps: 15 (x2) NuStep Minutes: 12 NuStep Workload: 2 Treatments QC, gait, TRFs, therex, steps, toileting Assessment Current Status: Good Progress meets goals PT Penitentiary Goals Penitentiary Goals PT Senior Sas Developer Goals Time Frame: Jun 10, 2022 Roll Left & Right (QC): 6 Sit to Lying (QC): 6 Lying-Sitting on Side/Bed(QC): 6 Sit to Stand (QC): 4 (SBA) Chair/Zlu-dv-Xyjvy Xfer(QC): 4 (SBA) Toilet Transfer (QC): 4 (SBA) Car Transfer (QC): 4 (SBA) Does the Patient Walk: Yes Walk 10 feet (QC): 4 (SBA) Walk 50ft with 2 Turns (QC): 4 (SBA) Walk 150 ft (QC): 4 (SBA) Walking 10ft on Uneven Surface: 4 (SBA) 1 Step (curb) (QC): 4 (CGA) 4 Steps (QC): 4 (CGA) 12 Steps (QC): 88 Picking up an Object (QC): 4 (SBA) Wheel 50 feet with 2 turns (QC: 9 Wheel 150 feet: 9 PT Plan Treatment/Plan Treatment Plan: Continue Plan of Care Treatment Plan: Bed Mobility, Education, Functional Activity [place], Functional Strength, Group Therapy, Gait, Safety, Therapeutic Exercise, Transfers Treatment Duration: Jun 10, 2022 Frequency: At least 5 of 7 days/Wk (IRF) Estimated Hrs Per Day: 1.5 hours per day Patient and/or Family Agrees t: Yes Safety Risks/Education Patient Education: Gait Training, Transfer Techniques, Steps, Reviewed Precautions, Correct Positioning, Disease Process, Safety Issues Teaching Recipient: Patient Teaching Methods: Demonstration, Discussion Response to Teaching: Verbalize Understanding, Return Demonstration, Reinforcement Needed Time Time In: 830 Time Out: 1000 DATE: Jun 03, 2022 Total Billed Treatment Time: 90 Total Billed Treatment 1,GT26m,EX36m,FA28m ANNY MOORE VEGETABLE WASHER Jun 03, 2022 09:46
--- NOTE | 2022-06-03 11:48 | Occupational Ther Daily Note ---
OT Current Status-Daily Note Subjective Pt alert, sitting in recliner talking on cell phone. Pt agrees to therapy. No c/o pain. Pt to discharge to own home and daughter to stay with pt. Mental Status/Objective Patient Orientation: Person, Place, Time, Situation Attachments: IV ADL-Treatment Pt agrees to shower. Pt independent with retrieving clothing and supplies for bathing and dressing using FWW. Independent with shower using shower bench, grabbar, hand held shower and LH sponge. Independent with dressing, using AE for lower body and footwear. Standing at sink to complete grooming independently. Completed oral care in shower. After therapy, pt sitting in recliner with call light/phone in reach. All needs met in room. Therapy Code Descriptions/Definitions Functional [place] Measure: 0=Not Assessed/NA 4=Minimal Assistance 1=Total Assistance 5=Supervision or Setup 2=Maximal Assistance 6=Modified [place] 3=Moderate Assistance 7=Complete IndependenceSCALE: Activities may be completed with or without assistive devices. 9-Ccupwzqvma-jkcoaul completes the activity by him/herself with no assistance from a helper. 5-Set-up or Clean-up Assistance-helper sets up or cleans up; patient completes activity. [place] assists only prior to or following the activity. 4-Supervision or Touching Assistance-helper provides verbal cues and/or touching/steadying and/or contact guard assistance as patient completes activity. Assistance may be provided throughout the activity or intermittently. 3-Partial/Moderate Assistance-helper does LESS THAN HALF the effort. [place] lifts, holds or supports trunk or limbs, but provides less than half the effort. 2-Substantial/Maximal Assistance-helper does MORE THAN HALF the effort. [place] lifts or holds trunk or limbs and provides more than half the effort. 0-Cwbukugtm-xphmev does ALL the effort. Patient does none of the effort to complete the activity. Or, the assistance of 2 or more helpers is required for the patient to complete the activity. If activity was not attempted, code reason: 7-Patient Refused. 9-Not Applicable-not attempted and the patient did not perform the activity before the current illness, exacerbation or injury. 10-Not Attempted due to Environmental Limitations-(lack of equipment, weather restraints, etc.). 88-Not Attempted due to Medical Conditions or Safety Concerns. BIMS CAM BIMS Expression of Ideas and Wants: Without Difficulty Understanding Verbal Content: Understands Brief Interview/Mental Status: Yes IRF DEUCE BIMS: IRF DEUCE BIMS Response (Comments) Value Repitition of Three Words Three 3 Recalls Socks Yes, No Cue Required 2 Recalls Blue Yes, No Cue Required 2 Recalls Bed Yes, No Cue Required 2 Year Correct 3 Month Accurate Within 5 Days 2 Day Correct 1 Total 15 Patient Normally Able to Recal: Current Session, Location of own room, Staff Names and faces, That he/she in a hsp Should Staff Asses. Mental St.: No OT Short Term Goals Short Term Goals Time Frame: Jun 04, 2022 Shower/bathe self: 5 Lower body dressin Putting on/taking off footwear: 5 OT Museum Informatics Specialist Goals Usp Goals Time Frame: Jun 25, 2022 Acute change in mental status: 0 Inattention: 0 Disorganized thinkin Altered level of consciousness: 0 Eating (QC): 6 (met) Oral Hygiene (QC): 6 (met) Toileting Hygiene (QC): 6 (met) Shower/Bathe Self (QC): 6 (met) Upper Body Dressing (QC): 6 (met) Lower Body Dressing (QC): 6 (met) On/Off Footwear (QC): 6 (met) Additional Goals: 1-Demonstrate ADL Tasks, 2-Verbalize Understanding, 3- ImproveStrength/[place] 1=Demonstrate adherence to instructed precautions during ADL tasks. 2=Patient will verbalize/demonstrate understanding of assistive devices/modifications for ADL. 3=Patient will improve strength/tolerance for activity to enable patient to perform ADL's. OT Education/Plan Problem List/Assessment Assessment: Impaired Self-Care Skills Discharge Recommendations Plan/Recommendations: Continue POC Treatment Plan/Plan of Care Patient would benefit from OT for education, treatment and training to promote independence in ADL's, mobility, safety and/or upper extremity function for ADL's. Plan of Care: ADL Retraining, Functional Mobility, Group Exercise/Act as Ind, UE Funct Exercise/Act Treatment Duration: Jun 25, 2022 Frequency: At least 5 of 7 days/Wk (IRF) Estimated Hrs Per Day: 1.5 hours per day Agreement: Yes Rehab Potential: Fair Time Start Time: 11:00 Stop Time: 12:00 DATE: Jun 03, 2022 Total Time Billed (hr/min): 60 Billed Treatment Time 1 visit-ADL 4 (60 min) TODD GONZALEZ Jun 03, 2022 11:48
--- NOTE | 2022-06-03 13:14 | Occupational Ther Daily Note ---
OT Current Status-Daily Note Subjective Pt up in recliner, agreeable to OT Tx. ADL-Treatment Therapy Code Descriptions/Definitions Functional [place] Measure: 0=Not Assessed/NA 4=Minimal Assistance 1=Total Assistance 5=Supervision or Setup 2=Maximal Assistance 6=Modified [place] 3=Moderate Assistance 7=Complete IndependenceSCALE: Activities may be completed with or without assistive devices. 9-Kfhlugmkjz-vdfbygb completes the activity by him/herself with no assistance from a helper. 5-Set-up or Clean-up Assistance-helper sets up or cleans up; patient completes activity. [place] assists only prior to or following the activity. 4-Supervision or Touching Assistance-helper provides verbal cues and/or touching/steadying and/or contact guard assistance as patient completes activity. Assistance may be provided throughout the activity or intermittently. 3-Partial/Moderate Assistance-helper does LESS THAN HALF the effort. [place] lifts, holds or supports trunk or limbs, but provides less than half the effort. 2-Substantial/Maximal Assistance-helper does MORE THAN HALF the effort. [place] lifts or holds trunk or limbs and provides more than half the effort. 8-Mkshyaixw-lowofn does ALL the effort. Patient does none of the effort to co mplete the activity. Or, the assistance of 2 or more helpers is required for the patient to complete the activity. If activity was not attempted, code reason: 7-Patient Refused. 9-Not Applicable-not attempted and the patient did not perform the activity before the current illness, exacerbation or injury. 10-Not Attempted due to Environmental Limitations-(lack of equipment, weather restraints, etc.). 88-Not Attempted due to Medical Conditions or Safety Concerns. Eating (QC): 6 Other Treatment Pt up in recliner finishing with lunch, agreeable to OT Tx. Pt used FWW to perform functional mobility to therapy gym, IND. OT tx focused on increasing BUE Strength and activity tolerance. Pt completed arm bike, x15 mins, 20 Watt resistance, taking rest breaks as needed. Pt returned to her room using FWW, IND. Post tx, pt in recliner, call light in reach and all needs met. OT Short Term Goals Short Term Goals Time Frame: Jun 04, 2022 Shower/bathe self: 5 Lower body dressin Putting on/taking off footwear: 5 OT Hydraulic Pile Hammer Operator Goals Hydraulic Pile Hammer Operator Goals Time Frame: Jun 25, 2022 Acute change in mental status: 0 Inattention: 0 Disorganized thinkin Altered level of consciousness: 0 Eating (QC): 6 (met) Oral Hygiene (QC): 6 (met) Toileting Hygiene (QC): 6 (met) Shower/Bathe Self (QC): 6 (met) Upper Body Dressing (QC): 6 (met) Lower Body Dressing (QC): 6 (met) On/Off Footwear (QC): 6 (met) Additional Goals: 1-Demonstrate ADL Tasks, 2-Verbalize Understanding, 3- ImproveStrength/[place] 1=Demonstrate adherence to instructed precautions during ADL tasks. 2=Patient will verbalize/demonstrate understanding of assistive devices/modifications for ADL. 3=Patient will improve strength/tolerance for activity to enable patient to perform ADL's. OT Education/Plan Problem List/Assessment Assessment: Decreased Activ Tolerance, Decreased UE Strength, Impaired I ADL's Discharge Recommendations Plan/Recommendations: Continue POC Treatment Plan/Plan of Care Patient would benefit from OT for education, treatment and training to promote independence in ADL's, mobility, safety and/or upper extremity function for ADL's. Plan of Care: ADL Retraining, Functional Mobility, Group Exercise/Act as Ind, UE Funct Exercise/Act Treatment Duration: Jun 25, 2022 Frequency: At least 5 of 7 days/Wk (IRF) Estimated Hrs Per Day: 1.5 hours per day Agreement: Yes Rehab Potential: Fair Time Start Time: 13:00 Stop Time: 13:30 DATE: Jun 03, 2022 Total Time Billed (hr/min): 30 Billed Treatment Time 1, EX 2 ASHWIN SMITH OT Jun 03, 2022 13:14
[2022-06-03 19:09] VITALS: BP 121/68
[2022-06-03] MEDS: DULoxetine 30 MG (CYMBALTA) CAP PO SCH (20:47)
[2022-06-03] MEDS: LOSARTAN 100 MG (COZAAR) TABLET PO SCH (20:48)
[2022-06-03] MEDS: GABAPENTIN 300 MG (NEURONTIN) CAP PO SCH (20:48)
[2022-06-03] MEDS: MIRTAZAPINE 15 MG (REMERON) TAB PO SCH (20:48)
[2022-06-03] MEDS: rOPINIRole 1 MG (REQUIP) TABLET PO SCH (20:48)
[2022-06-03] MEDS: VALACYCLOVIR 500 MG TAB (VALTREX) PO SCH (20:48)
[2022-06-03] MEDS: DOCUSATE SODIUM 100 MG (COLACE) CAP PO SCH (20:49)
[2022-06-04] MEDS: ASCORBIC ACID (VIT C) 500 MG TABLET PO SCH (06:12)
[2022-06-04] MEDS: LEVOTHYROXINE 50 MCG (LEVOTHROID) TAB PO SCH (06:12)
[2022-06-04] MEDS: ACETAMINOPHEN 500 MG TAB (TYLENOL) PO SCH (06:13)
[2022-06-04] MEDS ORDERED: TRM50T PO (06:44)
[2022-06-04] MEDS ORDERED: OXYC5TAB PO (06:44)
--- NOTE | 2022-06-04 06:52 | D/C HH Face to Face Order ---
D/C Face to Face Orders Reconcile Patient Problems Problems Reviewed?: Yes Instructions for Patient Via [facility], Patient Instructions/FollowUp: PCP 1 week Physician to follow Patient: PCP Discharge Diet for Home: No Restrictions Patient Problems: Hip replacement Patient Data-Allergies,Ht & Wt Patient Allergies: Coded Allergies: Sulfa (Sulfonamide Antibiotics) (Verified Allergy, Unknown, 06/30/15) Height (Feet): 5 Height (Inches): 7.00 Weight (Pounds): 150 Weight (Ounces): 0.0 Home Health Need/Face to Face Date of Face to Face: Jun 04, 2022 Clinical Findings: Generalized weakness and fatigue, Instability, Muscle weakness I have seen Pt iabp-ys-tdtl: Yes Discharged To: Home Diagnosis/Conditions: Debility Patient is Homebound due to: Sandra fall risk due to instabilty, Muscle weakness Homebound Status Due to the above stated illness, injury or surgical procedure (medical condition or diagnosis) and associated clinical findings, the patient is homebound because of his/her inability to leave home except with aid of a sup portive device and/or person AND leaving the home requires a considerable and taxing effort or is medically contraindicated. Pt req the following assistanc: Walker Home Health Nursing Orders Home Health Services Order: Nursing Services, Paratransit Operator-Evaluate & Treat, Physical Therapy-Evaluate & Treat Certify Stmt I certify that this patient is under my care and that I, a nurse practitioner or a physician; a promotional advertising assistant working with me, had a face to face encounter that - meets the physician face to face encounter requirements with this patient as dated. LORRAINE CARNEY DO Jun 04, 2022 06:52
--- NOTE | 2022-06-04 06:55 | Discharge Summary ---
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 h/o of Right Hip Dislocation Hx Right Total Hip Arthroplasty Chronic debility Hx Right Total Knee Arthroplasty Hx Left Total Knee Arthroplasty Osteoporosis Hiatal Hernia HTN Hypothryoidism Chronic Anemia Hx of Low GFR Restless Leg Syndrome Gastroesophageal Reflux Disease Post op constipation severe-resolved 05/31/22 TIA CAD Post op anemia acute on chronic but iron deficiency noted at 24 so ordered Venofer 05/29/22 New home O2 requirement Plan: Aggressive rehab Fall risk Pain control BM regimen 05/28/2022: Add iron and B12 Monitor BP 05/29/2022: BM regimen 05/30/2022: Monitor flucuations of BP 05/31/2022: Supportive care 06/01/2022: Monitor closely 06/02/2022: BM regimen Pain control 06/03/2022: DC tomorrow on O2 (1) Status post left hip replacement Discharge Summary Discharge Physical Examination Allergies: Coded Allergies: Sulfa (Sulfonamide Antibiotics) (Verified Allergy, Unknown, 06/30/15) Vitals & I&Os Vital Signs Date Time Temp Pulse Resp B/P (MAP) Pulse Ox O2 Delivery O2 Flow Rate FiO2 06/04/22 08:30 Room Air 06/04/22 08:00 35.9 89 18 146/71 (96) 97 06/03/22 07:34 2.00 0 General Appearance: Alert, Oriented X3, Cooperative Respiratory: Clear to Auscultation Cardiovascular: Regular Rate Psych/Mental Status: Mental Status NL Hospital Course Was the Problem List Reviewed?: Yes Uneventful course after she was admitted following a slow recovery from joint replacement. Pain was controlled. Bowel regimen was maintained until returned to normal function. IV iron infusions required with good results. Overall had no issues during course and was DC in improved condition. Labs (last 24 hrs) Laboratory Tests 05/28/22 08:23: White Blood Count 5.7, Red Blood Count 2.86L, Hemoglobin 9.3L, Hematocrit 27L, Mean Corpuscular Volume 94, Mean Corpuscular Hemoglobin 33, Mean Corpuscular Hemoglobin Concent 35, Red Cell Distribution Width 12.1, Platelet Count 197, Mean Platelet Volume 8.9L, Immature Granulocyte % (Auto) 0, Neutrophils (%) (Auto) 77H, Lymphocytes (%) (Auto) 7L, Monocytes (%) (Auto) 7, Eosinophils (%) (Auto) 9, Basophils (%) (Auto) 0, Neutrophils # (Auto) 4.4, Lymphocytes # (Auto) 0.4L, Monocytes # (Auto) 0.4, Eosinophils # (Auto) 0.5H, Basophils # (Auto) 0.0, Immature Granulocyte # (Auto) 0.0, Neutrophils % (Manual) 81, Lymphocytes % (Manual) 9, Monocytes % (Manual) 1, Eosinophils % (Manual) 9, Clumped Platelets SLIGHT, Blood Morphology Comment NORMAL, Sodium Level 135, Potassium Level 3.8, Chloride Level 101, Carbon Dioxide Level 26, Anion Gap 8, Blood Urea Nitrogen 13, Creatinine 0.84, Estimat Glomerular Filtration Rate 69, BUN/Creatinine Ratio 15, Glucose Level 120H, Calcium Level 8.6, Corrected Calcium 9.6, Iron Level 24L , Total Bilirubin 0.6, Aspartate Amino Transf (AST/SGOT) 38H, Alanine Aminotransferase (ALT/SGPT) 12, Alkaline Phosphatase 73, Total Protein 5.5L, Albumin 2.8L, Vitamin B12 Level >2000H 05/31/22 05:10: White Blood Count 5.6, Red Blood Count 3.07L, Hemoglobin 9.9L, Hematocrit 29L, Mean Corpuscular Volume 94, Mean Corpuscular Hemoglobin 32, Mean Corpuscular Hemoglobin Concent 34, Red Cell Distribution Width 12.0, Platelet Count 295, Mean Platelet Volume 8.8L, Immature Granulocyte % (Auto) 2, Neutrophils (%) (Auto) 57, Lymphocytes (%) (Auto) 15, Monocytes (%) (Auto) 11, Eosinophils (%) (Auto) 15H, Basophils (%) (Auto) 1, Neutrophils # (Auto) 3.2, Lymphocytes # (Auto) 0.8L, Monocytes # (Auto) 0.6, Eosinophils # (Auto) 0.9H, Basophils # (Auto) 0.1, Immature Granulocyte # (Auto) 0.1, Sodium Level 134L, Potassium Level 4.1, Chloride Level 100, Carbon Dioxide Level 24, Anion Gap 10, Blood Urea Nitrogen 15, Creatinine 0.87, Estimat Glomerular Filtration Rate 66, BUN/Creatinine Ratio 17, Glucose Level 82, Calcium Level 8.9, Corrected Calcium 9.9, Total Bilirubin 0.4, Aspartate Amino Transf (AST/SGOT) 33, Alanine Aminotransferase (ALT/SGPT) 16, Alkaline Phosphatase 59, Total Protein 5.4L, Albumin 2.8L Pending Labs Laboratory Tests 05/28/22 08:23: White Blood Count 5.7, Red Blood Count 2.86, Hemoglobin 9.3, Hematocrit 27, Mean Corpuscular Volume 94, Mean Corpuscular Hemoglobin 33, Mean Corpuscular Hemoglobin Concent 35, Red Cell Distribution Width 12.1, Platelet Count 197, Mean Platelet Volume 8.9, Immature Granulocyte % (Auto) 0, Neutrophils (%) (Auto) 77, Lymphocytes (%) (Auto) 7, Monocytes (%) (Auto) 7, Eosinophils (%) (Auto) 9, Basophils (%) (Auto) 0, Neutrophils # (Auto) 4.4, Lymphocytes # (Auto) 0.4, Monocytes # (Auto) 0.4, Eosinophils # (Auto) 0.5, Basophils # (Auto) 0.0, Immature Granulocyte # (Auto) 0.0, Neutrophils % (Manual) 81, Lymphocytes % (Manual) 9, Monocytes % (Manual) 1, Eosinophils % (Manual) 9, Clumped Platelets SLIGHT, Blood Morphology Comment NORMAL, Sodium Level 135, Potassium Level 3.8, Chloride Level 101, Carbon Dioxide Level 26, Anion Gap 8, Blood Urea Nitrogen 13, Creatinine 0.84, Estimat Glomerular Filtration Rate 69, BUN/Creatinine Ratio 15, Glucose Level 120, Calcium Level 8.6, Corrected Calcium 9.6, Iron Level 24, Total Bilirubin 0.6, Aspartate Amino Transf (AST/SGOT) 38, Alanine Aminotransferase (ALT/SGPT) 12, Alkaline Phosphatase 73, Total Protein 5.5, Albumin 2.8, Vitamin B12 Level >2000 05/31/22 05:10: White Blood Count 5.6, Red Blood Count 3.07, Hemoglobin 9.9, Hematocrit 29, Mean Corpuscular Volume 94, Mean Corpuscular Hemoglobin 32, Mean Corpuscular Hemoglobin Concent 34, Red Cell Distribution Width 12.0, Platelet Count 295, Mean Platelet Volume 8.8, Immature Granulocyte % (Auto) 2, Neutrophils (%) (Auto) 57, Lymphocytes (%) (Auto) 15, Monocytes (%) (Auto) 11, Eosinophils (%) (Auto) 15, Basophils (%) (Auto) 1, Neutrophils # (Auto) 3.2, Lymphocytes # (Auto) 0.8, Monocytes # (Auto) 0.6, Eosinophils # (Auto) 0.9, Basophils # (Auto) 0.1, Immature Granulocyte # (Auto) 0.1, Sodium Level 134, Potassium Level 4.1, Chloride Level 100, Carbon Dioxide Level 24, Anion Gap 10, Blood Urea Nitrogen 15, Creatinine 0.87, Estimat Glomerular Filtration Rate 66, BUN/Creatinine Ratio 17, Glucose Level 82, Calcium Level 8.9, Corrected Calcium 9.9, Total Bilirubin 0.4, Aspartate Amino Transf (AST/SGOT) 33, Alanine Aminotransferase (ALT/SGPT) 16, Alkaline Phosphatase 59, Total Protein 5.4, Albumin 2.8 Discharge Home Medications: Active Scripts Active Tramadol HCl 50 Mg Tablet 50-100 Mg PO Q6H PRN Oxycodone HCl 5 Mg Tablet 5-10 Mg PO Q8H PRN Reported Vitamin D3 (Cholecalciferol (Vitamin D3)) 25 Mcg (1000 Unit) Tab.chew 25 Mcg PO DAILY Meloxicam 15 Mg Tablet 15 Mg PO DAILY Atorvastatin Calcium 40 Mg Tablet 40 Mg PO HS Tylenol Extra Strength (Acetaminophen) 500 Mg Tablet 1,000 Mg PO Q8H Neurontin (Gabapentin) 300 Mg Capsule 300 Mg PO HS Pantoprazole Sodium 40 Mg Tablet.dr 40 Mg PO DAILY Mirtazapine 15 Mg Tablet 15 Mg PO HS Aspirin 81 Mg Tab.chew 81 Mg PO BID Docusate Sodium 100 Mg Capsule 200 Mg PO HS TAKES 2 (100MG) CAPS Vitamin C (Ascorbic Acid) 500 Mg Tablet 500 Mg PO DAILY Cyclobenzaprine HCl 5 Mg Tablet 5 Mg PO BID Valacyclovir (Valacyclovir HCl) 500 Mg Tablet 250 Mg PO HS TAKES OF A 500MG TAB Oxybutynin Chloride ER (Oxybutynin Chloride) 15 Mg Tab.er.24 15 Mg PO DAILY Losartan-Hctz 100-25 mg Tab (Losartan/Hydrochlorothiazide) 1 Each Tablet 1 Ea PO HS Euthyrox (Levothyroxine Sodium) 50 Mcg Tablet 50 Mcg PO DAILY Alendronate Sodium 70 Mg Tablet 70 Mg PO THUR Duloxetine HCl 60 Mg Capsule.dr 60 Mg PO HS Ropinirole HCl 2 Mg Tablet 2 Mg PO HS Instructions to patient/family Please see electronic discharge instructions given to patient. Diagnosis/Problems Diagnosis/Problems (1) Status post left hip replacement LORRAINE CARNEY DO Jun 04, 2022 06:55
[2022-06-04] MEDS: IRON SUCROSE 200 MG/10 ML (VENOFER) VIAL IV SCH (07:57)
[2022-06-04] MEDS: ASPIRIN 81 MG CHEW (CHILDREN'S ASA) PO SCH (07:57)
[2022-06-04] MEDS: PANTOPRAZOLE 40 MG (PROTONIX) TAB PO SCH (07:57)
[2022-06-04] MEDS: CYCLOBENZAPRINE 10 MG (FLEXERIL) TAB PO SCH (07:57)
[2022-06-04] MEDS: MELOXICAM 7.5 MG (MOBIC) TABLET PO SCH (07:57)
[2022-06-04 08:00] VITALS: BP 146/71
[2022-06-04] MEDS: polyethylene glycoL POWDER 17 GM (MIRALAX) PACK PO SCH (09:15)
[2022-06-04] MEDS: SENNA W/DOCUSATE (SENOKOT S) TABLET PO SCH (09:15)
--- NOTE | 2022-06-04 11:21 | Therapy Team Discharge Summary ---
Therapy Discharge Summary Discharge Recommendations Date of Discharge Physical Therapy Patient came to rehab s/p L [facility]. Upon evaluation patient performs rolling with SBA, supine <-> sit min assist, sit <-> stand min assist, transfers CGA, car transfer min assist, ambulate 15' with a rolling walker with CGA, she cannot ambulate over an uneven surface at this time, can propel a manual WC 100' with min assist, and can picker and sorter load and unload an object from the floor using a tool polishing machine operator with CGA. Patient has been performing bed mobility and transfer training, balance and endurance training, functional strengthening, stair training, gait training, and education. Patient has made good progress and has met all of her long-term goals. Now, patient performs rolling and supine <-> sit with independence, sit <-> stand and transfers independent, car transfer independent, ambulates at least 150' with a rolling walker with independence (including 50' with at least 2 turns of 90 degrees and 10' over an uneven surface), can go up and down 12 steps using 2 handrails with independence, and can picker and sorter load and unload an object from the floor using a tool polishing machine operator with independence. Patient is being discharged from this facility today and will be discharged from PT at this time. Roll Left to Right (QC): 6 Sit to Lying (QC): 6 Lying to Sitting/Side of Bed(Q: 6 Sit to Stand (QC): 6 Chair/Feg-xm-Mazmh Xfer(QC): 6 Toilet Transfer (QC): 6 Car Transfer (QC): 6 Does the Patient Walk: Yes Mode of Locomotion: Walk Anticipated Mode of Locomotion: Walk Walk 10 feet (QC): 6 Walk 50 ft with 2 Turns(QC): 6 Walk 150 ft (QC): 6 Walking 10ft on uneven surface: 6 Distance: 15' Gait Assistive Device: FWW Does the Pt Use a Wheelchair: No Wheelchair Distance: 100' Wheel 50 ft with 2 turns (QC): 3 Wheel 150 ft (QC): 88 Type of Wheelchair: Manual #of Steps: 12 1 Step (curb) (QC): 6 4 Steps (QC): 6 12 Steps (QC): 6 Balance Sitting Static: Normal Balance Sitting Dynamic: Normal Balance-Standing Static: Fair Picking up an Object (QC): 6 (uses tool polishing machine operator indep) Occupational Therapy Decreased Activ Tolerance, Decreased UE Strength, Impaired I ADL's Eating (QC): 6 Oral Hygiene (QC): 6 Shower/Bathe Self (QC): 6 Upper Body Dressing (QC): 6 Lower Body Dressing (QC): 6 On/Off Footwear (QC): 6 Toileting Hygiene (QC): 6 PT Skilled Nursing Goals Skilled Nursing Goals PT Skilled Nursing Goals Time Frame: Jun 10, 2022 Roll Left to Right (QC): 6 Sit to Lying (QC): 6 Lying-Sitting on Side/Bed(QC): 6 Sit to Stand (QC): 4 (SBA) Chair/Bmr-ej-Bngmn Xfer(QC): 4 (SBA) Toilet/Commode Transfer (QC): 4 (SBA) Car Transfer (QC): 4 (SBA) Does the Patient Walk: Yes Walk 10 feet (QC): 4 (SBA) Walk 10ft-Uneven Surface(QC): 4 (SBA) Walk 50ft with 2 Turns (QC): 4 (SBA) Walk 150 ft (QC): 4 (SBA) Wheel 50 feet with 2 turns (QC: 9 Wheel 150 feet: 9 1 Step (curb) (QC): 4 (CGA) 4 Steps (QC): 4 (CGA) 12 Steps (QC): 88 Picking up an Object (QC): 4 (SBA) OT Hedis Registered Nurse Rn Goals Skilled Nursing Goals Time Frame: Jun 25, 2022 Acute change in mental status: 0 Inattention: 0 Disorganized thinkin Altered level of consciousness: 0 Eating (QC): 6 (met) Oral Hygiene (QC): 6 (met) Toileting Hygiene (QC): 6 (met) Shower/Bathe Self (QC): 6 (met) Upper Body Dressing (QC): 6 (met) Lower Body Dressing (QC): 6 (met) On/Off Footwear (QC): 6 (met) Additional Goals: 1-Demonstrate ADL Tasks, 2-Verbalize Understanding, 3- ImproveStrength/Shelby 1=Demonstrate adherence to instructed precautions during ADL tasks. 2=Patient will verbalize/demonstrate understanding of assistive devices/modifications for ADL. 3=Patient will improve strength/tolerance for activity to enable patient to perform ADL's. FRANCO WHALEY PT Jun 04, 2022 11:21
--- NOTE | 2022-06-04 13:34 | Therapy Team Discharge Summary ---
Therapy Discharge Summary Discharge Recommendations Date of Discharge Jun 04, 2022 at 10:30 Physical Therapy Roll Left to Right (QC): 6 Sit to Lying (QC): 6 Lying to Sitting/Side of Bed(Q: 6 Sit to Stand (QC): 6 Chair/Aqy-yv-Gvrdn Xfer(QC): 6 Toilet Transfer (QC): 6 Car Transfer (QC): 6 Does the Patient Walk: Yes Mode of Locomotion: Walk Anticipated Mode of Locomotion: Walk Walk 10 feet (QC): 6 Walk 50 ft with 2 Turns(QC): 6 Walk 150 ft (QC): 6 Walking 10ft on uneven surface: 6 Distance: 15' Gait Assistive Device: FWW Does the Pt Use a Wheelchair: No Wheelchair Distance: 100' Wheel 50 ft with 2 turns (QC): 3 Wheel 150 ft (QC): 88 Type of Wheelchair: Manual #of Steps: 12 1 Step (curb) (QC): 6 4 Steps (QC): 6 12 Steps (QC): 6 Balance Sitting Static: Normal Balance Sitting Dynamic: Normal Balance-Standing Static: Fair Picking up an Object (QC): 6 (uses gastroenterology physician indep) Occupational Therapy Pt admitted to [facility] s/p L [facility]. At [facility], pt was independent with ADLs and functional mobility without AD. Upon initial evaluation, pt was independent with eating and oral care, required set up with UE dressing, CGA toileting and min A with LE dressing, footwear and showering. OT tx focused on increasing BUE strength and activity tolerance, as well as increasing safety and independence with ADLs and functional mobility. Pt made good progress towards goals, attaining IND level with all ADLS. Pt discharged home, d/c from OT. Decreased Activ Tolerance, Decreased UE Strength, Impaired I ADL's Eating (QC): 6 Oral Hygiene (QC): 6 Shower/Bathe Self (QC): 6 Upper Body Dressing (QC): 6 Lower Body Dressing (QC): 6 On/Off Footwear (QC): 6 Toileting Hygiene (QC): 6 PT Intermediate Goals Intermediate Goals PT Tube Backer Goals Time Frame: Jun 10, 2022 Roll Left to Right (QC): 6 Sit to Lying (QC): 6 Lying-Sitting on Side/Bed(QC): 6 Sit to Stand (QC): 4 (SBA) Chair/Gem-lv-Xhiuj Xfer(QC): 4 (SBA) Toilet/Commode Transfer (QC): 4 (SBA) Car Transfer (QC): 4 (SBA) Does the Patient Walk: Yes Walk 10 feet (QC): 4 (SBA) Walk 10ft-Uneven Surface(QC): 4 (SBA) Walk 50ft with 2 Turns (QC): 4 (SBA) Walk 150 ft (QC): 4 (SBA) Wheel 50 feet with 2 turns (QC: 9 Wheel 150 feet: 9 1 Step (curb) (QC): 4 (CGA) 4 Steps (QC): 4 (CGA) 12 Steps (QC): 88 Picking up an Object (QC): 4 (SBA) OT Intermediate Goals Intermediate Goals Time Frame: Jun 25, 2022 Acute change in mental status: 0 Inattention: 0 Disorganized thinkin Altered level of consciousness: 0 Eating (QC): 6 (met) Oral Hygiene (QC): 6 (met) Toileting Hygiene (QC): 6 (met) Shower/Bathe Self (QC): 6 (met) Upper Body Dressing (QC): 6 (met) Lower Body Dressing (QC): 6 (met) On/Off Footwear (QC): 6 (met) Additional Goals: 1-Demonstrate ADL Tasks, 2-Verbalize Understanding, 3- ImproveStrength/Shelby 1=Demonstrate adherence to instructed precautions during ADL tasks. 2=Patient will verbalize/demonstrate understanding of assistive devices/modifications for ADL. 3=Patient will improve strength/tolerance for activity to enable patient to perform ADL's. ASHWIN SMITH OT Jun 04, 2022 13:34
== END 2022-06-04 10:30 | disposition home health service (06) | DRG 561 ==
PROVIDERS: ADMIT Internal Medicine; ATTEND Internal Medicine
DX: Z47.1 Aftercare following joint replacement surgery (principal); Z96.642 Presence of left artificial hip joint; R26.9 Unspecified abnormalities of gait and mobility; R54 Age-related physical debility; G62.9 Polyneuropathy, unspecified; K59.09 Other constipation; G25.81 Restless legs syndrome; I25.10 Atherosclerotic heart disease of native coronary artery without angina pectoris; I10 Essential (primary) hypertension; D64.89 Other specified anemias; D50.9 Iron deficiency anemia, unspecified; K21.9 Gastro-esophageal reflux disease without esophagitis; M81.0 Age-related osteoporosis without current pathological fracture; E03.9 Hypothyroidism, unspecified; F32.A Depression, unspecified; K44.9 Diaphragmatic hernia without obstruction or gangrene; Z99.81 Dependence on supplemental oxygen; Z86.73 Personal history of transient ischemic attack (TIA), and cerebral infarction without residual deficits; Z96.653 Presence of artificial knee joint, bilateral; Z95.5 Presence of coronary angioplasty implant and graft; Z79.82 Long term (current) use of aspirin; Z79.899 Other long term (current) drug therapy; Z88.2 Allergy status to sulfonamides
CPT/HCPCS: 36415; 80053; 82607; 83540; 85007; 85025; 85027; 94760

== ENCOUNTER → 2022-07-26 | Outpatient (CLI) | payer MEDICARE ==
[~2022-07-26] MED LIST changes: +ACET-2267 PO; +ATOR40TA70 PO; +CHOL10008 PO; +GABA300C PO; +MELO15TA39 PO; +OXYC5TAB PO; +SENN-271 PO; -SENN1TAB76 PO; +TRM50T PO
--- NOTE | 2022-07-26 10:12 | Diagnostic Imaging Report ---
PROCEDURE: US Hepatic (Liver). TECHNIQUE: Multiple real-time grayscale images were obtained over the right upper quadrant in various projections. INDICATION: Elevated liver function tests. Liver is normal in size at 16 cm. Portal vein is patent and shows normal direction of flow. No discrete liver mass is identified. The gallbladder is surgically absent. No biliary duct dilatation is seen. Pancreas and aorta were secured by overlying bowel gas. IVC is unremarkable. Right kidney is without evidence of calculi or hydronephrosis. There is no ascites. IMPRESSION: Status post cholecystectomy. No significant abnormality is detected. Dictated by: Dictated on workstation # [id number]
== END ==
LOC: RAD 08:54
PROVIDERS: ATTEND Nurse Practitioner Family
DX: R74.01 Elevation of levels of liver transaminase levels (principal); Z90.49 Acquired absence of other specified parts of digestive tract
CPT/HCPCS: 76705